=== PATIENT | male | born 1970 | race African-American/Black ===

== ENCOUNTER 2017-06-17 11:16 | Emergency (ER) | payer OTHER ==
[~2017-06-17] VITALS: Ht 180.3 cm; Wt 89.8 kg
[~2017-06-17 11:16] MED LIST: DOXY1LIQ PO; METF1TAB85 PO
[2017-06-17 11:19] VITALS: Ht 180.3 cm; Wt 89.8 kg
[2017-06-17] MEDS ORDERED: MoRPHine SULFATE 4 MG/ML 1 ML CARP\\VIAL IV PRN (11:45)
[2017-06-17] MEDS ORDERED: SODIUM CHLORIDE 0.9% 1000ML 1,000 ML IV ONE (11:45)
[2017-06-17] MEDS ORDERED: ONDANSETRON INJ 2 MG/ML 2 ML VIAL IV PRN (11:45)
--- NOTE | 2017-06-17 11:51 | EMERGENCY ROOM VISIT NOTE ---
History First contact with patient: 11:35 Chief Complaint: NAUSEA Stated Complaint: N, BURNING STOMACH, DIZZY Nursing Triage Summary: triage note; pt reports nausea, "burning stomach", dizziness since yesterday. History of Present Illness The patient is a 46 year old male who presents to the Emergency Room with complaints of a burning diffuse abdominal pain that started last night. He also complains of nausea and dizziness. No changes in bowel movements. No diarrhea or blood in his stool. He denies any fever or chills. He has tried Tums and Pepto-Bismol with no relief of the pain. The pain is constant. No recent changes in medications. The patient is a diabetic. He says that his blood sugar has been under control over the last day. Review of Systems 10 system review performed and negative unless noted in HPI or below Past Medical/Surgical History Medical Problems: (1) No Known Active Medical Problems Diabetes type 2 Family History No pertinent family history Social History Smoking Status: Never Smoker Alcohol Use: none Drug Use: none Marital Status: in relationship Housing Status: lives with significant other Occupation Status: employed Current/Historical Medications Scheduled Insulin Glargine (Lantus Solostar), 10 SC QAM Metformin Hcl (Glucophage Ext Rel), 1,000 MG PO BID Ondasetron Odt (Zofran Odt), 10 MG SL Q6H Pantoprazole (Protonix), 1 TAB PO BID Physical Exam Vital Signs Date Time Temp Pulse Resp B/P (MAP) Pulse Ox O2 Delivery O2 Flow Rate FiO2 06/17/17 15:24 36.5 80 18 145/90 98 06/17/17 15:19 80 18 145/90 98 Room Air 06/17/17 13:19 89 18 155/91 06/17/17 11:19 36.5 117 20 123/87 98 Room Air Physical Exam VITALS: Vitals are noted on the nurse's note and reviewed by myself. Vital signs stable. GENERAL: 46-year-old male, mildly uncomfortable in appearance SKIN: The skin was without rashes, erythema, edema, or bruising. HEAD: Normocephalic atraumatic. MOUTH: Mucous membranes slightly dry. NECK: No JVD. HEART: Regular rate and rhythm without murmurs gallops or rubs. LUNGS: Clear to auscultation bilaterally without wheezes, rales or rhonchi. No accessory muscle use. ABDOMEN: Bowel sounds present, but hypoactive. Soft, no focal tenderness noted , without organomegaly. No guarding or rebound tenderness. MUSCULOSKELETAL: No muscle atrophy, erythema, or edema noted. Strength 5/5 throughout. NEURO: Patient was alert and oriented to person place and time. Normal sensation to touch. No focal neurological deficits. Medical Decision & Procedures Laboratory Results 06/17/17 11:35 Red Blood Count 5.87, Mean Corpuscular Volume 80.2, Mean Corpuscular Hemoglobin 28.8, Mean Corpuscular Hemoglobin Concent 35.9, Mean Platelet Volume 10.0, Neutrophils (%) (Auto) 60.1, Lymphocytes (%) (Auto) 30.8, Monocytes (%) (Auto) 8.0, Eosinophils (%) (Auto) 0.6, Basophils (%) (Auto) 0.1, Neutrophils # (Auto) 4.85, Lymphocytes # (Auto) 2.49, Monocytes # (Auto) 0.65, Eosinophils # (Auto) 0.05, Basophils # (Auto) 0.01 06/17/17 11:35 Test 06/17/17 11:30 06/17/17 11:35 Urine Color YELLOW Urine Appearance CLEAR (CLEAR) Urine pH 5.0 (4.5-7.5) Urine Specific [place] 1.030 (1.000-1.030) Urine Protein NEG (NEG) Urine Glucose (UA) NEG (NEG) Urine Ketones NEG (NEG) Urine Occult Blood NEG (NEG) Urine Nitrite NEG (NEG) Urine Bilirubin NEG (NEG) Urine Urobilinogen NEG (NEG) Urine Leukocyte Esterase NEG (NEG) White Blood Count 8.08 K/uL (4.8-10.8) Red Blood Count 5.87 M/uL (4.7-6.1) Hemoglobin 16.9 g/dL (14.0-18.0) Hematocrit 47.1 % (42-52) Mean Corpuscular Volume 80.2 fL (80-100) Mean Corpuscular Hemoglobin 28.8 pg (25-34) Mean Corpuscular Hemoglobin Concent 35.9 g/dl (32-36) Platelet Count 201 K/uL (130-400) Mean Platelet Volume 10.0 fL (7.4-10.4) Neutrophils (%) (Auto) 60.1 % Lymphocytes (%) (Auto) 30.8 % Monocytes (%) (Auto) 8.0 % Eosinophils (%) (Auto) 0.6 % Basophils (%) (Auto) 0.1 % Neutrophils # (Auto) 4.85 K/uL (1.4-6.5) Lymphocytes # (Auto) 2.49 K/uL (1.2-3.4) Monocytes # (Auto) 0.65 K/uL (0.11-0.59) Eosinophils # (Auto) 0.05 K/uL (0-0.5) Basophils # (Auto) 0.01 K/uL (0-0.2) RDW Standard Deviation 37.9 fL (36.4-46.3) RDW Coefficient of Variation 13.0 % (11.5-14.5) Immature Granulocyte % (Auto) 0.4 % Immature Granulocyte # (Auto) 0.03 K/uL (0.00-0.02) Anion Gap 10.0 mmol/L (3-11) Est Creatinine Clear Calc Drug Dose 65.5 ml/min Estimated GFR () 63.8 Estimated GFR (Non- 55.0 BUN/Creatinine Ratio 16.5 (10-20) Calcium Level 9.3 mg/dl (8.5-10.1) Total Bilirubin 0.2 mg/dl (0.2-1) Aspartate Amino Transf (AST/SGOT) 25 U/L (15-37) Alanine Aminotransferase (ALT/SGPT) 31 U/L (12-78) Alkaline Phosphatase 76 U/L (45-117) Total Protein 7.7 gm/dl (6.4-8.2) Albumin 3.7 gm/dl (3.4-5.0) Globulin 4.0 gm/dl (2.5-4.0) Albumin/Globulin Ratio 0.9 (0.9-2) Lipase 143 U/L (73-393) Medications Administered Medications (Trade) Dose Ordered Sig/Marcos Route Start Time Stop Time Status Last Admin Dose Admin Sodium Chloride 1,000 ml @ 999 mls/hr Q1H1M ONCE IV 06/17/17 11:45 06/17/17 12:45 DC 06/17/17 12:05 999 MLS/HR Ondansetron HCl (Zofran Inj) 4 mg Q2H PRN IV 06/17/17 11:45 06/17/17 15:56 DC 06/17/17 12:06 4 MG Morphine Sulfate (MoRPHine SULFATE INJ) 4 mg Q1H PRN IV 06/17/17 11:45 06/17/17 15:56 DC 06/17/17 12:05 4 MG Pantoprazole Sodium 40 mg/ Syringe 10 ml @ 5 mls/min NOW ONCE IV 06/17/17 13:45 06/17/17 13:46 DC 06/17/17 13:45 5 MLS/MIN ED Course Patient was seen and examined Vital signs including blood pressure were reviewed medications list was verified with patient Labs were obtained, and a saline lock was established The patient was given morphine 4 mg IV, Zofran 4 mg IV and hydrated with 1 L of normal saline Upon reevaluation, the patient was feeling much better. He was given 1 dose of pantoprazole 40 mg IV. We discussed his workup. He voiced understanding. I reviewed discharge instructions the patient. They voiced understanding and had no further questions. Medical Decision DIFFERENTIAL DIAGNOSIS: Gastroenteritis, Hepatitis, cholecystitis, cholangitis, biliary colic, pancreatitis, appendicitis, inguinal hernia, nephrolithiasis, inflammatory bowel disease, mesenteric adenitis, peptic ulcer disease, GERD, gastritis, pancreatitis,, bowel obstruction, splenic infarct, diverticulitis, mesenteric ischemia, metabolic, peritonitis, among others. This patient is a 46-year-old male that presented to the emergency department with complaints of nausea and a burning diffuse abdominal pain. He was afebrile. His abdomen was benign on exam. There is no leukocytosis. Liver function and lipase were unremarkable. He did have a very slight elevation of his creatinine at 1.5. Upon review of past labs, his last creatinine was 1.4. He was notified of this. He was hydrated with normal saline. He was given 1 dose of morphine and Zofran with excellent symptomatic relief. The patient was pain free when I reevaluated him. The etiology of his pain is unclear. It is possible that he had an episode of reflux. He was put on a PPI BID for 14 days. He was also given a prescription for Zofran. I instructed him to follow up with his primary care physician within the next 2-3 days for a recheck. He will return to the ED for any new or worsening symptoms. This chart was completed in part utilizing [employer] Speech Voice Recognition software. Attempts were made to minimize the grammatical errors, random word insertions, pronoun errors and incomplete sentences. Any formal questions or concerns about the content, text or information contained within the body of this dictation should be directly addressed to the provider for clarification. Blood Pressure Screening Patient's blood pressure: Normal blood pressure Impression Primary Impression: Abdominal pain Additional Impression: Nausea Departure Information Dispostion Home / Self-Care Condition GOOD Prescriptions Ondasetron Odt (ZOFRAN ODT) 4 Mg Tab 10 MG SL Q6H for Nausea, #6 TAB Prov: Alcira Wiley PA-C 06/17/17 Pantoprazole (PROTONIX) 40 Mg Tab 1 TAB PO BID for 14 Days, #28 TAB 3 Refills Prov: Alcira Wiley PA-C 06/17/17 Referrals No Doctor, Assigned (PCP) Patient Instructions My [facility] Additional Instructions You were evaluated in the emergency department today for abdominal pain and nausea. Your symptoms have resolved. It is however recommended that you follow up with your primary care physician within the next 2-3 days for a recheck. Please take pantoprazole 1 pill twice daily for 14 days Please take Zofran 1 tab under the tongue every 6 hours as needed for nausea Return to the emergency department if you have any of the following symptoms: -Fever of 103F or greater -Persistent vomiting - Persistent diarrhea -Lethargy -Chest pain -Shortness of breath -Worsening pain It is okay to return to work tomorrow 06/18/17 Problem Qualifiers
[2017-06-17] MEDS ORDERED: METF1TAB53 PO (12:16)
[2017-06-17] MEDS ORDERED: INSDGIPEN SC (12:16)
[2017-06-17 12:23] LABS: URINE APPEARANCE CLEAR (CLEAR); URINE BILIRUBIN NEG (NEG); URINE COLOR YELLOW; URINE NITRITE NEG (NEG); UROBILINOGEN NEG (NEG)
[2017-06-17 12:27] LABS: BASO % 0.1 %; BASO ABS # 0.01 K/uL (0-0.2); COMPLETE YES; EOS % 0.6 %; HEMATOCRIT 47.1 % (42-52); IG% 0.4 %; LYMPH % 30.8 %; LYMPH ABS # 2.49 K/uL (1.2-3.4); MEAN CELL VOLUME 80.2 fL (80-100); MEAN CORPUSCULAR HEMOGLOBIN 28.8 pg (25-34); MEAN CORPUSCULAR HGB CONC 35.9 g/dl (32-36); NEUT % 60.1 %; PLATELET COUNT 201 K/uL (130-400); RED BLOOD COUNT 5.87 M/uL (4.7-6.1); WHITE BLOOD COUNT 8.08 K/uL (4.8-10.8)
[2017-06-17 12:28] LABS: MANUAL MICROSCOPIC REQUIRED? NO; REVIEW REQ? NO
[2017-06-17 12:51] LABS: BUN/CREATININE RATIO 16.5 (10-20); CALCIUM 9.3 mg/dl (8.5-10.1); CREATININE 1.5 mg/dl (0.60-1.40); POTASSIUM 4.3 mmol/L (3.5-5.1)
[2017-06-17 12:53] LABS: ALB/GLOB RATIO 0.9 (0.9-2)
[2017-06-17] MEDS ORDERED: PANTOprazole INJ 40 MG in SYRINGE 0 ML IV ONE (13:45)
[2017-06-17] MEDS ORDERED: ONDA4TAB10 SL (14:16)
[2017-06-17] MEDS ORDERED: PANT1TAB48 PO (14:16)
[2017-06-17 15:24] VITALS: BP 145/90; PULSE 80; TEMP 36.5; O2SAT 98
== END 2017-06-17 15:25 | disposition home or self-care (01) ==
LOC: C.EDB 11:19 → C.EDC 15:25
DX: R10.84 Generalized abdominal pain (principal); R11.0 Nausea; E11.9 Type 2 diabetes mellitus without complications; Z79.4 Long term (current) use of insulin; Z79.899 Other long term (current) drug therapy; Z79.84 Long term (current) use of oral hypoglycemic drugs

== ENCOUNTER 2019-03-09 01:07 | Observation (INO) ==
[2019-03-09] MEDS ORDERED: MoRPHine SULFATE 4 MG/ML 1 ML CARP\\VIAL IV STA (01:24)
[2019-03-09] MEDS ORDERED: LABETALOL HCL IV 5 MG/ML 20ML IV STA (01:24)
[2019-03-09 01:39] LABS: Basophils # (auto) 0.02 K/uL (0-0.2); Basophils % (auto) 0.3 %; Eosinophils # (auto) 0.06 K/uL (0-0.5); Hematocrit (blood only) 46.8 % (42-52); Hemoglobin 16.5 g/dL (14.0-18.0); Immature Granulocytes # (auto) 0.01 K/uL (0.00-0.02); Immature Granulocytes % (auto) 0.2 %; Lymphocytes # (auto) 2.83 K/uL (1.2-3.4); Lymphocytes % (auto) 48.7 %; Mean Corpuscular Hgb Conc 35.3 g/dL (32-36); Mean Corpuscular Volume 80.4 fL (80-100); Mean Platelet Volume 10.5 fL (7.4-10.4); Monocytes # (auto) 0.43 K/uL (0.11-0.59); Monocytes % (auto) 7.4 %; Neutrophils # (auto) 2.46 K/uL (1.4-6.5); Neutrophils % (auto) 42.4 %; Platelet Count 164 K/uL (130-400); RDW Coefficient of Variation 12.8 % (11.5-14.5); Red Blood Count 5.82 M/uL (4.7-6.1); White Blood Count 5.81 K/uL (4.8-10.8)
[2019-03-09 02:07] LABS: Alanine Aminotransferase 43 U/L (12-78); Albumin Level 3.8 gm/dl (3.4-5.0); Alkaline Phosphatase 104 U/L (45-117); Aspartate Aminotransferase 27 U/L (15-37); BUN Creatinine Ratio 12.6 (10-20); Bilirubin,Total 0.3 mg/dl (0.2-1); Blood Urea Nitrogen 14 mg/dl (7-18); Calcium 9.1 mg/dl (8.5-10.1); Carbon Dioxide 28 mmol/L (21-32); Chloride 103 mmol/L (98-107); Est GFR (African American) 89.5; Est GFR (Non-African American) 77.3; Glucose 128 mg/dl (70-99); Magnesium 1.6 mg/dl (1.8-2.4); Potassium 3.9 mmol/L (3.5-5.1); Sodium 138 mmol/L (136-145); Total Protein 8.2 gm/dl (6.4-8.2); Troponin I < 0.015 ng/ml (0-0.045)
[2019-03-09 03:23] LABS: Appearance Urine Clear (Clear); Bilirubin Urine Negative (Negative); Blood Urine Negative (Negative); Color Urine Yellow; Glucose Urine UA Negative (Negative); Ketones Urine Negative (Negative); Leukocyte Esterase Urine Negative (Negative); Nitrite Urine Negative (Negative); Protein Urine Negative (Negative); Specific Gravity Urine 1.016 (1.000-1.030); Urobilinogen Urine Negative (Negative)
--- NOTE | 2019-03-09 06:09 | Emergency Department Note ---
Entered by Edgar Holland acting as a scribe for ED Provider Note Name: Km Babb Age: 48, male Arrives Via: EMS Informant: Patient CC: Dizziness HPI: The patient is a 48 year male who presents to the emergency department with complaints of constant dizziness beginning yesterday. The patient states that he was in the emergency department a week ago for similar symptoms. He notes that his symptoms went away, but he reports that he became dizzy again yesterday. The patient states that he also developed a headache in the front of his head yesterday. He notes that he took a BC powder with no relief of his symptoms. He also complains of nausea and abdominal burning. He denies any vomiting, fever, neck pain, and ear pain. He reports that he does not drink alcohol. ROS: See above HPI for pertinent positives & negatives. A total of 10 systems reviewed and were otherwise negative. Past Medical History: GERD, hypertension Past Surgical History: None Family History: Diabetes Social History: Does not drink alcohol, employed, lives alone Home Medications: Insulin, metformin, Protonix Allergies: Lidocaine Physical: Vitals: BP 153/114 H, Pulse 96 H, Resp 18, Temp 98.2 F, O2 Sat 96 Exam: GENERAL: Patient is uncomfortable appearing and in no acute distress. EYES: No scleral icterus, unremarkable pupils, mild horizontal nystagmus. ENT: Mucous membranes moist, no nasal congestion. NECK: No masses appreciated, no meningismus, trachea is midline. RESPIRATORY: No dyspnea. Clear to auscultation and equal bilaterally. No wheeze, no rhonchi. CARDIOVASCULAR: Regular rate and rhythm. No murmurs, rubs, gallops appreciated. GASTROINTESTINAL: Abdomen soft, non-tender, no peritonitis. Bowel sounds positive. No masses appreciated. BACK: No midline tenderness, no CVA tenderness EXTREMITIES: Normal motion all extremities, no cyanosis, no edema. NEUROLOGIC: Alert and oriented, no acute motor or sensory deficits, no focal weakness, cranial nerves grossly intact. SKIN: No rash, no jaundice, no diaphoresis. ED Course: Prior Medical Record, Triage/Nursing Notes, Medications, Allergies reviewed by Me 0110: The patient was evaluated in room B6. A complete history and physical exam was performed. 0236: I reevaluated and updated the patient. He was sleeping. I woke him and he is not in any distress. He is somewhat somnolent. He denies any further symptoms. 0449: I rechecked the patient. He is still ataxic. He is having difficulty walking. 0517: Upon reevaluation, the patient is stable. I discussed the findings and the treatment plan with the patient. He expresses agreement and understanding. I spo ke with Dr. Harding of the [facility]. After discussing the patient's symptoms, he feels as though brining the patient in for evaluation is reasonable. He will be evaluated for further management. Vital Signs: reviewed and remarkable for HTN Labs: Reviewed and remarkable for wnl Interventions: Saline Lock, Morphine 4mg IV, Labetalol 10mg IV Imaging: CT HEAD: Compared to 02/26/19. No ICH, mass effect, or midline shift. No acute cortical infarct. Radiologist: Kylah Faith MD. EKG: EKG results per my interpretation. Indication - dizziness. Sinus tachycardia, 104, no ectopy, no ischemia. Consults: I spoke with Dr. Harding of the [facility]. After discussing the patient's symptoms, he feels as though brining the patient in for evaluation is reasonable. He will be evaluated for further management. Blood pressure: Normal. No Referral necessary Disposition: Hospitalization Differentials: Differential diagnosis includes: tension headache, cluster headache, migraine headache, meningitis/encephalitis, sinusitis, dental infection, temporal arteritis, glaucoma, carbon monoxide exposure, ICH, SAH, infection, intracranial mass, sinus thrombosis, arterial dissection, as well as others were entertained. Medical Decision Makin yr old male arrives for second time in 2 weeks with what sounds like BPPV however associated with headache. Already with CTA last week unremarkable. Labs today and CT head wo con unremarkable. On discussing seems symptoms on and off but much worse over last 6-12 hours (though timeline is a bit tough to get specific on from him. He has no neuro deficits and even cerebellar with hand/feet unremarkable, however despite significant amount of time post meds he still is unable to even walk straight to get in bathroom. Given HTN, DMII, and severity of issues with ambulation I have asked Hospitalist to bring in for further evaluation and they agree with this plan. Symptoms seem more vertiginous, though unable to rule out stroke/thrombosis/etc without further work-up. He does not exhibit evidence of meningitis at this time. Will need MRI for further work-up thus put in order for hospitalist team. Impression: Ataxia Dennys Calvo MD The scribe's documentation has been prepared under my direction and personally reviewed by me in its entirety. I confirm that the note above accurately reflects all work, treatment, procedures, and medical decision making performed by me. Impression & Plan Ataxia Past Med/Surg History Medical History Headache (Acute) HTN (hypertension) (Acute) GERD (gastroesophageal reflux disease) (Chronic) Type 2 diabetes mellitus (Chronic) Abdominal pain (Acute) Dehydration (Acute) Nausea (Acute) New onset type 2 diabetes mellitus (Acute) No pertinent family history Surgical History No significant past surgical history (Chronic) Social History Preferred Language: Mohawk marital status: Single Current Living Situation: Alone current occupational status: employed Feels Safe at Home: Yes Smoking Status: Never smoker Hx Alcohol Use: No Results & Data Vital Signs Vital Signs - 24 hr 03/09/19 01:17 03/09/19 02:16 03/09/19 03:02 Temperature 36.8 C Temperature Source Oral Sepsis Recent Fever Within 48 Hours No Sepsis Action Taken by Nursing No Action Required Pulse Rate 109 H Pulse Rate [Left] 96 H 90 Pulse Rhythm [Left] Regular Regular Pulse Strength [Left] Respiratory Rate 18 18 18 Respiratory Effort / Characteristics Non-Labored Non-Labored Non-Labored Spontaneous Respiratory Depth Normal Normal Normal Blood Pressure 173/129 H Blood Pressure [Left Arm] 153/114 H 133/93 Blood Pressure Mean 143 Blood Pressure Mean [Left Arm] 127 106 Pulse Oximetry 98 96 96 Oxygen Delivery Method Room Air Room Air Room Air 03/09/19 04:22 03/09/19 05:02 Temperature Temperature Source Sepsis Recent Fever Within 48 Hours Sepsis Action Taken by Nursing Pulse Rate Pulse Rate [Left] 92 H 89 Pulse Rhythm [Left] Regular Regular Pulse Strength [Left] Normal Respiratory Rate 18 18 Respiratory Effort / Characteristics Non-Labored Non-Labored Spontaneous Respiratory Depth Normal Normal Blood Pressure Blood Pressure [Left Arm] 116/83 116/83 Blood Pressure Mean Blood Pressure Mean [Left Arm] 94 94 Pulse Oximetry 97 96 Oxygen Delivery Method Room Air Room Air Home Medications Current Medication List: was personally reviewed by me Laboratory Data Attestation: I reviewed the patient's lab results. Result diagrams: 03/09/19 01:31 03/09/19 01:31 Lab Results 03/09/19 03/09/19 03/09/19 Range/Units 01:31 01:31 03:15 WBC 5.81 (4.8-10.8) K/uL RBC 5.82 (4.7-6.1) M/uL Hgb 16.5 (14.0-18.0) g/dL Hct 46.8 (42-52) % MCV 80.4 (80-100) fL MCH 28.4 (25-34) pg MCHC 35.3 (32-36) g/dL RDW Std Deviation 37.0 (36.4-46.3) fL RDW Coeff of Kt 12.8 (11.5-14.5) % Plt Count 164 (130-400) K/uL MPV 10.5 H (7.4-10.4) fL Immature Gran % (Auto) 0.2 % Neut % (Auto) 42.4 % Lymph % (Auto) 48.7 % [place] % (Auto) 7.4 % Eos % (Auto) 1.0 % Baso % (Auto) 0.3 % Immature Gran # (Auto) 0.01 (0.00-0.02) K/uL Neut # (Auto) 2.46 (1.4-6.5) K/uL Lymph # (Auto) 2.83 (1.2-3.4) K/uL [place] # (Auto) 0.43 (0.11-0.59) K/uL Eos # (Auto) 0.06 (0-0.5) K/uL Baso # (Auto) 0.02 (0-0.2) K/uL Sodium 138 (136-145) mmol/L Potassium 3.9 (3.5-5.1) mmol/L Chloride 103 (98-107) mmol/L Carbon Dioxide 28 (21-32) mmol/L Anion Gap 7.0 (3-11) BUN 14 (7-18) mg/dl Creatinine 1.12 (0.6-1.4) mg/dl Est Cr Clr Drug Dosing 95.0 ml/min Est GFR ( Amer) 89.5 Est GFR (Non-Af Amer) 77.3 BUN/Creatinine Ratio 12.6 (10-20) Glucose 128 H (70-99) mg/dl Calcium 9.1 (8.5-10.1) mg/dl Magnesium 1.6 L (1.8-2.4) mg/dl Total Bilirubin 0.3 (0.2-1) mg/dl Direct Bilirubin (0-0.2) mg/dl AST 27 (15-37) U/L ALT 43 (12-78) U/L Alkaline Phosphatase 104 (45-117) U/L Troponin I < 0.015 (0-0.045) ng/ml Total Protein 8.2 (6.4-8.2) gm/dl Albumin 3.8 (3.4-5.0) gm/dl Lipase 150 (73-393) U/L Specimen Hemolysis Urine Color Yellow Urine Appearance Clear (Clear) Urine pH 5.0 (4.5-7.5) Ur Specific [place] 1.016 (1.000-1.030) Urine Protein Negative (Negative) Urine Glucose (UA) Negative (Negative) Urine Ketones Negative (Negative) Urine Blood Negative (Negative) Urine Nitrite Negative (Negative) Urine Bilirubin Negative (Negative) Urine Urobilinogen Negative (Negative) Ur Leukocyte Esterase Negative (Negative) Administered Medications Discontinued Medications Labetalol HCl (Normodyne) 10 mg IV NOW STA Stop: 03/09/19 01:25 Last Admin: 03/09/19 01:48 Dose: 10 mg Documented by: [id number] Cosigned by: [id number] Morphine Sulfate (Morphine Sulfate) 4 mg IV NOW STA Stop: 03/09/19 01:25 Last Admin: 03/09/19 01:47 Dose: 4 mg Documented by: [id number] Head Trauma GCS Score: 15 Discharge Plan Visit Data Chief Complaint: Dizziness Stated Complaint: DIZZINEES/WEAKNESS Other Complaint: Weakness ED Provider: Dennys Calvo Discharge Problem: Ataxia Patient Disposition: Being Evaluated by Hospitalist Forms Stand Alone Forms: My [employer] Prescriptions Prescriptions: No Action Lantus U-100 Insulin 100 unit/mL Solution 10 unit SUBCUT QAM RF: 0 pantoprazole [Protonix] 40 mg Tablet,Delayed Release (Dr/Ec) 40 mg PO BID RF: 0 metformin 1,000 mg Tablet 1,000 mg PO QAM RF: 0 Referrals Referrals: Pilar Elena CRNP [Primary Care Provider] - The scribe's documentation has been prepared under my direction and personally reviewed by me in its entirety. I confirm that the note above accurately reflects all work, treatment, procedures, and medical decision making performed by me.
--- NOTE | 2019-03-09 06:56 | Magnetic Resonance Report ---
MRA OF THE INTRACRANIAL CIRCULATION WITHOUT CONTRAST CLINICAL HISTORY: dizziness and imbalance COMPARISON STUDY: Head CT and CTA of the head February 26, 2019. TECHNIQUE: Utilizing a 1.5 Joy magnet and 3-D [id number] technique, unenhanced MRA of the intra cranial circulation was obtained. FINDINGS: The bilateral M1, M2, A1 and A2 segments are patent. There is no intracranial aneurysm. The re is no abrupt vessel cut off. The intracranial portion of the right vertebral artery is diminutive. This is unchanged and CTA of February 26, 2019. 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 Posterior circulation is intact. IMPRESSION: 1. No intracranial aneurysm or abrupt vessel cut off. 2. Diminutive intracranial portion of the right vertebral artery which is unchanged since CT of February 26, 2019. 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 Electronically signed by: Nicolas Love M.D. 03/09/2019 6:55 AM
[2019-03-09] MEDS ORDERED: GADOBUTROL 30ML VIAL IV PRN (07:03)
--- NOTE | 2019-03-09 07:16 | Magnetic Resonance Report ---
MRI OF THE BRAIN WITHOUT AND WITH IV CONTRAST CLINICAL HISTORY: dizziness and imbalance COMPARISON STUDY: Head CT and CTA of the head February 24, 2019. TECHNIQUE: Utilizing a 1.5 Joy magnet and dedicated coil, multiplanar, multiecho imaging of the br ain was performed pre and postcontrast administration. IV administration of 9.5 mL of Gadavist contr ast was uneventful. FINDINGS: There are no foci of restricted diffusion to suggest acute infarct. No acute intracranial h emorrhage, midline shift or mass effect is present. Brain volume is normal. Ventricular system is nor mal. The basilar cisterns are patent. There are no extra-axial collections. Flow-voids for the major intracranial vessels are present. There is no intracranial mass or pathologic enhancement. No parench ymal signal abnormality is identified. Orbits and sinuses are unremarkable. IMPRESSION: Unremarkable MRI of the brain. Electronically signed by: Nicolas Love M.D. 03/09/2019 7:15 AM
[2019-03-09] MEDS ORDERED: NITROGLYCERIN SL 0.4 MG/TAB TAB SL PRN (07:31)
[2019-03-09] MEDS ORDERED: ONDANSETRON INJ 2 MG/ML 2 ML VIAL IV PRN (07:31)
[2019-03-09] MEDS ORDERED: LABETALOL HCL IV 5 MG/ML 20ML IV PRN (07:31)
[2019-03-09] MEDS ORDERED: MoRPHine SULFATE 4 MG/ML 1 ML CARP\\VIAL IV PRN (07:31)
[2019-03-09] MEDS: SODIUM CHLORIDE 0.9% 1000ML 1,000 ML IV SCH ×2 (07:39→21:05)
[2019-03-09] MEDS ORDERED: GLUCOSE 10 TABS/TUBE PO PRN (07:45)
[2019-03-09] MEDS ORDERED: GLUCOSE 40% GEL 15 GM TUBE PO PRN (07:45)
[2019-03-09] MEDS ORDERED: CARBOHYDRATES FOR HYPOGLYCEMIA PO PRN (07:45)
[2019-03-09] MEDS ORDERED: DEXTROSE 50% 50 ML SYRINGE IV PRN (07:45)
[2019-03-09] MEDS ORDERED: GLUCAGON FOR INJ 1 MG VIAL IM PRN (07:45)
--- NOTE | 2019-03-09 08:23 | CT Scan Report ---
CT OF THE HEAD WITHOUT CONTRAST CLINICAL HISTORY: return headache vertigo COMPARISON STUDY: Head CT and CTA of the head February 26, 2019. CT DOSE: 537.48 mGy.cm TECHNIQUE: Helical axial images of the head were obtained without IV contrast. Automated exposure con trol was utilized for the study. A dose lowering technique was utilized adhering to the principles o f ALARA. FINDINGS: No acute intracranial hemorrhage, midline shift or mass effect is present. Ventricular syst em is normal. Basilar cisterns are patent. There are no extra-axial collections. Beal-white different iation is maintained. There are no findings to suggest acute dural sinus thrombosis or acute territor ial infarct. Visualized portions of the sinuses and mastoid air cells are clear. IMPRESSION: No acute intracranial findings. Electronically signed by: Nicolas Love M.D. 03/09/2019 8:22 AM
[2019-03-09] MEDS: MAGNESIUM SULFATE / D5W 1 GM/100 ML BAG IV SCH ×2 (08:29→10:06)
[2019-03-09] MEDS: INSULIN ASPART 100 UNITS/ML 3 ML PEN SC SCH ×4 (08:33→20:46)
[2019-03-09] MEDS: INSULIN GLARGINE SOLOSTAR 100 UNITS/ML 3 ML PEN SQ SCH (08:33)
[2019-03-09] MEDS: PANTOprazole 40 MG TAB PO SCH ×2 (08:34→20:44)
--- NOTE | 2019-03-09 10:33 | Ultrasound Report ---
CAROTID ARTERY ULTRASOUND CLINICAL HISTORY: severe dizziness COMPARISON STUDY: None. TECHNIQUE: Real-time, grayscale, and color Doppler sonography of the carotid and vertebral arteries w as performed. Images were viewed in the transverse and longitudinal planes. FINDINGS: There is no significant atherosclerotic plaque. Velocity measurements are listed below. COMMON CAROTID PEAK SYSTOLIC VELOCITY (CM/S): RIGHT 128 LEFT 115 ICA PEAK SYSTOLIC VELOCITY (CM/S): RIGHT 91 LEFT 81 Systolic ratios between the internal to common carotid arteries are normal. Antegrade flow is seen in the left vertebral artery. Right vertebral artery was not visualized. The e xternal carotid arteries are patent. Due to IV, blood pressure was not obtained. IMPRESSION: 1. No evidence for a hemodynamically significant stenosis within the bilateral internal carotid arter ies. 2. Nonvisualization of flow within the right vertebral artery. This is likely due to a small/hypoplas tic vessel. Vessel occlusion could appear similar although is considered less likely. Electronically signed by: Nicolas Love M.D. 03/09/2019 10:31 AM
--- NOTE | 2019-03-09 11:14 | History and Physical Report ---
DATE OF ADMISSION: 03/09/2019 CHIEF COMPLAINT: Dizziness and severe headache and imbalance. HISTORY OF PRESENT ILLNESS: This is a 48-year-old male with past medical history significant for diabetes, GERD, presents with severe headache and dizziness. The patient was here in the hospital in the ER on 02/26 with same severe headache and dizziness. At that time, he was treated with pain medications and meclizine, and CT of the head and CTA of the head were okay, and the patient was discharged home. The patient says that again the symptoms came back today, initially tried to treat himself with wuzy-ktv-mlueoio pain medications, but that did nothing to his severe headaches and also felt nauseous and has severe abdominal pain, like squeezing of his abdomen, which brought him to the ER. In the ER, he was given IV morphine and his blood pressure was running high, was given IV labetalol and CT of the brain was done without contrast, unofficial report is unremarkable, but the patient is still somewhat woozy. He says he had blurred vision when this headache started and still has some blurred visions. Headache is better, but still feeling dizzy and whenever he stands up, he was having difficulty ambulating because he is feeling dizzy, so we are called for admission. After the labetalol is given, his blood pressure improved . His vital signs are stable. Denies any fever or chills, no earache, no runny nose, no sore throat, no difficulty swallowing. Appetite is good. No chest pain or shortness of breath. No nausea, no vomiting. Currently, no diarrhea, no constipation, no blood in the stools, no black stools. Normal bladder movements. No hematuria, no burning micturition. No swelling in the legs. No rash. 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 He is a and goes to [employer]. He says he checks his sugars daily and he says they are okay controlled. He also checks his blood pressure daily and it is also stable as per the patient. ALLERGIES: LIDOCAINE. PAST MEDICAL HISTORY: As mentioned above. PAST SURGICAL HISTORY: The patient denies any surgical history. MEDICATIONS: The patient on insulin Lantus 10 units q.a.m., metformin 1000 mg p.o. a.m., Protonix 40 mg p.o. b.i.d. FAMILY HISTORY: The patient denies any family history. SOCIAL HISTORY: Denies smoking, no alcohol. Lives alone. REVIEW OF SYMPTOMS: As per HPI. Rest of review of systems negative. PHYSICAL EXAMINATION: GENERAL: The patient is of moderate build, not in acute distress. VITAL SIGNS: Temperature 36.8, pulse 89, respiratory rate 18, blood pressure when he came in was 173/129, currently 116/83, oxygen 96% on room air. HEENT: No pallor, no icterus. Pupils equal, round, reactive to light. NECK: No JVD, no neck masses, no carotid bruits. CARDIOVASCULAR: S1, S2 heard, regular rate and rhythm, no murmur, no gallop. RESPIRATORY SYSTEM: Normal AP diameter. No accessory muscle use. No wheezing, no crackles. ABDOMEN: Soft, bowel sounds present. Nontender. No distention seen. CENTRAL NERVOUS SYSTEM: Cranial nerves II-XII grossly intact. Power 5/5 in all extremities. Sensation is intact. Position sense intact. Coordination of movements normal. Zxquud-hn-xboa test normal. Pronator drift negative. Romberg test mildly positive. Gait somewhat hesitant. EXTREMITIES: No edema, no erythema. LABORATORY DATA: WBC 5.8, hemoglobin 16.5, hematocrit 46.8, platelets 164. Sodium 138, potassium 3.9, chloride 103, bicarbonate 28, BUN 14, creatinine 1.1, serum glucose 128, calcium 9.1, magnesium 1.6, total bilirubin 0.3, AST 27, ALT 43, alkaline phosphatase 104. Troponin I less than 0.015. Lipase 150. Urinalysis negative. CT of the head, unofficial report unremarkable. EKG; sinus tachycardia at a rate of 104. No acute ST changes seen, no significant change from previous EKG. ASSESSMENT AND PLAN: This is a 48-year-old male who presents with dizziness and somewhat imbalance. 1. Dizziness, severe headache and ataxia?. The patient presented with headache and dizziness on 02/26, at that time CT of the head and CTA of the head were unremarkable, improved with pain medication and discharged. His blood pressure is high, especially the diastolic blood pressure responded well to the IV labetalol in the ER.received iv morphine and headache is improved, but still woozy and still dizzy while standing up and has some blurred vision. Initial CT of the brain is unremarkable, we will do MRI of the head with and without contrast and MRA of the head.Carotid doppler. Pain control, gentle fluids. Neurology consult. We will closely monitor in the Medical/Surgical Telemetry. 2. Hypertension could be situational from his pain or vice versa. We will monitor his blood pressure. We will place him on labetalol p.r.n. If Blood pressure climbs up, maybe he needs antihypertensives. We will also consider getting an echocardiogram. 3. Diabetes. Continue his home Lantus. Hold metformin, place insulin sliding scale. 4. Gastroesophageal reflux disease. Continue proton-pump inhibitor. 5. Deep venous thrombosis prophylaxis, sequential compression devices for now. 6. Disposition: Observation in Medical/Surgical Telemetry. Level 1 full code. MTDD
--- NOTE | 2019-03-09 13:18 | Consultation Report ---
DATE OF CONSULTATION: 03/09/2019 REASON FOR CONSULTATION: Dizziness. HISTORY OF PRESENT ILLNESS: A 48-year-old right-handed male with diabetes, reflux, and a history of prior dizziness, presented with severe headache and dizziness. The patient had been in the hospital in the ER on 02/26 with same symptoms. At that time, he was treated with pain medicine and meclizine. CT of the head and CTA of the head were normal and the patient was discharged to home. Yesterday, while not exerting himself, the headache came on gradually and became relatively severe. It was bifrontal. There was mild accompanying nausea and he began to become vertiginous. He had mild generalized weakness, felt mildly drowsy. These aforementioned symptoms lasted approximately 20 minutes and he denies that they were unchanged with movement. There were no other accompanying neurologic symptoms such as diplopia, dysarthria, dysphagia, unilateral weakness or numbness. There was no change in vision, scintillating visual phenomenon, graying out of vision. The headache did come on gradually. Subsequently, dizziness was worse with standing and tipping his head. He has had headaches for about 3 weeks. They are intermittent, but this headache was not atypical for the headaches he has been experiencing and was not more severe. He has not had any weight loss or jaw claudication. He has previously had positional vertigo. He denies a family history of Meniere disease. Blood sugar was normal on the day of the episode of dizziness. He admits to being imbalanced, but not unilaterally so. In the ER, he was hypertensive, was given morphine and IV labetalol. CT of the head repeated was unremarkable. 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 Carotid ultrasound; no hemodynamic stenosis. 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 Labs are unremarkable including CBC, blood sugar was notable to be 128 and magnesium 1.6. Electrocardiogram was not repeated on this admission, was sinus tachycardia on last admission. PAST MEDICAL HISTORY: As above. No history of MN, stroke, DVT, PE, or cancer. PAST SURGICAL HISTORY: None. MEDICATIONS ON ADMISSION: Lantus, metformin, Protonix. FAMILY HISTORY: No family history of early heart disease or Meniere disease. SOCIAL HISTORY: Nonsmoker, nondrinker. The patient was in the . REVIEW OF SYSTEMS: As above. PHYSICAL EXAMINATION: CURRENT VITAL SIGNS: 137/93, 57, 16, 36.6, 97%. GENERAL: The patient is awake and alert. There is normal speech and language. His affect is appropriate. VASCULAR: No carotid, vertebral or supraclavicular bruits. Radial pulses are palpably symmetric. NEUROLOGIC: Pupils are equal, round and reactive to light. I had difficulty visualizing the optic nerves. There are normal fernandes and motility. No nystagmus was noted. There is normal facial sensation and facial symmetry. Gross hearing is intact. Tongue is midline. Speech is nondysarthric. Motor 5/5, no drift. Normal rapid alternating movements. Symmetric reflexes. Downgoing toes. Smlzbe-ji-mhxn and zsjx-sk-zqgl are normal. There is no dysdiadochokinesia. Gait is unremarkable. Tandem is unremarkable. Romberg is mildly positive. Provocative head maneuvers with head hanging to the left reproduced his symptoms with latency and some fatigability, although no abnormality of eye movements is noted. IMPRESSION AND PLAN: Probable peripheral labyrinthopathy given the ongoing symptoms and normal MRI brain. To be thorough, I would recommend checking either a CTA of the neck or an MRA of the neck. I suspect the patient cannot get another dye load for another 24 hours after his MRI/MRA. He has some interest in being discharged today because he is concerned about the cost of admission since [facility] only [facility]. I do not know the details of that; however, if the patient feels strongly that he cannot have additional testing, I would have the [facility] a [facility] of the [facility] or MRA of the neck with and without contrast as an outpatient. I think that can be done electively especially since the MRI of the brain is normal. I would recommend that Physical Therapy see him, do an Viktoria maneuver and assess his safety to return to home alone. BECKI
[2019-03-09] MEDS: ACETAMINOPHEN 325 MG TAB PO PRN (23:07)
[2019-03-10 06:00] LABS: Hematocrit (blood only) 42.6 % (42-52); Hemoglobin 14.5 g/dL (14.0-18.0); Mean Platelet Volume 10.2 fL (7.4-10.4); Platelet Count 145 K/uL (130-400); RDW Coefficient of Variation 13.1 % (11.5-14.5); RDW Standard Deviation 39.4 fL (36.4-46.3); Red Blood Count 5.13 M/uL (4.7-6.1); White Blood Count 5.15 K/uL (4.8-10.8)
[2019-03-10 06:26] LABS: BUN Creatinine Ratio 12.8 (10-20); Calcium 8.1 mg/dl (8.5-10.1); Creatinine Clr Calc Pharmacy 107.7 ml/min; Est GFR (African American) 106.6; Est GFR (Non-African American) 91.9; Magnesium 1.9 mg/dl (1.8-2.4); Potassium 4.2 mmol/L (3.5-5.1)
[2019-03-10 06:27] LABS: Basophils # (auto) 0.01 K/uL (0-0.2); Basophils % (auto) 0.2 %; Eosinophils # (auto) 0.07 K/uL (0-0.5); Eosinophils % (auto) 1.4 %; Lymphocytes % (auto) 56.3 %; Monocytes # (auto) 0.41 K/uL (0.11-0.59); Neutrophils # (auto) 1.76 K/uL (1.4-6.5); Neutrophils % (auto) 34.1 %
[2019-03-10 06:40] LABS: Estimated Average Glucose 203 mg/dl; Hemoglobin A1C 8.7 % (4.5-5.6)
[2019-03-10] MEDS: ACETAMINOPHEN 325 MG TAB PO PRN ×2 (08:00→12:42)
[2019-03-10] MEDS: PANTOprazole 40 MG TAB PO SCH (08:01)
[2019-03-10] MEDS: INSULIN GLARGINE SOLOSTAR 100 UNITS/ML 3 ML PEN SQ SCH (08:06)
[2019-03-10] MEDS: INSULIN ASPART 100 UNITS/ML 3 ML PEN SC SCH ×2 (08:06→12:43)
[2019-03-10] MEDS: SODIUM CHLORIDE 0.9% 1000ML 1,000 ML IV SCH (10:25)
--- NOTE | 2019-03-10 15:45 | Discharge Summary ---
Date of Service March 10, 2019 Admission HPI Per Admitting Provider HISTORY OF PRESENT ILLNESS: This is a 48-year-old male with past medical history significant for diabetes, GERD, presents with severe headache and dizziness. The patient was here in the hospital in the ER on 02/26 with same severe headache and dizziness. At that time, he was treated with pain medications and meclizine, and CT of the head and CTA of the head were okay, and the patient was discharged home. The patient says that again the symptoms came back today, initially tried to treat himself with sezd-zwi-pqyowyc pain medications, but that did nothing to his severe headaches and also felt nauseous and has severe abdominal pain, like squeezing of his abdomen, which brought him to the ER. In the ER, he was given IV morphine and his blood pressure was running high, was given IV labetalol and CT of the brain was done without contrast, unofficial report is unremarkable, but the patient is still somewhat woozy. He says he had blurred vision when this headache started and still has some blurred visions. Headache is better, but still feeling dizzy and whenever he stands up, he was having difficulty ambulating because he is feeling dizzy, so we are called for admission. After the labetalol is given, his blood pressure improved . His vital signs are stable. Denies any fever or chills, no earache, no runny nose, no sore throat, no difficulty swallowing. Appetite is good. No chest pain or shortness of breath. No nausea, no vomiting. Currently, no diarrhea, no constipation, no blood in the stools, no black stools. Normal bladder movements. No hematuria, no burning micturition. No swelling in the legs. No rash. 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 He is a and goes to [facility]. He says he checks his sugars daily and he says they are okay controlled. He also checks his blood pressure daily and it is also stable as per the patient. Admission Exam Per Admitting Provider PHYSICAL EXAMINATION: GENERAL: The patient is of moderate build, not in acute distress. VITAL SIGNS: Temperature 36.8, pulse 89, respiratory rate 18, blood pressure when he came in was 173/129, currently 116/83, oxygen 96% on room air. HEENT: No pallor, no icterus. Pupils equal, round, reactive to light. NECK: No JVD, no neck masses, no carotid bruits. CARDIOVASCULAR: S1, S2 heard, regular rate and rhythm, no murmur, no gallop. RESPIRATORY SYSTEM: Normal AP diameter. No accessory muscle use. No wheezing, no crackles. ABDOMEN: Soft, bowel sounds present. Nontender. No distention seen. CENTRAL NERVOUS SYSTEM: Cranial nerves II-XII grossly intact. Power 5/5 in all extremities. Sensation is intact. Position sense intact. Coordination of movements normal. Zfptkg-pi-vcrv test normal. Pronator drift negative. Romberg test mildly positive. Gait somewhat hesitant. EXTREMITIES: No edema, no erythema. Principal Diagnosis severe headache with dizziness-resolved Discharge Data Allergies Allergy/AdvReac Type Severity Reaction Status Date / Time lidocaine Allergy Unknown Swelling Verified 03/09/19 01:37 of Lip/Tongue/Throat Consultations 03/09/19 05:29 ED Decision to Admit Stat 03/09/19 08:00 Consult Neurology Routine Ordered Studies 03/09/19 01:24 CT head/brain wo con Urgent 03/09/19 05:38 MR angio head wo con Stat MR brain wo/w con Stat 03/09/19 07:31 US carotid doppler Urgent Hospital Course (1) Headache: (2) Dizziness: (3) Type 2 diabetes mellitus: 48-year-old diabetic man presented with severe headache and dizziness. Onset was approximately 11 PM and he had not yet gone to sleep. He could not identify a precipitating factor and does not feel he ate anything out of the ordinary. He had an episode of dizziness 1 week prior to arrival he felt that was associated with excessive petit intake. At that time, he was evaluated at the ER and treated with resolution of symptoms. He was admitted to the hospitalist service for further work-up and treatment as this was a repeat occurrence. He had no other focal deficits neurologically. Neurology was consulted. Work-up included a head CT without contrast revealing no acute cranial findings, and MRA of the head revealing no intracranial aneurysm or abrupt vessel cutoff. Diminutive intracranial portion of the right vertebral artery was seen which was unchanged since prior imaging. 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 A brain MRI with and without IV contrast was normal. A carotid Doppler was performed revealing no evidence of hemodynamically significant stenosis within the bilateral internal carotid arteries. There was nonvisualization of flow within the right artery again consistent with a small/plastic vessel. Neurology evaluated the patient and thought this was consistent with a peripheral labyrinthopathy given the ongoing symptoms and normal MRI. To be thorough a CTA or MRA of the neck was recommended, however, he would have needed to wait at least 24 hours from initial contrast given her prior studies. Symptoms had completely resolved after treatment began in the ER and by the time he was admitted to the floor he was feeling well. Therefore, at time of discharge, further neck imaging was thought unnecessary unless symptoms returned. Physical therapy saw him to do an Viktoria maneuver and assess his safety to return home. He was able to demonstrate the ability to function independently and return home without further issue. He underwent the Inez-Hallpike maneuver and BPPV was ruled out with no further plans to perform an Viktoria maneuver. At time of discharge she was hemodynamically stable and afebrile. He was tolerating p.o. and mentating and ambulating at baseline. He had no focal neurologic deficits and denied headache or dizziness. Exam revealed no fluid in the middle ear, tenderness to sinus palpation, and oropharynx was clear with no cervical lymphadenopathy. He had no other history of recent URI. Onset of headache and dizziness was unclear, and he was e ncouraged to follow-up with his primary care provider to further work this up if symptoms return. It was noted that his A1c is elevated to 8.7. 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 He then stated that he has been without metformin for at least this last 6 months. He asked for refill, however, we discussed that this would be more appropriately managed by the primary care provider with labwork and monitoring are required with initiation of metformin. He was encouraged to get his blood sugar under control as a primary goal after discharge as this can contribute to initial symptoms. Long-term risks of diabetes that is uncontrolled was reviewed with the patient and he verbalized understanding. He was given a prescription of naproxen to use as needed severe headache in the future. He was discharged in stable condition with close primary care follow-up recommended. Total Time Total Time Spent Total Time Spent (In Minutes): 60 Total Time Includes: Examination of the Patient, Discharge Planning, Medication Reconciliation and Communication With Other Providers Discharge Plan Discharge Items Patient Disposition: Home - Self-Care Reason For Visit: SEVERE HEADACHE AND DIZZINESS Discharge Diagnosis: Severe headache and dizziness-resolved. Condition: Good Discharge Goals: Decrease discomfort Activity: Resume your previous activity Non-emergency contact: Primary Care Provider Call non-emergency contact if: you have any medication questions, your symptoms worsen, your pain is not controlled and you have a fever Follow-up/Referrals: Pilar Elena CRNP [Primary Care Provider] - Diet: Carb Consistent or DM2 Addtl Provider Instructions: Please take all medications as instructed. It is recommended that you follow-up with your primary care provider within one week of discharge. Take NAPROXEN as needed for headache or pain. Please hold taking metformin until the morning of 03/12. You had intravenous administration of contrast while hospitalized and should wait 48 hours since this was given prior to starting metformin again. Insulin is OK to take now. Consider an outpatient referral to NEUROLOGY if headache or dizziness symptoms persist. You were seen by [facility] while admitted in the hospital. It was a pleasure taking care of you! Please call if you have any questions or problems. You can reach a [facility] hospitalist on duty at [facility] 24 hours a day by calling [phone]. Take care of yourself. Marie Mireles, DO [facility] Hospitalist Prescriptions: New naproxen 500 mg tablet 500 mg PO BID PRN (Reason: severe pain or headache) Qty: 20 RF: 0 Continued Lantus U-100 Insulin 100 unit/mL Solution 10 unit SUBCUT QAM RF: 0 pantoprazole [Protonix] 40 mg Tablet,Delayed Release (Dr/Ec) 40 mg PO BID RF: 0 metformin 1,000 mg Tablet 1,000 mg PO QAM RF: 0 Stand-Alone Forms: My [facility] [email or web address] Krames/Other Patient Handouts: Diabetes Snf Complications, Diabetes Type 2 Coping Discharge Orders: Discharge Order (Routine); Ordered 03/10/19 Ordered By: Marie Mireles Admission Data Admit Date/Time: 03/09/19 05:38 Attending Provider: Marie Mireles Admit Provider: Sixto Harding Primary Care Provider: Pilar Elena Other Providers: Lena Arguelles ; Vineet Cid ; Lena Almodovar ; Aries Baker ; Sixto Harding Service: Telemetry Medical Other Interventions: Discharge Summary Assessment (RN) Last Done: 03/10/19 15:47 DC Date/Time DO NOT enter until pt leaves facility: 03/10/19 16:26
== END 2019-03-10 16:26 | disposition home or self-care (01) ==
LOC: 2N 01:07 → ED 01:07 → SUATTDRO 05:38 → 2N 06:15

== ENCOUNTER 2024-08-14 12:48 | Inpatient (IN) ==
--- NOTE | 2024-08-14 13:21 | Emergency Department Note ---
History of Present Illness General Chief complaint: Abdominal Pain Stated complaint: STOMACH PAIN, CRAMPS Time Seen by Provider: 08/14/24 13:08 History of Present Illness Maximum Pain Intensity: 10 This is a 53-year-old male with a history of diabetes that presents to the emergency department via private vehicle with complaints of "abdominal pain". Patient notes that he began with upper/mid abdominal pain yesterday. This may have been related to eating. No trauma. No injury. Pain is constant at all times but intermittently will spike in regard to severity of pain. He describes it as "cramps". He denies any history of similar. He denies any history of abdominal surgeries. Current pain 11/03. Patient denies any associated chest pain, shortness of breath, fevers, chills, nausea, vomiting or diarrhea. Patient denies any blood in the stool. Home Medications Medication Instructions Recorded Confirmed Type metformin 1,000 mg tablet 1,000 mg PO QAM 10/22/18 08/14/24 History aspirin 81 mg tablet,delayed 81 mg PO DAILY 07/19/20 08/14/24 History release lisinopril 5 mg tablet 5 mg PO PM 07/19/20 08/14/24 History insulin glargine-yfgn 100 unit/mL 7 unit subcut PM 08/14/24 08/14/24 History (3 mL) subcutaneous pen insulin glargine-yfgn 100 unit/mL 15 unit subcut DAILY 08/14/24 08/14/24 History (3 mL) subcutaneous pen Allergies Allergy/AdvReac Type Severity Reaction Status Date / Time lidocaine Allergy Severe Swelling Verified 12/13/21 15:25 of Lip/Tongue/Throat Past Med/Surg History Problem List (Updated 08/15/24 @ 09:44 by Rell Kyle DO) Acute heart failure with reduced ejection fraction (HFrEF, <= 40%) Acute upper abdominal pain (Acute) Cholelithiasis (Acute) Elevated LFTs (Acute) Pleural effusion (Acute) Elevated troponin (Acute) COVID-19 (Acute) Tinnitus of both ears Diabetic peripheral neuropathy Dizziness Ataxia (Acute) No significant past surgical history (Chronic) GERD (gastroesophageal reflux disease) (Chronic) Type 2 diabetes mellitus (Chronic) Abdominal pain (Acute) Dehydration (Acute) Nausea (Acute) New onset type 2 diabetes mellitus (Acute) Medical History TBI (traumatic brain injury) No pertinent family history Family History Mother Diabetes Social History Smoking Status: Never smoker Hx Alcohol Use: No Hx Substance Use: No Preferred Language: Croatian Communication Ability: Effective Internship Coordinator Required: No Beliefs That Will Affect Care: None marital status: Single Current Living Situation: Alone current occupational status: employed Other Information That Helps Us Care for You: No Feels Safe at Home: Yes Safety Concerns: Feels Safe At This Time Assistive Devices: None Review of Systems A total of 10 systems reviewed and were otherwise negative Physical Exam Vital Signs Vital Signs - 24 hr 08/14/24 13:00 08/14/24 13:38 08/14/24 14:43 Temperature 35.3 C L Temperature Source Temporal Artery Scan Pulse Rate 98 H 98 H Pulse Rate [Apical] 96 H Respiratory Rate 18 12 Respiratory Effort / Characteristics Non-Labored Spontaneous Non-Labored Respiratory Depth Normal Normal Respiratory Pattern Regular Blood Pressure 125/88 Blood Pressure [Right Arm] 119/99 Blood Pressure Mean 100 Blood Pressure Mean [Right Arm] 105 Pulse Oximetry 97 97 Oxygen Delivery Method Room Air Room Air Sepsis Recent Fever Within 48 Hours No Sepsis New/Unexplained Change in Mental Status No Sepsis Action Taken by Nursing No Action Required 08/14/24 15:09 Temperature 36.6 C Temperature Source Oral Pulse Rate Pulse Rate [Apical] Respiratory Rate Respiratory Effort / Characteristics Respiratory Depth Respiratory Pattern Blood Pressure Blood Pressure [Right Arm] Blood Pressure Mean Blood Pressure Mean [Right Arm] Pulse Oximetry Oxygen Delivery Method Sepsis Recent Fever Within 48 Hours Sepsis New/Unexplained Change in Mental Status Sepsis Action Taken by Nursing VITAL SIGNS - Vital signs and nursing notes were reviewed. Stable and afebrile. GENERAL -53-year-old male appearing his stated age who is in no acute distress. Communicates well with provider and answers questions appropriately. SKIN - Without rashes. No meningeal or petechial rash. HEAD - NC/AT. EYES - PERRL with EOMI bilaterally. Sclera anicteric. EARS - No deformities of external structures noted on gross examination bilaterally. External auditory canals without discharge or otorrhea. Tympanic membranes pearly howell without retraction or bulging. No fluid or purulent material visualized behind the TM. Handle of malleus, umbo, cone of light, pars tensa/flaccid all easily visualized. NOSE - Midline and without cyanosis. No epistaxis or purulent drainage noted. Septum midline without deviation or septal hematoma noted. MOUTH/OROPHARYNX - Without perioral cyanosis. Buccal mucosa pink and moist and without leukoplakia. Tongue midline with equal elevation of palate bilaterally. No tonsillar hypertrophy, erythema, or exudates noted. Good dentition noted. NECK - Neck with FROM. Supple to palpation. No lymphadenopathy noted. No nuchal rigidity. LUNGS - Chest wall symmetric without accessory muscle use, intercostals retractions, or central cyanosis. Normal vesicular breath sounds CTA B/L. No wheezes, rales, or rhonchi appreciated. CARDIAC - RRR with S1/S2. No murmur, rubs, or gallops appreciated. ABDOMEN - Abdominal contour normal without pulsations or visible masses. BS normoactive all four quadrants. Generalized superior abdominal tenderness in the midline to palpation. No palpable masses, hepatosplenomegaly, or ascites noted. EXTREMITIES - No clubbing or peripheral cyanosis. +5/5 strength noted in UE/LE bilaterally. NEUROLOGIC - Cranial nerves II through XII grossly intact. PSYCH -alert, oriented and pleasant on exam. Course Administered Medications Acetaminophen (Acetaminophen 325 Mg Tab) 650 mg PO Q4H PRN PRN Reason: Pain or Fever Stop: 09/13/24 18:06 Last Admin: 08/15/24 04:25 Dose: 650 mg Documented By: Admin: 08/14/24 21:16 Dose: 650 mg Documented By: SUSI Aspirin (Aspirin 81 Mg Ectab) 81 mg PO DAILY [facility] Stop: 09/14/24 08:59 Last Admin: 08/15/24 08:42 Dose: 81 mg Documented By: DAMIR Heparin Sodium (Porcine) (Heparin Sod 5,000 Unit/0.5 Ml Vial) 5,000 units SQ Q12 ERIKA Stop: 09/13/24 20:59 Last Admin: 08/15/24 08:45 Dose: 5,000 units Documented By: Admin: 08/14/24 21:16 Dose: 5,000 units Documented By: SUSI Hydromorphone HCl (Hydromorphone Inj 0.5 Mg/0.5 Ml Syr) 0.5 mg IV Q6H PRN PRN Reason: Mod-Sev Pain (Scale 4-10) Stop: 08/28/24 18:06 Last Admin: 08/15/24 07:32 Dose: 0.5 mg Documented By: DAMIR Insulin Aspart (Insulin Aspart Per Unit Charge) 0 units SC ACHS [facility] Stop: 09/14/24 06:59 Last Admin: 08/15/24 11:49 Dose: 2 units Documented By: AMW Co-signed By: BROCK Insulin Glargine (Lantus Per Unit Charge) 0 - 10 units SQ BID [facility] Stop: 09/13/24 20:59 Last Admin: 08/15/24 08:43 Dose: 5 units Documented By: DAMIR Co-signed By: ERASMO Admin: 08/14/24 21:14 Dose: 10 units Documented By: SUSI Co-signed By: GUILLE Lisinopril (Lisinopril 5 Mg Tab) 5 mg PO PM [facility] Stop: 09/13/24 20:59 Last Admin: 08/14/24 21:17 Dose: 5 mg Documented By: SUSI Magnesium Oxide (Magnesium Oxide 400 Mg Tab) [facility] [place] Stop: 09/14/24 08:59 Last Admin: 08/15/24 10:51 Dose: Not Given Documented By: DAMIR Metoprolol Succinate (Metoprolol Succ 25mg Ext Rel Tab) 25 mg PO QAM [facility] Stop: 09/14/24 08:59 Last Admin: 08/15/24 08:47 Dose: 25 mg Documented By: DAMIR Silver Sulfadiazine (Silver Sulfadiazine 1% Cr 50 Gm Jar) 1 appln EXT BID [facility] Stop: 09/13/24 20:59 Last Admin: 08/15/24 08:43 Dose: 1 appln Documented By: Admin: 08/14/24 21:17 Dose: 1 appln Documented By: LMP Discontinued Medications Aspirin (Aspirin 81 Mg Chew) 324 mg PO NOW STA Stop: 08/14/24 15:47 Last Admin: 08/14/24 15:56 Dose: 324 mg Documented By: DILMA Furosemide (Furosemide 40 Mg/4 Ml Vial) 40 mg IV ONE ONE Stop: 08/14/24 15:47 Last Admin: 08/14/24 16:02 Dose: 40 mg Documented By: DILMA Furosemide (Furosemide 40 Mg/4 Ml Vial) 40 mg IV BID17 ERIKA Stop: 09/14/24 08:59 Last Admin: 08/15/24 08:43 Dose: 40 mg Documented By: DAMIR Magnesium Sulfate/Dextrose (Magnesium Sulfate / D5w) 1 gm in 100 mls @ 100 mls/hr IV NOW STA Stop: 08/14/24 17:16 Last Infusion: 08/14/24 19:13 Dose: Infused Documented By: Admin: 08/14/24 16:30 Dose: 100 mls/hr Documented By: DILMA Insulin Aspart (Insulin Aspart Per Unit Charge) 0 units SC ACHS [facility] Stop: 09/13/24 18:29 Last Admin: 08/14/24 21:14 Dose: 6 units Documented By: SUSI Co-signed By: GUILLE Admin: 08/14/24 19:08 Dose: Not Given Documented By: SUSI Insulin Aspart (Insulin Aspart Per Unit Charge) 0 units SC Q6H [facility] Stop: 09/14/24 06:59 Last Admin: 08/15/24 07:22 Dose: Not Given Documented By: DAMIR Ioversol (Optiray 320 100ml) 94 ml IV ONCE ONE Stop: 08/14/24 14:06 Last Admin: 08/14/24 14:05 Dose: 94 ml Documented By: LAURA Miscellaneous Information (Nursing To Pharmacy Communication) 1 each N/A TODAY [facility] Stop: 09/14/24 07:14 Last Admin: 08/15/24 07:23 Dose: Not Given Documented By: DAMIR Morphine Sulfate (Morphine Sulfate 4 Mg/Ml 1 Ml Carp\\Vial) 4 mg IV NOW STA Stop: 08/14/24 13:17 Last Admin: 08/14/24 13:25 Dose: 4 mg Documented By: SIMONE Morphine Sulfate (Morphine Sulfate 2 Mg/Ml Carp) Confirm Administered Dose 2 mg .ROUTE .STK-MED ONE Stop: 08/15/24 14:50 Last Admin: 08/15/24 15:03 Dose: 2 mg Documented By: TERRY Ondansetron HCl (Ondansetron Inj 2 Mg/Ml 2 Ml Vial) 4 mg IV NOW STA Stop: 08/14/24 13:17 Last Admin: 08/14/24 13:25 Dose: 4 mg Documented By: SIMONE Medical Decision Making Laboratory Data 08/15/24 10:24 08/15/24 10:24 Lab Results 08/14/24 08/14/24 Range/Units 13:12 13:18 WBC 5.37 (4.8-10.8) K/ul RBC 5.84 (4.70-6.10) M/uL Hgb 16.3 (14.0-18.0) g/dl Hct 50.0 (42.0-52.0) % MCV 85.6 (80.0-100.0) fL MCH 27.9 (25.0-34.0) pg MCHC 32.6 (32.0-36.0) g/dL RDW Std Deviation 41.0 (36.4-46.3) fL RDW Coeff of Kt 13.2 (11.5-14.5) % Plt Count 189 (130-400) K/uL MPV 10.5 (9.4-12.4) fL Immature Gran % (Auto) 0.2 % Neut % (Auto) 44.5 % Lymph % (Auto) 43.0 % [place] % (Auto) 9.9 % Eos % (Auto) 2.0 % Baso % (Auto) 0.4 % Neut # (Auto) 2.39 (1.40-6.50) K/uL Lymph # (Auto) 2.31 (1.20-3.40) K/uL [place] # (Auto) 0.53 (0.11-0.59) K/uL Eos # (Auto) 0.11 (0.00-0.50) K/uL Baso # (Auto) 0.02 (0.00-0.20) K/uL Immature Gran # (Auto) 0.01 (0.01-0.20) K/uL PT 11.7 (9.0-12.0) Seconds INR 1.1 (0.9-1.1) APTT 25 (21-31) Seconds PTT Ratio 0.9 Sodium 137 (136-145) mmol/L Potassium 4.1 (3.5-5.1) mmol/L Chloride 102 (98-107) mmol/L Carbon Dioxide 29 (21-32) mmol/L Anion Gap 6 (3-11) BUN 10 (6-23) mg/dl Creatinine 1.21 (0.6-1.4) mg/dl Est Cr Clr Drug Dosing 75.2 ml/min eGFR 71.59 BUN/Creatinine Ratio 8.3 L (10-20) Glucose 120 H (70-99(Fasting)) mg/dl Calcium 8.3 L (8.6-10.3) mg/dl Magnesium 1.6 L (1.7-2.4) mg/dl Total Bilirubin 0.6 (0.2-1.0) mg/dl AST 76 H (13-39) U/L ALT 385 H (7-52) U/L Alkaline Phosphatase 74 (34-104) U/L Troponin I High Sens 141.5 H* (0-20) pg/ml Total Protein 6.0 (6.0-8.3) gm/dl Albumin 3.3 L (3.4-5.0) gm/dl Globulin 2.7 (2.5-4.0) gm/dl Albumin/Globulin Ratio 1.2 (0.9-2) Lipase 13 (11-82) U/L Urine Color Jayashree Urine Appearance Turbid A (Clear) Urine pH 6.0 (4.5-7.5) Ur Specific [place] >= 1.030 (1.000-1.030) Urine Protein 3+ H (Negative) Urine Glucose (UA) Negative (Negative) Urine Ketones Negative (Negative) Urine Blood Trace-intact H (Negative) Urine Nitrite Negative (Negative) Urine Bilirubin Negative (Negative) Urine Urobilinogen Positive H (Negative) Ur Leukocyte Esterase Trace H (Negative) Urine RBC 3-5 H (0-2) /hpf Urine WBC 6-10 H (0-5) /hpf Ur Epithelial Cells >20 H (0-2) /hpf Calcium Oxalate Crystal Present A (None Prsent) Urine Bacteria 1+ H (None Seen) Hyaline Casts Present A (None Presnt) /lpf Urine Mucus Present A (None Prsent) Imaging Data Radiologist's Impression: Abdomen/Pelvis CT 08/14/24 13:16 CT OF THE ABDOMEN AND PELVIS WITH CONTRAST CLINICAL HISTORY: Mid/upper abdominal pain. COMPARISON STUDY: CT of the abdomen and pelvis right upper quadrant ultrasound December 13, 2021. TECHNIQUE: Following IV administration of 94 mL of Optiray, axial images of the abdomen and pelvis were obtained from the lung bases to the proximal femurs. Images were reviewed in the axial, sagittal, and coronal planes. IV contrast was administered without complication. Automated exposure control was utilized for the study. A dose lowering technique was utilized adhering to the principles of ALARA. CT DOSE: 1199.35 mGy.cm FINDINGS: The heart is moderately enlarged. There are [id number] bilateral pleural effusions. Lower lung airspace opacities favor atelectasis. No pneumatosis, free air or portal venous gas is present. There is hepatic steatosis. Note is made of gallstones within the gallbladder. The gallbladder is not distended. Spleen, adrenal glands, kidneys and pancreas are unremarkable. There is no hydronephrosis. Body wall edema is noted. There is a small amount of ascites within the pelvis. Caliber and wall thickness of small and large bowel are normal. The appendix is normal. The bladder wall is thickened. This is similar to prior CT and probably chronic. IMPRESSION: 1. Cardiomegaly with small to moderate bilateral pleural effusions. 2. Body wall edema with a small amount of ascites within the pelvis. 3. Normal appendix. No bowel obstruction. No bowel wall thickening. 4. Hepatic steatosis. 5. Cholelithiasis. No evidence for acute cholecystitis. ACT 112: Negative or not required by law. Electronically signed by: Nicolas Love M.D. 08/14/2024 2:28 PM Chest X-Ray 08/14/24 14:02 XR chest 1V portable HISTORY: 53 years-old Male abd pain, elevated troponin COMPARISON: CT abdomen and pelvis of same day, chest radiograph 01/12/2021 TECHNIQUE: AP view of the chest FINDINGS: Heart is enlarged. Pulmonary vascular congestion. Moderate layering pleural effusions with bibasilar consolidation. Bones appear grossly intact. IMPRESSION: 1. Cardiomegaly with pulmonary vascular congestion. 2. Moderate pleural effusions with dependent bibasilar opacities suggestive of probable atelectasis. Pneumonia considered less likely. ACT 112: Negative or not required by law. The above report was generated using voice recognition software. It may contain grammatical, syntax or spelling errors. Electronically signed by: Nasir Rebollar M.D. 08/14/2024 2:45 PM MDM Narrative Patient was seen and evaluated as above in room A04. Review was performed of triage nursing notes and vital signs. I did review pertinent previous visits and patient history. After obtaining a thorough history and physical examination the above work up was performed. Patient presents to us today for evaluation of upper abdominal pain that began yesterday. This is made worse by walking but is constant and at times will spike in regard to severity of pain. On my assessment the patient is tender in the upper abdomen/has reproduction of discomfort with palpation. Patient denies any chest pain or shortness of breath. Options of care were discussed with the patient. IV access with established labs were drawn. EKG reveals sinus tachycardia at a rate of 101 bpm. QTc 482, QRS 80. No ST elevation. TWI noted. This rhythm tracing was compared to previous in the EMR dated January 12, 2021. Patient does desire something for his symptoms. IV morphine ordered as well as IV Zofran. Will proceed with CT scan of abdomen/pelvis. Although I doubt that this represents ACS or cardiac etiology noting the patient is with reproduction of discomfort with palpation in the upper abdomen, we will be thorough at this time with EKG and troponin plus workup as outlined above. However, I did receive critical notification of troponin elevation at 141. Chest x-ray was added. I did immediately evaluate the patient following this critical value and the patient is feeling much better following the IV morphine/Zofran. Abd pain is greatly diminished. He again notes he does not have any chest pain or shortness of breath. CT scan results as above. This does reveal cardiomegaly with small to moderate bilateral pleural effusions and some body wall edema. Small amount of ascites within the pelvis noted. Cholelithiasis but no evidence of acute cholecystitis. Hepatic steatosis noted which may cause the transaminitis however this will have to be trended. The chest x-ray did return with similar findings noting cardiomegaly and pulmonary vascular congestion. Pleural effusions noted however pneumonia considered less likely. Repeat troponin added and it is downtrending. At this time I do believe that further evaluation and management the inpatient setting is warranted. Case discussed with the hospitalist service. Please refer to further documentation regarding his stay. GCS: 15 In the evaluation and treatment of this patient the following differential diagnoses were entertained: Acute cholecystitis, pancreatitis, bowel obstruction, diverticulitis, ACS, among others Impression & Plan Acute upper abdominal pain, Elevated troponin, Pleural effusion, Elevated LFTs, Cholelithiasis Discharge Plan Visit Data Chief Complaint: Abdominal Pain Stated Complaint: STOMACH PAIN, CRAMPS ED Provider: Delta Yusuf ED Midlevel Provider: Hira Meraz Discharge Problem: Acute upper abdominal pain, Elevated troponin, Pleural effusion, Elevated LFTs, Cholelithiasis Patient Disposition: Admitted As Inpatient Condition: Good Discharge Instructions Interventions: ED Discharge Assessment Last Done: 08/14/24 17:40
[2024-08-14] MEDS: ONDANSETRON INJ 2 MG/ML 2 ML VIAL IV STA (13:25)
[2024-08-14] MEDS: MoRPHine SULFATE 4 MG/ML 1 ML CARP\\VIAL IV STA (13:25)
[2024-08-14 13:35] LABS: Appearance Urine Turbid (Clear); Bilirubin Urine Negative (Negative); Blood Urine Trace-intact (Negative); Color Urine Amber; Glucose Urine UA Negative (Negative); Ketones Urine Negative (Negative); Leukocyte Esterase Urine Trace (Negative); Nitrite Urine Negative (Negative); Protein Urine 3+ (Negative); Specific Gravity Urine >= 1.030 (1.000-1.030); Urobilinogen Urine Positive (Negative)
[2024-08-14 13:35] LABS: Basophils # (auto) 0.02 K/uL (0.00-0.20); Basophils % (auto) 0.4 %; Eosinophils # (auto) 0.11 K/uL (0.00-0.50); Hemoglobin 16.3 g/dl (14.0-18.0); Immature Granulocytes # (auto) 0.01 K/uL (0.01-0.20); Immature Granulocytes % (auto) 0.2 %; Lymphocytes # (auto) 2.31 K/uL (1.20-3.40); Mean Corpuscular Hemoglobin 27.9 pg (25.0-34.0); Mean Corpuscular Hgb Conc 32.6 g/dL (32.0-36.0); Mean Corpuscular Volume 85.6 fL (80.0-100.0); Mean Platelet Volume 10.5 fL (9.4-12.4); Monocytes # (auto) 0.53 K/uL (0.11-0.59); Monocytes % (auto) 9.9 %; Neutrophils # (auto) 2.39 K/uL (1.40-6.50); Neutrophils % (auto) 44.5 %; Platelet Count 189 K/uL (130-400); RDW Coefficient of Variation 13.2 % (11.5-14.5); Red Blood Count 5.84 M/uL (4.70-6.10); White Blood Count 5.37 K/ul (4.8-10.8)
[2024-08-14 13:39] LABS: Epithelial Cell Urine >20 /hpf (0-2)
[2024-08-14 13:40] LABS: Bacteria Urine 1+ (None Seen); Hyaline Casts Urine Present /lpf (None Presnt); Mucus Urine Present (None Prsent)
[2024-08-14 13:48] LABS: Calcium Oxalate Crystals Urine Present (None Prsent)
[2024-08-14 13:55] LABS: Albumin Globulin Ratio 1.2 (0.9-2); Albumin Level 3.3 gm/dl (3.4-5.0); BUN Creatinine Ratio 8.3 (10-20); Bilirubin,Total 0.6 mg/dl (0.2-1.0); Calcium 8.3 mg/dl (8.6-10.3); Creatinine Clr Calc Pharmacy 75.2 ml/min; Globulin 2.7 gm/dl (2.5-4.0); Magnesium 1.6 mg/dl (1.7-2.4); Potassium 4.1 mmol/L (3.5-5.1)
[2024-08-14 14:03] LABS: Troponin I High Sensitivity 141.5 pg/ml (0-20)
[2024-08-14] MEDS: OPTIRAY 320 100ml IV ONE (14:05)
[2024-08-14 14:12] LABS: INR 1.1 (0.9-1.1); Partial Thromboplastin Ratio 0.9; Partial Thromboplastin Time 25 Seconds (21-31); Prothrombin Time 11.7 Seconds (9.0-12.0)
--- NOTE | 2024-08-14 14:29 | CT Scan Report ---
CT OF THE ABDOMEN AND PELVIS WITH CONTRAST CLINICAL HISTORY: Mid/upper abdominal pain. COMPARISON STUDY: CT of the abdomen and pelvis right upper quadrant ultrasound December 13, 2021. TECHNIQUE: Following IV administration of 94 mL of Optiray, axial images of the abdomen and pelvis we re obtained from the lung bases to the proximal femurs. Images were reviewed in the axial, sagittal, and coronal planes. IV contrast was administered without complication. Automated exposure control wa s utilized for the study. A dose lowering technique was utilized adhering to the principles of ALARA . CT DOSE: 1199.35 mGy.cm FINDINGS: The heart is moderately enlarged. There are [id number] bilateral pleural effusions. Lower lung airspace opacities favor atelectasis. No pneumatosis, free air or portal venous gas is pre sent. There is hepatic steatosis. Note is made of gallstones within the gallbladder. The gallbladder is not distended. Spleen, adrenal glands, kidneys and pancreas are unremarkable. There is no hydronep hrosis. Body wall edema is noted. There is a small amount of ascites within the pelvis. Caliber and w all thickness of small and large bowel are normal. The appendix is normal. The bladder wall is thicke jayda. This is similar to prior CT and probably chronic. IMPRESSION: 1. Cardiomegaly with small to moderate bilateral pleural effusions. 2. Body wall edema with a small amount of ascites within the pelvis. 3. Normal appendix. No bowel obstruction. No bowel wall thickening. 4. Hepatic steatosis. 5. Cholelithiasis. No evidence for acute cholecystitis. ACT 112: Negative or not required by law. Electronically signed by: Nicolas Love M.D. 08/14/2024 2:28 PM
--- NOTE | 2024-08-14 14:46 | XRay Report ---
XR chest 1V portable HISTORY: 53 years-old Male abd pain, elevated troponin COMPARISON: CT abdomen and pelvis of same day, chest radiograph 01/12/2021 TECHNIQUE: AP view of the chest FINDINGS: Heart is enlarged. Pulmonary vascular congestion. Moderate layering pleural effusions with bibasilar consolidation. Bones appear grossly intact. IMPRESSION: 1. Cardiomegaly with pulmonary vascular congestion. 2. Moderate pleural effusions with dependent bibasilar opacities suggestive of probable atelectasis. Pneumonia considered less likely. ACT 112: Negative or not required by law. The above report was generated using voice recognition software. It may contain grammatical, syntax o r spelling errors. Electronically signed by: Nasir Rebollar M.D. 08/14/2024 2:45 PM
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
[2024-08-14] MEDS: ASPIRIN 81 MG CHEW PO STA (15:56)
[2024-08-14] MEDS: FUROSEMIDE 40 MG/4 ML VIAL IV ONE (16:02)
[2024-08-14] MEDS: MAGNESIUM SULFATE / D5W 1 GM/100 ML BAG IV STA (16:30)
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
[2024-08-14 18:07] LABS: Hep B Surface Ag with confirm Negative (Negative)
[2024-08-14] MEDS ORDERED: DEXTROSE 50% 50 ML SYRINGE IV PRN (18:07)
[2024-08-14] MEDS ORDERED: CARBOHYDRATES FOR HYPOGLYCEMIA PO PRN (18:07)
[2024-08-14] MEDS ORDERED: GLUCOSE 10 TAB/TUBE PO PRN (18:07)
[2024-08-14] MEDS ORDERED: GLUCOSE 40% GEL 15 GM TUBE PO PRN (18:07)
[2024-08-14] MEDS ORDERED: GLUCAGON FOR INJ 1 MG VIAL SQ PRN (18:07)
[2024-08-14] MEDS ORDERED: POLYETHYLENE (MIRALAX) 17 GM PACK PO PRN (18:07)
[2024-08-14 18:13] LABS: Hep C Ab Rflx HepCQuant RNA Negative (Negative)
[2024-08-14] MEDS: INSULIN ASPART PER UNIT CHARGE SC SCH (19:08)
--- NOTE | 2024-08-14 20:14 | Surgery Consultation ---
Date of Consultation August 14, 2024 Assessment & Plan (1) Cholelithiasis: The patient has been admitted on the medical service. He is currently undergoing cardiac evaluation due to some of his noted symptomatology and imaging findings: An echocardiogram is planned for tomorrow Patient has having serial cardiac enzymes checkedwill await further recommendations from the medical/cardiology service concerning his cardiovascular status From surgery perspective we recommend the following: On CT scan the patient does not have any evidence of cholecystitis Will check a gallbladder ultrasound for further delineation of the hepatobiliary system Patient does have elevated transaminases. This could be due to hepatic congestion from underlying cardiac etiology or could be due to underlying cholelithiasis. Of note, he does have a normal alkaline phosphatase and total bilirubin. Would recommend repeating LFTs in the morning to see how they trend. Appears as though the patient may benefit at some point from Cholecystectomy, however would like to see how his LFTs trend as well as evaluate his hepatobiliary system and ultrasound as noted above. In addition the patient is undergoing further cardiovascular workup and he will need to have cardiac clearance prior to entertaining any surgical intervention. Will follow along with this patient make further recommendations based on pending items as they are completed in his clinical course as it unfolds Supervising Physician Co-Signing Physician Notes Patient discussed with Adrien MENG, labs imaging reviewed, agree with above. Presented with abdominal pain. CT scan with large gallstones but no cholecystitis. Also noted to have cardiomegaly with pleural effusions and signs of CHF. Currently awaiting echocardiogram and cardiology consultation. No evid ence of acute cholecystitis at this time, would defer any type of surgical intervention until evaluated by cardiology and optimized. This can be done as an outpatient if symptoms improve. History of Present Illness Reason for Consultation: Cholelithiasis Attending Physician: Gulshan Strickland MD History of Present Illness This is a 53-year-old male who presented to the emergency department [facility] and was subsequently admitted to the hospital earlier today. The patient notes that he was admitted secondary to upper abdominal pain which radiated to his chest. The patient notes that for several weeks he has been having postprandial pain in his upper abdomen that would usually self resolve after a few minutes. Patient presented to the emergency department as noted above because today he had an episode of upper abdominal pain that was markedly more severe than what he usually experienced and it did not resolve in the same amount of time. He denies any fevers, shakes, or chills. He denies any nausea or vomiting. He says that the pain did radiate to his chest. In addition the patient reports shortness of breath with the symptomatology. He denies any prior abdominal surgeries. Since arrival to the hospital he has had labs and imaging which independent reviewed. CT scan abdomen pelvis showed the patient had cardiomegaly with small to moderate bilateral pleural effusions. He has small amount of ascites noted in the pelvis and some body wall edema. There is no evidence of bowel obstruction. The patient was noted to have cholelithiasis without evidence of cholecystitis. Chest x-ray showed cardiomegaly with pulmonary vascular congestion. Labs include CBC white blood cell count, hemoglobin, hematocrit, and platelet count were all normal. His coagulation studies were normal. Chemistry profile showed sodium and potassium as well as the BUN and creatinine were normal. His LFTs revealed a normal bilirubin and normal alkaline phosphatase however his AST and ALT were elevated 76 and 385. Of note, the patient was noted to have an elevated troponin of 141.5. He also had a slightly elevated BNP at 791. The urinalysis showed 6-10 white blood cells per high- power field but was negative for nitrates. He did have trace leukocyte esterase and 1+ bacteria on the study. He was tested for hepatitis and thus far hepatitis C and hepatitis B surface antigen are negative. Test for hepatitis A and hepatitis B IgM antibody are pending. Since admission and due to the patient's elevated troponin he has been treated for volume overload and is subsequently seen by cardiology. Patient is scheduled for an echocardiogram tomorrow. Concerning cardiac symptomatology the patient denies any chest pain other than abdominal pain which radiates to his chest but he does have shortness of breath as noted above. He denies any smoking but does carry a diagnosis of type 2 diabetes. He has no prior history of heart attack. At the time of my interview he was resting comfortably in bed and he was in no distress. Allergies Allergy/AdvReac Type Severity Reaction Status Date / Time lidocaine Allergy Severe Swelling Verified 12/13/21 15:25 of Lip/Tongue/Throat Home Medications Medication Instructions Recorded Confirmed Type metformin 1,000 mg tablet 1,000 mg PO QAM 10/22/18 08/14/24 History aspirin 81 mg tablet,delayed 81 mg PO DAILY 07/19/20 08/14/24 History release lisinopril 5 mg tablet 5 mg PO PM 07/19/20 08/14/24 History insulin glargine-yfgn 100 unit/mL 7 unit subcut PM 08/14/24 08/14/24 History (3 mL) subcutaneous pen insulin glargine-yfgn 100 unit/mL 15 unit subcut DAILY 08/14/24 08/14/24 History (3 mL) subcutaneous pen Patient History Medical History TBI (traumatic brain injury) No pertinent family history Family History Mother Diabetes Social History Smoking Status: Never smoker Hx Alcohol Use: No Hx Substance Use: No Preferred Language: Tajik Communication Ability: Effective Cell Installer Required: No Beliefs That Will Affect Care: None marital status: Single Current Living Situation: Alone current occupational status: employed Other Information That Helps Us Care for You: No Feels Safe at Home: Yes Safety Concerns: Feels Safe At This Time Assistive Devices: None Review of Systems Review of Systems: All systems reviewed & are unremarkable except as noted in HPI & below Physical Exam Constitutional: WD/WN, vitals as above Eyes: + anicteric sclerae ENMT: Ears: no hearing impairment and no external ear abnormality Mouth: no oropharynx abnormality Neck: trachea midline Respiratory: normal respiratory effort; no respiratory distress and no labored breathing Cardiovascular: Rate/Rhythm: regular rate and regular rhythm Gastrointestinal (Abdomen): Abdomen soft and nonrigid. Patient did have generalized pain in his upper abd omen but with this was greatest in the right upper quadrant. There is no rebound tenderness or guarding Musculoskeletal: No calf tenderness Skin: + jaundice Neurologic: moves all extremities Psychiatric: A+Ox3, euthymic affect Results & Data Vital Signs (Past 12 Hours) Vital Signs Temp Pulse Pulse Resp BP BP Pulse Ox 08/14/24 18:14 08/14/24 18:11 36.4 C L 102 H 20 128/96 99 08/14/24 18:07 36.4 C L 102 H 20 128/96 99 08/14/24 17:33 105 H 20 114/93 95 08/14/24 17:00 98 H 16 120/93 98 08/14/24 15:52 103 H 20 131/100 97 08/14/24 15:09 36.6 C 08/14/24 14:43 96 H 12 119/99 97 08/14/24 13:38 98 H 08/14/24 13:00 35.3 C L 98 H 18 125/88 97 O2 Del Method 08/14/24 18:14 Room Air 08/14/24 18:11 Room Air 08/14/24 18:07 Room Air 08/14/24 17:33 08/14/24 17:00 Room Air 08/14/24 15:52 Room Air 08/14/24 15:09 08/14/24 14:43 Room Air 08/14/24 13:38 08/14/24 13:00 Room Air PG Care Time/CCT Total # of Minutes Spent Total Time Spent with Patient: Total time spent is greater than 50% in coordination of care (as documented) at patient's floor/unit and/or counseling patient: Coding Level of Care Code 97484 IN/OBS CONSULT LVL 5,80M Diagnoses Cholelithiasis K80.20
[2024-08-14] MEDS: LANTUS PER UNIT CHARGE SQ SCH (21:14)
[2024-08-14] MEDS: ACETAMINOPHEN 325 MG TAB PO PRN (21:16)
[2024-08-14] MEDS: HEPARIN SOD 5,000 UNIT/0.5 ML VIAL SQ SCH (21:16)
[2024-08-14] MEDS: lisinopril 5 MG TAB PO SCH (21:17)
[2024-08-14] MEDS: SILVER SULFADIAZINE 1% CR 50 GM JAR EXT SCH (21:17)
[2024-08-14 23:05] LABS: Total Protein Urine Random 16.3 mg/dl (0-11.9)
[2024-08-14 23:11] LABS: Creatinine Urine Random 38.9 mg/dl; Protein Creatinine Ratio Urine 0.4 (0-0.2)
--- NOTE | 2024-08-14 23:13 | Electrocardiogram Report ---
Test Reason : Blood Pressure : */* mmHG Vent. Rate : 101 BPM Atrial Rate : 101 BPM P-R Int : 158 ms QRS Dur : 80 ms QT Int : 372 ms P-R-T Axes : 73 -6 19 degrees QTcB Int : 482 ms Sinus tachycardia Possible Left atrial enlargement Nonspecific ST and T wave abnormality Abnormal ECG When compared with ECG of 12-Jan-2021 12:59, Nonspecific T wave abnormality now evident in Lateral leads Confirmed by Ivan Jenkins ([id number]) on 08/14/2024 11:13:16 PM Referred By: REFERRED SELF Confirmed By: Ivan Jenkins
[2024-08-15] MEDS: INSULIN ASPART PER UNIT CHARGE SC SCH ×2 (07:22→11:49)
[2024-08-15] MEDS: Nursing to Pharmacy Communication SCH (07:23)
[2024-08-15] MEDS: HYDROmorphone INJ 0.5 MG/0.5 ML SYR IV PRN (07:32)
[2024-08-15] MEDS: ASPIRIN 81 MG ECTAB PO SCH (08:42)
[2024-08-15] MEDS: FUROSEMIDE 40 MG/4 ML VIAL IV SCH (08:43)
[2024-08-15] MEDS: METOPROLOL SUCC 25MG EXT REL TAB PO SCH (08:47)
--- NOTE | 2024-08-15 09:13 | Ultrasound Report ---
ABDOMINAL ULTRASOUND, RIGHT UPPER QUADRANT HISTORY: Acute right upper quadrant abdominal pain upper abd pain. COMPARISON: CT 08/14/2024 FINDINGS: Pancreas: The pancreas demonstrates a normal echotexture, however is partially obscured by bowel gas. Liver: Unremarkable measuring 17.5 cm in length. Gallbladder: Stone filled gallbladder with layering sludge. Gallstones measure up to approximately 2 cm. No definite gallbladder wall thickening or pericholecystic fluid. Sonographic Hitchcock sign is not reported, however the [employer] manager reports that the patient was diffusely tender throughout the exam. CBD: 7 mm Right kidney: No hydronephrosis. IMPRESSION: 1. Large gallstones redemonstrated without definite sonographic evidence of acute cholecystitis. 2. Common bile duct measures within the upper limits of normal at 7 mm. 3. Pancreas is partially obscured by bowel gas. ACT 112: Negative or not required by law. Electronically signed by: Nasir Rebollar M.D. 08/15/2024 9:11 AM
[2024-08-15] MEDS ORDERED: Nursing to Pharmacy Communication SCH (09:15)
--- NOTE | 2024-08-15 09:51 | Cardiology Progress Note ---
Date of Service August 15, 2024 Assessment & Plan (1) Acute heart failure with reduced ejection fraction (HFrEF, <= 40%): Plan: Echocardiogram performed today and reviewed/interpreted independently reveals mild concentric left ventricular hypertrophy with severe global left ventricular hypokinesis. The left ventricular ejection fraction is severely reduced in the range of 20-25%. The right ventricular chamber size is normal however the right ventricular s ystolic function is moderately reduced with noted dilatation of the inferior vena cava consistent with elevated right atrial pressure of 15 mmHg. Left ventricular diastolic function is abnormal consistent with elevated left- sided filling pressure. No previous studies are available for comparison. Repeat EKG 08/15/2024 reveals sinus rhythm at 90 bpm with noted nonspecific T wave abnormality in the lateral leads (low amplitude T wave inversions). Left ventricular hypertrophy by voltage criteria noted on EKG. High-sensitivity troponin mildly elevated with flat trend, 141--> 126--> 141.5 PG per mL. At present, do not feel presentation is suggestive of an acute coronary syndrome however ischemic heart disease is certainly a possibility with regards to the etiology of his left ventricular systolic dysfunction. Patient does have a history of diabetes. He denies alcohol use. Medication management: Add metoprolol succinate 25 mg daily this morning, supplement magnesium, continue lisinopril 5 mg daily. Continue aspirin 81 mg daily. Holding off on statin therapy given elevated LFTs for now we will reassess tomorrow. Continue furosemide 40 mg IV twice daily. Significant proteinuria noted on urinalysis. Urine protein to creatinine ratio minimally elevated 0.4. I have ordered iron studies, serum and urine immunofixation, free kappa/lambda light chain levels. Will likely require coronary angiography after compensated from a volume overload standpoint this admission. (2) Acute upper abdominal pain: Plan: CT and ultrasound suggestive of cholelithiasis without definite cholecystitis. Given dilated inferior vena cava and hypokinetic right ventricle, elevated LFTs and sensation of abdominal bloating certainly could be related to hepatic congestion from CHF. Will advance diet for now, continue cardiac workup and treatment. Admission and Anticipated Discharge Date Admission Date: August 14, 2024 Subjective Patient seen in cardiology follow-up of shortness of breath, volume overload. He notes his breathing was better last night without symptoms of orthopnea. He still has some mild abdominal discomfort, but that has trended toward improvement. He states that he has been urinating vigorously. I am not certain whether or not his intake and outtake has been measured accurately at present with noted 1050 mL of urine output recorded thus far. Telemetry reveals sinus tachycardia with rate of 100 to 105 bpm. Review of Systems Gastrointestinal: Mild abdominal discomfort. Physical Exam Physical Exam: General: no acute distress and stated age Eyes: conjunctiva are pink and non-injected, sclera clear Neck: normal jugular venous pulse, no hepatojugular reflux Chest: normal shape and normal respiratory effort Lungs: Mildly decreased breath sounds bilaterally at the base Cardiac Exam: - Regular rhythm, tachycardic, no murmurs, no jugular venous distention, no lower extremity Edema Abdomen: Nontender, suggestion of mild fluid retention on palpation Musculoskeletal: no gait disturbance, no weakness Extremities: no edema and no cyanosis Neuro:awake, conversant, follows commands, no focal motor deficits Psych: appropriate affect and insight. Results & Data Vital Signs (Past 12 Hours) Vital Signs Temp Pulse Pulse Resp BP Pulse Ox O2 Del Method 08/15/24 07:16 36.6 C 102 H 17 110/78 98 Room Air 08/15/24 04:18 36.8 C 96 H 16 101/73 97 Room Air 08/15/24 00:00 105 H 08/14/24 23:56 36.5 C 103 H 19 151/97 H 98 Room Air Laboratory Results Cardiac Enzymes 08/14/24 08/14/24 08/14/24 Range/Units 13:18 15:50 18:16 AST 76 H (13-39) U/L Troponin I High Sens 141.5 H* 126.4 H* 141.5 H* (0-20) pg/ml B-Natriuretic Peptide 791 H (0-100) pg/ml Coagulation 08/14/24 08/14/24 Range/Units 13:18 15:50 PT 11.7 (9.0-12.0) Seconds APTT 25 (21-31) Seconds B-Natriuretic Peptide 791 H (0-100) pg/ml CBC 08/14/24 Range/Units 13:18 WBC 5.37 (4.8-10.8) K/ul RBC 5.84 (4.70-6.10) M/uL Hgb 16.3 (14.0-18.0) g/dl Hct 50.0 (42.0-52.0) % Plt Count 189 (130-400) K/uL Neut # (Auto) 2.39 (1.40-6.50) K/uL Lymph # (Auto) 2.31 (1.20-3.40) K/uL Garvin # (Auto) 0.53 (0.11-0.59) K/uL Eos # (Auto) 0.11 (0.00-0.50) K/uL Baso # (Auto) 0.02 (0.00-0.20) K/uL Comprehensive Metabolic Panel 08/14/24 Range/Units 13:18 Sodium 137 (136-145) mmol/L Potassium 4.1 (3.5-5.1) mmol/L Chloride 102 (98-107) mmol/L Carbon Dioxide 29 (21-32) mmol/L BUN 10 (6-23) mg/dl Creatinine 1.21 (0.6-1.4) mg/dl Glucose 120 H (70-99(Fasting)) mg/dl Calcium 8.3 L (8.6-10.3) mg/dl AST 76 H (13-39) U/L ALT 385 H (7-52) U/L Alkaline Phosphatase 74 (34-104) U/L Total Protein 6.0 (6.0-8.3) gm/dl Albumin 3.3 L (3.4-5.0) gm/dl Intake and Output 08/14/24 08/15/24 08/15/24 22:59 06:59 14:59 Intake Total 585 / 585 Output Total 450 / 1050 600 / 1050 Balance 135 / -465 -600 / -465 Intake: IV 100 / 100 Magnesium Sulfate / D5w 1 gm In 100 / 100 100 ml @ 100 mls/hr IV NOW STA Rx#:[id number] Oral 485 / 485 Output: Urine 450 / 1050 600 / 1050 Other: Other Intake Source npo Weight 93.3 kg 93 kg Weight Measurement Method Standing Scale Standing Scale
--- NOTE | 2024-08-15 10:26 | Surgery Progress Note ---
Date of Service August 15, 2024 Assessment & Plan (1) Acute upper abdominal pain: Plan: doubt acute cholecystitis. US did not show acute neelam. will obtain HIDA AST/ALT slightly elevated. bilirubin normal. alk phos now normalized. no emergent indications for lap neelam. will check HIDA cardiac w/u in progress (2) Acute heart failure with reduced ejection fraction (HFrEF, <= 40%): (3) Cholelithiasis: (4) Elevated LFTs: (5) Pleural effusion: Admission and Anticipated Discharge Date Admission Date: August 14, 2024 Subjective pt seen. still having some mid abdominal discomfort. better than admission. no n/v Physical Exam Constitutional: WD/WN, vitals as above no acute distress and not ill appearing Eyes: PERRL, conjunctivae normal, anicteric sclerae EOM intact bilaterally ENMT: external ear and nose normal, oropharynx normal Ears: no hearing impairment Neck: trachea midline, no thyromegaly Respiratory: normal respiratory effort; no respiratory distress and does not use accessory muscles Gastrointestinal (Abdomen): soft. mild mid abdominal tenderness. no g/r/r. Skin: no rashes, warm and dry Psychiatric: Orientation: alert, oriented x 3 and cooperative Results & Data Vital Signs (Past 12 Hours) Vital Signs Temp Pulse Pulse Resp BP Pulse Ox O2 Del Method 08/15/24 08:00 98 H 08/15/24 07:16 36.6 C 102 H 17 110/78 98 Room Air 08/15/24 04:18 36.8 C 96 H 16 101/73 97 Room Air 08/15/24 00:00 105 H 08/14/24 23:56 36.5 C 103 H 19 151/97 H 98 Room Air PG Care Time/CCT Total # of Minutes Spent Total Time Spent with Patient: Total time spent is greater than 50% in coordination of care (as documented) at patient's floor/unit and/or counseling patient: Coding Level of Care Code 30669 SUB INP/OBS CARE 2/35MIN Diagnoses Acute upper abdominal pain R10.10 Acute heart failure with reduced ejection fraction (HFrEF, <= 40%) I50.21 Cholelithiasis K80.20 Elevated LFTs R79.89 Pleural effusion J90
[2024-08-15 10:39] LABS: Hematocrit (blood only) 46.3 % (42.0-52.0); Hemoglobin 15.3 g/dl (14.0-18.0); Mean Corpuscular Hemoglobin 28.2 pg (25.0-34.0); Mean Corpuscular Volume 85.4 fL (80.0-100.0); Mean Platelet Volume 10.5 fL (9.4-12.4); Platelet Count 178 K/uL (130-400); RDW Coefficient of Variation 13.3 % (11.5-14.5); RDW Standard Deviation 41.2 fL (36.4-46.3); Red Blood Count 5.42 M/uL (4.70-6.10); White Blood Count 5.46 K/ul (4.8-10.8)
[2024-08-15] MEDS: MAGNESIUM OXIDE 400 MG TAB PO SCH (10:51)
[2024-08-15 10:52] LABS: Albumin Level 2.9 gm/dl (3.4-5.0); Bilirubin,Total 0.6 mg/dl (0.2-1.0); Calcium 8.1 mg/dl (8.6-10.3); Magnesium 1.6 mg/dl (1.7-2.4); Potassium 4.7 mmol/L (3.5-5.1)
[2024-08-15 10:59] LABS: Albumin Globulin Ratio 1.1 (0.9-2); Chol HDL Ratio 4.9 (0-5); Creatinine Clr Calc Pharmacy 77.8 ml/min; Globulin 2.6 gm/dl (2.5-4.0); Total Protein 5.5 gm/dl (6.0-8.3)
[2024-08-15 11:24] LABS: Estimated Average Glucose 269 mg/dl
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
--- NOTE | 2024-08-15 14:48 | Electrocardiogram Report ---
Test Reason : Blood Pressure : */* mmHG Vent. Rate : 90 BPM Atrial Rate : 90 BPM P-R Int : 174 ms QRS Dur : 84 ms QT Int : 392 ms P-R-T Axes : 69 -10 -2 degrees QTcB Int : 479 ms Sinus rhythm with Premature atrial complexes with Aberrant conduction Possible Left atrial enlargement Nonspecific T wave abnormality Prolonged QT Abnormal ECG When compared with ECG of 14-Aug-2024 13:32, Aberrant conduction is now Present Confirmed by Ivan Jenkins ([id number]) on 08/15/2024 2:47:47 PM Referred By: REFERRED SELF Confirmed By: Ivan Jenkins
[2024-08-15] MEDS: MoRPHine SULFATE 2 MG/ML CARP ONE (15:03)
--- NOTE | 2024-08-15 16:00 | Nuclear Medicine Report ---
NM hepatobiliary CLINICAL HISTORY: 53 years-old Male with r/o acute cholecystitis. TECHNIQUE: Sequential anterior abdominal images were obtained through minutes following the intraven ous administration of 5.2 mCi of technetium-99m Choletec. IV morphine also administered COMPARISON: CT 08/14/2024 FINDINGS: There is prompt, uniform accumulation of the tracer by the liver. There is normal filling of the int rahepatic ducts, common bile duct and normal excretion of the tracer into the duodenum. The gallblad chemo at 60 minutes, therefore morphine was administered. Imaging was obtained for an additional 45 min utes. Gallbladder activity is then seen faintly following morphine administration. IMPRESSION: 1. Delayed gallbladder activity following morphine administration suggestive of chronic cholecystitis . 2. No evidence of cystic or common bile duct obstruction. ACT 112: Negative or not required by law. The above report was generated using voice recognition software. It may contain grammatical, syntax o r spelling errors. Electronically signed by: Nasir Rebollar M.D. 08/15/2024 3:58 PM
[2024-08-16 07:29] LABS: Ferritin 96.5 ng/ml (8-388)
[2024-08-16 07:42] LABS: Basophils # (auto) 0.01 K/uL (0.00-0.20); Basophils % (auto) 0.2 %; Eosinophils # (auto) 0.11 K/uL (0.00-0.50); Eosinophils % (auto) 2.2 %; Hematocrit (blood only) 44.7 % (42.0-52.0); Hemoglobin 14.5 g/dl (14.0-18.0); Immature Granulocytes # (auto) 0.01 K/uL (0.01-0.20); Immature Granulocytes % (auto) 0.2 %; Lymphocytes # (auto) 2.04 K/uL (1.20-3.40); Lymphocytes % (auto) 41.5 %; Mean Corpuscular Hgb Conc 32.4 g/dL (32.0-36.0); Mean Corpuscular Volume 86.5 fL (80.0-100.0); Mean Platelet Volume 10.9 fL (9.4-12.4); Monocytes # (auto) 0.53 K/uL (0.11-0.59); Monocytes % (auto) 10.8 %; Neutrophils # (auto) 2.22 K/uL (1.40-6.50); Neutrophils % (auto) 45.1 %; Platelet Count 160 K/uL (130-400); RDW Coefficient of Variation 13.2 % (11.5-14.5); RDW Standard Deviation 41.1 fL (36.4-46.3); Red Blood Count 5.17 M/uL (4.70-6.10); White Blood Count 4.92 K/ul (4.8-10.8)
[2024-08-16 07:55] LABS: Albumin Level 2.8 gm/dl (3.4-5.0); Bilirubin,Total 0.7 mg/dl (0.2-1.0); Calcium 8.1 mg/dl (8.6-10.3); Potassium 4.6 mmol/L (3.5-5.1)
[2024-08-16 08:01] LABS: Albumin Globulin Ratio 1.3 (0.9-2); BUN Creatinine Ratio 9.4 (10-20); Creatinine Clr Calc Pharmacy 77.8 ml/min; Globulin 2.2 gm/dl (2.5-4.0)
--- NOTE | 2024-08-16 09:12 | Cardiology Progress Note ---
Date of Service August 16, 2024 Assessment & Plan (1) Acute heart failure with reduced ejection fraction (HFrEF, <= 40%): Plan: Echocardiogram performed today and reviewed/interpreted independently reveals mild concentric left ventricular hypertrophy with severe global left ventricular hypokinesis. The left ventricular ejection fraction is severely reduced in the range of 20-25%. The right ventricular chamber size is normal however the right ventricular s ystolic function is moderately reduced with noted dilatation of the inferior vena cava consistent with elevated right atrial pressure of 15 mmHg. Left ventricular diastolic function is abnormal consistent with elevated left- sided filling pressure. No previous studies are available for comparison. Repeat EKG 08/15/2024 reveals sinus rhythm at 90 bpm with noted nonspecific T wave abnormality in the lateral leads (low amplitude T wave inversions). Left ventricular hypertrophy by voltage criteria noted on EKG. High-sensitivity troponin mildly elevated with flat trend, 141--> 126--> 141.5 PG per mL. At present, do not feel presentation is suggestive of an acute coronary syndrome however ischemic heart disease is certainly a possibility with regards to the etiology of his left ventricular systolic dysfunction. Patient does have a history of diabetes which is uncontrolled, Hgb A1C=11% He denies alcohol use. Significant proteinuria noted on urinalysis. Urine protein to creatinine ratio minimally elevated 0.4. Fe and Ferritin are within normal limits. Serum and urine immunofixation, free kappa/lambda light chain levels ordered. Will likely require coronary angiography after compensated from a volume overload standpoint this admission. Medications: Holding lisinopril due to relative low BP yesterday. Continue toprol 25 mg daily. Furosemide reduced from 40 mg IV BID , to 20 mg IV x 1 now. Repeat labs in am of 08/17/24. (2) Acute upper abdominal pain: Plan: CT and ultrasound suggestive of cholelithiasis without definite cholecystitis. Hida scan suggest chronic cholecystitis. ALT trending down from 385 to 210. Given dilated inferior vena cava and hypokinetic right ventricle, elevated LFTs and sensation of abdominal bloating certainly could be related to hepatic congestion from CHF. Unless surgery feels otherwise, would proceed with prioritizing cardiac work up and treatment for now. DVT prophylaxis: SQ heparin. Admission and Anticipated Discharge Date Admission Date: August 14, 2024 Subjective Patient seen in cardiology follow up. Liquid diet this am. Still with mild abdominal pain, but he states is was better after eating breakfast. Telemetry reveals SR in the 90s. Review of Systems Review of Systems: All systems reviewed & are unremarkable except as noted in HPI & below Physical Exam Physical Exam: General: no acute distress and stated age Eyes: conjunctiva are pink and non-injected, sclera clear Neck: normal jugular venous pulse, no hepatojugular reflux Chest: normal shape and normal respiratory effort Lungs: Mildly decreased breath sounds bilaterally at the base Cardiac Exam: - Regular rhythm, tachycardic, no murmurs, no jugular venous distention, no lower extremity Edema Abdomen: Nontender, suggestion of mild fluid retention on palpation Musculoskeletal: no gait disturbance, no weakness Extremities: trace LE edema Neuro:awake, conversant, follows commands, no focal motor deficits Psych: appropriate affect and insight. Results & Data Vital Signs (Past 12 Hours) Vital Signs Temp Pulse Pulse Resp BP BP Pulse Ox 08/16/24 08:26 117/92 08/16/24 07:00 36.5 C 89 20 97/80 L 96 08/16/24 04:40 36.4 C L 89 17 112/79 98 08/16/24 00:18 36.7 C 97 H 17 116/90 100 08/15/24 23:10 93 H O2 Del Method 08/16/24 08:26 08/16/24 07:00 Room Air 08/16/24 04:40 Room Air 08/16/24 00:18 Room Air 08/15/24 23:10 Laboratory Results Cardiac Enzymes 08/15/24 08/16/24 Range/Units 10: 06:02 AST 49 H 34 (13-39) U/L Lipids 08/15/24 Range/Units 10:24 Triglycerides 79 (0-150) mg/dl Cholesterol 138 (0-200) mg/dl HDL Cholesterol 28 mg/dl Cholesterol/HDL Ratio 4.9 (0-5) CBC 08/15/24 08/16/24 Range/Units 10:24 07:12 WBC 5.46 4.92 (4.8-10.8) K/ul RBC 5.42 5.17 (4.70-6.10) M/uL Hgb 15.3 14.5 (14.0-18.0) g/dl Hct 46.3 44.7 (42.0-52.0) % Plt Count 178 160 (130-400) K/uL Neut # (Auto) 2.22 (1.40-6.50) K/uL Lymph # (Auto) 2.04 (1.20-3.40) K/uL [place] # (Auto) 0.53 (0.11-0.59) K/uL Eos # (Auto) 0.11 (0.00-0.50) K/uL Baso # (Auto) 0.01 (0.00-0.20) K/uL Comprehensive Metabolic Panel 08/15/24 08/16/24 Range/Units 10:24 06:02 Sodium 138 142 (136-145) mmol/L Potassium 4.7 4.6 (3.5-5.1) mmol/L Chloride 103 105 (98-107) mmol/L Carbon Dioxide 31 34 H (21-32) mmol/L BUN 9 12 (6-23) mg/dl Creatinine 1.28 1.28 (0.6-1.4) mg/dl Glucose 196 H 79 (70-99(Fasting)) mg/dl Calcium 8.1 L 8.1 L (8.6-10.3) mg/dl AST 49 H 34 (13-39) U/L ALT 275 H 210 H (7-52) U/L Alkaline Phosphatase 61 51 (34-104) U/L Total Protein 5.5 L 5.0 L (6.0-8.3) gm/dl Albumin 2.9 L 2.8 L (3.4-5.0) gm/dl Intake and Output 08/15/24 08/16/24 08/16/24 22:59 06:59 14:59 Intake Total 240 / 590 Balance 240 / 590 Intake: Other 240 / 240 Other: Weight 93 kg
[2024-08-16 09:46] LABS: Magnesium 1.7 mg/dl (1.7-2.4)
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
[2024-08-16] MEDS: FUROSEMIDE INJ 20 MG/2 ML VIAL IV ONE (09:48)
[2024-08-16 09:52] LABS: Phosphorus 4.9 mg/dl (2.5-4.9)
--- NOTE | 2024-08-16 09:56 | Surgery Progress Note ---
Date of Service August 16, 2024 Assessment & Plan (1) Cholelithiasis: Plan: Hida scan yesterday with suggestion of chronic cholecystitis/no evidence of acute cholecystitis WBC wnl Patient needs to be optimized from a cardiac standpoint prior to entertaining a ny surgical intervention on his gallbladder, no acute concerns for emergent surgical intervention this admission He may follow up in our office as an outpatient to discuss elective cholecystectomy if he wishes. General surgery will follow from peripherally call with questions/concerns PT seen and examined with Dr. Knapp as above. given the location of his discomfort and HIDA results, gallbladder not the likely etiology of his symptoms. recommend completing cardiac w/u. can follow up with his pcp regarding the potential need for elective lap neelam in the future as an outpatient. please call if any concerns or questions. Admission and Anticipated Discharge Date Admission Date: August 14, 2024 Subjective abd discomfort still present started diuretics for CHF Review of Systems Gastrointestinal: + abdominal pain; no nausea and no vomit ing Physical Exam Constitutional: cooperative and comfortable Respiratory: + respiratory distress and able to speak in complete sentences Gastrointestinal (Abdomen): Inspection/Auscultation: abdomen not distended Percussion/Palpation: abdomen soft Results & Data Vital Signs (Past 12 Hours) Vital Signs Temp Pulse Pulse Resp BP BP Pulse Ox 08/16/24 08:26 117/92 08/16/24 07:00 97.7 F 89 20 97/80 L 96 08/16/24 04:40 97.5 F L 89 17 112/79 98 08/16/24 00:18 98.1 F 97 H 17 116/90 100 08/15/24 23:10 93 H O2 Del Method 08/16/24 08:26 08/16/24 07:00 Room Air 08/16/24 04:40 Room Air 08/16/24 00:18 Room Air 08/15/24 23:10 Results CBC w Diff Results: RBC 5.17 M/uL (4.70-6.10) 08/16/24 WBC 4.92 K/ul (4.8-10.8) 08/16/24 Hgb 14.5 g/dl (14.0-18.0) 08/16/24 Hct 44.7 % (42.0-52.0) 08/16/24 MCV 86.5 fL (80.0-100.0) 08/16/24 MCH 28.0 pg (25.0-34.0) 08/16/24 MCHC 32.4 g/dL (32.0-36.0) 08/16/24 RDW Standard Deviation 41.1 fL (36.4-46.3) 08/16/24 RDW Coefficient of Variation 13.2 % (11.5-14.5) 08/16/24 Plt Count 160 K/uL (130-400) 08/16/24 MPV 10.9 fL (9.4-12.4) 08/16/24 Neutrophils (%) (Auto) 45.1 % 08/16/24 Lymphocytes (%) (Auto) 41.5 % 08/16/24 Monocytes # (Auto) 0.53 K/uL (0.11-0.59) 08/16/24 Eosinophils # (Auto) 0.11 K/uL (0.00-0.50) 08/16/24 Immature Granulocyte % (Auto) 0.2 % 08/16/24 Neutrophils # (Auto) 2.22 K/uL (1.40-6.50) 08/16/24 Lymphocytes # (Auto) 2.04 K/uL (1.20-3.40) 08/16/24 Monocytes # (Auto) 0.53 K/uL (0.11-0.59) 08/16/24 Eosinophils # (Auto) 0.11 K/uL (0.00-0.50) 08/16/24 Basophils # (Auto) 0.01 K/uL (0.00-0.20) 08/16/24 Immature Granulocyte # (Auto) 0.01 K/uL (0.01-0.20) 4 PG Care Time/CCT Total # of Minutes Spent Total Time Spent with Patient: Total time spent is greater than 50% in coordination of care (as documented) at patient's floor/unit and/or counseling patient: Coding Level of Care Code 72280 SUB INP/OBS CARE Diagnoses Cholelithiasis K80.20
[2024-08-16] MEDS: PANTOprazole 40 MG/10 ML SYR IV SCH (09:57)
[2024-08-16] MEDS: cefTRIAXone SODIUM 2,000 MG/50 ML BAG IV SCH (09:57)
[2024-08-16] MEDS: MAGNESIUM OXIDE 400 MG TAB PO SCH (20:11)
[2024-08-17 06:42] LABS: Hematocrit (blood only) 48.6 % (42.0-52.0); Hemoglobin 16.4 g/dl (14.0-18.0); Mean Corpuscular Hemoglobin 28.7 pg (25.0-34.0); Mean Corpuscular Hgb Conc 33.7 g/dL (32.0-36.0); Mean Corpuscular Volume 85.1 fL (80.0-100.0); Mean Platelet Volume 10.9 fL (9.4-12.4); Platelet Count 184 K/uL (130-400); RDW Coefficient of Variation 12.8 % (11.5-14.5); RDW Standard Deviation 39.7 fL (36.4-46.3); Red Blood Count 5.71 M/uL (4.70-6.10); White Blood Count 6.21 K/ul (4.8-10.8)
[2024-08-17 07:10] LABS: Albumin Globulin Ratio 1.1 (0.9-2); Albumin Level 3.1 gm/dl (3.4-5.0); BUN Creatinine Ratio 10.8 (10-20); Bilirubin,Total 0.8 mg/dl (0.2-1.0); Calcium 8.7 mg/dl (8.6-10.3); Creatinine Clr Calc Pharmacy 71.6 ml/min; Globulin 2.8 gm/dl (2.5-4.0); Magnesium 1.8 mg/dl (1.7-2.4); Phosphorus 3.8 mg/dl (2.5-4.9); Potassium 4.5 mmol/L (3.5-5.1); Total Protein 5.9 gm/dl (6.0-8.3)
[2024-08-17 07:20] LABS: Basophils # (auto) 0.03 K/uL (0.00-0.20); Basophils % (auto) 0.5 %; Eosinophils # (auto) 0.23 K/uL (0.00-0.50); Eosinophils % (auto) 3.7 %; Immature Granulocytes # (auto) 0.01 K/uL (0.01-0.20); Immature Granulocytes % (auto) 0.2 %; Lymphocytes # (auto) 3.25 K/uL (1.20-3.40); Lymphocytes % (auto) 52.3 %; Monocytes # (auto) 0.25 K/uL (0.11-0.59); Neutrophils # (auto) 2.44 K/uL (1.40-6.50); Neutrophils % (auto) 39.3 %
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
--- NOTE | 2024-08-17 09:24 | Cardiology Progress Note ---
Date of Service August 17, 2024 Assessment & Plan (1) Acute heart failure with reduced ejection fraction (HFrEF, <= 40%): Plan: Echocardiogram performed 08/15/2024 and reviewed/interpreted independently reveals mild concentric left ventricular hypertrophy with severe global left ventricular hypokinesis. The left ventricular ejection fraction is severely reduced in the range of 20-25%. The right ventricular chamber size is normal however the right ventricular systolic function is moderately reduced with noted dilatation of the inferior vena cava consistent with elevated right atrial pressure of 15 mmHg. Left ventricular diastolic function is abnormal consistent with elevated left- sided filling pressure. No previous studies are available for comparison. Significant proteinuria noted on urinalysis. Urine protein to creatinine ratio minimally elevated 0.4. Fe and Ferritin are within normal limits. Serum and urine immunofixation, free kappa/lambda light chain levels ordered And obtained, results are pending. Once again discussed proceeding with diagnostic coronary angiography to exclude underlying coronary heart disease as a cause of his cardiomyopathy. Patient politely declines proceeding with cardiac catheterization. He is agreeable to a wearable defibrillator and therefore an order for an Assure device completed. Medications: Lasix 20 mg IV x 1 dose today. Resume Lisinopril 5 mg on 08/18/24. Continue Toprol 25 mg daily. Repeat Labs on 08/18. Repeat CXR ordered for am of 08/18/24 Continue SQ heparin for DVT prophylaxis. Dr Sagar liu for cardiology on 08/18/24. (2) Acute upper abdominal pain: Plan: CT and ultrasound suggestive of cholelithiasis without definite cholecystitis. Hida scan suggest chronic cholecystitis. ALT trending down from 385 to 210. Given dilated inferior vena cava and hypokinetic right ventricle, elevated LFTs and sensation of abdominal bloating certainly could be related to hepatic congestion from CHF. Unless surgery feels otherwise, would proceed with prioritizing cardiac work up and treatment for now. DVT prophylaxis: SQ heparin. Admission and Anticipated Discharge Date Admission Date: August 14, 2024 Subjective Mr. Babb is a 53-year-old male with a history of uncontrolled diabetes, hemoglobin A1c 11% on this admission who [facility] 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 He presented via the emergency department on 08/14/2024 with abdominal discomfort as well as shortness of breath with exertion with symptoms consistent with orthopnea. He described a sensation of feeling "like he was suffocating" when he would try to lie flat to go to sleep at night. CT and chest x-ray are consistent with small bilateral pleural effusions on presentation. EKG with nonspecific T wave changes. No definite symptoms suggestive angina. An echocardiogram was performed on 08/15/2024 revealing severe global hypokinesis of the left ventricle. Mild concentric left ventricular perjury was present. The left ventricular ejection fraction was severely reduced, LVEF in the range of 20-25%. The right ventricular chamber size was normal with noted moderate RV systolic dysfunction and dilated inferior vena cava with reduced collapsibility consistent with elevated right atrial pressure 15 mmHg. Treatment thus far has been somewhat limited due to relative hypotension. He has had several doses of IV furosemide with noted improvement in his abdominal bloating and shortness of breath. Today he notes feeling improved from abdominal pain standpoint and shortness of breath standpoint. Physical Exam Physical Exam: General: no acute distress and stated age Eyes: conjunctiva are pink and non-injected, sclera clear Neck: normal jugular venous pulse, no hepatojugular reflux Chest: normal shape and normal respiratory effort Lungs: Mildly decreased breath sounds bilaterally at the base Cardiac Exam: - Regular rhythm, tachycardic, no murmurs, no jugular venous distention, no lower extremity Edema Abdomen: Nontender, suggestion of mild fluid retention on palpation Musculoskeletal: no gait disturbance, no weakness Extremities: trace LE edema Neuro:awake, conversant, follows commands, no focal motor deficits Psych: appropriate affect and insight. Results & Data Vital Signs (Past 12 Hours) Vital Signs Temp Pulse Pulse Resp BP BP Pulse Ox 08/17/24 07:09 36.8 C 99 H 14 123/95 99 08/17/24 04:27 36.5 C 97 H 17 123/84 98 08/17/24 00:40 36.4 C L 101 H 17 124/53 L 96 08/17/24 00:25 08/16/24 21:45 99 H O2 Del Method 08/17/24 07:09 Room Air 08/17/24 04:27 Room Air 08/17/24 00:40 Room Air 08/17/24 00:25 Room Air 08/16/24 21:45 Laboratory Results Cardiac Enzymes 08/16/24 08/17/24 Range/Units 06:02 06:07 AST 34 28 (13-39) U/L CBC 08/17/24 Range/Units 06:07 WBC 6.21 (4.8-10.8) K/ul RBC 5.71 (4.70-6.10) M/uL Hgb 16.4 (14.0-18.0) g/dl Hct 48.6 (42.0-52.0) % Plt Count 184 (130-400) K/uL Neut # (Auto) 2.44 (1.40-6.50) K/uL Lymph # (Auto) 3.25 (1.20-3.40) K/uL [place] # (Auto) 0.25 (0.11-0.59) K/uL Eos # (Auto) 0.23 (0.00-0.50) K/uL Baso # (Auto) 0.03 (0.00-0.20) K/uL Comprehensive Metabolic Panel 08/16/24 08/17/24 Range/Units 06:02 06:07 Sodium 142 137 (136-145) mmol/L Potassium 4.6 4.5 (3.5-5.1) mmol/L Chloride 105 100 (98-107) mmol/L Carbon Dioxide 34 H 33 H (21-32) mmol/L BUN 12 15 (6-23) mg/dl Creatinine 1.28 1.39 (0.6-1.4) mg/dl Glucose 79 128 H (70-99(Fasting)) mg/dl Calcium 8.1 L 8.7 (8.6-10.3) mg/dl AST 34 28 (13-39) U/L ALT 210 H 166 H (7-52) U/L Alkaline Phosphatase 51 68 (34-104) U/L Total Protein 5.0 L 5.9 L (6.0-8.3) gm/dl Albumin 2.8 L 3.1 L (3.4-5.0) gm/dl Intake and Output 08/16/24 08/17/24 08/17/24 22:59 06:59 14:59 Intake Total 360 / 910 50 / 50 Output Total 850 / 1400 550 / 1400 Balance -850 / -490 -190 / -490 50 / 50 Intake: IV 50 / 50 cefTRIAXone SODIUM 2,000 mg In 50 / 50 50 ml @ 100 mls/hr IV Q24H ERIKA Rx#:[id number] Oral 360 / 860 Output: Urine 850 / 1400 550 / 1400 Other: Weight 93 kg
[2024-08-17] MEDS: FUROSEMIDE INJ 20 MG/2 ML VIAL IV ONE (10:06)
--- NOTE | 2024-08-18 07:52 | Cardiology Progress Note ---
Date of Service August 18, 2024 Assessment & Plan (1) Acute heart failure with reduced ejection fraction (HFrEF, <= 40%): Plan 53 yo man presenting with acute on chronic combined CHF Cardiomyopathy LVEF 20-25% Mild LVH Right ventricular systolic function -moderately reduced Dilated inferior vena cava consistent Medications: Lasix 20 mg IV x 1 dose today. STOP Lisinopril 5 mg po per day Start Losartan 25 mg po per day Entresto may start on 08/21/2024 Staart Aldactone 25 mg po per day Continue Toprol XL 25 mg po per day STOP Lasix IV Consider PO Lasix dosing post Right Heart Cath review Continue Toprol 25 mg daily. CXR on 08/18/24 - pending Continue SQ heparin for DVT prophylaxis. Patient agreed to Coronary Angiography + RHC; plans to proceed Patient is NPO 51 min spent addressing challenges, educating and advancing daily plan of care Admission and Anticipated Discharge Date Admission Date: August 14, 2024 Subjective Events Overnight: None reported No telemetry events Subjective: No complaints Review of Systems Review of Systems: All systems reviewed & are unremarkable except as noted in HPI & below Physical Exam Physical Exam: No elevation in JVP S1S2 No S3 No MR, or outflow murmurs appreciated CTA B 2/2 radial pulse on right 2/2 Femoral pulse on Right - no bruit No c/c/e Warm and perfused Tegaderm on right leg Results & Data Vital Signs (Past 12 Hours) Vital Signs Temp Pulse Pulse Resp BP BP Pulse Ox 08/18/24 03:53 36.7 C 105 H 17 136/99 98 08/18/24 00:21 36.8 C 97 H 18 120/98 97 08/17/24 20:37 90 08/17/24 20:31 O2 Del Method 08/18/24 03:53 Room Air 08/18/24 00:21 Room Air 08/17/24 20:37 08/17/24 20:31 Room Air Laboratory Results Intake and Output 08/17/24 08/18/24 08/18/24 22:59 06:59 14:59 Intake Total 0 / 50 Output Total 700 / 5500 2000 / 5500 Balance -700 / -5450 -2000 / -5450 Intake: Oral 0 / 0 Output: Urine 700 / 5500 2000 / 5500 Other: Weight 94.6 kg Medications Administered Current Inpatient Medications Acetaminophen (Acetaminophen 325 Mg Tab) 650 mg PO Q4H PRN PRN Reason: Pain or Fever Stop: 09/13/24 18:06 Last Admin: 08/17/24 20:48 Dose: 650 mg Aspirin (Aspirin 81 Mg Ectab) 81 mg PO DAILY [facility] Stop: 09/14/24 08:59 Last Admin: 08/17/24 08:37 Dose: 81 mg Dextrose (Dextrose 50% 50 Ml Syringe) 25 - 50 ml IV UD PRN; Protocol PRN Reason: Hypoglycemia Protocol Stop: 09/13/24 18:06 Glucagon (Glucagon For Inj 1 Mg Vial) 1 mg SQ UD PRN; Protocol PRN Reason: Hypoglycemia Protocol Stop: 09/13/24 18:06 Glucose (Glucose 40% Gel 15 Gm Tube) 15 - 30 gm PO UD PRN; Protocol PRN Reason: Hypoglycemia Protocol Stop: 09/13/24 18:06 Glucose (Glucose 10 Tab/Tube) 4 - 8 tab PO UD PRN; Protocol PRN Reason: Hypoglycemia Protocol Stop: 09/13/24 18:06 Heparin Sodium (Porcine) (Heparin Sod 5,000 Unit/0.5 Ml Vial) 5,000 units SQ Q 12 [facility] Stop: 09/13/24 20:59 Last Admin: 08/17/24 20:54 Dose: 5,000 units Hydromorphone HCl (Hydromorphone Inj 0.5 Mg/0.5 Ml Syr) 0.5 mg IV Q6H PRN PRN Reason: Mod-Sev Pain (Scale 4-10) Stop: 08/28/24 18:06 Last Admin: 08/16/24 12:13 Dose: 0.5 mg Pantoprazole Sodium (Protonix) 40 mg in 10 mls @ 5 mls/min IV BID [facility] Stop: 09/15/24 09:14 Last Admin: 08/17/24 20:49 Dose: 5 mls/min Ceftriaxone Sodium (Rocephin) 2,000 mg in 50 mls @ 100 mls/hr IV Q24H [facility] Stop: 08/26/24 09:29 Last Infusion: 08/17/24 09:01 Dose: Infused Insulin Aspart (Insulin Aspart Per Unit Charge) 0 units SC ACHS [facility] Stop: 09/14/24 06:59 Last Admin: 08/17/24 20:49 Dose: Not Given Insulin Glargine (Lantus Per Unit Charge) 0 - 10 units SQ BID [facility] Stop: 09/13/24 20:59 Last Admin: 08/17/24 20:54 Dose: 5 units Lisinopril (Lisinopril 5 Mg Tab) 5 mg PO PM [facility] Stop: 09/13/24 20:59 Last Admin: 08/14/24 21:17 Dose: 5 mg Magnesium Oxide (Magnesium Oxide 400 Mg Tab) 400 mg PO BID [facility] Stop: 09/15/24 20:59 Last Admin: 08/17/24 20:50 Dose: 400 mg Metoprolol Succinate (Metoprolol Succ 25mg Ext Rel Tab) 25 mg PO QAM [facility] Stop: 09/14/24 08:59 Last Admin: 08/17/24 08:37 Dose: 25 mg Miscellaneous (Carbohydrates For Hypoglycemia ) 15 - 30 gm PO UD PRN PRN Reason: Hypoglycemia Protocol Stop: 09/13/24 18:06 Ondansetron HCl (Ondansetron Inj 2 Mg/Ml 2 Ml Vial) 4 mg IV Q6H PRN PRN Reason: Nausea Stop: 09/13/24 18:06 Polyethylene Glycol (Polyethylene (Miralax) 17 Gm Pack) 17 gm PO DAILY PRN PRN Reason: Constipation Stop: 09/13/24 18:06 Silver Sulfadiazine (Silver Sulfadiazine 1% Cr 50 Gm Jar) 1 appln EXT BID [facility] Stop: 09/13/24 20:59 Last Admin: 08/17/24 20:49 Dose: 1 appln
--- NOTE | 2024-08-18 08:17 | Cardiology Progress Note ---
Date of Service August 18, 2024 Assessment & Plan (1) Acute heart failure with reduced ejection fraction (HFrEF, <= 40%): (2) Acute upper abdominal pain: Plan 53 yo man presenting with acute on chronic combined CHF Cardiomyopathy LVEF 20-25% Mild LVH Right ventricular systolic function -moderately reduced Dilated inferior vena cava consistent Once again discussed proceeding with diagnostic coronary angiography to exclude underlying coronary heart disease as a cause of his cardiomyopathy. Patient politely declines proceeding with cardiac catheterization. He is agreeable to a wearable defibrillator and therefore an order for an Assure device completed. Medications: Lasix 20 mg IV x 1 dose today. Resume Lisinopril 5 mg on 08/18/24. Continue Toprol 25 mg daily. Repeat Labs on 08/18. Repeat CXR ordered for am of 08/18/24 Continue SQ heparin for DVT prophylaxis. Admission and Anticipated Discharge Date Admission Date: August 14, 2024 Subjective 08/18/2024: Patient seen and examined in follow up today. Feeling Labs, vitals, diagnostics, telemetry and documentation reviewed. Telemetry reviewed showing Results & Data Vital Signs (Past 12 Hours) Vital Signs Temp Pulse Pulse Resp BP BP Pulse Ox 08/18/24 03:53 36.7 C 105 H 17 136/99 98 08/18/24 00:21 36.8 C 97 H 18 120/98 97 08/17/24 20:37 90 08/17/24 20:31 O2 Del Method 08/18/24 03:53 Room Air 08/18/24 00:21 Room Air 08/17/24 20:37 08/17/24 20:31 Room Air
--- NOTE | 2024-08-18 09:14 | XRay Report ---
XR chest 2V PA/lateral CLINICAL HISTORY: follow up CHF COMPARISON STUDY: Chest radiograph August 14, 2024. FINDINGS: There is no pneumothorax. Small bilateral pleural effusions and associated linear bibasilar opacities persist. Pulmonary edema has resolved. The heart is mildly enlarged. IMPRESSION: 1. Cardiomegaly. Resolution of pulmonary edema. 2. Stable to slight decrease in size of the small bilateral pleural effusions. Associated bibasilar opacities favor atelectasis. ACT 112: Negative or not required by law. Electronically signed by: Nicolas Love M.D. 08/18/2024 9:12 AM
[2024-08-18] MEDS: SPIRONOLACTONE 25 MG TAB PO SCH (10:31)
[2024-08-18 11:09] LABS: Hematocrit (blood only) 47.7 % (42.0-52.0); Hemoglobin 15.8 g/dl (14.0-18.0); Mean Corpuscular Hemoglobin 28.2 pg (25.0-34.0); Mean Corpuscular Hgb Conc 33.1 g/dL (32.0-36.0); Mean Platelet Volume 10.5 fL (9.4-12.4); Platelet Count 186 K/uL (130-400); RDW Coefficient of Variation 12.8 % (11.5-14.5); RDW Standard Deviation 39.7 fL (36.4-46.3); Red Blood Count 5.61 M/uL (4.70-6.10); White Blood Count 5.17 K/ul (4.8-10.8)
[2024-08-18 11:29] LABS: Albumin Globulin Ratio 1.3 (0.9-2); Albumin Level 3.3 gm/dl (3.4-5.0); Bilirubin,Total 0.7 mg/dl (0.2-1.0); Calcium 9.3 mg/dl (8.6-10.3); Creatinine Clr Calc Pharmacy 74.9 ml/min; Globulin 2.6 gm/dl (2.5-4.0); Magnesium 1.9 mg/dl (1.7-2.4); Phosphorus 3.8 mg/dl (2.5-4.9); Potassium 5.5 mmol/L (3.5-5.1); Total Protein 5.9 gm/dl (6.0-8.3)
[2024-08-18] MEDS ORDERED: PHARMACY GLYCEMIC MGMT CONSULT PRN (11:40)
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
[2024-08-18 11:42] LABS: Free Kappa/Lambda Ratio 1.6 (0.26-1.65); Free Lambda 16.9 mg/L (5.7-26.3)
--- NOTE | 2024-08-18 12:34 | Pharmacy Report ---
Pharmacy Glycemic Short Note 2 - Date of Service August 18, 2024 - Glycemic Short BSG Results (Last 24 hours): 08/17/24 08/17/24 08/18/24 16:00 20:48 08:22 POC Glucose 117 H 111 H 113 H Fasting Glucose 08/18/24 08/18/24 08/18/24 10:45 11:21 12:08 POC Glucose 113 H 110 H Fasting Glucose 130 H OUTPATIENT ANTIDIABETIC REGIMEN: * Semglee 15 units qAM/70 units HS per RX * A1c 11% ASSESSMENT: * Reviewed personal development educator note * Patient to cardiac cathode maker today, NPO this morning. * BSGS 113-110 mg/dL with 10 units of lantus yesterday * Reduced inpatient needs from outpatient currently, will continue current parameters * Adjust novolog as needed once eating. PLAN FOR INPATIENT GLYCEMIC CONTROL: * Hold outpatient oral diabetes medications * Basal insulin * Lantus 10 units sq HS * Bolus insulin * NovoLog per scale ACHS or Q6hrs while NPO * Goal Range: Low 110 mg/dL - High 150 mg/dL * Correction Factor: 40 mg/dL/unit * Nutritional / Prandial insulin per carb ratio of 1 unit per 13 grams CHO consumed
--- NOTE | 2024-08-18 12:55 | Pre Anesthesia Assessment ---
Date of Service August 18, 2024 Pre Sedation Assessment Vital Signs Temp Pulse Pulse Resp BP BP Pulse Ox 08/18/24 12:44 94 H 16 132/100 98 08/18/24 11:27 36.7 C 96 H 18 115/91 97 08/18/24 09:15 36.7 C 08/18/24 08:31 92 H 18 123/97 93 08/18/24 07:00 95 H 08/18/24 03:53 36.7 C 105 H 17 136/99 98 08/18/24 00:21 36.8 C 97 H 18 120/98 97 08/17/24 20:37 90 08/17/24 20:31 08/17/24 19:27 36.8 C 90 16 117/93 99 08/17/24 14:52 97 H 18 114/93 98 O2 Del Method 08/18/24 12:44 Room Air 08/18/24 11:27 Room Air 08/18/24 09:15 08/18/24 08:31 Room Air 08/18/24 07:00 08/18/24 03:53 Room Air 08/18/24 00:21 Room Air 08/17/24 20:37 08/17/24 20:31 Room Air 08/17/24 19:27 Room Air 08/17/24 14:52 Room Air Cardiovascular RRR, no murmur, no edema Respiratory normal respiratory effort, lungs clear to auscultation Pre-Sedation Airway Assessment Smoking Status: Never smoker Hx Sleep Apnea: No Short, Thick Neck: No Thyromental Distance: > or= 3.5 Finger Breadths Oral Cavity: + WNL Mallampati Class: III ASA: ASA4 NPO Status Date of Last Intake of Fluids: 08/18/24 Time of Last Intake of Fluids: 08:00 Last Oral Intake of Fluids Comment: sips with pills Date of Last Intake of Solid Food: 08/17/24 Time of Last Intake of Solid Foods: 20:00 Notes The planned sedation has been discussed with the patient. Informed Consent was obtained. I have identified the patient, determined the appropriateness of sedation and have assessed the patient immediately prior to the procedure. All medicine(s) and interventions are by my order.
[2024-08-18] MEDS: HEPARIN (PORCINE) 1000 UNIT/ML 10 ML (CATH LAB USE ONLY) ONE (13:47)
[2024-08-18] MEDS: fentaNYL citrate PF 100 MCG/2 ML VIAL ONE (13:48)
[2024-08-18] MEDS: MIDAZOLAM HCL 1 MG/ML 2ML VIAL ONE (13:48)
[2024-08-18] MEDS: OPTIRAY 350 ONE (13:49)
[2024-08-18] MEDS: niCARdipine 2,000 MCG/20 ML SYR ONE (13:49)
[2024-08-18] MEDS: NITROGLYCERIN/D5W 100MCG/ML 20ML SYR ONE (13:49)
[2024-08-18] MEDS: BUPIVACAINE 0.5 % 5 MG/1 ML PF 10ML VIAL ONE (13:50)
[2024-08-18 14:04] LABS: iSTAT Arterial Blood Gas HCO3 31 meg/L (19-24); iSTAT Arterial Blood Gas pCO2 56 mmHg (35-46); iSTAT Arterial Blood Gas pH 7.35 (7.35-7.45); iSTAT Arterial Blood Gas pO2 43 mmHg (80-95); iSTAT Carbon Dioxide 33 mmol/L (24-31); iSTAT Hematocrit 50 % (42-52); iSTAT Sodium 135 mmol/L (135-144)
[2024-08-18 14:05] LABS: iSTAT Arterial Blood Gas HCO3 28 meg/L (19-24); iSTAT Arterial Blood Gas pCO2 44 mmHg (35-46); iSTAT Arterial Blood Gas pH 7.41 (7.35-7.45); iSTAT Arterial Blood Gas pO2 85 mmHg (80-95); iSTAT Carbon Dioxide 29 mmol/L (24-31); iSTAT Hematocrit 49 % (42-52); iSTAT Hemoglobin 16.7 g/dl (14.0-18.0); iSTAT Sodium 134 mmol/L (135-144)
[2024-08-18 14:05] LABS: iSTAT Arterial Blood Gas HCO3 24 meg/L (19-24); iSTAT Arterial Blood Gas pCO2 43 mmHg (35-46); iSTAT Arterial Blood Gas pH 7.36 (7.35-7.45); iSTAT Arterial Blood Gas pO2 40 mmHg (80-95); iSTAT Carbon Dioxide 25 mmol/L (24-31); iSTAT Hematocrit 37 % (42-52); iSTAT Hemoglobin 12.6 g/dl (14.0-18.0); iSTAT Potassium 2.6 mmol/L (3.3-5.0); iSTAT Sodium 146 mmol/L (135-144)
--- NOTE | 2024-08-18 14:06 | Post Anesthesia Assessment ---
Date of Service August 18, 2024 Post Sedation Assessment Vital Signs Temp Pulse Pulse Resp BP BP Pulse Ox 08/18/24 14:00 98 H 16 112/82 93 08/18/24 12:44 94 H 16 132/100 98 08/18/24 11:27 36.7 C 96 H 18 115/91 97 08/18/24 09:15 36.7 C 08/18/24 08:31 92 H 18 123/97 93 08/18/24 07:00 95 H 08/18/24 03:53 36.7 C 105 H 17 136/99 98 08/18/24 00:21 36.8 C 97 H 18 120/98 97 08/17/24 20:37 90 08/17/24 20:31 08/17/24 19:27 36.8 C 90 16 117/93 99 08/17/24 14:52 97 H 18 114/93 98 O2 Del Method 08/18/24 14:00 Room Air 08/18/24 12:44 Room Air 08/18/24 11:27 Room Air 08/18/24 09:15 08/18/24 08:31 Room Air 08/18/24 07:00 08/18/24 03:53 Room Air 08/18/24 00:21 Room Air 08/17/24 20:37 08/17/24 20:31 Room Air 08/17/24 19:27 Room Air 08/17/24 14:52 Room Air Recovery Score Activity: Moves 4 extremities Respiration: Deep Breath/Cough Circulation: +/-20% PreAnes Value Consciousness: Fully Awake Oxygen Saturation: > 92% On Room Air Post Anesthesia Score: 10 Discharge Sedation Level of Care: Fast Track Phase II Post Sedation Plan On clinical assessment, the patient appears to have tolerated the sedation without complications. Patient is recovering as anticipated. Patient will continue to be monitored by nursing and may be discharged when sedation discharge criteria are met per below protocol. Upon Completions of procedure up to 15 minutes continue every 5 minute vital signs and the P.A.R. score; then discharge to a Phase I or Fast Track to Phase II per the following guidelines: * Discharge Patient to appropriate Phase II area if PAR is 8 or greater or return to pre- procedure baseline. The post - procedure orders will be as directed. * If PAR score is less than 8 or not return to pre-procedure baseline then patient will follow Phase I monitoring till PAR is reached for Phase II. The Phase I may be done in procedure room or may call to secure a Phase I area. * If naloxone or flumazenil are used for reversal, hold in Phase I for continued monitoring from when last reversal dose was given for a minimum of 60 minutes or longer pending the nurse and/or physician discretion of patient condition before discharge to Phase II. Please call the Sedation Physician to re-evaluate and complete post-note for discharge to Phase II area. Do NOT discharge from procedure sedation or Phase 1 until post- sedation evaluation note is complete by procedure /sedation MD Sedation Discharge Instructions to be given to the patient at discharge to home.
--- NOTE | 2024-08-18 14:06 | Post Anesthesia Assessment ---
Date of Service August 18, 2024 Post Sedation Assessment Vital Signs Temp Pulse Pulse Resp BP BP Pulse Ox 08/18/24 12:44 94 H 16 132/100 98 08/18/24 11:27 36.7 C 96 H 18 115/91 97 08/18/24 09:15 36.7 C 08/18/24 08:31 92 H 18 123/97 93 08/18/24 07:00 95 H 08/18/24 03:53 36.7 C 105 H 17 136/99 98 08/18/24 00:21 36.8 C 97 H 18 120/98 97 08/17/24 20:37 90 08/17/24 20:31 08/17/24 19:27 36.8 C 90 16 117/93 99 08/17/24 14:52 97 H 18 114/93 98 O2 Del Method 08/18/24 12:44 Room Air 08/18/24 11:27 Room Air 08/18/24 09:15 08/18/24 08:31 Room Air 08/18/24 07:00 08/18/24 03:53 Room Air 08/18/24 00:21 Room Air 08/17/24 20:37 08/17/24 20:31 Room Air 08/17/24 19:27 Room Air 08/17/24 14:52 Room Air Recovery Score Activity: Moves 4 extremities Respiration: Deep Breath/Cough Circulation: +/-20% PreAnes Value Consciousness: Fully Awake Oxygen Saturation: > 92% On Room Air Discharge Sedation Level of Care: Fast Track Phase II Post Sedation Plan On clinical assessment, the patient appears to have tolerated the sedation without complications. Patient is recovering as anticipated. Patient will continue to be monitored by nursing and may be discharged when sedation discharge criteria are met per below protocol. Upon Completions of procedure up to 15 minutes continue every 5 minute vital signs and the P.A.R. score; then discharge to a Phase I or Fast Track to Phase II per the following guidelines: * Discharge Patient to appropriate Phase II area if PAR is 8 or greater or return to pre- procedure baseline. The post - procedure orders will be as directed. * If PAR score is less than 8 or not return to pre-procedure baseline then patient will follow Phase I monitoring till PAR is reached for Phase II. The Phase I may be done in procedure room or may call to secure a Phase I area. * If naloxone or flumazenil are used for reversal, hold in Phase I for continued monitoring from when last reversal dose was given for a minimum of 60 minutes or longer pending the nurse and/or physician discretion of patient condition before discharge to Phase II. Please call the Sedation Physician to re-evaluate and complete post-note for discharge to Phase II area. Do NOT discharge from procedure sedation or Phase 1 until post- sedation evaluation note is complete by procedure /sedation MD Sedation Discharge Instructions to be given to the patient at discharge to home. [facility] Procedure Codes (Charges) Indication for Procedure Indication for procedure: New cardiomyopathy Sedation/Anesthesia Procedure 1: Sedation/Anesthesia: 90306 Mod Sedation by the same physician;Init15 Min Child Age 5 & Up (Initial 15 minutes, start time 1321) Total Sedation Time (minutes): 29 Procedure 2: Sedation/Anesthesia: 71273 Mod Sedation by the same physician; Ea [id number] Minutes (Additional 14 minutes, end time 1350) Total Sedation Time (minutes): 29
--- NOTE | 2024-08-18 14:12 | Cardiac Catheterization ---
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 Cardiac Status Clinical evaluation leading to the procedure CAD Presenation: Non STEMI Anginal Classification: CCS III (Dyspnea) Heart Failure: NYHA Class: CCS IV Cardiogenic Shock within 24 Hours: No Cardiac Arrest within 24 Hours: No Imaging Studies Past 6 Months: Yes Stress Studies Past 6 Months: No Coronary Anatomy Dominant: Right Left Main (% Stenosis): Normal LAD (% Stenosis): Mid (30 to 40%) D1 (% Stenosis): Proximal (50 to 70%) Circumflex (% Stenosis): Normal OM1 (% Stenosis): Normal OM2 (% Stenosis): Normal L PL1 (% Stenosis): Normal RCA (% Stenosis): Normal R PDA (% Stenosis): Normal R PL1 (% Stenosis): Normal Ramus (% Stenosis): Normal Diagnostic Physicians Name: Rell Robles MD, PhD Closure Device Percutaneous Entry Location: Radial and brachial Closure Device: None-Manual Hold and Radial Band Recommendations: Medical Therapy and/or Counseling Cardiac Cath Procedure Full Procedure Date August 18, 2024 Pre-Procedure Diagnosis Pre-Procedure Diagnosis: Cardiomyopathy AUC Score AUC Score: 07 Post-Procedure Diagnosis Post-Procedure Diagnosis: Mild CAD and Elevated Intracardiac Pressures Procedure(s) Performed Procedure(s) Performed: Coronary Angiography, Right Heart Cath and LV Angiography Rn Hemo Dialysis Rell Robles MD, PhD Estimated Blood Loss Estimated Blood Loss: 5 cc Medication(s) Medication(s): Fentanyl, Heparin, Nicardipine, Nitroglycerin and Versed Summary of Findings Brief description: Patient was brought to the cardiac catheterization suite where he was shaved and prepped in a sterile fashion. Sedated using IV Versed and fentanyl. Soft tissues of the right wrist were anesthetized using 3 mL of bupivacaine. The right radial artery was accessed with a modified Seldinger technique and a 6 British radial artery glide sheath was placed. We then turned to the venous access for the right heart cath. Patient had a large bore IV in a large vein in the right antecubital fossa. Soft tissues surrounding this were anesthetized using 1 mL of bupivacaine. The IV was exchanged over a 0.014 wire for a 6 British venous sheath. We proceeded first with right heart cath. 6 British [place] catheter with the balloon inflated was advanced and under fluoroscopic guidance (using a 0.025 [place] wire) was passed through the right atrium, RV, and across the pulmonic valve into the pulmonary arterial system. There it was placed in the "wedge position". After removal of the [place] wire, the system was flushed and the pulmonary capillary wedge pressure was measured. The balloon was then deflated and the pulmonary arterial pressure and oxygen saturation were sampled. Catheter was then pulled back into the right ventricle where right ventricular hemodynamics were measured. Finally, the catheter was pulled back on the right atrium or right atrial pressure and oxygen saturation samples were obtained. Catheter was then removed from the patient. Cardiac output was determined by the method of Jasper. Patient was provided anticoagulation with IV heparin and antispasmodics including nicardipine and nitroglycerin. A 5 British Mcdavid 4 diagnostic catheter was advanced over the J-wire and used to engage the left main coronary. Coronary angiography was performed in orthogonal views. Catheter was then disengaged and used to engage the right coronary. Multiple angiographic views of the right coronary system were obtained. Catheter was then removed from the patient over the J-wire. Radial artery sheath was removed. Hemostasis was obtained using the TR band. The venous sheath was then removed and hemostasis was obtained using manual compression. Patient was hemodynamically stable and asymptomatic. He was returned to the recovery area. This ended the case. Right heart cath findings: PCWP-11 mmHg PAP-50/31 mmHg, mean 37 mmHg RVP-50/12 mmHg, RVEDP 14 mmHg RAP-13 mmHg AO sat-96% PA sat-75% RA sat 72% CO (Jasper)-7.08 L/min CI (Jasper)-3.3 L/min/m Pulmonary vascular resistance-4.1 Sotelo units Systemic vascular resistance-9.75 Sotelo units Total vascular resistance-11.58 Sotelo units Coronary angiography findings: SAQ-dflqw-apbowpb vessel trifurcating into LAD, ramus, and circumflex. No more than mild luminal irregularities. ZOB-kdkze-gmabnth and transapical. Gives a medium caliber branching first diagonal. Proximal LAD has luminal irregularities. The mid vessel just after the diagonal has a focal 30 to 40% narrowing. The diagonal has a proximal 50 to 70% narrowing but appears too small for PCI. Distally the LAD has no angiographically evident disease. Ysizo-jyxrb-zboswuy and branching with no more than mild luminal irregularities. URw-mxnzu-ypzdvtr and nondominant. Travels in the AV groove giving a medium caliber OM1, medium caliber OM 2 and a small caliber posterolateral branch. There is no more than mild luminal irregularities in the circumflex and its branches. RCA-this is large caliber and dominant. Bifurcates distally into the PDA and multi branching posterolateral. The RCA and its branches have no disease. Summary: 1. Based on patient's right heart cath that he is near euvolemic. He has mild to moderate pulmonary hypertension. 2. Mild nonocclusive coronary disease as described. Angiographically moderate to borderline severe diagonal disease and the vessel which is too small for PCI. 3. The patient's reported cardiomyopathy is out of proportion to his coronary artery disease. Therefore, it likely represents nonischemic cardiomyopathy. 4. Medical management per primary cardiology team. Hemodynamics Rest Ao:: 90/71 mmHg Final Ao: 107/74 mmHg LV: Not performed Recommendations Recommendations: Medical Therapy and/or Counseling Radiation Exposure (mGy) 819 mGy, fluoroscopy time 5.5 minutes Contrast (mls) 50 cc Anesthesia 2 mg Versed, 50 mcg fentanyl IV. 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 Any exceptions are noted below. [facility] Card Cath Procedure Codes Cardiac Catheterization Procedure 1: Cardiovascular Cath Procedures: 34891 Coronaries and RHC Moderate Sedation Procedure 1: Sedation/Anesthesia: 31271 Mod Sedation by the same physician;Init15 Min Child Age 5 & Up (Initial 15 minutes, start time 1321) Procedure 2: Sedation/Anesthesia: 91372 Mod Sedation by the same physician; Ea [id number] Minutes (Additional 14 minutes, end time 1350) PG Care Time/CCT Total # of Minutes Spent Total Time Spent with Patient: Total time spent is greater than 50% in coordination of care (as documented) at patient's floor/unit and/or counseling patient:
[2024-08-18 16:08] LABS: Hepatitis A Antibody IgM NON-REACTIVE (NON-REACTIVE); Hepatitis B Core Antibody IgM NON-REACTIVE (NON-REACTIVE)
[2024-08-18] MEDS: LANTUS PER UNIT CHARGE SQ SCH (21:18)
[2024-08-19 05:55] LABS: Hematocrit (blood only) 49.9 % (42.0-52.0); Hemoglobin 16.9 g/dl (14.0-18.0); Mean Corpuscular Hemoglobin 28.4 pg (25.0-34.0); Mean Corpuscular Hgb Conc 33.9 g/dL (32.0-36.0); Mean Corpuscular Volume 83.7 fL (80.0-100.0); Mean Platelet Volume 10.2 fL (9.4-12.4); Platelet Count 189 K/uL (130-400); RDW Coefficient of Variation 12.6 % (11.5-14.5); RDW Standard Deviation 38.2 fL (36.4-46.3); Red Blood Count 5.96 M/uL (4.70-6.10); White Blood Count 5.27 K/ul (4.8-10.8)
[2024-08-19] MEDS: ONDANSETRON INJ 2 MG/ML 2 ML VIAL IV PRN (06:08)
[2024-08-19 06:31] LABS: BUN Creatinine Ratio 13.6 (10-20); Calcium 9.2 mg/dl (8.6-10.3); Creatinine Clr Calc Pharmacy 71.6 ml/min; Phosphorus 4.4 mg/dl (2.5-4.9); Potassium 6.4 mmol/L (3.5-5.1)
[2024-08-19 06:48] LABS: Abnormal Protein Band 1 DNR mg/24 h (NONE DETECTED); Abnormal Protein Band 2 DNR mg/24 h (NONE DETECTED); Abnormal Protein Band 3 DNR mg/24 h (NONE DETECTED); Creatinine, 24 hr Urine 1.05 g/24 h (0.50-2.15); Protein, Urine 24 Hour 319 mg/24 h (<150); Ur Albumin % 70 %; Ur Alpha-1-globulin % 3 %; Ur Alpha-2-globulin % 6 %; Ur Beta Globulin % 10 %; Ur Gamma Globulin % 11 %; Ur Protein/Creatinine Rat mg/g 305 mg/g creat (<100); Urine Protein/Creatinine Ratio 0.305 (<0.100)
[2024-08-19] MEDS: DEXTROSE 50% 50 ML SYRINGE IV STA (07:04)
[2024-08-19] MEDS: INSULIN HUMAN REGULAR PER UNIT 10 UNITS in SYRINGE 9.9 ML IV STA (07:05)
[2024-08-19] MEDS: CALCIUM GLUCONATE 1,000 MG/60 ML BAG IV STA (07:08)
[2024-08-19] MEDS: SODIUM ZIRCONIUM CYCLOSILICATE 10 GM PACKET PO STA (07:14)
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
--- NOTE | 2024-08-19 08:45 | Cardiology Progress Note ---
Date of Service August 19, 2024 Assessment & Plan (1) Acute heart failure with reduced ejection fraction (HFrEF, <= 40%): Plan 53 yo man presenting with acute on chronic combined CHF Cardiomyopathy - Nonischemic LVEF 20-25% Mild LVH Right ventricular systolic function -moderately reduced Dilated inferior vena cava consistent Minor CAD Start Crestor 5 mg po per day LDL goal <70 Lisinopril 5 mg po per day (OFF) Continue Losartan 25 mg po per day on 08/19/2024 STOP Losartan on 08/20/2024 START Entresto 24/26 mg po BID on 08/20/2024 + Hyperkalemia - being treated STOP Aldactone 25 mg po per day START Jardiance 10 mg po per day Continue Toprol XL 25 mg po per day Lasix IV (OFF) Start Lasix 20 mg po per day Continue Toprol 25 mg daily. CXR on 08/18/24 - reviewed - improvement Continue SQ heparin for DVT prophylaxis. Cardiac MRI as an outpt Will arrange for follow up in Cardiology 51 min spent addressing challenges, educating and advancing daily plan of care Admission and Anticipated Discharge Date Admission Date: August 14, 2024 Subjective Events Overnight: Subjective: Review of Systems Review of Systems: All systems reviewed & are unremarkable except as noted in HPI & below Physical Exam Physical Exam: No elevation in JVP S1S2 No S3 No MR, or outflow murmurs appreciated CTA B 2/2 radial pulse on right 2/2 Femoral pulse on Right - no bruit No c/c/e Warm and perfused Tegaderm on right leg Results & Data Vital Signs (Past 12 Hours) Vital Signs Temp Pulse Pulse Resp BP Pulse Ox O2 Del Method 08/19/24 07:27 106 H 08/19/24 07:17 36.6 C 85 18 109/78 96 Room Air 08/19/24 04:21 36.3 C L 91 H 18 118/82 95 Room Air 08/18/24 23:45 36.6 C 93 H 18 111/85 100 Room Air 08/18/24 21:44 96 H Laboratory Results Cardiac Enzymes 08/18/24 Range/Units 10:45 AST 27 (13-39) U/L CBC 08/18/24 08/19/24 Range/Units 10:45 05:34 WBC 5.17 5.27 (4.8-10.8) K/ul RBC 5.61 5.96 (4.70-6.10) M/uL Hgb 15.8 16.9 (14.0-18.0) g/dl Hct 47.7 49.9 (42.0-52.0) % Plt Count 186 189 (130-400) K/uL Comprehensive Metabolic Panel 08/18/24 08/19/24 Range/Units 10:45 05:34 Sodium 135 L 135 L (136-145) mmol/L Potassium 5.5 H D 6.4 H* (3.5-5.1) mmol/L Chloride 98 102 (98-107) mmol/L Carbon Dioxide 33 H 31 (21-32) mmol/L BUN 19 19 (6-23) mg/dl Creatinine 1.34 1.40 (0.6-1.4) mg/dl Glucose 140 H (70-99(Fasting)) mg/dl Calcium 9.3 9.2 (8.6-10.3) mg/dl AST 27 (13-39) U/L ALT 116 H (7-52) U/L Alkaline Phosphatase 56 (34-104) U/L Total Protein 5.9 L (6.0-8.3) gm/dl Albumin 3.3 L (3.4-5.0) gm/dl Intake and Output 08/18/24 08/19/24 08/19/24 22:59 06:59 14:59 Intake Total 500 / 650 60 / 60 Output Total 1700 / 1700 Balance -1200 / -1050 60 / 60 Intake: IV 60 / 60 Calcium Gluconate 1,000 mg In 60 / 60 60 ml @ 240 mls/hr IV NOW STA Rx#:[id number] Oral 500 / 600 Output: Urine 1700 / 1700 Other: Weight 94.4 kg Diagnostic Findings Cardiac Cath: 08-18-2024 Right heart cath findings: PCWP-11 mmHg PAP-50/31 mmHg, mean 37 mmHg RVP-50/12 mmHg, RVEDP 14 mmHg RAP-13 mmHg AO sat-96% PA sat-75% RA sat 72% CO (Jasper)-7.08 L/min CI (Jasper)-3.3 L/min/m Pulmonary vascular resistance-4.1 Sotelo units Systemic vascular resistance-9.75 Sotelo units Total vascular resistance-11.58 Sotelo units Coronary angiography findings: GUK-aszbe-vfvxzms vessel trifurcating into LAD, ramus, and circumflex. No more than mild luminal irregularities. ECD-hffun-jwoarpb and transapical. Gives a medium caliber branching first diagonal. Proximal LAD has luminal irregularities. The mid vessel just after the diagonal has a focal 30 to 40% narrowing. The diagonal has a proximal 50 to 70% narrowing but appears too small for PCI. Distally the LAD has no angiographically evident disease. Pckuu-eqfqa-jmhvnxx and branching with no more than mild luminal irregularities. TDs-zsdse-iufscvf and nondominant. Travels in the AV groove giving a medium caliber OM1, medium caliber OM 2 and a small caliber posterolateral branch. There is no more than mild luminal irregularities in the circumflex and its branches. RCA-this is large caliber and dominant. Bifurcates distally into the PDA and multi branching posterolateral. The RCA and its branches have no disease. CXR: 08-18-2024 IMPRESSION: 1. Cardiomegaly. Resolution of pulmonary edema. 2. Stable to slight decrease in size of the small bilateral pleural effusions. Associated bibasilar opacities favor atelectasis. Medications Administered Current Inpatient Medications Acetaminophen (Acetaminophen 325 Mg Tab) 650 mg PO Q4H PRN PRN Reason: Pain or Fever Stop: 09/13/24 18:06 Last Admin: 08/19/24 07:42 Dose: 650 mg Aspirin (Aspirin 81 Mg Ectab) 81 mg PO DAILY ERIKA Stop: 09/14/24 08:59 Last Admin: 08/19/24 07:41 Dose: 81 mg Dextrose (Dextrose 50% 50 Ml Syringe) 25 - 50 ml IV UD PRN; Protocol PRN Reason: Hypoglycemia Protocol Stop: 09/13/24 18:06 Glucagon (Glucagon For Inj 1 Mg Vial) 1 mg SQ UD PRN; Protocol PRN Reason: Hypoglycemia Protocol Stop: 09/13/24 18:06 Glucose (Glucose 40% Gel 15 Gm Tube) 15 - 30 gm PO UD PRN; Protocol PRN Reason: Hypoglycemia Protocol Stop: 09/13/24 18:06 Glucose (Glucose 10 Tab/Tube) 4 - 8 tab PO UD PRN; Protocol PRN Reason: Hypoglycemia Protocol Stop: 09/13/24 18:06 Heparin Sodium (Porcine) (Heparin Sod 5,000 Unit/0.5 Ml Vial) 5,000 units SQ Q12 [facility] Stop: 09/13/24 20:59 Last Admin: 08/19/24 07:54 Dose: 5,000 units Hydromorphone HCl (Hydromorphone Inj 0.5 Mg/0.5 Ml Syr) 0.5 mg IV Q6H PRN PRN Reason: Mod-Sev Pain (Scale 4-10) Stop: 08/28/24 18:06 Last Admin: 08/16/24 12:13 Dose: 0.5 mg Pantoprazole Sodium (Protonix) 40 mg in 10 mls @ 5 mls/min IV BID [facility] Stop: 09/15/24 09:14 Last Admin: 08/19/24 07:41 Dose: 5 mls/min Ceftriaxone Sodium (Rocephin) 2,000 mg in 50 mls @ 100 mls/hr IV Q24H [facility] Stop: 08/26/24 09:29 Last Admin: 08/19/24 08:47 Dose: 100 mls/hr Insulin Aspart (Insulin Aspart Per Unit Charge) 0 units SC ACHS [facility] Stop: 09/14/24 06:59 Last Admin: 08/19/24 08:47 Dose: 9 units Insulin Glargine (Lantus Per Unit Charge) 10 units SQ QAM [facility] Stop: 09/17/24 20:59 Last Admin: 08/19/24 08:46 Dose: 10 units Losartan Potassium (Losartan Potassium 25 Mg Tab) 25 mg PO QAM [facility] Stop: 09/18/24 08:59 Magnesium Oxide (Magnesium Oxide 400 Mg Tab) 400 mg PO BID [facility] Stop: 09/15/24 20:59 Last Admin: 08/19/24 07:42 Dose: 400 mg Metoprolol Succinate (Metoprolol Succ 25mg Ext Rel Tab) 25 mg PO QAM [facility] Stop: 09/14/24 08:59 Last Admin: 08/19/24 07:42 Dose: 25 mg Miscellaneous (Carbohydrates For Hypoglycemia ) 15 - 30 gm PO UD PRN PRN Reason: Hypoglycemia Protocol Stop: 09/13/24 18:06 Miscellaneous Information (Pharmacy Glycemic Mgmt Consult) 1 each N/A UD PRN; Protocol PRN Reason: Consult Stop: 09/17/24 11:39 Ondansetron HCl (Ondansetron Inj 2 Mg/Ml 2 Ml Vial) 4 mg IV Q6H PRN PRN Reason: Nausea Stop: 09/13/24 18:06 Last Admin: 08/19/24 06:08 Dose: 4 mg Polyethylene Glycol (Polyethylene (Miralax) 17 Gm Pack) 17 gm PO DAILY PRN PRN Reason: Constipation Stop: 09/13/24 18:06 Spironolactone (Spironolactone 25 Mg Tab) 25 mg PO [facility] Stop: 09/17/24 09:44 Last Admin: 08/18/24 10:31 Dose: 25 mg
[2024-08-19] MEDS: LANTUS PER UNIT CHARGE SQ SCH ×2 (08:46→20:37)
[2024-08-19] MEDS ORDERED: LOSARTAN POTASSIUM 25 MG TAB PO SCH (09:00)
[2024-08-19] MEDS: FUROSEMIDE 40 MG/4 ML VIAL IV ONE (09:50)
--- NOTE | 2024-08-19 11:02 | Nephrology Consultation ---
Date of Consultation August 19, 2024 Assessment & Plan (1) Hyperkalemia: Started after Aldactone and ARB started and lasix Stopped. Now Aldactone and losartan on hold. will give lasix 40 iv x 1. Lokelma x 4 doses. after this I expect his k to be normal. without lasix on board most likely he will have high K. Once the K is normal will recommend to use both Lasix and Aldactone + ARB. However we may have problem whether his BP can handle all the med. Differ this to cardiology. (2) Acute heart failure with reduced ejection fraction (HFrEF, <= 40%): ECHO shows very low LVEF of 20-25%. major Coronary arteries not bad. However with his DM he is at risk of Distal small vessel Cardiac Dz causing low LVEF. this is not uncommon. I believe he should be on lasix in conjunction with Aldactone and ARB. without lasix on board most likely he will have high K. may ne candidate for SGLT-I also. But we dont need to start all meds at once. Sequential start is preferable watching renal function, electrolytes and his BP. (3) Type 2 diabetes mellitus: Uncontrolled with A1c of 11%. high risk of renal decline in future. Plan Time spent 52 mins History of Present Illness Reason for Consultation: Hyperkalemia Attending Physician: Williams Durant MD History of Present Illness 53/M Admitted 08/14/2024 after he came to ED with Abd pain and SOB. Was found to have severely reduced LVEF of 20-25%. NO prior heart Disease. Heart Cath showed some Issues only. Got some iv lasix and then Stopped and Changed to Losartan and Aldactone. K was high today at 6.4. renal function normal. No prior renal issues although has DM for many years. No FH of renal Issues. Making urine. Feels weak and tired. [facility] but he [facility] and is single so no consistent health care. DM was found to be uncontrolled with A1c of 11%. ROS--12 Systems reviewed and negative Physical Exam Physical Exam: General: no acute distress and stated age Neck: normal jugular venous pulse, no hepatojugular reflux Lungs: Mildly decreased breath sounds bilaterally at the base Cardiac Exam: - Regular rhythm, tachycardic, no murmurs, no jugular venous distention Abdomen: Nontender, suggestion of mild fluid retention on palpation Musculoskeletal: no gait disturbance, no weakness Extremities: trace LE edema Neuro:awake, conversant, follows commands, no focal motor deficits Psych: appropriate affect and insight. Allergies Allergy/AdvReac Type Severity Reaction Status Date / Time lidocaine AdvReac Unknown Unknown Verified 08/18/24 14:08 Home Medications Medication Instructions Recorded Confirmed Type metformin 1,000 mg tablet 1,000 mg PO QAM 10/22/18 08/14/24 History aspirin 81 mg tablet,delayed 81 mg PO DAILY 07/19/20 08/14/24 History release lisinopril 5 mg tablet 5 mg PO PM 07/19/20 08/14/24 History insulin glargine-yfgn 100 unit/mL 7 unit subcut PM 08/14/24 08/14/24 History (3 mL) subcutaneous pen insulin glargine-yfgn 100 unit/mL 15 unit subcut DAILY 08/14/24 08/14/24 History (3 mL) subcutaneous pen Patient History Medical History TBI (traumatic brain injury) No pertinent family history Family History Mother Diabetes Social History Smoking Status: Never smoker Hx Alcohol Use: No Hx Substance Use: No Preferred Language: Malay Communication Ability: Effective Change Over Required: No Beliefs That Will Affect Care: None marital status: Single Current Living Situation: Alone current occupational status: employed Other Information That Helps Us Care for You: No Feels Safe at Home: Yes Safety Concerns: Feels Safe At This Time Assistive Devices: None Results & Data Vital Signs (Past 12 Hours) Vital Signs Temp Pulse Pulse Resp BP Pulse Ox O2 Del Method 08/19/24 07:27 106 H 08/19/24 07:17 36.6 C 85 18 109/78 96 Room Air 08/19/24 04:21 36.3 C L 91 H 18 118/82 95 Room Air 08/18/24 23:45 36.6 C 93 H 18 111/85 100 Room Air Laboratory Results renal panel, CBC reviewed Diagnostic Findings CXR and ECHO reviewed.
--- NOTE | 2024-08-19 13:30 | Pharmacy Report ---
Pharmacy Glycemic Short Note 2 - Date of Service August 19, 2024 - Glycemic Short BSG Results (Last 24 hours): 08/18/24 08/18/24 08/19/24 14:56 20:06 05:34 Glucose 140 H POC Glucose 123 H 139 H 08/19/24 08/19/24 08/19/24 07:14 07:40 11:40 Glucose POC Glucose 271 H 154 H 90 OUTPATIENT ANTIDIABETIC REGIMEN: * Semglee 15 units qAM/70 units HS per RX * A1c 11% ASSESSMENT: 08/19: * BSGs well controlled yesterday: [phone] mg/dL. Received 10 units basal + 6 units bolus. * No true fasting BSG today. Initial read of 271 mg/dL was following a 10 unit IVP insulin dose that was followed by D50 amp for hyperkalemia. BSG trended down to 154 about 30 mins later. * Gave a 10 unit dose of basal this AM. Will add scaled basal dose for HS. 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 * BSGS 113-110 mg/dL with 10 units of lantus yesterday * Reduced inpatient needs from outpatient currently, will continue current parameters * Adjust novolog as needed once eating. PLAN FOR INPATIENT GLYCEMIC CONTROL: * Hold outpatient oral diabetes medications * Basal insulin * Lantus 10 units SC AM * Lantus 0-5 units SC HS (5 units for BSG 160 mg/dL or above) * Bolus insulin * NovoLog per scale ACHS or Q6hrs while NPO * Goal Range: Low 110 mg/dL - High 150 mg/dL * Correction Factor: 40 mg/dL/unit * Nutritional / Prandial insulin per carb ratio of 1 unit per 13 grams CHO consumed
[2024-08-19] MEDS: SODIUM ZIRCONIUM CYCLOSILICATE 10 GM PACKET PO SCH (14:26)
[2024-08-19] MEDS: traMADol HCL 50 MG TABLET PO STA (15:41)
--- NOTE | 2024-08-19 16:29 | CT Scan Report ---
EXAM: CT Head Without Intravenous Contrast INDICATION: Persistent headache. TECHNIQUE: Axial computed tomography images of the head/brain without intravenous contrast. Sagittal and/or coronal reformats are provided. Sagittal and coronal reformatted images were created and reviewed. This CT exam was performed using one or more of the following dose reduction techniques: automated exposure control, adjustment of the mA and/or kV according to patient size, and/or use of iterative reconstruction technique. COMPARISON: 01/12/2021 FINDINGS: Limitations: None. Brain and extra-axial spaces: No abnormality noted. No hemorrhage. No significant white matter disease. No edema. No ventriculomegaly. Bones/joints: No acute changes. Soft tissues: No significant abnormality noted. Vasculature: No acute abnormality noted. Sinuses: There is mild chronic bilateral ethmoid air cell thickening. Mastoid air cells: No mastoid effusion. Orbits: No significant abnormality noted. IMPRESSION: 1. No acute change in the brain. 2. Mild bilateral chronic ethmoid sinusitis. ACT 112: Negative or not required by law. Electronically signed by Jessica Dasilva 08-19-2024 4:24 PM
--- NOTE | 2024-08-19 18:31 | Electrocardiogram Report ---
Test Reason : Blood Pressure : */* mmHG Vent. Rate : 91 BPM Atrial Rate : 91 BPM P-R Int : 176 ms QRS Dur : 84 ms QT Int : 386 ms P-R-T Axes : 65 -20 18 degrees QTcB Int : 474 ms Normal sinus rhythm Possible Left atrial enlargement Nonspecific T wave abnormality Prolonged QT Abnormal ECG When compared with ECG of 15-Aug-2024 04:42, Aberrant conduction is no longer Present Confirmed by Cyrus Barragan ([id number]) on 08/19/2024 6:30:44 PM Referred By: REFERRED SELF Confirmed By: Cyrus Barragan
[2024-08-20] MEDS: EMPAGLIFLOZIN 10 MG TAB PO SCH (08:11)
[2024-08-20] MEDS: VALSARTAN/SACUBITRIL 26/24MG TAB PO SCH (08:11)
[2024-08-20] MEDS: ROSUVASTATIN CALCIUM 5 MG TAB PO SCH (08:11)
[2024-08-20 10:35] LABS: BUN Creatinine Ratio 13.8 (10-20); Calcium 8.6 mg/dl (8.6-10.3); Magnesium 1.9 mg/dl (1.7-2.4); Phosphorus 3.9 mg/dl (2.5-4.9); Potassium 4.7 mmol/L (3.5-5.1)
[2024-08-20 10:44] LABS: Basophils # (auto) 0.02 K/uL (0.00-0.20); Basophils % (auto) 0.4 %; Eosinophils % (auto) 6.7 %; Hematocrit (blood only) 46.8 % (42.0-52.0); Hemoglobin 15.6 g/dl (14.0-18.0); Immature Granulocytes # (auto) 0.01 K/uL (0.01-0.20); Immature Granulocytes % (auto) 0.2 %; Lymphocytes # (auto) 1.94 K/uL (1.20-3.40); Mean Corpuscular Hemoglobin 28.2 pg (25.0-34.0); Mean Corpuscular Hgb Conc 33.3 g/dL (32.0-36.0); Mean Corpuscular Volume 84.5 fL (80.0-100.0); Mean Platelet Volume 10.9 fL (9.4-12.4); Monocytes # (auto) 0.44 K/uL (0.11-0.59); Monocytes % (auto) 9.8 %; Neutrophils % (auto) 39.9 %; Platelet Count 187 K/uL (130-400); RDW Coefficient of Variation 12.8 % (11.5-14.5); RDW Standard Deviation 39.6 fL (36.4-46.3); Red Blood Count 5.54 M/uL (4.70-6.10); White Blood Count 4.51 K/ul (4.8-10.8)
--- NOTE | 2024-08-20 11:05 | Nephrology Progress Note ---
Date of Service August 20, 2024 Assessment & Plan Admission and Anticipated Discharge Date Admission Date: August 14, 2024 Subjective Assessment & Plan (1) Hyperkalemia: Started after Aldactone and ARB started and lasix Stopped. Now Aldactone and losartan on hold. K isnormal today after lasix 40 iv x 1 and 4 doses of Lokelma. without lasix on board most likely he will have high K. Once the K is normal will recommend to use both Lasix and Aldactone + ARB. However we may have problem whether his BP can handle all the med. Defer this to cardiology. (2) Acute heart failure with reduced ejection fraction (HFrEF, <= 40%): ECHO shows very low LVEF of 20-25%. major Coronary arteries not bad. However with his DM he is at risk of Distal small vessel Cardiac Dz causing low LVEF. this is not uncommon. I believe he should be on lasix in conjunction with Aldactone and ARB. without lasix on board most likely he will have high K. may ne candidate for SGLT-I also. But we dont need to start all meds at once. Sequential start is preferable watching renal function, electrolytes and his BP. (3) Type 2 diabetes mellitus: Uncontrolled with A1c of 11%. high risk of renal decline in future. S--Overall feel fine. eager to go home. ROS--12 Systems reviewed and negative Physical Exam Physical Exam: General: no acute distress and stated age Neck: normal jugular venous pulse, no hepatojugular reflux Lungs: Mildly decreased breath sounds bilaterally at the base Cardiac Exam: - Regular rhythm, tachycardic, no murmurs, no jugular venous distention Abdomen: Nontender, suggestion of mild fluid retention on palpation Musculoskeletal: no gait disturbance, no weakness Extremities: trace LE edema Neuro:awake, conversant, follows commands, no focal motor deficits Psych: appropriate affect and insight. Results & Data Vital Signs (Past 12 Hours) Vital Signs Temp Pulse Pulse Resp BP Pulse Ox O2 Del Method 08/20/24 07:55 36.6 C 95 H 17 115/85 96 Room Air 08/20/24 07:00 85 08/20/24 02:58 36.6 C 91 H 18 119/87 94 Room Air
[2024-08-20 11:33] VITALS: BP 122/85; PULSE 96; RESP 18; TEMP 97.7; O2SAT 98
--- NOTE | 2024-08-20 11:37 | Pharmacy Report ---
Pharmacy Glycemic Short Note 2 - Date of Service August 20, 2024 - Glycemic Short BSG Results (Last 24 hours): 08/19/24 08/19/24 08/19/24 11:40 16:26 20:04 Glucose POC Glucose 90 123 H 153 H 08/20/24 08/20/24 08/20/24 07:10 09:39 11:22 Glucose 240 H POC Glucose 127 H 165 H OUTPATIENT ANTIDIABETIC REGIMEN: * Semglee 15 units qAM/70 units HS per RX * A1c 11% ASSESSMENT: 08/20: * BSGs yesterday were [phone] mg/dL. Received 26 units total, 10 units basal + 16 units bolus. * Fasting BSG controlled at 127 mg/dL this AM. No adjustment to basal today. * Cardiology started patient on Jardiance 10 mg by mouth daily this morning. Therefore, will loosen Novolog parameters slightly with lunch today. 08/19: * BSGs well controlled yesterday: [phone] mg/dL. Received 10 units basal + 6 units bolus. * No true fasting BSG today. Initial read of 271 mg/dL was following a 10 unit IVP insulin dose that was followed by D50 amp for hyperkalemia. BSG trended down to 154 about 30 mins later. * Gave a 10 unit dose of basal this AM. Will add scaled basal dose for HS. 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 * BSGS 113-110 mg/dL with 10 units of lantus yesterday * Reduced inpatient needs from outpatient currently, will continue current parameters * Adjust novolog as needed once eating. PLAN FOR INPATIENT GLYCEMIC CONTROL: * Hold outpatient oral diabetes medications * Basal insulin * Lantus 10 units SC AM * Lantus 0-5 units SC HS (5 units for BSG 160 mg/dL or above) * Bolus insulin * NovoLog per scale ACHS or Q6hrs while NPO * Goal Range: Low 110 mg/dL - High 150 mg/dL * Correction Factor: 45 mg/dL/unit * Nutritional / Prandial insulin per carb ratio of 1 unit per 15 grams CHO consumed
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
[2024-08-20] MEDS ORDERED: PANTOprazole 40 MG TAB PO SCH (21:00)
--- NOTE | 2024-08-22 15:23 | Coding Query ---
CODING QUERY FOR UNCONTROLLED DIABETES To promote full compliance with coding requirements relating to patient care, provider participation is requested in all cases of routing clerk uncertainty. Please assist us with the question(s) below: Coding Question: The term uncontrolled Diabetes was used throughout the record. To be able to code this diagnosis properly, could you please clarify the diagnosis below: ( ) Uncontrolled Diabetes meaning hypoglycemia (x ) Uncontrolled Diabetes meaning hyperglycemia ( ) Other (please specify) Principal Diagnosis: "that condition established after study, to be chiefly responsible for occasioning the admission of the patient to the hospital for care." Co-Existing Principal Diagnosis: "when two or more diagnoses equally meet the criteria for principal diagnosis as determined by the circumstances of admission, diagnostic work up, and/or therapy provided, and the Alphabetic Index, Tabular List, or another coding guideline does not provide sequencing direction, any one of the diagnoses may be sequenced first." "When the physician has documented what appears to be a current diagnosis in the body of the record, but has not included the diagnosis in the final diagnostic statement, the physician should be asked whether the diagnosis should be added." (Source Coding [facility] 2 QTR90. p3-4) BECKI
--- NOTE | 2024-08-22 15:26 | Coding Query ---
TREATMENT RENDERED WITHOUT A DIAGNOSIS To promote full compliance with coding requirements relating to patient care, physician participation is requested in all cases of auto detailer uncertainty. Please assist us with the question(s) below: HP: Documented medication history of being on Lisinopril 5mg and continued on this admission with a new onset CHF. Coding Question: The patient is receiving (Lisinopril), as noted in the (HP/MAR) of the record. Please document the diagnosis that is being addressed by the medication/treatment. Provider Response: Hypertension Thank you Larisa CONNELL
== END 2024-08-20 17:15 | disposition home or self-care (01) | DRG 444 ==
LOC: ED 12:48 → 2E 15:50 → SUATTDRO 15:50 → 2E 17:40

== ENCOUNTER 2024-11-11 08:42 | Inpatient (IN) ==
[2024-11-11 09:36] LABS: Basophils # (auto) 0.02 K/uL (0.00-0.20); Basophils % (auto) 0.3 %; Eosinophils # (auto) 0.25 K/uL (0.00-0.50); Eosinophils % (auto) 4.1 %; Hematocrit (blood only) 48.3 % (42.0-52.0); Hemoglobin 16.1 g/dl (14.0-18.0); Immature Granulocytes # (auto) 0.01 K/uL (0.01-0.20); Immature Granulocytes % (auto) 0.2 %; Mean Corpuscular Hemoglobin 28.6 pg (25.0-34.0); Mean Corpuscular Hgb Conc 33.3 g/dL (32.0-36.0); Mean Corpuscular Volume 85.9 fL (80.0-100.0); Monocytes # (auto) 0.52 K/uL (0.11-0.59); Monocytes % (auto) 8.4 %; Neutrophils # (auto) 3.27 K/uL (1.40-6.50); Platelet Count 162 K/uL (130-400); RDW Coefficient of Variation 12.4 % (11.5-14.5); RDW Standard Deviation 39.1 fL (36.4-46.3); Red Blood Count 5.62 M/uL (4.70-6.10); White Blood Count 6.17 K/ul (4.8-10.8)
[2024-11-11] MEDS: ACETAMINOPHEN 1,000 MG/100 ML VIAL IV STA (09:38)
[2024-11-11] MEDS: ONDANSETRON INJ 2 MG/ML 2 ML VIAL IV STA (09:38)
[2024-11-11 09:39] LABS: INR 1.1 (0.9-1.1); Prothrombin Time 11.4 Seconds (9.0-12.0)
--- NOTE | 2024-11-11 09:41 | Emergency Department Note ---
Impression & Plan Chest pain, Abdominal pain, Acute CHF, Transaminitis, Hypomagnesemia ED Provider Note HISTORY OF PRESENT ILLNESS: Patient is a 54-year-old male presenting with chest pain and abdominal pain. Patient reports that yesterday afternoon he started having substernal chest pain. Denies any radiation of the chest pain but does report some associated shortness of breath. He has an external defibrillator in place that has been on for the last 3 months. He is not on any anticoagulation or antiplatelet therapies. He denies any alleviating or exacerbating factors for the chest pain. He took a dose of ibuprofen yesterday without any relief in his pain. Pain continued throughout the day and into the night and given that he still woke up with pain today, he presented to the ER. He also reports that he has been having pain in the lower part of his abdomen. He denies any history of abdominal surgeries. Denies any diarrhea. Denies any fevers or chills. Denies any recent sick contact exposures. ROS: as above PHYSICAL EXAM: Constitutional: Patient appears in no acute distress. HENT: Head: Normocephalic and atraumatic. Eyes: EOMI, PERRL Mouth/Throat: Mucous membranes moist. Neck: Trachea midline. Neck supple. Cardiovascular: Tachycardic with regular rhythm. No murmurs, rubs or gallops. Intact distal pulses. Pulmonary/Chest: No respiratory distress. Breath sounds clear and equal bilaterally. No wheezes or rales. Abdominal: Abdomen soft, no tenderness, rebound or guarding. Musculoskeletal: No tenderness or deformity noted. +1 edema of bilateral lower extremities extending to mid-tibias Skin: Warm and dry. No rash, erythema, pallor or cyanosis Psychiatric: Appropriate mood and affect for situation. Neurological: Alert and keenly responsive. CN II-XII grossly intact, moving all extremities equally and fully. MDM: - Vitals signs showed hypertension and tachycardia - History obtained via patient. History as above. - Chronic conditions affecting care: CHF; DM-2; GERD - Differential diagnoses include, but are not limited to: Acute coronary syndrome; pulmonary embolism; dissection; tension pneumothorax; esophageal rupture; pneumonia - Order placed for continuous cardiac monitoring. At this time, monitor showed rate of 101 bpm with normal sinus rhythm, per my interpretation. - External medical records reviewed. Cardiac catheterization from 08/18/2024 was reviewed. Patient had a heart failure class IV documented. Noted to have moderate to borderline severe diagonal disease and vessel was too small for PCI per report - EKG image interpreted by myself showed normal sinus rhythm. Rate tachycardic at 104 bpm. QT 358. No acute ischemic changes. - Laboratory workup interpreted by myself showed normal WBC; normal PT/INR; slight hypomagnesemia (Mg 1.6); normal troponin; transaminitis (AST 44; ALT 98) with normal total bilirubin; normal lipase - CXR image reviewed by myself showed no pneumonia or pulmonary edema, per my interpretation. Radiology notes cardiomegaly and small bilateral pleural effusions. They also note an increase in bibasilar opacities which could be pneumonia or atelectasis. - CT abdomen/pelvis with IV contrast negative for acute abnormality. Noted to have cholelithiasis without any evidence of acute cholecystitis. Small bilateral pleural effusions similar to previous exam and subpleural opacities believed to be atelectasis. Noted to have some mild interstitial pulmonary edema per radiology. - Repeat troponin within normal limits - Patient has a history of CHF with an EF of less than 40%. He has not had any recent cardiac workup. Given his chest pain symptoms, will admit for further chest pain workup. - Patient given 20 mg IV lasix in ER. - Discussion was had with cyanide case hardener about patient's case and need for admission - Hospitalist consulted for admission - Patient admitted to [facility] for further evaluation and management. ASSESSMENT AND PLAN: Diagnosis: Chest pain; abdominal pain; acute CHF exacerbation; transaminitis; hypomagnesemia Plan: Admit Past Med/Surg History Problem List (Updated 11/11/24 @ 14:18 by Ketty Estrada MD) Hypomagnesemia (Acute) Transaminitis (Acute) Acute CHF (Acute) Abdominal pain (Acute) Chest pain (Acute) Hyperkalemia Acute heart failure with reduced ejection fraction (HFrEF, <= 40%) Acute upper abdominal pain (Acute) Cholelithiasis (Acute) Elevated LFTs (Acute) Pleural effusion (Acute) Elevated troponin (Acute) COVID-19 (Acute) Tinnitus of both ears Diabetic peripheral neuropathy Dizziness Ataxia (Acute) No significant past surgical history (Chronic) GERD (gastroesophageal reflux disease) (Chronic) Type 2 diabetes mellitus (Chronic) Abdominal pain (Acute) Dehydration (Acute) Nausea (Acute) New onset type 2 diabetes mellitus (Acute) Medical History TBI (traumatic brain injury) No pertinent family history Family History Mother Diabetes Social History Smoking Status: Never smoker Hx Alcohol Use: No Hx Substance Use: No Preferred Language: Liberian Communication Ability: Effective [employer]ix Architect Required: No Beliefs That Will Affect Care: None marital status: Single Current Living Situation: Alone current occupational status: employed Feels Safe at Home: Yes Assistive Devices: None Allergies Allergies Allergy/AdvReac Type Severity Reaction Status Date / Time lidocaine AdvReac Unknown Unknown Verified 08/18/24 14:08 Home Meds Home Medications Medication Instructions Recorded Confirmed aspirin 81 mg tablet,delayed 81 mg PO DAILY 07/19/20 08/14/24 release insulin glargine-yfgn 100 unit/mL 15 unit subcut DAILY 08/14/24 08/14/24 (3 mL) subcutaneous pen Previous Rx's Medication Instructions Recorded empagliflozin 10 mg tablet 10 mg PO DAILY 30 days #30 tabs 08/20/24 (Jardiance) metoprolol succinate 25 mg 25 mg PO QAM 30 days #30 tabs 08/20/24 tablet,extended release 24 hr rosuvastatin 5 mg tablet 5 mg PO QAM 30 days #30 tabs 08/20/24 sacubitril 24 mg-valsartan 26 mg 1 tab PO BID 30 days #60 tabs 08/20/24 tablet (Entresto) Results & Data (ED) Vital Signs Vital Signs - 24 hr 11/11/24 08:55 11/11/24 09:03 11/11/24 09:08 Temperature 36.3 C L Temperature Source Oral Pulse Rate 104 H 103 H 104 H Pulse Rate [Apical] Pulse Rate from SpO2 Sensor 104 H Pulse Rhythm Regular Pulse Rhythm [Apical] Pulse Strength Normal Pulse Strength [Apical] Respiratory Rate 12 19 Respiratory Effort / Characteristics Non-Labored Spontaneous Respiratory Depth Normal Respiratory Pattern Regular Blood Pressure 146/103 H 146/103 H Blood Pressure [Right Arm] Blood Pressure Mean 117 117 Blood Pressure Mean [Right Arm] Blood Pressure Position [Right Arm] Pulse Oximetry 99 100 Oxygen Delivery Method Room Air Sepsis Recent Fever Within 48 Hours No Sepsis New/Unexplained Change in Mental Status N/A Sepsis Action Taken by Nursing No Action Required 11/11/24 10:33 11/11/24 10:33 11/11/24 11:00 Temperature Temperature Source Pulse Rate 97 H 96 H 96 H Pulse Rate [Apical] Pulse Rate from SpO2 Sensor 96 H 93 H Pulse Rhythm Pulse Rhythm [Apical] Pulse Strength Pulse Strength [Apical] Respiratory Rate 16 16 16 Respiratory Effort / Characteristics Respiratory Depth Respiratory Pattern Blood Pressure 135/103 H 135/103 H 133/103 H Blood Pressure [Right Arm] Blood Pressure Mean 113 113 113 Blood Pressure Mean [Right Arm] Blood Pressure Position [Right Arm] Pulse Oximetry 97 97 96 Oxygen Delivery Method Room Air Room Air Room Air Sepsis Recent Fever Within 48 Hours Sepsis New/Unexplained Change in Mental Status Sepsis Action Taken by Nursing 11/11/24 11:30 11/11/24 12:03 11/11/24 13:00 Temperature Temperature Source Pulse Rate 93 H 101 H Pulse Rate [Apical] 60 Pulse Rate from SpO2 Sensor 95 H 101 H Pulse Rhythm Pulse Rhythm [Apical] Regular Pulse Strength Pulse Strength [Apical] Normal Respiratory Rate 14 22 20 Respiratory Effort / Characteristics Non-Labored Spontaneous Respiratory Depth Normal Respiratory Pattern Regular Blood Pressure 137/102 H 129/103 H Blood Pressure [Right Arm] 140/66 Blood Pressure Mean 113 111 Blood Pressure Mean [Right Arm] 90 Blood Pressure Position [Right Arm] Lying Pulse Oximetry 92 94 Oxygen Delivery Method Room Air Room Air Sepsis Recent Fever Within 48 Hours Sepsis New/Unexplained Change in Mental Status Sepsis Action Taken by Nursing 11/11/24 13:09 Temperature Temperature Source Pulse Rate 100 H Pulse Rate [Apical] Pulse Rate from SpO2 Sensor Pulse Rhythm Pulse Rhythm [Apical] Pulse Strength Pulse Strength [Apical] Respiratory Rate Respiratory Effort / Characteristics Respiratory Depth Respiratory Pattern Blood Pressure Blood Pressure [Right Arm] Blood Pressure Mean Blood Pressure Mean [Right Arm] Blood Pressure Position [Right Arm] Pulse Oximetry Oxygen Delivery Method Sepsis Recent Fever Within 48 Hours Sepsis New/Unexplained Change in Mental Status Sepsis Action Taken by Nursing Laboratory Data 11/11/24 09:11 11/11/24 09:11 Lab Results 11/11/24 11/11/24 11/11/24 Range/Units 09:11 12:20 12:53 WBC 6.17 (4.8-10.8) K/ul RBC 5.62 (4.70-6.10) M/uL Hgb 16.1 (14.0-18.0) g/dl Hct 48.3 (42.0-52.0) % MCV 85.9 (80.0-100.0) fL MCH 28.6 (25.0-34.0) pg MCHC 33.3 (32.0-36.0) g/dL RDW Std Deviation 39.1 (36.4-46.3) fL RDW Coeff of Kt 12.4 (11.5-14.5) % Plt Count 162 (130-400) K/uL MPV 11.0 (9.4-12.4) fL Immature Gran % (Auto) 0.2 % Neut % (Auto) 53.0 % Lymph % (Auto) 34.0 % Alfalfa % (Auto) 8.4 % Eos % (Auto) 4.1 % Baso % (Auto) 0.3 % Neut # (Auto) 3.27 (1.40-6.50) K/uL Lymph # (Auto) 2.10 (1.20-3.40) K/uL Alfalfa # (Auto) 0.52 (0.11-0.59) K/uL Eos # (Auto) 0.25 (0.00-0.50) K/uL Baso # (Auto) 0.02 (0.00-0.20) K/uL Immature Gran # (Auto) 0.01 (0.01-0.20) K/uL PT 11.4 (9.0-12.0) Seconds INR 1.1 (0.9-1.1) Sodium 138 (136-145) mmol/L Potassium 4.3 (3.5-5.1) mmol/L Chloride 105 (98-107) mmol/L Carbon Dioxide 30 (21-32) mmol/L Anion Gap 3 (3-11) BUN 20 (6-23) mg/dl Creatinine 1.21 (0.6-1.4) mg/dl Est Cr Clr Drug Dosing 83.6 ml/min eGFR 71.15 BUN/Creatinine Ratio 16.5 (10-20) Glucose 82 (70-99(Fasting)) mg/dl Lactate 1.6 (0.4-2.0) mmol/L Calcium 8.3 L (8.6-10.3) mg/dl Magnesium 1.6 L (1.7-2.4) mg/dl Total Bilirubin 0.4 (0.2-1.0) mg/dl AST 44 H (13-39) U/L ALT 98 H (7-52) U/L Alkaline Phosphatase 86 (34-104) U/L Troponin I High Sens 14.9 14.0 (0-20) pg/ml B-Natriuretic Peptide 546 H (0-100) pg/ml Total Protein 5.8 L (6.0-8.3) gm/dl Albumin 3.3 L (3.4-5.0) gm/dl Globulin 2.5 (2.5-4.0) gm/dl Albumin/Globulin Ratio 1.3 (0.9-2) Lipase 27 (11-82) U/L Urine Color Yellow Urine Appearance Clear (Clear) Urine pH 5.5 (4.5-7.5) Ur Specific [place] > 1.045 H (1.000-1.030) Urine Protein Trace H (Negative) Urine Glucose (UA) Negative (Negative) Urine Ketones Negative (Negative) Urine Blood Trace H (Negative) Urine Nitrite Negative (Negative) Urine Bilirubin Negative (Negative) Urine Urobilinogen Negative (Negative) Ur Leukocyte Esterase Negative (Negative) Urine WBC (Auto) 0-5 (0-5) /hpf Urine RBC (Auto) 3-5 H (0-2) /hpf U Hyaline Cast (Auto) 0-2 (0-2) /lpf U Epithel Cells (Auto) 0-2 (0-2) /hpf Urine Bacteria (Auto) None Seen (None Seen) Administered Medications Discontinued Medications Furosemide (Furosemide Inj 20 Mg/2 Ml Vial) 20 mg IV ONE ONE Stop: 11/11/24 13:52 Last Admin: 11/11/24 13:56 Dose: 20 mg Documented By: JOSE ANTONIO Acetaminophen (Ofirmev) 1,000 mg in 100 mls @ 400 mls/hr IV NOW STA Stop: 11/11/24 09:35 Last Infusion: 11/11/24 10:00 Dose: Infused Documented By: JOSE ANTONIO Admin: 11/11/24 09:38 Dose: 400 mls/hr Documented By: JOSE ANTONIO Ondansetron HCl (Ondansetron Inj 2 Mg/Ml 2 Ml Vial) 4 mg IV NOW STA Stop: 11/11/24 09:22 Last Admin: 11/11/24 09:38 Dose: 4 mg [place]ed [place]: [facility] [place] Radiologist's Impression: Chest X-Ray 11/11/24 09:21 XR chest 1V portable CLINICAL HISTORY: Chest pain. COMPARISON STUDY: Chest radiograph August 18, 2024. FINDINGS: Cardiomegaly is again noted. There is no pneumothorax. Small bilateral pleural effusions are similar to prior exam. Bibasilar opacities have slightly increased. There is no radiographic evidence for pulmonary edema. IMPRESSION: 1. Cardiomegaly. No radiographic evidence for pulmonary edema. 2. Small bilateral pleural effusions, similar to prior exam. 3. Increase in bibasilar opacities which could represent pneumonia or atelectasis. Radiographic follow-up is recommended. ACT 112: Negative or not required by law. Electronically signed by: Nicolas Love M.D. 11/11/2024 10:10 AM Abdomen/Pelvis CT 11/11/24 09:42 CT OF THE ABDOMEN AND PELVIS WITH CONTRAST CLINICAL HISTORY: Lower abdominal pain. COMPARISON STUDY: CT of the abdomen and pelvis August 14, 2024. TECHNIQUE: Following IV administration of 94 mL of Optiray, axial images of the abdomen and pelvis were obtained from the lung bases to the proximal femurs. Images were reviewed in the axial, sagittal, and coronal planes. IV contrast was administered without complication. Automated exposure control was utilized for the study. A dose lowering technique was utilized adhering to the principles of ALARA. CT DOSE: 1204.62 mGy.cm FINDINGS: Small bilateral pleural effusions are similar to prior exam. Associated lower lung opacities favor atelectasis. The heart is mildly enlarged. There is interlobular septal thickening. No pneumatosis, free air or portal venous gas is present. There are no hepatic lesions and there is no biliary or pancreatic ductal dilatation. Several gallstones within the bladder present. There is no evidence for acute cholecystitis by CT. The spleen, adrenal glands and pancreas are unremarkable. There is no hydronephrosis. The caliber and wall thickness of small and large bowel are normal. There is colonic diverticulosis without evidence for acute diverticulitis. The appendix is normal. Mild body wall edema is present. Major vasculature is patent. Trace ascites within the pelvis has decreased. IMPRESSION: 1. No acute process within the abdomen or pelvis. 2. No bowel obstruction. No bowel wall thickening. 3. Cholelithiasis. No evidence for acute cholecystitis. 4. Small bilateral pleural effusions, similar to prior exam. Subpleural opacities favor atelectasis. Cardiomegaly with findings suggestive of mild interstitial pulmonary edema. ACT 112: Negative or not required by law. Electronically signed by: Nicolas Love M.D. 11/11/2024 10:34 AM Discharge Plan Visit Data Chief Complaint: Abdominal Pain Stated Complaint: SEVERE ABD PAIN ED Provider: Ketty Estrada Discharge Problem: Chest pain, Abdominal pain, Acute CHF, Transaminitis, Hypomagnesemia Forms Stand Alone Forms: [employer] Prescriptions Prescriptions: No Action aspirin 81 mg tablet,delayed release (DR/EC) 81 mg PO DAILY insulin glargine-yfgn 100 unit/mL (3 mL) insulin pen 15 unit SUBCUT DAILY metoprolol succinate 25 mg Tablet Extended Release 24 Hr 25 mg PO QAM 30 Days Qty: 30 1RF rosuvastatin 5 mg Tablet 5 mg PO QAM 30 Days Qty: 30 1RF Jardiance 10 mg Tablet 10 mg PO DAILY 30 Days Qty: 30 1RF Entresto 24-26 mg Tablet 1 tab PO BID 30 Days Qty: 60 1RF Referrals Referrals: Pilar Elena CRNP [Primary Care Provider] -
[2024-11-11 10:01] LABS: Albumin Globulin Ratio 1.3 (0.9-2); Albumin Level 3.3 gm/dl (3.4-5.0); BUN Creatinine Ratio 16.5 (10-20); Bilirubin,Total 0.4 mg/dl (0.2-1.0); Calcium 8.3 mg/dl (8.6-10.3); Creatinine Clr Calc Pharmacy 83.6 ml/min; Globulin 2.5 gm/dl (2.5-4.0); Magnesium 1.6 mg/dl (1.7-2.4); Potassium 4.3 mmol/L (3.5-5.1); Total Protein 5.8 gm/dl (6.0-8.3)
[2024-11-11 10:07] LABS: Troponin I High Sensitivity 14.9 pg/ml (0-20)
--- OUTSIDE RECORDS SUMMARY | 2024-11-11 10:08 | External Medical Summary | Summary of Care ---
Author Name Unknown Organization [facility] Address [address] [place] [address] Phone [phone] Care Team Providers Care Payroll Officer Name Role Phone Unavailable Primary Care Provider Unavailabl e Encounter Details Date Type Department Care Team (Late st Contact Info) Description 08/18/2024 Result Scan Unspecified Department Rell Kyle, DO [address] [place] [id number] <No scans attached> Allergies No known active allergiesdocumented as of this encounter (statuses as of 08/19/2024) Social History Tobacco Use Types Packs/Day Years Used Date Smoking Tobacco: Never Utilities Answer Date Recorded Do you have trouble paying y our heating, water, or electric bill? (Adult - for ages 18 years and over) Not on file 03/11/2024 Is your family able to pay t he heat, water, or electric bill? (Household - for ages 0-17 years) Not on file 03/11/2024 Does your family have access to good internet? (Household - for ages 0-17 years) Not on file 03/11/2024 Social Connections Answer Date Recorded How often do you feel lonely or isolated from those around you? (Adult - for ages 18 years and over) Not on file 03/11/2024 Sex and Gender Information Value Date Recorded Sex Assigned at Not on file Legal Sex Male 5:18 PM EDT Gender Identity Not on file Sexual Orientation Not on file documented as of this encounter Plan of Treatment Health Maintenance Due Date Last Done Comments Lipid Panel 1970 Depression Screening 1982 HIV Screening 1985 Hepatitis C Screening 1988 DTap/Tdap Vaccines (1 - Tdap) 1989 Hepatitis B Vaccine (1 of 3 - 19+ 3-dose series) 1989 Cologuard 2015 Colonoscopy 2015 Colorectal Cancer Screening 2015 Fecal Occult Blood Test 2015 Sigmoidoscopy 2015 Zoster Vaccines (1 of 2) 2020 COVID-19 Vaccine (2023-2 5 season) 2024 Influenza Vaccine (FLU shot) (#1) 2024 HPV (Gardasil) Vaccine Aged Out No lo nger eligible based on patient's age to complete this topic MENINGOCOCCAL (MENACTRA/MENVEO) Aged Out No longer eligible based on patient's age to complete this topic Pneumococcal Vaccine: Pediat rics (0 to 5 Years) and At-Risk Patients (6 to 64 Years) Aged Out No longer eligible b ased on patient's age to complete this topic documented as of this encounter Medical Devices Not on filedocumented as of this encounter Procedures Procedure Name Priority Date/Time Associated Diagnosis Comments RADIOLOGY SCANNED RESULT 08/18/2024 documented in this encounter Results * RADIOLOGY SCANNED RESULT (08/18/2024) 08/18/2024 us Rell Kyle DO DIAGNOSTIC RADIOLOGY SERVICE S Final Result documented in this encounter
--- OUTSIDE RECORDS SUMMARY | 2024-11-11 10:08 | External Medical Summary | Summary of Care ---
Author Name Unknown Organization [facility] Address [address] [place] [address] Phone [phone] Care Team Providers Care Pelts Skinner Name Role Phone Unavailable Primary Care Provider Unavailabl e Reason for Referral * Evaluate & Treat - Unlimited Visits (Within 10 days (routine)) - Authorized Specialty Diagnoses / Procedures Referred By Contact Referred To Contact Cardiovascular Medicine / Cardiology Diagnoses Cardiomyopathy (HCC) Rosales Oh MD [address] [place] [address] Phone: tel: fax: Referral ID Status Reason Start Date Expiration Date Visits Requested Visits Authorized [id number] Authorized Specialty Services Required 08/26/2024 02/22/2025 999 999 Question Answer Referral Priority Within 10 days (routine) Where should this appointment be scheduled? [facility] To which of the following clinics are you referring your patient? General Cardiology Clinic Comments Cardiomyopathy Encounter Details Date Type Department Care Team (Late st Contact Info) Description 09/08/2024 Orders Only Access [place], [address] *DO NOT REMOVE THIS DEPARTMENT* [place] [id number] Request, External Referral Cardiomyopathy (HCC)* Allergies No known active allergiesdocumented as of this encounter (statuses as of 09/08/2024) Social History Tobacco Use Types Packs/Day Years [...] as of this encounter Plan of Treatment Scheduled Referrals Name Type Priority Associated Diagnoses Orde r Schedule CARDIOLOGY REFERRAL OP Referral Within 10 days (routine) Cardiomyopathy (HCC) Ordered: 09/08/2024 Health Maintenance Due Date Last Done Comments [...] Not on filedocumented as of this encounter Visit Diagnoses Diagnosis Cardiomyopathy (HCC)- Primary Other primary cardiomyopathies documented in this encounter
--- NOTE | 2024-11-11 10:12 | XRay Report ---
XR chest 1V portable CLINICAL HISTORY: Chest pain. COMPARISON STUDY: Chest radiograph August 18, 2024. FINDINGS: Cardiomegaly is again noted. There is no pneumothorax. Small bilateral pleural effusions ar e similar to prior exam. Bibasilar opacities have slightly increased. There is no radiographic eviden ce for pulmonary edema. IMPRESSION: 1. Cardiomegaly. No radiographic evidence for pulmonary edema. 2. Small bilateral pleural effusions, similar to prior exam. 3. Increase in bibasilar opacities which could represent pneumonia or atelectasis. Radiographic follo w-up is recommended. ACT 112: Negative or not required by law. Electronically signed by: Nicolas Love M.D. 11/11/2024 10:10 AM
--- NOTE | 2024-11-11 10:36 | CT Scan Report ---
CT OF THE ABDOMEN AND PELVIS WITH CONTRAST CLINICAL HISTORY: Lower abdominal pain. COMPARISON STUDY: CT of the abdomen and pelvis August 14, 2024. TECHNIQUE: Following IV administration of 94 mL of Optiray, axial images of the abdomen and pelvis we re obtained from the lung bases to the proximal femurs. Images were reviewed in the axial, sagittal, and coronal planes. IV contrast was administered without complication. Automated exposure control wa s utilized for the study. A dose lowering technique was utilized adhering to the principles of ALARA . CT DOSE: 1204.62 mGy.cm FINDINGS: Small bilateral pleural effusions are similar to prior exam. Associated lower lung opacitie s favor atelectasis. The heart is mildly enlarged. There is interlobular septal thickening. No pneuma tosis, free air or portal venous gas is present. There are no hepatic lesions and there is no biliary or pancreatic ductal dilatation. Several gallstones within the bladder present. There is no evidence for acute cholecystitis by CT. The spleen, adrenal glands and pancreas are unremarkable. There is no hydronephrosis. The caliber and wall thickness of small and large bowel are normal. There is colonic diverticulosis without evidence for acute diverticulitis. The appendix is normal. Mild body wall ty ma is present. Major vasculature is patent. Trace ascites within the pelvis has decreased. IMPRESSION: 1. No acute process within the abdomen or pelvis. 2. No bowel obstruction. No bowel wall thickening. 3. Cholelithiasis. No evidence for acute cholecystitis. 4. Small bilateral pleural effusions, similar to prior exam. Subpleural opacities favor atelectasis. Cardiomegaly with findings suggestive of mild interstitial pulmonary edema. ACT 112: Negative or not required by law. Electronically signed by: Nicolas Love M.D. 11/11/2024 10:34 AM
--- NOTE | 2024-11-11 12:37 | Electrocardiogram Report ---
Test Reason : Blood Pressure : */* mmHG Vent. Rate : 104 BPM Atrial Rate : 104 BPM P-R Int : 156 ms QRS Dur : 80 ms QT Int : 358 ms P-R-T Axes : 59 -24 62 degrees QTcB Int : 470 ms Sinus tachycardia Possible Left atrial enlargement Minimal voltage criteria for LVH, may be normal variant Nonspecific T wave abnormality Abnormal ECG When compared with ECG of 19-Aug-2024 06:56, No significant change was found Confirmed by Cyrus Barragan ([id number]) on 11/11/2024 12:37:09 PM Referred By: REFERRED SELF Confirmed By: Cyrus Barragan
[2024-11-11 13:24] LABS: Appearance Urine Clear (Clear); Bacteria Urine Automated None Seen (None Seen); Bilirubin Urine Negative (Negative); Blood Urine Trace (Negative); Cast Urine Automated 0-2 /lpf (0-2); Color Urine Yellow; Epithelial Cell Urine Auto 0-2 /hpf (0-2); Glucose Urine UA Negative (Negative); Ketones Urine Negative (Negative); Leukocyte Esterase Urine Negative (Negative); Nitrite Urine Negative (Negative); Protein Urine Trace (Negative); Specific Gravity Urine > 1.045 (1.000-1.030); Urobilinogen Urine Negative (Negative); WBC Urine Automated 0-5 /hpf (0-5); pH Urine 5.5 (4.5-7.5)
[2024-11-11] MEDS: FUROSEMIDE INJ 20 MG/2 ML VIAL IV ONE ×2 (13:56→16:29)
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
[2024-11-11] MEDS: MAGNESIUM SULFATE / D5W 1 GM/100 ML BAG IV SCH (14:48)
[2024-11-11] MEDS ORDERED: PHARMACY GLYCEMIC MGMT CONSULT PRN (15:47)
[2024-11-11] MEDS ORDERED: GLUCOSE 40% GEL 15 GM TUBE PO PRN (15:47)
[2024-11-11] MEDS ORDERED: ONDANSETRON INJ 2 MG/ML 2 ML VIAL IV PRN (15:47)
[2024-11-11] MEDS ORDERED: MAGNESIUM HYDROXIDE SUSP 30 ML UDC PO PRN (15:47)
[2024-11-11] MEDS ORDERED: GLUCAGON FOR INJ 1 MG VIAL SQ PRN (15:47)
[2024-11-11] MEDS ORDERED: DEXTROSE 50% 50 ML SYRINGE IV PRN (15:47)
[2024-11-11] MEDS ORDERED: GLUCOSE 10 TAB/TUBE PO PRN (15:47)
[2024-11-11] MEDS ORDERED: POLYETHYLENE (MIRALAX) 17 GM PACK PO PRN (15:47)
[2024-11-11] MEDS ORDERED: CARBOHYDRATES FOR HYPOGLYCEMIA PO PRN (15:47)
[2024-11-11] MEDS: ACETAMINOPHEN 325 MG TAB PO PRN (16:36)
[2024-11-11] MEDS: VALSARTAN/SACUBITRIL 26/24MG TAB PO SCH (17:05)
[2024-11-11] MEDS: ASPIRIN 81 MG ECTAB PO SCH (17:05)
[2024-11-11] MEDS: EMPAGLIFLOZIN 10 MG TAB PO SCH (17:06)
[2024-11-11] MEDS: ROSUVASTATIN CALCIUM 5 MG TAB PO SCH (17:06)
[2024-11-11] MEDS: INSULIN ASPART PER UNIT CHARGE SC SCH (17:51)
[2024-11-11] MEDS: METOPROLOL SUCC 25MG EXT REL TAB PO SCH (17:59)
[2024-11-11] MEDS: LANTUS PER UNIT CHARGE SQ ONE (20:49)
[2024-11-11] MEDS: HEPARIN SOD 5,000 UNIT/0.5 ML VIAL SQ SCH (20:50)
[2024-11-11] MEDS: FUROSEMIDE 40 MG/4 ML VIAL IV SCH (20:50)
[2024-11-12 06:38] LABS: Albumin Globulin Ratio 1.2 (0.9-2); BUN Creatinine Ratio 17.2 (10-20); Bilirubin,Total 0.6 mg/dl (0.2-1.0); Calcium 8.4 mg/dl (8.6-10.3); Creatinine Clr Calc Pharmacy 75.9 ml/min; Globulin 2.6 gm/dl (2.5-4.0); Magnesium 1.9 mg/dl (1.7-2.4); Phosphorus 4.9 mg/dl (2.5-4.9); Potassium 4.2 mmol/L (3.5-5.1); Total Protein 5.6 gm/dl (6.0-8.3)
[2024-11-12 06:43] LABS: Hematocrit (blood only) 48.1 % (42.0-52.0); Hemoglobin 16.4 g/dl (14.0-18.0); Mean Corpuscular Hgb Conc 34.1 g/dL (32.0-36.0); Platelet Count 155 K/uL (130-400); RDW Coefficient of Variation 12.2 % (11.5-14.5); RDW Standard Deviation 37.6 fL (36.4-46.3); Red Blood Count 5.66 M/uL (4.70-6.10); White Blood Count 5.55 K/ul (4.8-10.8)
--- NOTE | 2024-11-12 08:34 | Pharmacy Report ---
Pharmacy Glycemic Short Note 2 - Date of Service November 12, 2024 - Glycemic Short BSG Results (Last 24 hours): 11/11/24 11/11/24 11/11/24 09:11 17:15 20:31 Glucose 82 POC Glucose 141 H 103 H 11/12/24 11/12/24 05:38 08:03 Glucose 78 POC Glucose 86 OUTPATIENT ANTIDIABETIC REGIMEN: * Jardiance 10 mg PO daily * Novolin 70/30 - 35 units SC BID HbA1c: 11% (08/15/24), reordered for today ASSESSMENT: * RH is a 54 year old male who presented to ED with complaint of substernal chest pain/abdominal pain and observed to have greater than 10 kg weight gain since July * Symptoms consistent with volume overload secondary to acute on chronic heart failure with reduced EF * Patient with poorly controlled T2DM - of note, insulin needs were much less than reported outpatient ones during July admission * Blood sugars well-controlled overnight with fasting blood sugar of 86 mg/dL this morning * Will utilize insulin regimen similar to prior recent admission PLAN FOR INPATIENT GLYCEMIC CONTROL: * Empagliflozin 10 mg PO daily * Basal insulin * Lantus 10 units SC daily * Bolus insulin * NovoLog per scale ACHS or Q6hrs while NPO * Goal Range: Low 120 mg/dL - High 160 mg/dL * Correction Factor: 40 mg/dL/unit * Nutritional / Prandial insulin per carb ratio of 1 unit per 13 grams CHO consumed
[2024-11-12] MEDS: SPIRONOLACTONE 12.5 MG TAB PO SCH (09:11)
[2024-11-12] MEDS: POTASSIUM CHLORIDE CRTAB 20 MEQ TABCR PO SCH (09:15)
--- NOTE | 2024-11-12 09:59 | Cardiology Consultation ---
Date of Consultation November 12, 2024 Assessment & Plan (1) Acute on chronic heart failure with reduced ejection fraction (HFrEF, <= 40%): (2) Nonischemic cardiomyopathy: Plan Assessment: 54 year old male with recently diagnosed NICM/HFrEF that presents with 2 days or persistent chest pain/tightness. 28lb weight gain. Cardiology requested for assessment/recommendations. Plan: 1. Acute on Chronic HFrEF 2. NICM -Patient presents with acute HF exacerbation. When initially seen by the undersigned, he reported dietary indiscretion but compliance on medication therapies. When seen by the attending, he admits that he has only been taking his insulin and not taking his cardiac medications. This would explain the acute exacerbation and modest weight gain. -Echocardiogram during prior hospitalization notes severely reduced EF 20-25%, repeat study is pending, but suspect there is not much improvement if patient has been non-compliant. -Continue GDMT including Toprol xl, Crestor, Entresto, jardiance, and spironolactone. -diuresing well. Continue Lasix 40mg IV BID -Strict I&O, daily weights with standing scale. Close monitoring of renal function/electrolytes. -Goal serum K> 4.0 and serum Mag> 2.0 -CHF teaching. -No acute events on telemetry -2000mg or less low sodium diet/2000ml fluid restriction. -Reassess volume status in the AM Case has been discussed with Dr. Mei. Further recommendations regarding plan of care as per his assessment. I spent a total of 40 minutes on the date of service in preparation, delivery, documentation of the care provided to the patient excluding any time spent in the performance of separately billed services. RON Brown [facility] Supervising Physician Co-Signing Physician Notes I have personally performed a history and physical examination on the patient. I have reviewed the advance practitioner's documentation, and I agree with, and take responsibility for the plan of care. 54-year-old male with nonischemic cardiomyopathy presented to the emergency department with acute heart failure. Patient admits to noncompliance with all cardiovascular medications since discharge in July. Clinically improved with IV diuresis. Results of recent cardiac catheterization reviewed demonstrating mild, nonobstructive coronary disease. Echocardiogram essentially unchanged. Recommendations: * Continue IV diuresis, Lasix 40 mg twice daily * Monitor fluid balance, daily weight, GFR, electrolytes. * Restart evidence-based heart failure therapy including Toprol-XL, Entresto, spironolactone, and Jardiance. * Possible transition to oral diuretic therapy in the next 24-48 hours. * Repeat 2D transthoracic echocardiogram 3 months after optimization of heart failure therapies. * Consider referral to electrophysiology for ICD implantation if left ventricular ejection fraction remains below 35% after optimization of heart failure therapy. Casimiro Mei DO [facility] I spent a total of 35 minutes on the date of service in preparation, delivery, and documentation of the care provided to this patient, excluding any time spent in the performance of separately billed services. History of Present Illness Reason for Consultation: Acute on Chronic HFrEF Requesting Physician: Tony horner Attending Physician: Hallie Landis MD History of Present Illness HPI: Patient is a 54 year old male with PMHx significant for Non-occlusive CAD, NICM, HFrEF, HTN, HLD, TBI, DM type II and GERD that presented to the ER with complaints of chest and abdominal pain. Of note, patient had been admitted back in Jul 2024 for acute HF, underwent cardiac catheterization and was found to have a severely reduced LVEF of 20-25%. Patient was started on GDMT with Jardiance, Toprol xl, Statin and Entresto following aggressive diuresis. It is unclear if he was discharged on a loop diuretic. Patient states that he started with the persistent chest pain, sharp and pressure like approx 2 days prior to the admission. He denies any lower extremity edema or abdominal bloat. Patient has been compliant with current medications, but does endorse some dietary indiscretion, mainly due to financial concerns. Patient follows with the [place] for his primary care. He has not seen a film sound engineer since time of discharge, but he is scheduled to see [facility] in December 2024. 28lb weight gain since July [address], left atrial enlargement, Non-specific T wave abnormality which was previously cited. Rate 104bpm chest xray IMPRESSION: 1. Cardiomegaly. No radiographic evidence for pulmonary edema. 2. Small bilateral pleural effusions, similar to prior exam. 3. Increase in bibasilar opacities which could represent pneumonia or atelectasis. Radiographic follow-up is recommended. CT ABD/Pelvis: IMPRESSION: 1. No acute process within the abdomen or pelvis. 2. No bowel obstruction. No bowel wall thickening. 3. Cholelithiasis. No evidence for acute cholecystitis. 4. Small bilateral pleural effusions, similar to prior exam. Subpleural opacities favor atelectasis. Cardiomegaly with findings suggestive of mild interstitial pulmonary edema. Patient is resting comfortably in bed having an echocardiogram performed at time of exam. Reports resolution of his chest discomfort. Denies any pressure or palpitations. Reports improvement in breathing, Denies any pre-syncopal or syncopal symptoms, no lower extremity edema. Allergies Allergy/AdvReac Type Severity Reaction Status Date / Time lidocaine AdvReac Unknown Unknown Verified 08/18/24 14:08 Home Medications Medication Instructions Recorded Confirmed Type aspirin 81 mg tablet,delayed 81 mg PO DAILY 07/19/20 11/11/24 History release empagliflozin 10 mg tablet 10 mg PO DAILY 30 days #30 tabs 08/20/24 11/11/24 Rx (Jardiance) metoprolol succinate 25 mg 25 mg PO QAM 30 days #30 tabs 08/20/24 11/11/24 Rx tablet,extended release 24 hr rosuvastatin 5 mg tablet 5 mg PO QAM 30 days #30 tabs 08/20/24 11/11/24 Rx sacubitril 24 mg-valsartan 26 mg 1 tab PO BID 30 days #60 tabs 08/20/24 11/11/24 Rx tablet (Entresto) insulin NPH-regular 70-30 U-100 35 unit subcut BID 11/11/24 11/11/24 History insulin 100 unit/mL subcutaneous pen (Novolin 70-30 FlexPen U-100 Insulin) Patient History Medical History TBI (traumatic brain injury) No pertinent family history Family History Mother Diabetes Social History Smoking Status: Never smoker Hx Alcohol Use: No Hx Substance Use: No Preferred Language: Korean Communication Ability: Effective Service Tech Required: No Beliefs That Will Affect Care: None marital status: Single Current Living Situation: Alone current occupational status: employed Other Information That Helps Us Care for You: No Feels Safe at Home: Yes Safety Concerns: Feels Safe At This Time Assistive Devices: None Review of Systems Review of Systems: All systems reviewed & are unremarkable except as noted in Subjective Physical Exam Constitutional: well developed and well nourished; no acute distress and not ill appearing Neck: normal visual inspection and trachea midline Respiratory: normal respiratory effort, lungs clear to auscultation Cardiovascular: Rate/Rhythm: regular rate and regular rhythm Heart Sounds: normal S1 and normal S2; no murmur Vessels: no JVD Extremities: no edema Skin: no rashes, warm and dry Results & Data Vital Signs (Past 12 Hours) Vital Signs Temp Pulse Pulse Resp BP Pulse Ox O2 Del Method 11/12/24 07:37 36.3 C L 65 19 123/88 96 Room Air 11/12/24 04:03 36.6 C 83 18 126/82 94 Room Air 11/11/24 23:38 101 H 11/11/24 23:06 Room Air 11/11/24 22:42 36.3 C L 89 19 122/88 98 Room Air Laboratory Results Cardiac Enzymes 11/12/24 Range/Units 05:38 AST 31 (13-39) U/L CBC 11/12/24 Range/Units 05:38 WBC 5.55 (4.8-10.8) K/ul RBC 5.66 (4.70-6.10) M/uL Hgb 16.4 (14.0-18.0) g/dl Hct 48.1 (42.0-52.0) % Plt Count 155 (130-400) K/uL Comprehensive Metabolic Panel 11/12/24 Range/Units 05:38 Sodium 137 (136-145) mmol/L Potassium 4.2 (3.5-5.1) mmol/L Chloride 103 (98-107) mmol/L Carbon Dioxide 30 (21-32) mmol/L BUN 22 (6-23) mg/dl Creatinine 1.28 (0.6-1.4) mg/dl Glucose 78 (70-99(Fasting)) mg/dl Calcium 8.4 L (8.6-10.3) mg/dl AST 31 (13-39) U/L ALT 78 H (7-52) U/L Alkaline Phosphatase 47 (34-104) U/L Total Protein 5.6 L (6.0-8.3) gm/dl Albumin 3.0 L (3.4-5.0) gm/dl Intake and Output 11/11/24 11/12/24 11/12/24 22:59 06:59 14:59 Intake Total 1853 Output Total 3685 / 4885 1200 / 4885 650 / 650 Balance -1831 / -2881 -1150 / -2881 -650 / -650 Intake: IV 200 / 300 Magnesium Sulfate / D5w 1 gm In 200 / 200 100 ml @ 100 mls/hr IV Q1H ERIKA Rx#:[id number] Oral 1654 / 1704 50 / 1704 Output: Urine 3685 / 4885 1200 / 4885 650 / 650 Other: Weight 90.5 kg 90.5 kg Weight [facility] Patient Weight 11/13/24 06:59 Weight 90.5 kg Diagnostic Findings Echocardiogram 08/15/2024 mild concentric LVH, severe global hypokinesis of the LV, severely reduced LV systolic function with LVEF=20-25%, moderately reduced RV systolic function, dilated IVC with reduced collapsibility with sniff indicating an elevated RA pressure of 15mmHg and abnormal LV diastolic function consistent with elevated filling pressures. Cardiac Cath 08/18/24 Coronary angiography findings: WZV-eqncn-zicqtzw vessel trifurcating into LAD, ramus, and circumflex. No more than mild luminal irregularities. UWC-qhwmv-uaqdafg and transapical. Gives a medium caliber branching first diagonal. Proximal LAD has luminal irregularities. The mid vessel just after the diagonal has a focal 30 to 40% narrowing. The diagonal has a proximal 50 to 70% narrowing but appears too small for PCI. Distally the LAD has no angiographically evident disease. Wtedi-mmukl-ikmwgio and branching with no more than mild luminal irregularities. ENc-jjdgf-uryyuod and nondominant. Travels in the AV groove giving a medium caliber OM1, medium caliber OM 2 and a small caliber posterolateral branch. There is no more than mild luminal irregularities in the circumflex and its branches. RCA-this is large caliber and dominant. Bifurcates distally into the PDA and multi branching posterolateral. The RCA and its branches have no disease. Summary: 1. Based on patient's right heart cath that he is near euvolemic. He has mild to moderate pulmonary hypertension. 2. Mild nonocclusive coronary disease as described. Angiographically moderate to borderline severe diagonal disease and the vessel which is too small for PCI. 3. The patient's reported cardiomyopathy is out of proportion to his coronary artery disease. Therefore, it likely represents nonischemic cardiomyopathy. 4. Medical management per primary cardiology team.
[2024-11-12 11:33] LABS: Estimated Average Glucose 275 mg/dl; Hemoglobin A1C 11.2 % (4.5-5.6)
[2024-11-12] MEDS: LANTUS PER UNIT CHARGE SC SCH (12:34)
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
[2024-11-13 06:42] LABS: Hematocrit (blood only) 49.4 % (42.0-52.0); Hemoglobin 16.7 g/dl (14.0-18.0); Mean Corpuscular Hemoglobin 28.7 pg (25.0-34.0); Mean Corpuscular Hgb Conc 33.8 g/dL (32.0-36.0); Mean Corpuscular Volume 84.9 fL (80.0-100.0); Mean Platelet Volume 10.9 fL (9.4-12.4); Platelet Count 166 K/uL (130-400); RDW Coefficient of Variation 12.5 % (11.5-14.5); Red Blood Count 5.82 M/uL (4.70-6.10); White Blood Count 6.47 K/ul (4.8-10.8)
[2024-11-13 07:01] LABS: BUN Creatinine Ratio 19.5 (10-20); Calcium 8.7 mg/dl (8.6-10.3); Creatinine Clr Calc Pharmacy 76.2 ml/min; Magnesium 1.7 mg/dl (1.7-2.4); Phosphorus 4.4 mg/dl (2.5-4.9)
[2024-11-13] MEDS: PNEUMOCOCCAL VACCINE (PCV20) 20-VAL CONJ-DIP CRM/PF 0.5 ML SYR IM ONE (08:50)
[2024-11-13] MEDS: MAGNESIUM SULFATE / D5W 1 GM/100 ML BAG IV ONE (09:01)
--- NOTE | 2024-11-13 09:04 | Cardiology Progress Note ---
Date of Service November 13, 2024 Assessment & Plan (1) Acute on chronic heart failure with reduced ejection fraction (HFrEF, <= 40%): (2) Nonischemic cardiomyopathy: Plan Assessment: 54 year old male with recently diagnosed NICM/HFrEF that presents with 2 days or persistent chest pain/tightness. 28lb weight gain. Cardiology requested for assessment/recommendations. Plan: 1. Acute on Chronic HFrEF 2. NICM -Patient presents with acute HF exacerbation. When initially seen by the undersigned, he reported dietary indiscretion but compliance on medication therapies. When seen by the attending, he admits that he has only been taking his insulin and not taking his cardiac medications. This would explain the acute exacerbation and modest weight gain. -Echocardiogram during prior hospitalization notes severely reduced EF 20-25%, repeat study is pending, but suspect there is not much improvement if patient has been non-compliant. -Continue GDMT including Toprol xl, Crestor, Entresto, jardiance, and spironolactone. -diuresing well. Continue Lasix 40mg IV BID -Strict I&O, daily weights with standing scale. Close monitoring of renal function/electrolytes. -Goal serum K> 4.0 and serum Mag> 2.0 -CHF teaching. -No acute events on telemetry -2000mg or less low sodium diet/2000ml fluid restriction. -Reassess volume status in the AM 11/13/2024: -Patient is doing well from a cardiac perspective reporting resolution of symptoms. -Labs reviewed. Renal function is stable, but his Potassium is rising. (5.0). Patient had previous issues with hyperkalemia during last hospitalization. -Echocardiogram reviewed and remains relatively unchanged from previous. -Continue Lasix, will plan to transition to PO Lasix in the AM -Diuresing well -1921ml -Strict I&O, daily weights with standing scale. Close monitoring of renal function/electrolytes. -Goal serum K> 4.0 and serum Mag> 2.0 -CHF teaching. -No acute events on telemetry -Continue GDMT including Toprol xl, Crestor, Entresto, Jardiance. Hold spironolactone. Repeat labs in the AM. Patient was advised that he will close lab follow up when appropriate for discharge. He was also advised to keep his appt with our office as scheduled. Case has been discussed with Dr. Mei. Further recommendations regarding plan of care as per his assessment. I spent a total of 30 minutes on the date of service in preparation, delivery, documentation of the care provided to the patient excluding any time spent in the performance of separately billed services. RON Brown [facility] Admission and Anticipated Discharge Date Admission Date: November 11, 2024 Supervising Physician Co-Signing Physician Notes I have personally performed a history and physical examination on the patient. I have reviewed the advance practitioner's documentation, and I agree with, and take responsibility for the plan of care. 54-year-old male with nonischemic cardiomyopathy presented to the emergency department with acute heart failure. Noncompliant with cardiovascular medications prior to admission. Fluid balance -1271mL. Serum potassium trending up to 5.0 after AM meds and potassium supplementation. Recommendations: * Continue IV diuresis, Lasix 40 mg twice daily * Discontinue potassium supplementation * Hold Aldactone * Repeat BMP in a.m. * Continue Toprol-XL, Entresto, and Jardiance. * Possible transition to oral diuretic therapy in the next 24-48 hours. * Repeat 2D transthoracic echocardiogram 3 months after optimization of heart failure therapies. * Consider referral to electrophysiology for ICD implantation if left ventricular ejection fraction remains below 35% after optimization of heart failure therapy. Casimiro Mei DO, [facility] I spent a total of 30 minutes on the date of service in preparation, delivery, and documentation of the care provided to this patient, excluding any time spent in the performance of separately billed services. Subjective 11/13/2024: Patient seen and examined in follow up today. Feeling well and wants to go home. Reports significant improvement/resolution in his symptoms. No chest pain, pressure or palpitations. No shortness of breath. Labs, vitals, diagnostics, telemetry and documentation reviewed. Telemetry reviewed showing SR 80-90's no acute events overnight. -1921ml fluid balance -2kg Review of Systems Review of Systems: All systems reviewed & are unremarkable except as noted in HPI & below Physical Exam Constitutional: well developed and well nourished; no acute distress and not ill appearing Neck: normal visual inspection and trachea midline Respiratory: normal respiratory effort, lungs clear to auscultation Cardiovascular: Rate/Rhythm: regular rate and regular rhythm Heart Sounds: normal S1 and normal S2; no murmur Vessels: no JVD Extremities: no edema Skin: no rashes, warm and dry Results & Data Vital Signs (Past 12 Hours) Vital Signs Temp Pulse Pulse Resp BP Pulse Ox O2 Del Method 11/13/24 07:30 Room Air 11/13/24 07:23 36.2 C L 90 16 117/83 96 Room Air 11/13/24 03:30 36.5 C 87 18 112/80 95 Room Air 11/12/24 23:35 91 H 11/12/24 22:53 36.6 C 96 H 18 110/81 96 Room Air Laboratory Results CBC 11/13/24 Range/Units 06:08 WBC 6.47 (4.8-10.8) K/ul RBC 5.82 (4.70-6.10) M/uL Hgb 16.7 (14.0-18.0) g/dl Hct 49.4 (42.0-52.0) % Plt Count 166 (130-400) K/uL Comprehensive Metabolic Panel 11/13/24 Range/Units 06:08 Sodium 137 (136-145) mmol/L Potassium 5.0 (3.5-5.1) mmol/L Chloride 102 (98-107) mmol/L Carbon Dioxide 32 (21-32) mmol/L BUN 23 (6-23) mg/dl Creatinine 1.18 (0.6-1.4) mg/dl Glucose 141 H (70-99(Fasting)) mg/dl Calcium 8.7 (8.6-10.3) mg/dl Intake and Output 11/12/24 11/13/24 11/13/24 22:59 06:59 14:59 Intake Total 300 / 1330 150 / 1330 Output Total 1800 / 3251 800 / 3251 Balance -1500 / -1920 - / -1920 Intake: Oral 300 / 1330 150 / 1330 Output: Urine 1800 / 3250 800 / 3250 Other: Weight 88.2 kg Weight Measurement Method Built in [facility]
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
[2024-11-13] MEDS: LANTUS PER UNIT CHARGE SC SCH (21:15)
[2024-11-14] MEDS: traMADol HCL 50 MG TABLET PO PRN (01:45)
--- NOTE | 2024-11-14 02:54 | CT Scan Report ---
EXAM: CT head/brain wo con CLINICAL HISTORY: danielle TECHNIQUE: Multiple axial images are obtained from the skull base to the vertex without contrast. CT scan was performed according to ALARA (as low as reasonable achievable). COMPARISON: 19 August 2024. FINDINGS: No evidence of space occupying lesion, hemorrhage, edema, mass effect, midline shift, extra axial collection, or hydrocephalus is noted. Basal cisterns are symmetric and normal in size and configuration. There are scattered periventricular hypodensities as can be seen with chronic microvascular ischemic changes. The howell-white matter differentiation is preserved. Visualized paranasal sinuses and mastoid air cells are well aerated. Orbital contents are within normal limits. Bony structures are intact. IMPRESSION: 1. No evidence of acute intracranial abnormality is demonstrated. 2. Chronic microvascular ischemic changes.-stable. No other new interval abnormality since prior study. Electronically signed by Edilson Powell 11-14-2024 02:53 AM
[2024-11-14] MEDS: CALCIUM CARBONATE 500 MG CHEWABLE TAB PO PRN (09:21)
[2024-11-14] MEDS: ALBUMIN 25% 25 GM/100 ML VIAL IV ONE (09:21)
--- NOTE | 2024-11-14 09:23 | Cardiology Progress Note ---
Date of Service November 14, 2024 Assessment & Plan (1) Acute on chronic heart failure with reduced ejection fraction (HFrEF, <= 40%): (2) Nonischemic cardiomyopathy: Plan Assessment: 54 year old male with recently diagnosed NICM/HFrEF that presents with 2 days or persistent chest pain/tightness. 28lb weight gain. Cardiology requested for assessment/recommendations. Plan: 1. Acute on Chronic HFrEF 2. NICM -Patient presents with acute HF exacerbation. When initially seen by the undersigned, he reported dietary indiscretion but compliance on medication therapies. When seen by the attending, he admits that he has only been taking his insulin and not taking his cardiac medications. This would explain the acute exacerbation and modest weight gain. -Echocardiogram during prior hospitalization notes severely reduced EF 20-25%, repeat study is pending, but suspect there is not much improvement if patient has been non-compliant. -Continue GDMT including Toprol xl, Crestor, Entresto, jardiance, and spironolactone. -diuresing well. Continue Lasix 40mg IV BID -Strict I&O, daily weights with standing scale. Close monitoring of renal function/electrolytes. -Goal serum K> 4.0 and serum Mag> 2.0 -CHF teaching. -No acute events on telemetry -2000mg or less low sodium diet/2000ml fluid restriction. -Reassess volume status in the AM 11/13/2024: -Patient is doing well from a cardiac perspective reporting resolution of symptoms. -Labs reviewed. Renal function is stable, but his Potassium is rising. (5.0). Patient had previous issues with hyperkalemia during last hospitalization. -Echocardiogram reviewed and remains relatively unchanged from previous. -Continue Lasix, will plan to transition to PO Lasix in the AM -Diuresing well -1921ml -Strict I&O, daily weights with standing scale. Close monitoring of renal function/electrolytes. -Goal serum K> 4.0 and serum Mag> 2.0 -CHF teaching. -No acute events on telemetry -Continue GDMT including Toprol xl, Crestor, Entresto, Jardiance. Hold spironolactone. Repeat labs in the AM. Patient was advised that he will close lab follow up when appropriate for discharge. He was also advised to keep his appt with our office as scheduled. 11/14/2024: -Patient is feeling well from a cardiac perspective. Systolic blood pressures are low ranging from 70's-104 systolic. AM medications held with exception of Lasix per nurse. -Labs pending: Serum potassium was above goal yesterday, initial labs this morning demonstrates a serum K of 6.2 and so a repeat draw is now pending. -Continue to diurese well -1780ml fluid balance. -Strict I&O, daily weights with standing scale. Close monitoring of renal function/electrolytes -Goal serum K> 4.0, Serum mag > 2.0 -No acute events on telemetry -AM meds currently on hold. awaiting labs and continued monitoring of BP. Spironolactone will remain on hold due to hyperkalemia. Case has been discussed with Dr. Mei. Further recommendations regarding plan of care as per his assessment. I spent a total of 30 minutes on the date of service in preparation, delivery, documentation of the care provided to the patient excluding any time spent in the performance of separately billed services. RON Brown [facility] Admission and Anticipated Discharge Date Admission Date: November 11, 2024 Supervising Physician Co-Signing Physician Notes I have personally performed a history and physical examination on the patient. I have reviewed the advance practitioner's documentation, and I agree with, and take responsibility for the plan of care. 54-year-old male with nonischemic cardiomyopathy presented to the emergency department with acute heart failure. Noncompliant with cardiovascular medications prior to admission. Fluid balance -1820mL. Hyperkalemia per a.m. labs. Patient feeling well. Edema markedly improved. Recommendations: * Aldactone, Entresto, furosemide, and Jardiance placed on hold. * Likely restart low-dose furosemide and Entresto in the next 24-48 hours pending review of follow-up lab studies. * Would not restart Aldactone during current hospitalization. * Treatment of hyperkalemia as per internal medicine, consider kayexalate, Lokelma, and/or nephrology evaluation. * Repeat basic metabolic panel as scheduled 2 PM today * Repeat 2D transthoracic echocardiogram 3 months after optimization of heart failure therapies. * Outpatient referral to electrophysiology for ICD implantation if left ventricular ejection fraction remains below 35% after optimization of heart failure therapy. Casimiro Mei DO, [facility] I spent a total of 35 minutes on the date of service in preparation, delivery, and documentation of the care provided to this patient, excluding any time spent in the performance of separately billed services. Subjective 11/14/2024: Patient seen and examined in follow up today. Feeling well overall. RN in room rechecking blood pressure which has improved to 101/69. They gave his Lasix this AM, but held other medications due to hypotension. Patient denies any chest pain, pressure, palpitations, no shortness of breath, PND, pre-syncope, syncope or edema. He refused his Jardiance this am, and when asked why, he said it makes him feel dizzy. Explained that outside of a low blood sugar the dizziness is not likely coming from the Jardiance. Currently waiting on AM labs. Labs, vitals, diagnostics, telemetry and documentation reviewed. Telemetry reviewed showing SR rates 80-90bpm. No acute events overnight -1780ml fluid deficit Review of Systems Review of Systems: All systems reviewed & are unremarkable except as noted in HPI & below Physical Exam Constitutional: well developed and well nourished; no acute distress and not ill appearing Neck: normal visual inspection and trachea midline Respiratory: normal respiratory effort, lungs clear to auscultation Cardiovascular: Rate/Rhythm: regular rate and regular rhythm Heart Sounds: normal S1 and normal S2; no murmur Vessels: no JVD Extremities: no edema Skin: no rashes, warm and dry Results & Data Vital Signs (Past 12 Hours) Vital Signs Temp Pulse Pulse Resp BP Pulse Ox O2 Del Method 11/14/24 09:08 86/50 L 11/14/24 09:07 71/50 L 11/14/24 08:00 36.4 C L 87 20 94/68 L 99 Room Air 11/14/24 07:52 85 11/14/24 02:00 36.3 C L 92 H 16 110/81 98 Room Air 11/13/24 22:53 36.6 C 96 H 16 107/77 95 Room Air Laboratory Results Cardiac Enzymes 11/14/24 Range/Units 09:53 AST 21 (13-39) U/L Comprehensive Metabolic Panel 11/14/24 Range/Units 09:53 Sodium 133 L (136-145) mmol/L Potassium 6.2 H* D (3.5-5.1) mmol/L Chloride 97 L (98-107) mmol/L Carbon Dioxide 33 H (21-32) mmol/L BUN 30 H (6-23) mg/dl Creatinine 1.60 H D (0.6-1.4) mg/dl Glucose 242 H (70-99(Fasting)) mg/dl Calcium 9.4 (8.6-10.3) mg/dl Direct Bilirubin 0.1 (0-0.2) mg/dl AST 21 (13-39) U/L ALT 52 (7-52) U/L Alkaline Phosphatase 55 (34-104) U/L Total Protein 6.2 (6.0-8.3) gm/dl Albumin 3.5 (3.4-5.0) gm/dl Intake and Output 11/13/24 11/14/24 11/14/24 22:59 06:59 14:59 Intake Total 1000 / 1000 Output Total 1600 / 3400 1200 / 3400 Balance -1600 / -2780 -1200 / -2780 1000 / 1000 Intake: Oral 1000 / 1000 Output: Urine 1600 / 3400 1200 / 3400 Other: Weight 85.9 kg Weight Measurement Method Standing Scale
[2024-11-14 10:40] LABS: Albumin Level 3.5 gm/dl (3.4-5.0); BUN Creatinine Ratio 18.8 (10-20); Bilirubin Direct 0.1 mg/dl (0-0.2); Bilirubin,Total 0.7 mg/dl (0.2-1.0); Calcium 9.4 mg/dl (8.6-10.3); Creatinine Clr Calc Pharmacy 56.2 ml/min; Magnesium 1.7 mg/dl (1.7-2.4); Potassium 6.2 mmol/L (3.5-5.1); Total Protein 6.2 gm/dl (6.0-8.3)
[2024-11-14 11:06] LABS: BUN Creatinine Ratio 19.7 (10-20); Calcium 9.4 mg/dl (8.6-10.3); Creatinine Clr Calc Pharmacy 59.2 ml/min; Magnesium 1.8 mg/dl (1.7-2.4)
[2024-11-14] MEDS ORDERED: INSULIN HUMAN REGULAR PER UNIT 10 UNITS in SYRINGE 0 ML IV STA (11:23)
[2024-11-14] MEDS: INSULIN HUMAN REGULAR PER UNIT 10 UNITS in SYRINGE 9.9 ML IV ONE (12:01)
[2024-11-14] MEDS: CALCIUM GLUCONATE 1,000 MG/60 ML BAG IV STA (12:01)
[2024-11-14] MEDS: DEXTROSE 50% 50 ML SYRINGE IV ONE (12:01)
--- NOTE | 2024-11-14 12:36 | Pharmacy Report ---
Pharmacy Glycemic Short Note 2 - Date of Service November 14, 2024 - Glycemic Short BSG Results (Last 24 hours): 11/13/24 11/13/24 11/14/24 16:21 20:08 08:08 Glucose POC Glucose 98 101 H 124 H 11/14/24 11/14/24 11/14/24 09:01 09:53 10:23 Glucose 242 H 233 H POC Glucose 138 H 11/14/24 11:30 Glucose POC Glucose 221 H OUTPATIENT ANTIDIABETIC REGIMEN: * Jardiance 10 mg PO daily * Novolin 70/30 - 35 units SC BID HbA1c: 11% (08/15/24), reordered for today ASSESSMENT: 11/14 * Patient required significantly less insulin yesterday than what he uses as an outpatient. He received a total of 30 units of insulin yesterday (10 units were basal and 20 units were bolus). * BSGs were 105-454-52-101mg/dL yesterday. Fasting BSG was 124mg/dL this morning. Will continue Lantus 10 units QAM. Will loosen CR of bolus insulin as it appears that he was being over corrected at meal times. 11/12 * RH is a 54 year old male who presented to ED with complaint of substernal chest pain/abdominal pain and observed to have greater than 10 kg weight gain since July * Symptoms consistent with volume overload secondary to acute on chronic heart failure with reduced EF * Patient with poorly controlled T2DM - of note, insulin needs were much less than reported outpatient ones during July admission * Blood sugars well-controlled overnight with fasting blood sugar of 86 mg/dL this morning * Will utilize insulin regimen similar to prior recent admission PLAN FOR INPATIENT GLYCEMIC CONTROL: * Empagliflozin 10 mg PO daily * Basal insulin * Lantus 10 units SC daily * Bolus insulin * NovoLog per scale ACHS or Q6hrs while NPO * Goal Range: Low 120 mg/dL - High 160 mg/dL * Correction Factor: 35 mg/dL/unit * Nutritional / Prandial insulin per carb ratio of 1 unit per 15 grams CHO consumed
--- NOTE | 2024-11-14 12:48 | Electrocardiogram Report ---
Test Reason : Blood Pressure : */* mmHG Vent. Rate : 82 BPM Atrial Rate : 82 BPM P-R Int : 188 ms QRS Dur : 82 ms QT Int : 390 ms P-R-T Axes : 43 43 -7 degrees QTcB Int : 455 ms Normal sinus rhythm Minimal voltage criteria for LVH, may be normal variant Nonspecific ST and T wave abnormality Abnormal ECG When compared with ECG of 11-Nov-2024 09:08, Nonspecific T wave abnormality now evident in Inferior leads Confirmed by Cyrus Barragan ([id number]) on 11/14/2024 12:48:31 PM Referred By: REFERRED SELF Confirmed By: Cyrus Barragan
[2024-11-14 15:01] LABS: BUN Creatinine Ratio 20.4 (10-20); Calcium 10.5 mg/dl (8.6-10.3); Creatinine Clr Calc Pharmacy 57.3 ml/min
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
[2024-11-14 21:31] LABS: BUN Creatinine Ratio 21.7 (10-20); Creatinine Clr Calc Pharmacy 55.9 ml/min; Potassium 4.9 mmol/L (3.5-5.1)
[2024-11-15 07:15] LABS: Anion Gap 2 (3-11); BUN Creatinine Ratio 20.9 (10-20); Blood Urea Nitrogen 32 mg/dl (6-23); Calcium 10.3 mg/dl (8.6-10.3); Carbon Dioxide 34 mmol/L (21-32); Chloride 95 mmol/L (98-107); Creatinine Clr Calc Pharmacy 58.8 ml/min; Glucose 127 mg/dl (70-99(Fasting)); Magnesium 1.9 mg/dl (1.7-2.4); Phosphorus 5.3 mg/dl (2.5-4.9); Sodium 131 mmol/L (136-145)
[2024-11-15] MEDS: FAMOTIDINE 20 MG TAB PO SCH (08:56)
[2024-11-15 11:23] VITALS: RESP 16
--- NOTE | 2024-11-15 13:19 | Cardiology Progress Note ---
Date of Service November 15, 2024 Assessment & Plan (1) Nonischemic cardiomyopathy: (2) Acute on chronic heart failure with reduced ejection fraction (HFrEF, <= 40%): Plan Nonischemic cardiomyopathy HFrEF -Patient initially presented volume overloaded due to noncompliant with medications at home and dietary restrictions. -He is now euvolemic on examination -Stop IV lasix. Start po lasix 40mg daily -Continue metoprolol, crestor -Medications were restarted with subsequent hyperkalemia. This has improved with holding entresto, Jardiance, spironolactone -K remains high normal. Continue to hold entresto, Jardiance, spironolactone. -Repeat BMP in 1 week. Pending results may consider restarting as an outpatient -Follow-up in outpatient cardiology clinic as scheduled. BMP order in place. MTM referral in place. Case discussed with Dr Rosales. I spent a total of 33 minutes on the date of service in preparation, delivery, and documentation of the care provided to this patient, excluding any time spent in the performance of separately billed services. Rupinder Manriquez PA-C Department of Cardiology, [facility] This chart was completed in part utilizing Speech Voice Recognition Software. Grammatical errors, random word insertions, pronoun errors, and incomplete sentences are an occasional consequence of this system due to software limitations, ambient noise, and hardware issues. Any formal questions or concerns about the content, text, or information contained within the body of this dictation should be directly addressed to the provider for clarification. Admission and Anticipated Discharge Date Admission Date: November 11, 2024 Supervising Physician Co-Signing Physician Notes I spent a total of 30minutes on the date of service in preparation, delivery, and documentation of the care provided to this patient, excluding any time spent in the performance of separately billed services. I have personally performed a history and physical examination on the patient. I have reviewed the advance practitioner's documentation, and I agree with, and take responsibility for the plan of care. Subjective Patient reports feeling well. He has no complaints. Denies shortness of breath, chest pain, and palpitations Review of Systems Review of Systems: All systems reviewed & are unremarkable except as noted in HPI & below Physical Exam Constitutional: WD/WN, vitals as above Respiratory: normal respiratory effort, lungs clear to auscultation Cardiovascular: RRR, no murmur, no edema Skin: no rashes, warm and dry Psychiatric: A+Ox3, euthymic affect Results & Data Vital Signs (Past 12 Hours) Vital Signs Temp Pulse Pulse Resp BP Pulse Ox O2 Del Method 11/15/24 11:23 36.6 C 90 16 113/81 94 Room Air 11/15/24 08:00 36.7 C 86 18 107/76 96 Room Air 11/15/24 08:00 Room Air 11/15/24 07:22 88 11/15/24 03:39 36.5 C 95 H 18 119/83 100 Room Air Laboratory Results Comprehensive Metabolic Panel 11/14/24 11/14/24 11/15/24 Range/Units 14:31 20:48 05:57 Sodium 133 L 133 L 131 L (136-145) mmol/L Potassium 5.0 4.9 TNP (3.5-5.1) mmol/L Chloride 98 97 L 95 L (98-107) mmol/L Carbon Dioxide 31 31 34 H (21-32) mmol/L BUN 32 H 35 H 32 H (6-23) mg/dl Creatinine 1.57 H 1.61 H 1.53 H (0.6-1.4) mg/dl Glucose 140 H 192 H 127 H (70-99(Fasting)) mg/dl Calcium 10.5 H 10.0 10.3 (8.6-10.3) mg/dl 11/15/24 11/15/24 Range/Units 08:10 09:04 Sodium (136-145) mmol/L Potassium TNP 5.0 (3.5-5.1) mmol/L Chloride (98-107) mmol/L Carbon Dioxide (21-32) mmol/L BUN (6-23) mg/dl Creatinine (0.6-1.4) mg/dl Glucose (70-99(Fasting)) mg/dl Calcium (8.6-10.3) mg/dl Intake and Output 11/14/24 11/15/24 11/15/24 22:59 06:59 14:59 Intake Total 2049 Output Total 500 / 950 Balance 40 / 1100 Intake: Oral 540 / 1890 Output: Urine 500 / 950 Other: Weight 85.9 kg Weight Measurement Method Built in [facility]
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
[2024-11-15] MEDS: FUROSEMIDE 40 MG TAB PO ONE (15:15)
[2024-11-15 15:48] VITALS: BP 122/89; TEMP 98.1; O2SAT 99
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
[2024-11-15 16:48] VITALS: PULSE 94
[2024-11-15] MEDS: INSULIN ASPART PER UNIT CHARGE SC SCH (17:23)
[2024-11-16] MEDS ORDERED: INSULIN ASPART PER UNIT CHARGE SC SCH (07:30)
[2024-11-16] MEDS ORDERED: FUROSEMIDE 40 MG TAB PO SCH (09:00)
== END 2024-11-15 18:31 | disposition home or self-care (01) | DRG 292 ==
LOC: ED 08:42 → EDINP 14:08 → SUATTDRO 14:08 → 4W 15:36

== ENCOUNTER 2024-12-05 20:21 | Inpatient (IN) ==
[2024-12-05] MEDS: FAMOTIDINE 20MG IV PUSH 20 MG/5 ML SYR IV STA (20:31)
--- NOTE | 2024-12-05 20:34 | Emergency Department Note ---
Impression & Plan RUQ abdominal pain, Acute hyperglycemia, Acute dehydration, Tachycardia, Gall stones ED Provider Note NAME: FINN GONZALEZ AGE: 54 SEX: M : 1970 ARRIVES VIA: Ambulance INFORMANT: [Patient] ED PROVIDER(S): [Boom Vasquez MD] CHIEF COMPLAINT: Abdominal pain HISTORY OF PRESENT ILLNESS: The patient is a 54-year-old male who states she has had at least 2 days of right upper quadrant abdominal pain. It is a burning discomfort. Nothing seems to make it better or worse. There has been no fever, no vomiting. No urinary complaints. No cough or congestion, no chest pain. The patient was here in the ED yesterday. Workup suggested the possibility of gastritis although, they did note gallstones on the CT imaging without findings of acute cholecystitis. As the patient's pain has persisted, he presents back for reevaluation. PMHx/PSHx/Social Hx: See Below PHYSICAL EXAM: GENERAL: Patient is in no acute distress. HEENT: No acute trauma, normocephalic atraumatic, mucous membranes moist, no nasal congestion. NECK: No stridor, no adenopathy, no meningismus, trachea is midline. LUNGS: Clear to auscultation bilaterally, no wheeze, no rhonchi, breath sounds equal. HEART: Subtle systolic murmur. The patient is mildly tachycardic with an occasional extra beat. ABDOMEN: Soft, moderately tender in the right upper quadrant, no distention. EXTREMITIES: No cyanosis, full range of motion of all the joints without pain or difficulty. NEUROLOGIC: Oriented x 3, no acute motor or sensory deficits, no focal weakness. SKIN: No jaundice, no diaphoresis. DIFFERENTIAL DIAGNOSIS: Biliary colic, acute cholecystitis, gastritis, diverticulitis, UTI or pyelonephritis, among others. EMERGENCY DEPARTMENT PROCEDURES: MEDICAL DECISION MAKING: There is no leukocytosis or concerning anemia. Platelet count is somewhat low at 106. Sodium low at 131, not in need of emergent correction. No renal failure. Glucose was high at 340. No concerning liver enzyme elevation. No evidence for pancreatitis. ECG showed a sinus tachycardia, no obvious ischemia. Cardiac enzyme testing x 1 was not consistent with acute cardiac injury. Gallbladder ultrasound showed gallstones without evidence for acute cholecystitis. On exam, the patient was tachycardic and tender in the right upper quadrant. Patient received IV Zofran, IV morphine, IV Protonix and IV Pepcid. He was given 2 L of IV saline. The patient presents with persistent right upper quadrant abdominal pain. He presents tachycardic. He was hyperglycemic and I suspect likely dehydrated. He has gallstones and certainly, they may be causing his discomfort. Given the circumstances, given his presentation and the need for repeat evaluation in the ED, I do think a hospital stay, further workup is warranted. Patient may benefit from a general surgical consult. I did speak with the patient and case management, the on-call hospitalist was consulted. Prior/Outside records/notes reviewed: Today's EMS notes describing his presentation and transport to this hospital. ECG per my interpretation: Indication was abdominal pain. The ECG shows a sinus tachycardia with an occasional PVC. The rate is 119. There is some nonspecific ST change. There is no ST elevation, QTc was 444. Continuous Cardiac Monitoring per my interpretation: An order was placed for continuous cardiac monitoring. The monitor shows a rate of 109 with sinus tachycardia with PVCs. Imaging/x-ray results per my interpretation: Chronic Medical/Social conditions affecting care: None Care/Management discussed with: Case management, the on-call hospitalist. Level of care consideration(s): After review of the information above and other included data: --I believe the patient requires escalation of care to admission DISPOSITION: Admission Past Med/Surg History Problem List Gall stones (Acute) Tachycardia (Acute) Acute dehydration (Acute) Acute hyperglycemia (Acute) RUQ abdominal pain (Acute) Abdominal pain (Acute) Wound of right lower extremity DM type 2 (diabetes mellitus, type 2) Nonischemic cardiomyopathy Acute on chronic heart failure with reduced ejection fraction (HFrEF, <= 40%) Hypomagnesemia (Acute) Transaminitis (Acute) Acute CHF (Acute) Abdominal pain (Acute) Chest pain (Acute) Hyperkalemia Acute heart failure with reduced ejection fraction (HFrEF, <= 40%) Acute upper abdominal pain (Acute) Cholelithiasis (Acute) Elevated LFTs (Acute) Pleural effusion (Acute) Elevated troponin (Acute) COVID-19 (Acute) Tinnitus of both ears Diabetic peripheral neuropathy Dizziness Ataxia (Acute) No significant past surgical history (Chronic) GERD (gastroesophageal reflux disease) (Chronic) Type 2 diabetes mellitus (Chronic) Abdominal pain (Acute) Dehydration (Acute) Nausea (Acute) New onset type 2 diabetes mellitus (Acute) Medical History TBI (traumatic brain injury) No pertinent family history Family History Mother Diabetes Social History Smoking Status: Never smoker Hx Alcohol Use: No Hx Substance Use: No Preferred Language: Israeli Communication Ability: Effective Special Educator Required: No Beliefs That Will Affect Care: None marital status: Single Current Living Situation: Alone current occupational status: employed Feels Safe at Home: Yes Assistive Devices: None Allergies Allergies Allergy/AdvReac Type Severity Reaction Status Date / Time lidocaine AdvReac Unknown Unknown Verified 08/18/24 14:08 Home Meds Home Medications Medication Instructions Recorded Confirmed aspirin 81 mg tablet,delayed 81 mg PO DAILY 07/19/20 11/11/24 release insulin NPH-regular 70-30 U-100 35 unit subcut BID 11/11/24 11/11/24 insulin 100 unit/mL subcutaneous pen (Novolin 70-30 FlexPen U-100 Insulin) Previous Rx's Medication Instructions Recorded metoprolol succinate 25 mg 25 mg PO QAM 30 days #30 tabs 08/20/24 tablet,extended release 24 hr rosuvastatin 5 mg tablet 5 mg PO QAM 30 days #30 tabs 08/20/24 famotidine 20 mg tablet 20 mg PO QAM #30 tabs 11/15/24 furosemide 40 mg tablet 40 mg PO DAILY #30 tabs 11/15/24 omeprazole 40 mg capsule,delayed 40 mg PO DAILY 4 weeks #28 caps 12/04/24 release Results & Data (ED) Vital Signs Vital Signs - 24 hr 12/05/24 20:25 12/05/24 20:28 Temperature 37.4 C Temperature Source Oral Pulse Rate 129 H 120 H Respiratory Rate 16 Blood Pressure 132/98 Blood Pressure Mean 109 Pulse Oximetry 99 Oxygen Delivery Method Room Air Sepsis Recent Fever Within 48 Hours No Sepsis New/Unexplained Change in Mental Status No Sepsis Action Taken by Nursing No Action Required Home Medications Current Medication List: was personally reviewed by me Laboratory Data Attestation: I reviewed the patient's lab results. 12/05/24 20:31 12/05/24 20:31 Lab Results 12/05/24 Range/Units 20:31 WBC 10.60 (4.8-10.8) K/ul RBC 5.40 (4.70-6.10) M/uL Hgb 15.2 (14.0-18.0) g/dl Hct 45.6 (42.0-52.0) % MCV 84.4 (80.0-100.0) fL MCH 28.1 (25.0-34.0) pg MCHC 33.3 (32.0-36.0) g/dL RDW Std Deviation 36.8 (36.4-46.3) fL RDW Coeff of Kt 12.1 (11.5-14.5) % Plt Count 106 L (130-400) K/uL MPV 11.8 (9.4-12.4) fL Immature Gran % (Auto) 0.5 % Neut % (Auto) 72.5 % Lymph % (Auto) 15.4 % [place] % (Auto) 11.2 % Eos % (Auto) 0.2 % Baso % (Auto) 0.2 % Neut # (Auto) 7.69 H (1.40-6.50) K/uL Lymph # (Auto) 1.63 (1.20-3.40) K/uL [place] # (Auto) 1.19 H (0.11-0.59) K/uL Eos # (Auto) 0.02 (0.00-0.50) K/uL Baso # (Auto) 0.02 (0.00-0.20) K/uL Immature Gran # (Auto) 0.05 (0.01-0.20) K/uL Sodium 131 L (136-145) mmol/L Potassium 4.9 (3.5-5.1) mmol/L Chloride 97 L (98-107) mmol/L Carbon Dioxide 30 (21-32) mmol/L Anion Gap 4 (3-11) BUN 15 (6-23) mg/dl Creatinine 1.25 (0.6-1.4) mg/dl Est Cr Clr Drug Dosing 78.9 ml/min eGFR 68.43 BUN/Creatinine Ratio 12.0 (10-20) Glucose 340 H* (70-99(Fasting)) mg/dl Calcium 9.2 (8.6-10.3) mg/dl Magnesium 1.7 (1.7-2.4) mg/dl Total Bilirubin 0.8 D (0.2-1.0) mg/dl AST 21 (13-39) U/L ALT 22 (7-52) U/L Alkaline Phosphatase 101 (34-104) U/L Troponin I High Sens 8.5 (0-20) pg/ml Total Protein 6.5 (6.0-8.3) gm/dl Albumin 3.6 (3.4-5.0) gm/dl Globulin 2.9 (2.5-4.0) gm/dl Albumin/Globulin Ratio 1.2 (0.9-2) Lipase 16 (11-82) U/L Administered Medications Discontinued Medications Famotidine (Pepcid 20mg Iv Push) 20 mg in 5 mls @ 2.5 mls/min IV NOW STA Stop: 12/05/24 20:26 Last Admin: 12/05/24 20:31 Dose: 2.5 mls/min Documented By: ZAHIDA Sodium Chloride (Nss) 1,000 mls @ 999 mls/hr IV .Q1H1M ONE Stop: 12/05/24 21:31 Last Infusion: 12/05/24 22:41 Dose: Infused Documented By: Admin: 12/05/24 20:36 Dose: 999 mls/hr Documented By: ZAHIDA Pantoprazole Sodium (Protonix) 40 mg in 10 mls @ 5 mls/min IV NOW ONE Stop: 12/05/24 22:13 Last Admin: 12/05/24 22:41 Dose: 5 mls/min Documented By: KEMAR Morphine Sulfate (Morphine Sulfate 4 Mg/Ml 1 Ml Carp\Vial) 4 mg IV NOW STA Stop: 12/05/24 20:32 Last Admin: 12/05/24 20:36 Dose: 4 mg Documented By: ZAHIDA Ondansetron HCl (Ondansetron Inj 2 Mg/Ml 2 Ml Vial) 4 mg IV NOW STA Stop: 12/05/24 20:32 Last Admin: 12/05/24 20:36 Dose: 4 mg Documented By: ZAHIDA Discharge Plan Visit Data Chief Complaint: Abdominal Pain Stated Complaint: ABDOMINAL PAIN ED Provider: Boom Vasquez Discharge Problem: RUQ abdominal pain, Acute hyperglycemia, Acute dehydration, Tachycardia, Gall stones Patient Disposition: Admitted As Inpatient Condition: Fair Forms Stand Alone Forms: [facility] Prescriptions Prescriptions: No Action aspirin 81 mg tablet,delayed release (DR/EC) 81 mg PO DAILY Novolin 70-30 FlexPen U-100 100 unit/mL (70-30) Insulin Pen 35 unit SUBCUT BID furosemide 40 mg tablet 40 mg PO DAILY Qty: 30 0RF famotidine 20 mg Tablet 20 mg PO QAM Qty: 30 0RF omeprazole 40 mg capsule,delayed release(DR/EC) 40 mg PO DAILY 28 Days Qty: 28 0RF metoprolol succinate 25 mg Tablet Extended Release 24 Hr 25 mg PO QAM 30 Days Qty: 30 1RF rosuvastatin 5 mg Tablet 5 mg PO QAM 30 Days Qty: 30 1RF Referrals Referrals: Pilar Elena CRNP [Primary Care Provider] -
[2024-12-05] MEDS: MoRPHine SULFATE 4 MG/ML 1 ML CARP\\VIAL IV STA (20:36)
[2024-12-05] MEDS: ONDANSETRON INJ 2 MG/ML 2 ML VIAL IV STA (20:36)
[2024-12-05] MEDS: SODIUM CHLORIDE 0.9% 1,000 ML IV ONE ×2 (20:36→23:25)
[2024-12-05 21:07] LABS: Basophils # (auto) 0.02 K/uL (0.00-0.20); Basophils % (auto) 0.2 %; Eosinophils # (auto) 0.02 K/uL (0.00-0.50); Eosinophils % (auto) 0.2 %; Hematocrit (blood only) 45.6 % (42.0-52.0); Hemoglobin 15.2 g/dl (14.0-18.0); Immature Granulocytes # (auto) 0.05 K/uL (0.01-0.20); Immature Granulocytes % (auto) 0.5 %; Lymphocytes # (auto) 1.63 K/uL (1.20-3.40); Lymphocytes % (auto) 15.4 %; Mean Corpuscular Hemoglobin 28.1 pg (25.0-34.0); Mean Corpuscular Hgb Conc 33.3 g/dL (32.0-36.0); Mean Corpuscular Volume 84.4 fL (80.0-100.0); Mean Platelet Volume 11.8 fL (9.4-12.4); Monocytes # (auto) 1.19 K/uL (0.11-0.59); Monocytes % (auto) 11.2 %; Neutrophils # (auto) 7.69 K/uL (1.40-6.50); Neutrophils % (auto) 72.5 %; Platelet Count 106 K/uL (130-400); RDW Coefficient of Variation 12.1 % (11.5-14.5); RDW Standard Deviation 36.8 fL (36.4-46.3)
[2024-12-05 21:34] LABS: Troponin I High Sensitivity 8.5 pg/ml (0-20)
[2024-12-05 21:35] LABS: Albumin Globulin Ratio 1.2 (0.9-2); Albumin Level 3.6 gm/dl (3.4-5.0); Bilirubin,Total 0.8 mg/dl (0.2-1.0); Calcium 9.2 mg/dl (8.6-10.3); Creatinine Clr Calc Pharmacy 78.9 ml/min; Globulin 2.9 gm/dl (2.5-4.0); Magnesium 1.7 mg/dl (1.7-2.4); Potassium 4.9 mmol/L (3.5-5.1); Total Protein 6.5 gm/dl (6.0-8.3)
[2024-12-05] MEDS: PANTOprazole 40 MG/10 ML SYR IV ONE (22:41)
--- NOTE | 2024-12-06 00:10 | Ultrasound Report ---
Exam(s): US ABDOMEN LIMITED EXAM: US Abdomen Limited, Right Upper Quadrant CLINICAL HISTORY: Reason for exam: epig pain. TECHNIQUE: Real-time ultrasound of the right upper quadrant with image documentation. COMPARISON: Sonogram August 15, 2024. FINDINGS: Liver: Unremarkable. No mass. No intrahepatic bile duct dilation. Gallbladder: Multiple large gallstones. Mild gallbladder wall thickening at 3-4 mm. No pericholecystic fluid. Common bile duct: Unremarkable as visualized. No stones. No dilation. Pancreas: Unremarkable as visualized. Right kidney: Unremarkable. No stones. No solid mass. No hydronephrosis. IMPRESSION: Gallstones with gallbladder wall thickening. Findings are suspicious for acute cholecystitis. No bile duct dilatation. Electronically signed by: Dale Hilario MD 12/06/24 00:09 AM
--- NOTE | 2024-12-06 00:31 | History & Physical Report ---
Date of Service December 05, 2024 Assessment & Plan (1) Abdominal pain: Plan: 54-year-old male with past med history significant for uncontrolled insulin- dependent diabetes, hyperlipidemia, TBI, nonocclusive CAD, nonischemic cardiomyopathy, heart failure with reduced ejection fraction, GERD presents with abdominal pain. Patient says he has abdominal pain in the periumbilical region going on for last 1 month on and off. This pain started yesterday severe in na ture not able to ambulate because of pain. Patient was in the ER yesterday morning and thought to be gastritis and discharged on omeprazole. As the pain is not getting better he came back to the ER today. No radiation of pain. Denies any nausea. Denies any diarrhea or constipation. No blood in stools or black stools. Micturating okay. Denies chest pain. Denies shortness of breath. Denies fevers. No headache. No blurred visions. No runny nose or sore throat. No cough. Hemodynamics are okay. [facility] [place] Patient says he has gallstones and there is a plan for surgery for it as per patient. Abdominal pain CT scan done yesterday shows cholelithiasis. Normal appendix. No bowel obstruction Gallbladder ultrasound today shows gallstones with gallbladder wall thickening. Findings are suspicious for acute cholecystitis. No biliary duct dilatation. No fevers. No leukocytosis. LFTs okay. Will empirically placed on Zosyn. Gentle fluids Normal Saline 50 mL/h. Pain control. NPO. IV Pepcid. GI and surgery consulted in a.m. for further recommendations History of chronic systolic CHF and right ventricular systolic function Nonischemic cardiomyopathy Echo on July 2024 shows EF 20 to 25% Echo in October 2024 shows Ef 20-25% Last admission in October 2024 Jardiance and Entresto and Aldactone stopped for hyperkalemia Currently on Lasix and metoprolol succinate On LifeVest Seems not followed up with [facility] cardiology Will consult cardiology if patient needs any procedures Monitor for volume overload . Diabetes Poorly controlled On Novolin 70/[address] him on Lantus 15 units twice daily and sliding scale Glycemic pharmacy consult Close monitor Follow HbA1c levels Hyperlipidemia On Crestor Nonocclusive CAD On aspirin statin and beta-goldie GERD Currently on IV Pepcid Thrombocytopenia platelets 106, seems new will monitor DVT prophylaxis SCDs for now Disposition Med/telemetry Full code History of Present Illness Chief Complaint: Abdominal pain Primary Care Provider: RON Mckeon 54-year-old male with past med history significant for uncontrolled insulin- dependent diabetes, hyperlipidemia, TBI, nonocclusive CAD, nonischemic cardiomyopathy, heart failure with reduced ejection fraction, GERD presents with abdominal pain. Patient says he has abdominal pain in the periumbilical region going on for last 1 month on and off. This pain started yesterday severe in nature not able to ambulate because of pain. Patient was in the ER yesterday morning and thought to be gastritis and discharged on omeprazole. As the pain is not getting better he came back to the ER today. No radiation of pain. Denies any nausea. Denies any diarrhea or constipation. No blood in stools or black stools. Micturating okay. Denies chest pain. Denies shortness of breath. Denies fevers. No headache. No blurred visions. No runny nose or sore throat. No cough. Hemodynamics are okay. [facility] [place] Patient says he has gallstones and there is a plan for surgery for it as per patient. Past medical history. As mentioned above Past surgical history. No significant past surgical history. Social history. No alcohol use. No drug use. No smoking. Family history. Mother has diabetes. Allergies Allergy/AdvReac Type Severity Reaction Status Date / Time lidocaine AdvReac Unknown Unknown Verified 12/05/24 23:53 Home Medications Medication Instructions Recorded Confirmed Type aspirin 81 mg tablet,delayed 81 mg PO DAILY 12/05/24 12/05/24 History release famotidine 20 mg tablet 20 mg PO DAILY 12/05/24 12/05/24 History furosemide 40 mg tablet 40 mg PO DAILY 12/05/24 12/05/24 History insulin NPH-regular 70-30 U-100 35 unit subcut BID 12/05/24 12/05/24 History insulin 100 unit/mL subcutaneous pen (Novolin 70-30 FlexPen U-100 Insulin) metoprolol succinate 25 mg 25 mg PO DAILY 12/05/24 12/05/24 History tablet,extended release 24 hr rosuvastatin 5 mg tablet (Crestor) 5 mg PO DAILY 12/05/24 12/05/24 History Past Med/Surg History Problem List (Updated 12/06/24 @ 00:05 by Sherry Zheng) Gall stones (Acute) Tachycardia (Acute) Acute dehydration (Acute) Acute hyperglycemia (Acute) RUQ abdominal pain (Acute) Abdominal pain (Acute) Wound of right lower extremity DM type 2 (diabetes mellitus, type 2) Nonischemic cardiomyopathy Acute on chronic heart failure with reduced ejection fraction (HFrEF, <= 40%) Hypomagnesemia (Acute) Transaminitis (Acute) Acute CHF (Acute) Abdominal pain (Acute) Chest pain (Acute) Hyperkalemia Acute heart failure with reduced ejection fraction (HFrEF, <= 40%) Acute upper abdominal pain (Acute) Cholelithiasis (Acute) Elevated LFTs (Acute) Pleural effusion (Acute) Elevated troponin (Acute) COVID-19 (Acute) Tinnitus of both ears Diabetic peripheral neuropathy Dizziness Ataxia (Acute) No significant past surgical history (Chronic) GERD (gastroesophageal reflux disease) (Chronic) Type 2 diabetes mellitus (Chronic) Abdominal pain (Acute) Dehydration (Acute) Nausea (Acute) New onset type 2 diabetes mellitus (Acute) Medical History TBI (traumatic brain injury) No pertinent family history Family History Mother Diabetes Social History Smoking Status: Never smoker Second Hand Exposure: No; Do You Dip or Chew Tobacco: No; Tobacco Cessation Education Requested by Patient: No Hx Alcohol Use: No Hx Substance Use: No Preferred Language: Portuguese Communication Ability: Effective 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 ENT- oropharynx clear Neck- supple, no JVD. Lungs- clear to auscultation no wheezing or crackles Heart- regular rhythm; no murmur, no gallop. Abdomen- normal bowel sounds, soft, mild periumbilical discomfort, no distension Extremities- no pretibial edema, no erythema seen. Neuro- alert, oriented PERRL, no facial palsy; no dysarthria; moves extremities Results & Data Results & Data Vital Signs (Past 12 Hours) Vital Signs Temp Pulse Resp BP Pulse Ox O2 Del Method 12/05/24 23:03 111 H 17 108/86 92 12/05/24 22:03 109 H 16 108/88 95 12/05/24 21:45 107 H 17 93 12/05/24 21:30 112 H 24 121/86 90 12/05/24 21:15 113 H 17 134/92 94 12/05/24 20:28 37.4 C 120 H 16 132/98 99 Room Air 12/05/24 20:25 129 H Diagnostic Findings Laboratory Results WBC 10.60 K/ul (4.8-10.8) 12/05/24 20: RBC 5.40 M/uL (4.70-6.10) 12/05/24 20:31 Hgb 15.2 g/dl (14.0-18.0) 12/05/24 20: Hct 45.6 % (42.0-52.0) 12/05/24 20: MCV 84.4 fL (80.0-100.0) 12/05/24 20: MCH 28.1 pg (25.0-34.0) 12/05/24 20: MCHC 33.3 g/dL (32.0-36.0) 12/05/24 20: RDW Std Deviation 36.8 fL (36.4-46.3) 12/05/24 20: RDW Coeff of Kt 12.1 % (11.5-14.5) 12/05/24 20: Plt Count 106 K/uL (130-400) L 12/05/24 20: MPV 11.8 fL (9.4-12.4) 12/05/24 20: Immature Gran % (Auto) 0.5 % 12/05/24 20: Neut % (Auto) 72.5 % 12/05/24 20: Lymph % (Auto) 15.4 % 12/05/24 20:31 [place] % (Auto) 11.2 % 12/05/24 20: Eos % (Auto) 0.2 % 12/05/24 20: Baso % (Auto) 0.2 % 12/05/24 20: Neut # (Auto) 7.69 K/uL (1.40-6.50) H 12/05/24 20: Lymph # (Auto) 1.63 K/uL (1.20-3.40) 12/05/24 20: [place] # (Auto) 1.19 K/uL (0.11-0.59) H 12/05/24 20: Eos # (Auto) 0.02 K/uL (0.00-0.50) 12/05/24 20: Baso # (Auto) 0.02 K/uL (0.00-0.20) 12/05/24 20: Immature Gran # (Auto) 0.05 K/uL (0.01-0.20) 12/05/24 20: Sodium 131 mmol/L (136-145) L 12/05/24 20: Potassium 4.9 mmol/L (3.5-5.1) 12/05/24 20: Chloride 97 mmol/L (98-107) L 12/05/24: Carbon Dioxide 30 mmol/L (21-32) 12/05/24 20: Anion Gap 4 (3-11) 12/05/24 20: BUN 15 mg/dl (6-23) 12/05/24: Creatinine 1.25 mg/dl (0.6-1.4) 12/05/24 20: Est Cr Clr Drug Dosing 78.9 ml/min 12/05/24 20: eGFR 68.43 12/05/24 20: BUN/Creatinine Ratio 12.0 (10-20) 12/05/24 20: Glucose 340 mg/dl (70-99(Fasting)) H* 12/05/24 20: Calcium 9.2 mg/dl (8.6-10.3) 12/05/24 20: Magnesium 1.7 mg/dl (1.7-2.4) 12/05/24 20: Total Bilirubin 0.8 mg/dl (0.2-1.0) D 12/05/24 20:31 AST 21 U/L (13-39) 12/05/24 20:31 ALT 22 U/L (7-52) 12/05/24 20:31 Alkaline Phosphatase 101 U/L (34-104) 12/05/24 20:31 Troponin I High Sens 8.5 pg/ml (0-20) 12/05/24 20:31 Total Protein 6.5 gm/dl (6.0-8.3) 12/05/24 20:31 Albumin 3.6 gm/dl (3.4-5.0) 12/05/24 20:31 Globulin 2.9 gm/dl (2.5-4.0) 12/05/24 20:31 Albumin/Globulin Ratio 1.2 (0.9-2) 12/05/24 20:31 Lipase 16 U/L (11-82) 12/05/24 20:31 Impressions Gallbladder Ultrasound 12/05/24 20:25 Exam(s): US ABDOMEN LIMITED EXAM: US Abdomen Limited, Right Upper Quadrant CLINICAL HISTORY: Reason for exam: epig pain. TECHNIQUE: Real-time ultrasound of the right upper quadrant with image documentation. COMPARISON: Sonogram August 15, 2024. FINDINGS: Liver: Unremarkable. No mass. No intrahepatic bile duct dilation. Gallbladder: Multiple large gallstones. Mild gallbladder wall thickening at 3-4 mm. No pericholecystic fluid. Common bile duct: Unremarkable as visualized. No stones. No dilation. Pancreas: Unremarkable as visualized. Right kidney: Unremarkable. No stones. No solid mass. No hydronephrosis. IMPRESSION: Gallstones with gallbladder wall thickening. Findings are suspicious for acute cholecystitis. No bile duct dilatation. Electronically signed by: Dale Hilario MD 12/06/24 00:09 AM ECG Additional Comments: ECG. Sinus tachycardia with occasional PVCs rate of 119. Nonspecific ST and T wave abnormalities. Code Status & VTE Plan VTE Prophylaxis Plan VTE Prophylaxis will be ordered: Yes
[2024-12-06] MEDS ORDERED: DEXTROSE 50% 50 ML SYRINGE IV PRN (01:20)
[2024-12-06] MEDS ORDERED: PHARMACY GLYCEMIC MGMT CONSULT PRN (01:20)
[2024-12-06] MEDS ORDERED: CARBOHYDRATES FOR HYPOGLYCEMIA PO PRN (01:20)
[2024-12-06] MEDS ORDERED: GLUCOSE 40% GEL 15 GM TUBE PO PRN (01:20)
[2024-12-06] MEDS ORDERED: GLUCOSE 10 TAB/TUBE PO PRN (01:20)
[2024-12-06] MEDS ORDERED: ONDANSETRON INJ 2 MG/ML 2 ML VIAL IV PRN (01:20)
[2024-12-06] MEDS ORDERED: HYDROmorphone INJ 0.5 MG/0.5 ML SYR IV PRN (01:20)
[2024-12-06] MEDS ORDERED: NITROGLYCERIN SL 0.4 MG/TAB TAB SL PRN (01:20)
[2024-12-06] MEDS ORDERED: GLUCAGON FOR INJ 1 MG VIAL SQ PRN (01:20)
[2024-12-06] MEDS: INSULIN ASPART PER UNIT CHARGE SC SCH ×2 (02:25→13:09)
[2024-12-06] MEDS: PIPERACILLIN/TAZOBACTAM 4.5 GM/100 ML BAG IV ONE (02:27)
[2024-12-06] MEDS: SODIUM CHLORIDE 0.9% 1,000 ML IV SCH (02:28)
[2024-12-06] MEDS ORDERED: PNEUMOCOCCAL VACCINE (PCV20) 20-VAL CONJ-DIP CRM/PF 0.5 ML SYR IM ONE (03:08)
[2024-12-06] MEDS: ACETAMINOPHEN 325 MG TAB PO PRN (05:51)
[2024-12-06] MEDS: HYDROmorphone INJ 0.5 MG/0.5 ML SYR IV PRN (06:19)
[2024-12-06 06:20] LABS: Basophils # (auto) 0.01 K/uL (0.00-0.20); Basophils % (auto) 0.1 %; Eosinophils # (auto) 0.08 K/uL (0.00-0.50); Eosinophils % (auto) 0.9 %; Hematocrit (blood only) 42.9 % (42.0-52.0); Hemoglobin 14.2 g/dl (14.0-18.0); Immature Granulocytes # (auto) 0.05 K/uL (0.01-0.20); Immature Granulocytes % (auto) 0.5 %; Lymphocytes # (auto) 1.77 K/uL (1.20-3.40); Lymphocytes % (auto) 19.2 %; Mean Corpuscular Hemoglobin 28.2 pg (25.0-34.0); Mean Corpuscular Hgb Conc 33.1 g/dL (32.0-36.0); Mean Corpuscular Volume 85.3 fL (80.0-100.0); Mean Platelet Volume 11.8 fL (9.4-12.4); Monocytes # (auto) 1.03 K/uL (0.11-0.59); Monocytes % (auto) 11.2 %; Neutrophils # (auto) 6.26 K/uL (1.40-6.50); Neutrophils % (auto) 68.1 %; Platelet Count 115 K/uL (130-400); RDW Coefficient of Variation 12.4 % (11.5-14.5); RDW Standard Deviation 38.1 fL (36.4-46.3); Red Blood Count 5.03 M/uL (4.70-6.10)
[2024-12-06 06:43] LABS: Albumin Level 3.2 gm/dl (3.4-5.0); BUN Creatinine Ratio 10.7 (10-20); Bilirubin Direct 0.2 mg/dl (0-0.2); Bilirubin,Total 1.1 mg/dl (0.2-1.0); Calcium 8.5 mg/dl (8.6-10.3); Magnesium 1.8 mg/dl (1.7-2.4); Potassium 4.7 mmol/L (3.5-5.1); Total Protein 5.8 gm/dl (6.0-8.3)
[2024-12-06 07:59] LABS: Estimated Average Glucose 266 mg/dl; Hemoglobin A1C 10.9 % (4.5-5.6)
[2024-12-06 08:34] LABS: Troponin I High Sensitivity 8.3 pg/ml (0-20)
--- NOTE | 2024-12-06 08:45 | Cardiology Consultation ---
Date of Consultation December 06, 2024 Assessment & Plan (1) Preop cardiovascular exam: (2) Nonischemic cardiomyopathy: (3) ASCVD (arteriosclerotic cardiovascular disease): (4) HTN, goal below 130/80: (5) Dyslipidemia, goal LDL below 70: Plan Complex 54-year-old male referred for preoperative cardiology consultation prior to possible cholecystectomy versus EGD. Cardiac history notable for coronary artery disease as detailed below and nonischemic cardiomyopathy with left ve ntricular ejection fraction 20 to 25%. Patient compensated, without new or worsening cardiac symptoms. Estimated risk is elevated due to nonischemic cardiomyopathy, heart failure, diabetes mellitus requiring insulin, thrombocytopenia, etc though not prohibitive. Further cardiac testing at this time will not likely influence management. No overt cardiac contraindications to a necessary procedure. Continue metoprolol succinate with additional 12.5 mg dosing now. If aspirin must be interrupted please hold for the shortest period of time felt to be safe and resume postoperatively when able. Hold furosemide AM of procedure, resuming postoperatively as hemodynamics permit. Supervising Physician Co-Signing Physician Notes Patient seen and examined, chart reviewed. Full assessment and plan as per advanced provider above. Care and management discussed personally and endorsed 54-year-old male with known nonischemic cardiomyopathy with reduced ejection fraction presents with abdominal pain and GI issues. Currently compensated from cardiac standpoint no signs of volume overload or heart failure. Will recommend increasing metoprolol succinate for further heart rate control no contraindications to procedures or surgery if indicated as noted History of Present Illness Reason for Consultation: Preoperative cardiology evaluation, cholecystitis, history of congestive heart failure. Requesting Physician: Dr. Harding Attending Physician: Dr. Huber Sharma MD History of Present Illness Km Babb is a 54-year-old male who is being seen at request of [facility], for preoperative evaluation prior to cholecystectomy. Patient returned to [facility] on December 06, 2023 with burning periumbilical pain. Gallbladder ultrasound today revealed findings suspicious for acute cholecystitis. GI and general Surgery consultation pending. Patient carries a history of coronary artery disease via August 18, 2024 diagnostic cardiac catheterization performed by Dr. Robles at [facility]. Angiography revealed a moderate to borderline severe diagonal lesion and a vessel too small for PCI with otherwise mild nonobstructive coronary artery disease. Patient's cardiomyopathy out of proportion to coronary disease, nonischemic cardiomyopathy with LVEF 20 to 25%. Patient currently should a wearable defibrillator. Patient recently hospitalized at [facility] in October 2024 with acute on chronic heart failure with reduced ejection fraction following noncompliance with medications as well as dietary indiscretion, treated with IV furosemide and resumption of some guideline directed medical therapy. Resting echocardiography on November 12, 2024 revealed severely reduced LV systolic function with ejection fraction 20 to 25%. Mild mitral regurgitation noted. Normal IVC diameter and respiratory variation observed suggesting normal central venous pressure. When compared to prior study from July 2024, LV systolic function was unchanged, right atrial filling pressure now within normal range. Patient denies chest pain, worsening shortness of breath, palpitations, orthopnea, PND, peripheral edema, positional lightheadedness/dizziness, near- syncope, or syncope. Admission EKG revealed sinus tachycardia 119 bpm with occasional premature ventricular complexes, possible left atrial enlargement, left axis deviation, nonspecific STT wave abnormality. QRS duration 80 ms. QTc interval 444 ms. Past Medical and Surgical History Nonischemic cardiomyopathy, LVEF 20 to 25%, NYHA Class III, narrow QRS duration, in sinus rhythm Coronary artery disease with moderately severe diagonal branch stenosis not amendable to PCI with otherwise nonobstructive coronary artery disease via July 2024 diagnostic cardiac catheterization Hypertension Dyslipidemia Type 2 diabetes mellitus with neuropathy Cognitive disorder Chronic headaches History of traumatic brain injury Family History: Not notable for CAD in mother or father Social History non-smoker. No alcohol. No illegal drug use. [place], followed by the [employer] [facility]. Allergies Allergy/AdvReac Type Severity Reaction Status Date / Time lidocaine AdvReac Unknown Unknown Verified 12/05/24 23:53 Home Medications Medication Instructions Recorded Confirmed Type aspirin 81 mg tablet,delayed 81 mg PO DAILY 12/05/24 12/05/24 History release famotidine 20 mg tablet 20 mg PO DAILY 12/05/24 12/05/24 History furosemide 40 mg tablet 40 mg PO DAILY 12/05/24 12/05/24 History insulin NPH-regular 70-30 U-100 35 unit subcut BID 12/05/24 12/05/24 History insulin 100 unit/mL subcutaneous pen (Novolin 70-30 FlexPen U-100 Insulin) metoprolol succinate 25 mg 25 mg PO DAILY 12/05/24 12/05/24 History tablet,extended release 24 hr rosuvastatin 5 mg tablet (Crestor) 5 mg PO DAILY 12/05/24 12/05/24 History Patient History Medical History TBI (traumatic brain injury) No pertinent family history Family History Mother Diabetes Social History Smoking Status: Never smoker Second Hand Exposure: No; Do You Dip or Chew Tobacco: No; Tobacco Cessation Education Requested by Patient: No Hx Alcohol Use: No Hx Substance Use: No Preferred Language: Greek Communication Ability: Effective 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 NAD. HENT: Normocephalic. Atraumatic. Eyes: PER. Conjunctiva pink, sclera clear. Neck: No carotid bruits. No JVD. No HJR. Heart: Irregular, 96 bpm. Apical systolic murmur. Lungs: Clear to auscultation. Abdomen: +BS. Soft. Nontender. No masses or organomegaly. Extremities: No clubbing, cyanosis, or edema. Limited neurological examination is without focal deficits. Pulses: radial=2/4, posterior tibial=1/4. Results & Data Vital Signs (Past 12 Hours) Vital Signs Temp Pulse Pulse Resp BP BP Pulse Ox 12/06/24 08:29 36.4 C L 96 H 14 106/74 96 12/06/24 07:34 12/06/24 07:21 99 H 12/06/24 02:52 36.6 C 109 H 18 104/74 96 12/06/24 01:20 36.6 C 109 H 18 104/74 96 12/06/24 01:15 98 H 12/06/24 00:45 97 H 16 105/80 96 12/06/24 00:16 108 H 12/05/24 23:03 111 H 17 108/86 92 12/05/24 22:03 109 H 16 108/88 95 12/05/24 21:45 107 H 17 93 12/05/24 21:30 112 H 24 121/86 90 12/05/24 21:15 113 H 17 134/92 94 O2 Del Method 12/06/24 08:29 Room Air 12/06/24 07:34 Room Air 12/06/24 07:21 12/06/24 02:52 Room Air 12/06/24 01:20 Room Air 12/06/24 01:15 12/06/24 00:45 12/06/24 00:16 12/05/24 23:03 12/05/24 22:03 12/05/24 21:45 12/05/24 21:30 12/05/24 21:15 Laboratory Results Cardiac Enzymes 12/05/24 12/06/24 Range/Units 20:31 05:22 AST 21 17 (13-39) U/L Troponin I High Sens 8.5 8.3 (0-20) pg/ml CBC 12/05/24 12/06/24 Range/Units 20:31 05:22 WBC 10.60 9.20 (4.8-10.8) K/ul RBC 5.40 5.03 (4.70-6.10) M/uL Hgb 15.2 14.2 (14.0-18.0) g/dl Hct 45.6 42.9 (42.0-52.0) % Plt Count 106 L 115 L (130-400) K/uL Neut # (Auto) 7.69 H 6.26 (1.40-6.50) K/uL Lymph # (Auto) 1.63 1.77 (1.20-3.40) K/uL Sioux # (Auto) 1.19 H 1.03 H (0.11-0.59) K/uL Eos # (Auto) 0.02 0.08 (0.00-0.50) K/uL Baso # (Auto) 0.02 0.01 (0.00-0.20) K/uL Comprehensive Metabolic Panel 12/05/24 12/06/24 Range/Units 20:31 05:22 Sodium 131 L 133 L (136-145) mmol/L Potassium 4.9 4.7 (3.5-5.1) mmol/L Chloride 97 L 102 (98-107) mmol/L Carbon Dioxide 30 30 (21-32) mmol/L BUN 15 13 (6-23) mg/dl Creatinine 1.25 1.21 (0.6-1.4) mg/dl Glucose 340 H* 234 H (70-99(Fasting)) mg/dl Calcium 9.2 8.5 L (8.6-10.3) mg/dl Direct Bilirubin 0.2 (0-0.2) mg/dl AST 21 17 (13-39) U/L ALT 22 18 (7-52) U/L Alkaline Phosphatase 101 64 (34-104) U/L Total Protein 6.5 5.8 L (6.0-8.3) gm/dl Albumin 3.6 3.2 L (3.4-5.0) gm/dl Intake and Output 12/05/24 12/06/24 12/06/24 22:59 06:59 14:59 Intake Total 999 / 2099 1100 / 2099 Balance 999 / 2099 1099 / 2099 Intake: IV 1000 / 2099 1100 / 2099 Piperacillin/Tazobactam 4.5 gm 100 / 100 In 100 ml @ 200 mls/hr IV NOW ONE Rx#:[id number] Sodium Chloride 0.9% 1,000 ml @ 1000 / 2000 1000 / 2000 999 mls/hr IV .Q1H1M ONE Rx#: [id number] Other: Weight 93.4 kg 92.3 kg Weight Measurement Method Built in Bedscale Standing Scale Diagnostic Findings August 18, 2024 right and left heart catheterization ([facility], Dr. Robles): Right heart cath findings: PCWP-11 mmHg PAP-50/31 mmHg, mean 37 mmHg RVP-50/12 mmHg, RVEDP 14 mmHg RAP-13 mmHg AO sat-96% PA sat-75% RA sat 72% CO (Jasper)-7.08 L/min CI (Jasper)-3.3 L/min/m Pulmonary vascular resistance-4.1 Sotelo units Systemic vascular resistance-9.75 Sotelo units Total vascular resistance-11.58 Sotelo units Coronary angiography findings: PLM-ericr-mgeigle vessel trifurcating into LAD, ramus, and circumflex. No more than mild luminal irregularities. GER-kayoh-djiokxj and transapical. Gives a medium caliber branching first diagonal. Proximal LAD has luminal irregularities. The mid vessel just after the diagonal has a focal 30 to 40% narrowing. The diagonal has a proximal 50 to 70% narrowing but appears too small for PCI. Distally the LAD has no angiographically evident disease. Bpofv-hrgpi-xewzyov and branching with no more than mild luminal irregularities. HCb-pjvhi-fhmwgrx and nondominant. Travels in the AV groove giving a medium caliber OM1, medium caliber OM 2 and a small caliber posterolateral branch. There is no more than mild luminal irregularities in the circumflex and its branches. RCA-this is large caliber and dominant. Bifurcates distally into the PDA and multi branching posterolateral. The RCA and its branches have no disease.
--- NOTE | 2024-12-06 08:50 | Gastrointestinal Consultation ---
Date of Consultation December 06, 2024 Assessment & Plan (1) Abdominal pain: Patient has recurrent abdominal pain and known gallstones. Burning of the umbilicus is somewhat atypical for possible gallbladder source. Patient also takes significant roderick of aspirin and the BC OTC medication gets from Home Inventory [facility][pecialists. Each tablet can obtain up to 1000 mg of aspirin. He is prescribed a PPI and famotidine. Ulcers would be unusual although his compliance with this medication is not clear. Previous HIDA scan suggests poor gallbladder functioning. There is some gallbladder wall thickening on ultrasound. Await surgical input repeat HIDA scan at this time. If negative consider EGD. (2) Gall stones: History of Present Illness Reason for Consultation: Recurrent abdominal pain Attending Physician: Huber Sharma MD History of Present Illness 54-year-old gentleman with cardiomyopathy. Couple of visits here since July for abdominal pain. Visit in July showed large gallstones and chronic cholecystitis on HIDA scan. Patient's been back to the emergency room x 2 this month with burning abdominal pain. Morphine seems to work well for him. Patient's a bit of a poor historian. Also noted noncompliance with his cardiac medications. Cardiology to see. The pain is described as burning in the periumbilical pain which she describes as severe. He states soon as the morphine wore off after his last ER visit 2 days ago the pain reoccurred. There are no clear exacerbating or relieving factors. He is on PPI and famotidine. Compliance appears unclear. Patient describes recurrent headaches. He takes BC OTC which is a product that contains 1000 mg of aspirin plus caffeine. He denies melena hematemesis or significant heartburn. He denies fevers chills jaundice dark-colored urine. Imaging studies show gallstones. There is some mild gallbladder wall thickening on the ultrasound not appreciated on CT scan. No imaging changes of gastric or duodenal thickening to suggest significant peptic ulcer disease. Admission for abdominal pain found to be in heart failure. Chest x-ray yesterday suggest no pulmonary edema. Allergies Allergy/AdvReac Type Severity Reaction Status Date / Time lidocaine AdvReac Unknown Unknown Verified 12/05/24 23:53 Home Medications Medication Instructions Recorded Confirmed Type aspirin 81 mg tablet,delayed 81 mg PO DAILY 12/05/24 12/05/24 History release famotidine 20 mg tablet 20 mg PO DAILY 12/05/24 12/05/24 History furosemide 40 mg tablet 40 mg PO DAILY 12/05/24 12/05/24 History insulin NPH-regular 70-30 U-100 35 unit subcut BID 12/05/24 12/05/24 History insulin 100 unit/mL subcutaneous pen (Novolin 70-30 FlexPen U-100 Insulin) metoprolol succinate 25 mg 25 mg PO DAILY 12/05/24 12/05/24 History tablet,extended release 24 hr rosuvastatin 5 mg tablet (Crestor) 5 mg PO DAILY 12/05/24 12/05/24 History Patient History Medical History TBI (traumatic brain injury) No pertinent family history Family History Mother Diabetes Social History Smoking Status: Never smoker Second Hand Exposure: No; Do You Dip or Chew Tobacco: No; Tobacco Cessation Education Requested by Patient: No Hx Alcohol Use: No Hx Substance Use: No Preferred Language: Wolof Communication Ability: Effective 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 Beliefs That Will Affect Care: None marital status: Single Current Living Situation: Alone current occupational status: employed Other Information That Helps Us Care for You: No Feels Safe at Home: Yes Safety Concerns: Feels Safe At This Time Assistive Devices: None Review of Systems Review of Systems: Denies fevers chills night sweats nausea vomiting melena hematochezia Denies shortness of breath No chest pain GI as mentioned history presenting illness 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 Alert and orientated x 3 Chest and heart exam as per admitting H&P no changes GI abdomen fairly benign. He points to the umbilicus as a source for his discomfort. No definite hernia. Bowel sounds are present and normal. 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 poor story Exam otherwise Results & Data Vital Signs (Past 12 Hours) Vital Signs Temp Pulse Pulse Resp BP BP Pulse Ox 12/06/24 08:29 36.4 C L 96 H 14 106/74 96 12/06/24 07:34 12/06/24 07:21 99 H 12/06/24 02:52 36.6 C 109 H 18 104/74 96 12/06/24 01:20 36.6 C 109 H 18 104/74 96 12/06/24 01:15 98 H 12/06/24 00:45 97 H 16 105/80 96 12/06/24 00:16 108 H 12/05/24 23:03 111 H 17 108/86 92 12/05/24 22:03 109 H 16 108/88 95 12/05/24 21:45 107 H 17 93 12/05/24 21:30 112 H 24 121/86 90 12/05/24 21:15 113 H 17 134/92 94 O2 Del Method 12/06/24 08:29 Room Air 12/06/24 07:34 Room Air 12/06/24 07:21 12/06/24 02:52 Room Air 12/06/24 01:20 Room Air 12/06/24 01:15 12/06/24 00:45 12/06/24 00:16 12/05/24 23:03 12/05/24 22:03 12/05/24 21:45 12/05/24 21:30 12/05/24 21:15 PG Care Time/CCT Total # of Minutes Spent Total Time Spent with Patient: Total time spent is greater than 50% in coordination of care (as documented) at patient's floor/unit and/or counseling patient: Coding Level of Care Code 89374 INT INP/OBS CARE 2/55MIN Diagnoses Abdominal pain R10.9 Gall stones K80.20
[2024-12-06] MEDS ORDERED: LANTUS PER UNIT CHARGE SQ SCH (09:00)
[2024-12-06] MEDS: FAMOTIDINE 20MG IV PUSH 20 MG/5 ML SYR IV SCH (09:23)
[2024-12-06] MEDS: METOPROLOL SUCC 25MG EXT REL TAB PO SCH (09:23)
[2024-12-06] MEDS: ASPIRIN 81 MG ECTAB PO SCH (09:29)
[2024-12-06] MEDS: FUROSEMIDE 40 MG TAB PO SCH (09:29)
[2024-12-06] MEDS: METOPROLOL SUCC 25MG EXT REL TAB PO ONE (09:29)
[2024-12-06] MEDS: ROSUVASTATIN CALCIUM 5 MG TAB PO SCH (09:29)
[2024-12-06] MEDS: INSULIN HUMAN NPH SC SCH (09:30)
[2024-12-06] MEDS: PIPERACILLIN/TAZOBACTAM 4.5 GM/100 ML BAG IV SCH (09:36)
[2024-12-06 09:39] LABS: Appearance Urine Clear (Clear); Bacteria Urine Automated None Seen (None Seen); Bilirubin Urine 1+ (Negative); Blood Urine 2+ (Negative); Cast Urine Automated 0-2 /lpf (0-2); Color Urine Orange; Epithelial Cell Urine Auto 0-2 /hpf (0-2); Glucose Urine UA 2+ (Negative); Ketones Urine Trace (Negative); Leukocyte Esterase Urine 1+ (Negative); Nitrite Urine Negative (Negative); Protein Urine 2+ (Negative); Specific Gravity Urine 1.035 (1.000-1.030); Urobilinogen Urine Negative (Negative)
[2024-12-06] MEDS: PANTOprazole 40 MG/10 ML SYR IV SCH (09:42)
--- NOTE | 2024-12-06 11:11 | Hospitalist Progress Note ---
Date of Service December 06, 2024 Assessment & Plan (1) Abdominal pain: Plan: 54-year-old male with past med history significant for uncontrolled insulin- dependent diabetes, hyperlipidemia, TBI, nonocclusive CAD, nonischemic cardiomyopathy, heart failure with reduced ejection fraction, GERD presents with abdominal pain. Abdominal pain Possible biliary colic/acute cholecystitis Patient presents with periumbilical and right upper quadrant pain Gallbladder ultrasound shows gallstones with gallbladder wall thickening; findings suspicious of acute cholecystitis No leukocytosis present LFTs within normal limits GI evaluated the patient; previous HIDA scan suggestive for gallbladder functioning. Awaiting surgical input and repeat HIDA scan. If negative, possibly considering EGD Continue on Zosyn; continue IV fluids HIDA scan pending Will follow-up on surgery recommendation History of chronic systolic CHF and right ventricular systolic function Nonischemic cardiomyopathy Echo on July 2024 shows EF 20 to 25% Echo in October 2024 shows Ef 20-25% Last admission in October 2024 Jardiance and Entresto and Aldactone stopped for hyperkalemia Currently on Lasix and metoprolol succinate On LifeVest Discussed with cardiology; no signs of volume overload or heart failure. No contraindication to procedure/surgery if indicated Type 2 Diabetes Poorly controlled On Novolin 70/30 on Lantus 15 units twice daily and sliding scale Glycemic pharmacy consult Close monitor Hyperlipidemia On Crestor,continue Nonocclusive CAD On aspirin statin and beta-goldie,continue GERD- on protonix Thrombocytopenia- Platelets around 100s. DVT prophylaxis SCDs for now Disposition Med/telemetry Full code Time spent evaluating patient, direct bedside care, chart review, placing orders, interpretation of diagnostic studies, discussion with consultants, patient, and family members, as well as other required patient management activities is 50 minutes Please note the above document was generated using voice recognition software. It may contain grammatical, syntax or spelling errors. Any formal questions or concerns about the content, text or information contained within the body of this dictation should be directly addressed to the provider for clarification Admission and Anticipated Discharge Date Admission Date: December 05, 2024 Subjective Patient seen and examined at bedside. He reports that the pain has slightly improved compared to in the morning. He reports pain in right upper quadrant as well as epigastric region Review of Systems Review of Systems: All systems reviewed & are unremarkable except as noted in Subjective Physical Exam Physical Exam: General-Not in distress Head- atraumatic Eyes- PERRL. ENT- oropharynx clear Neck- supple, no JVD. Lungs- clear to auscultation no wheezing or crackles Heart- regular rhythm; no murmur, no gallop. Abdomen- Mild tenderness present in right upper quadrant region Extremities- no pretibial edema, no erythema seen. Neuro- alert, oriented PERRL, no facial palsy; no dysarthria; moves extremities Results & Data Results & Data Vital Signs (Past 12 Hours) Vital Signs Temp Pulse Pulse Resp BP BP Pulse Ox 12/06/24 08:29 36.4 C L 96 H 14 106/74 96 12/06/24 07:34 12/06/24 07:21 99 H 12/06/24 02:52 36.6 C 109 H 18 104/74 96 12/06/24 01:20 36.6 C 109 H 18 104/74 96 12/06/24 01:15 98 H 12/06/24 00:45 97 H 16 105/80 96 12/06/24 00:16 108 H O2 Del Method 12/06/24 08:29 Room Air 12/06/24 07:34 Room Air 12/06/24 07:21 12/06/24 02:52 Room Air 12/06/24 01:20 Room Air 12/06/24 01:15 12/06/24 00:45 12/06/24 00:16
--- NOTE | 2024-12-06 13:12 | Electrocardiogram Report ---
Test Reason : Blood Pressure : */* mmHG Vent. Rate : 119 BPM Atrial Rate : 119 BPM P-R Int : 154 ms QRS Dur : 80 ms QT Int : 316 ms P-R-T Axes : 75 -30 66 degrees QTcB Int : 444 ms Sinus tachycardia with occasional Premature ventricular complexes Possible Left atrial enlargement Left axis deviation Nonspecific ST and T wave abnormality Abnormal ECG When compared with ECG of 04-Dec-2024 10:08, No significant change was found Confirmed by Faustino Sommers ([id number]) on 12/06/2024 1:12:42 PM Referred By: REFERRED SELF Confirmed By: Faustino Sommers
--- NOTE | 2024-12-06 14:58 | Pharmacy Report ---
Pharmacy Glycemic Short Note 2 - Date of Service December 06, 2024 - Glycemic Short BSG Results (Last 24 hours): 12/05/24 12/06/24 12/06/24 20:31 01:31 05:22 Glucose 340 H* 234 H POC Glucose 245 H 12/06/24 12/06/24 05:42 12:07 Glucose POC Glucose 194 H 169 H OUTPATIENT ANTIDIABETIC REGIMEN: * Novolin 70/30 35 units SC BID ASSESSMENT: * 54-year-old male with PMH significant for uncontrolled insulin-dependent diabetes, hyperlipidemia, TBI, nonocclusive CAD, nonischemic cardiomyopathy, heart failure with reduced ejection fraction, and GERD Patient presented with abdominal pain. Awaiting surgery consult. * Patient is known to the glycemic consult service and typically requires significantly less insulin as an inpatient (well controlled on Lantus 10 units daily most recently). Severe hyperglycemia has resolved. Will change patient to NPH BID as this more closely mimics the action of home insulin formulation. * Novolog parameters based on past usage. PLAN FOR INPATIENT GLYCEMIC CONTROL: * Basal insulin * NPH 8 units SQ BID * Bolus insulin * NovoLog per scale ACHS or Q6hrs while NPO * Goal Range: Low 110 mg/dL - High 140 mg/dL * Correction Factor: 30 mg/dL/unit * Nutritional / Prandial insulin per carb ratio of 1 unit per 10 grams CHO consumed
--- NOTE | 2024-12-06 19:11 | Surgery Consultation ---
Date of Consultation December 06, 2024 Assessment & Plan (1) Gall stones: Plan Patient has had a longstanding history of significant epigastric reflux symptoms and right upper quadrant pain we will discuss with the medical service the possibility of proceeding with a laparoscopic cholecystectomy the patient wants to proceed with surgery he is tired of feeling this way for 10 years At this point we will arrange the plan for surgery with the medical service and cardiology input prior to surgery History of Present Illness Reason for Consultation: Chronic cholecystitis cholelithiasis Attending Physician: Huber Sharma MD History of Present Illness This pleasant 54-year-old gentleman who has significant cardiac history we were asked to see for right upper quadrant epigastric pain that has been going on at least 10 years he has had multiple imagings that showed cholelithiasis and and was seen by surgeons before and recommended possibility of doing elective cholecystectomy may be referred to a tertiary center due to his cardiac issues I saw the patient last night Allergies Allergy/AdvReac Type Severity Reaction Status Date / Time lidocaine AdvReac Unknown Unknown Verified 12/05/24 23:53 Home Medications Medication Instructions Recorded Confirmed Type aspirin 81 mg tablet,delayed 81 mg PO DAILY 12/05/24 12/05/24 History release famotidine 20 mg tablet 20 mg PO DAILY 12/05/24 12/05/24 History furosemide 40 mg tablet 40 mg PO DAILY 12/05/24 12/05/24 History insulin NPH-regular 70-30 U-100 35 unit subcut BID 12/05/24 12/05/24 History insulin 100 unit/mL subcutaneous pen (Novolin 70-30 FlexPen U-100 Insulin) metoprolol succinate 25 mg 25 mg PO DAILY 12/05/24 12/05/24 History tablet,extended release 24 hr rosuvastatin 5 mg tablet (Crestor) 5 mg PO DAILY 12/05/24 12/05/24 History Patient History Medical History TBI (traumatic brain injury) No pertinent family history Family History Mother Diabetes Social History Smoking Status: Never smoker Second Hand Exposure: No; Do You Dip or Chew Tobacco: No; Tobacco Cessation Education Requested by Patient: No Hx Alcohol Use: No Hx Substance Use: No Preferred Language: Indonesian Communication Ability: Effective Insurance Underwriting Assistant Required: No Beliefs That Will Affect Care: None marital status: Single Current Living Situation: Alone current occupational status: employed Other Information That Helps Us Care for You: No Feels Safe at Home: Yes Safety Concerns: Feels Safe At This Time Assistive Devices: None Review of Systems Review of Systems: At least year 10 years old right upper quadrant epigastric is significant reflux symptoms with documented cholelithiasis Significant cardiac issues ejection fraction 40 seen by cardiology regularly Longstanding history of insulin-dependent diabetes poorly controlled Physical Exam Physical Exam: Alert coherent very pleasant resting comfortable no distress Sclera nonicteric No cervical lymphadenopathy trachea midline Lungs clear bilaterally no rhonchi rales Heart no murmurs or gallop Abdomen on exam moderate amount of guarding right upper quadrant and left upper quadrant Extremities no pedal edema Results & Data Vital Signs (Past 12 Hours) Vital Signs Temp Pulse Pulse Resp BP Pulse Ox O2 Del Method 12/06/24 16:09 36.6 C 108 H 18 101/67 98 Room Air 12/06/24 14:44 109 H 12/06/24 11:47 36.4 C L 96 H 14 106/74 96 Room Air 12/06/24 08:29 36.4 C L 96 H 14 106/74 96 Room Air 12/06/24 07:34 Room Air 12/06/24 07:21 99 H Laboratory Results Noted Diagnostic Findings Noted PG Care Time/CCT Total # of Minutes Spent Total Time Spent with Patient: Total time spent is greater than 50% in coordination of care (as documented) at patient's floor/unit and/or counseling patient: Coding Level of Care Code 10131 IN/OBS CONSULT LVL 3,45M Diagnoses Gall stones K80.20
[2024-12-07 07:44] LABS: Basophils # (auto) 0.02 K/uL (0.00-0.20); Basophils % (auto) 0.2 %; Eosinophils # (auto) 0.22 K/uL (0.00-0.50); Eosinophils % (auto) 2.7 %; Hematocrit (blood only) 42.7 % (42.0-52.0); Hemoglobin 14.2 g/dl (14.0-18.0); Immature Granulocytes # (auto) 0.03 K/uL (0.01-0.20); Immature Granulocytes % (auto) 0.4 %; Lymphocytes # (auto) 1.87 K/uL (1.20-3.40); Lymphocytes % (auto) 22.6 %; Mean Corpuscular Hemoglobin 28.2 pg (25.0-34.0); Mean Corpuscular Hgb Conc 33.3 g/dL (32.0-36.0); Mean Corpuscular Volume 84.7 fL (80.0-100.0); Mean Platelet Volume 11.6 fL (9.4-12.4); Monocytes # (auto) 0.98 K/uL (0.11-0.59); Monocytes % (auto) 11.8 %; Neutrophils # (auto) 5.16 K/uL (1.40-6.50); Neutrophils % (auto) 62.3 %; Platelet Count 106 K/uL (130-400); RDW Coefficient of Variation 11.9 % (11.5-14.5); RDW Standard Deviation 36.4 fL (36.4-46.3); Red Blood Count 5.04 M/uL (4.70-6.10); White Blood Count 8.28 K/ul (4.8-10.8)
[2024-12-07 08:00] LABS: Albumin Globulin Ratio 1.1 (0.9-2); Albumin Level 3.1 gm/dl (3.4-5.0); BUN Creatinine Ratio 14.3 (10-20); Bilirubin,Total 0.7 mg/dl (0.2-1.0); Calcium 8.4 mg/dl (8.6-10.3); Creatinine Clr Calc Pharmacy 63.6 ml/min; Globulin 2.7 gm/dl (2.5-4.0); Potassium 4.8 mmol/L (3.5-5.1); Total Protein 5.8 gm/dl (6.0-8.3)
[2024-12-07] MEDS: METOPROLOL SUCC 25MG EXT REL TAB PO SCH (08:39)
[2024-12-07] MEDS: INSULIN HUMAN NPH SC SCH (09:06)
--- NOTE | 2024-12-07 09:07 | Cardiology Progress Note ---
Date of Service December 07, 2024 Assessment & Plan (1) Preop cardiovascular exam: (2) Nonischemic cardiomyopathy: (3) ASCVD (arteriosclerotic cardiovascular disease): (4) HTN, goal below 130/80: (5) Dyslipidemia, goal LDL below 70: Plan 54-year-old male referred for preoperative cardiology consultation prior cholecystectomy. Cardiac history notable for coronary artery disease and nonischemic cardiomyopathy with left ventricular ejection fraction 20 to 25%. Volume status is compensated, without new or worsening cardiac complaints, asymptomatic. Estimated perioperative risk is elevated though not prohibitive. Further cardiac testing at this time will not likely influence management. No overt cardiac contraindications. Continue metoprolol succinate without perioperative interruption. If aspirin must be interrupted please hold for the shortest period of time felt to be safe and resume postoperatively when able. Patient did receive furosemide this AM. Please contact with any cardiac questions or concerns. Admission and Anticipated Discharge Date Admission Date: December 05, 2024 Supervising Physician Co-Signing Physician Notes Patient seen and examined, chart reviewed. Full assessment and plan as per advanced provider above. Care and management discussed personally and endorsed Assessment and plan as above. No cardiac contraindications to surgery Subjective Patient seen and examined. Chart, medications, and telemetry reviewed. N.p.o. for possible surgical intervention later today. No current complaints, denies chest pain, shortness of breath, palpitations, orthopnea, PND, peripheral edema. Telemetry: Sinus rhythm with PVCs, heart rates in the 80s. Review of Systems Review of Systems: Complete Review of Systems is as stated above, negative, or noncontributory Physical Exam Physical Exam: General: NAD. HENT: Normocephalic. Atraumatic. Eyes: PER. Conjunctiva pink, sclera clear. Neck: No carotid bruits. No JVD. No HJR. Heart: Regular, 76 bpm. Lungs: Clear to auscultation. Abdomen: +BS. Soft. Nontender. No masses or organomegaly. Extremities: No clubbing, cyanosis, or edema. Limited neurological examination is without focal deficits. Results & Data Vital Signs (Past 12 Hours) Vital Signs Temp Pulse Pulse Resp BP Pulse Ox O2 Del Method 12/07/24 08:25 36.5 C 113 H 17 135/85 97 Room Air 12/07/24 07:00 87 12/07/24 03:36 36.7 C 102 H 18 131/89 93 Room Air 12/06/24 23:30 36.7 C 100 H 16 98/68 L 96 Room Air 12/06/24 22:28 105 H Laboratory Results Cardiac Enzymes 12/07/24 Range/Units 07:04 AST 16 (13-39) U/L CBC 12/07/24 Range/Units 07:04 WBC 8.28 (4.8-10.8) K/ul RBC 5.04 (4.70-6.10) M/uL Hgb 14.2 (14.0-18.0) g/dl Hct 42.7 (42.0-52.0) % Plt Count 106 L (130-400) K/uL Neut # (Auto) 5.16 (1.40-6.50) K/uL Lymph # (Auto) 1.87 (1.20-3.40) K/uL [place] # (Auto) 0.98 H (0.11-0.59) K/uL Eos # (Auto) 0.22 (0.00-0.50) K/uL Baso # (Auto) 0.02 (0.00-0.20) K/uL Comprehensive Metabolic Panel 12/07/24 Range/Units 07:04 Sodium 133 L (136-145) mmol/L Potassium 4.8 (3.5-5.1) mmol/L Chloride 100 (98-107) mmol/L Carbon Dioxide 30 (21-32) mmol/L BUN 22 (6-23) mg/dl Creatinine 1.54 H D (0.6-1.4) mg/dl Glucose 146 H (70-99(Fasting)) mg/dl Calcium 8.4 L (8.6-10.3) mg/dl AST 16 (13-39) U/L ALT 17 (7-52) U/L Alkaline Phosphatase 65 (34-104) U/L Total Protein 5.8 L (6.0-8.3) gm/dl Albumin 3.1 L (3.4-5.0) gm/dl Intake and Output 12/06/24 12/07/24 12/07/24 22:59 06:59 14:59 Intake Total 1100 / 1940 620 / 1940 0 / 0 Balance 1100 / 1540 620 / 1540 0 / 0 Intake: IV 1100 / 1300 100 / 1300 Piperacillin/Tazobactam 4.5 gm 100 / 300 100 / 300 In 100 ml @ 25 mls/hr IV Q8H ERIKA Rx#:[id number] Sodium Chloride 0.9% 1,000 ml @ 1000 / 1000 50 mls/hr IV .Q20H [facility] Rx#: [id number] Oral 520 / 640 0 / 0 Other: Weight 92 kg Weight Measurement Method Built in Bedscale
--- NOTE | 2024-12-07 10:46 | Gastroenterology Progress Note ---
Date of Service December 07, 2024 Assessment & Plan (1) RUQ abdominal pain: Plan: History of right upper quadrant pain. On current admission complaining of midepigastric periumbilical burning. History of significant aspirin ingestion thousand plus milligrams per day for headaches. Schedule EGD to evaluate for peptic ulcer disease. (2) Gall stones: Plan: Surgery evaluating for potential cholecystectomy. Admission and Anticipated Discharge Date Admission Date: December 05, 2024 Subjective Abdominal pain burning Symptoms appear to be improved. He is sitting up in bed with no complaints. He has been seen by surgery and being considered for cholecystectomy. Patient on review is taking up to 1000+ milligrams of aspirin per day in addition to a baby aspirin. I think an EGD would be appropriate to evaluate for peptic ulcer disease. This will be performed tomorrow unless he goes to surgery. Continue PPI. Review of Systems Review of Systems: No fever chills night sweats or abdominal pain at this time Physical Exam Physical Exam: Benign abdominal examination. Hitchcock sign negative. 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 Results & Data Results & Data Vital Signs (Past 12 Hours) Vital Signs Temp Pulse Pulse Resp BP Pulse Ox O2 Del Method 12/07/24 08:25 36.5 C 113 H 17 135/85 97 Room Air 12/07/24 08:00 Room Air 12/07/24 07:00 87 12/07/24 03:36 36.7 C 102 H 18 131/89 93 Room Air 12/06/24 23:30 36.7 C 100 H 16 98/68 L 96 Room Air PG Care Time/CCT Total # of Minutes Spent Total Time Spent with Patient: Total time spent is greater than 50% in coordination of care (as documented) at patient's floor/unit and/or counseling patient: Coding Level of Care Code 46938 SUB INP/OBS CARE 10/18MIN Diagnoses RUQ abdominal pain R10.11 Gall stones K80.20
--- NOTE | 2024-12-07 10:53 | Hospitalist Progress Note ---
Date of Service December 07, 2024 Assessment & Plan (1) Abdominal pain: Plan: 54-year-old male with past med history significant for uncontrolled insulin- dependent diabetes, hyperlipidemia, TBI, nonocclusive CAD, nonischemic cardiomyopathy, heart failure with reduced ejection fraction, GERD presents with abdominal pain. Abdominal pain Possible biliary colic/acute cholecystitis Patient presents with periumbilical and right upper quadrant pain Gallbladder ultrasound shows gallstones with gallbladder wall thickening; findings suspicious of acute cholecystitis No leukocytosis present LFTs within normal limits GI evaluated the patient; previous HIDA scan suggestive for Chronic cholecystitis. History of use of large amount of aspirin; plan for possible endoscopy tomorrow a.m. if no plans for surgery. General surgery planning for possible laparoscopic cholecystectomy Continue on Zosyn, Protonix twice daily, n.p.o. from midnight History of chronic systolic CHF and right ventricular systolic function Nonischemic cardiomyopathy Echo on July 2024 shows EF 20 to 25% Echo in October 2024 shows Ef 20-25% Last admission in October 2024 Jardiance and Entresto and Aldactone stopped for hyperkalemia Currently on Lasix and metoprolol succinate On LifeVest Discussed with cardiology; no signs of volume overload or heart failure. No contraindication to procedure/surgery if indicated Type 2 Diabetes Poorly controlled On Novolin 70/30 on Lantus 15 units twice daily and sliding scale Glycemic pharmacy consult Close monitor Hyperlipidemia On Crestor,continue Nonocclusive CAD On aspirin statin and beta-goldie,continue GERD- on protonix Thrombocytopenia- Platelets around 100s. DVT prophylaxis SCDs for now Disposition Med/telemetry Full code Time spent evaluating patient, direct bedside care, chart review, placing orders, interpretation of diagnostic studies, discussion with consultants, patient, and family members, as well as other required patient management activities is 50 minutes Please note the above document was generated using voice recognition software. It may contain grammatical, syntax or spelling errors. Any formal questions or concerns about the content, text or information contained within the body of this dictation should be directly addressed to the provider for clarification Admission and Anticipated Discharge Date Admission Date: December 05, 2024 Subjective Patient seen and examined at bedside. He reports that the pain has improved compared to previous day. He has been afebrile and other vital signs are stable No significant events overnight Review of Systems Review of Systems: All systems reviewed & are unremarkable except as noted in Subjective Physical Exam Physical Exam: General-Not in distress Head- atraumatic Eyes- PERRL. ENT- oropharynx clear Neck- supple, no JVD. Lungs- clear to auscultation no wheezing or crackles Heart- regular rhythm; no murmur, no gallop. Abdomen- Mild tenderness present in right upper quadrant region Extremities- no pretibial edema, no erythema seen. Neuro- alert, oriented PERRL, no facial palsy; no dysarthria; moves extremities Results & Data Results & Data Vital Signs (Past 12 Hours) Vital Signs Temp Pulse Pulse Resp BP Pulse Ox O2 Del Method 12/07/24 08:25 36.5 C 113 H 17 135/85 97 Room Air 12/07/24 08:00 Room Air 12/07/24 07:00 87 12/07/24 03:36 36.7 C 102 H 18 131/89 93 Room Air 12/06/24 23:30 36.7 C 100 H 16 98/68 L 96 Room Air
[2024-12-07] MEDS: INSULIN ASPART PER UNIT CHARGE SC SCH (12:32)
--- NOTE | 2024-12-07 13:30 | Communication Note ---
Date of Service: December 07, 2024 Attempted to see patient this afternoon with Dr Pantoja. Patient was in BR. Pt nurse present and reports he is tolerating a diet without increase in abd discomfort or N/V. He is scheduled for a possible EGD tomorrow . From a surgical standpoint there is no urgency to remove GB this admission, however would recommend pt follow up in the office to discuss elective removal upon d/c.
--- NOTE | 2024-12-07 14:42 | Surgery Progress Note ---
Date of Service December 07, 2024 Assessment & Plan (1) Gall stones: Plan: Went to see patient earlier he was in the BR denies abd pain , ABd soft TTP RUQ describes it as "pressure" wbc wnl , lft wnl pt tolerating diet , to be NPO at [place] for EGD tomorrow was recommending outpatient cholecystectomy, however patient is requesting surgical intervention this admission. no acute surgical intervention at this time Will discuss with wire preparation machine tender surgeon Dr Pantoja Admission and Anticipated Discharge Date Admission Date: December 05, 2024 Subjective pt denies abd pain at present , denies n/v is requesting to have his GB removed this admission, expressed frustration with possibly having to wait Review of Systems Gastrointestinal: no abdominal pain, no nausea and no vomiting Physical Exam Gastrointestinal (Abdomen): Percussion/Palpation: + abdomen tender (mildly TTP RUQ ) and abdomen soft Results & Data Vital Signs (Past 12 Hours) Vital Signs Temp Pulse Pulse Resp BP Pulse Ox O2 Del Method 12/07/24 12:11 97.3 F L 96 H 15 118/76 98 Room Air 12/07/24 08:25 97.7 F 113 H 17 135/85 97 Room Air 12/07/24 08:00 Room Air 12/07/24 07:00 87 12/07/24 03:36 98.1 F 102 H 18 131/89 93 Room Air Results CBC w Diff Results: RBC 5.04 M/uL (4.70-6.10) 12/07/24 WBC 8.28 K/ul (4.8-10.8) 12/07/24 Hgb 14.2 g/dl (14.0-18.0) 12/07/24 Hct 42.7 % (42.0-52.0) 12/07/24 MCV 84.7 fL (80.0-100.0) 12/07/24 MCH 28.2 pg (25.0-34.0) 12/07/24 MCHC 33.3 g/dL (32.0-36.0) 12/07/24 RDW Standard Deviation 36.4 fL (36.4-46.3) 12/07/24 RDW Coefficient of Variation 11.9 % (11.5-14.5) 12/07/24 Plt Count 106 K/uL (130-400) L 12/07/24 MPV 11.6 fL (9.4-12.4) 12/07/24 Neutrophils (%) (Auto) 62.3 % 12/07/24 Lymphocytes (%) (Auto) 22.6 % 12/07/24 Monocytes # (Auto) 0.98 K/uL (0.11-0.59) H 12/07/24 Eosinophils # (Auto) 0.22 K/uL (0.00-0.50) 12/07/24 Immature Granulocyte % (Auto) 0.4 % 12/07/24 Neutrophils # (Auto) 5.16 K/uL (1.40-6.50) 12/07/24 Lymphocytes # (Auto) 1.87 K/uL (1.20-3.40) 12/07/24 Monocytes # (Auto) 0.98 K/uL (0.11-0.59) H 12/07/24 Eosinophils # (Auto) 0.22 K/uL (0.00-0.50) 12/07/24 Basophils # (Auto) 0.02 K/uL (0.00-0.20) 12/07/24 Immature Granulocyte # (Auto) 0.03 K/uL (0.01-0.20) 5 PG Care Time/CCT Total # of Minutes Spent Total Time Spent with Patient: Total time spent is greater than 50% in coordination of care (as documented) at patient's floor/unit and/or counseling patient: Coding Level of Care Code 63581 SUB INP/OBS CARE 10/18MIN Diagnoses Gall stones K80.20
--- NOTE | 2024-12-08 07:21 | Surgery Progress Note ---
Date of Service December 08, 2024 Assessment & Plan (1) Gall stones: Plan: Call our office to schedule an appointment to be seen for electively scheduling for laparoscopic cholecystectomy possible open (the patient was seen by multiple surgeons in our office over the past years and to make an appointment with anyone about) Meantime avoid any greasy or spicy foods Admission and Anticipated Discharge Date Admission Date: December 05, 2024 Subjective Following up on chronic cholecystitis cholelithiasis 10-year duration with significant reflux symptoms patient is scheduled for an EGD today I discussed with the patient and the medical service considering the proceed with laparoscopic cholecystectomy cholangiogram possible open Physical Exam Physical Exam: Patient disposition is bit subdued due to the fact that I recommended that the patient follow-up as an outpatient in our office to electively schedule a laparoscopic cholecystectomy cholangiogram No abdominal findings resting comfortably Results & Data Vital Signs (Past 12 Hours) Vital Signs Temp Pulse Pulse Resp BP Pulse Ox O2 Del Method 12/08/24 04:10 36.5 C 93 H 18 104/77 100 Room Air 12/07/24 23:53 36.6 C 91 H 18 107/79 99 Room Air 12/07/24 22:00 91 H 12/07/24 20:05 36.5 C 86 16 98/70 L 98 Room Air
[2024-12-08 07:47] VITALS: BP 118/86; RESP 16; TEMP 97.9; O2SAT 95
[2024-12-08 07:49] LABS: Calcium 8.6 mg/dl (8.6-10.3); Creatinine Clr Calc Pharmacy 60.7 ml/min; Potassium 4.7 mmol/L (3.5-5.1)
--- NOTE | 2024-12-08 09:30 | History & Physical Bridge Note ---
Date of Service December 08, 2024 History & Physical Bridge Note I have examined the patient, reviewed the History & Physical and in the interval since the performance of the History & Physical I have noted the following changes of clinical significance: no changes noted. Continue IV PPI. Keep NPO & proceed with EGD today.
--- NOTE | 2024-12-08 09:45 | Anesthesiology Consultation ---
Date of Service December 08, 2024 Assessment & Plan Chart Review Chart Review: Acceptable Risk for Surgery, Patient NOT seen in Pre Admission Testing and entry level project coordinator initiated Consults Requested none History Surgery Operation Date: 12/08/24 16:45 Proposed Procedures p Esophagogastroduodenoscopy Dr. Villegas - Weston Villegas MD Height/Weight Height: 5 ft 11 in Weight: 92.7 kg Allergies Allergy/AdvReac Type Severity Reaction Status Date / Time lidocaine AdvReac Unknown Unknown Verified 12/05/24 23:53 Medications Home Medications Medication Instructions Recorded Confirmed Last Taken aspirin 81 mg tablet,delayed 81 mg PO DAILY 12/05/24 12/05/24 12/04/24 19:00 release famotidine 20 mg tablet 20 mg PO DAILY 12/05/24 12/05/24 12/05/24 18:00 furosemide 40 mg tablet 40 mg PO DAILY 12/05/24 12/05/24 12/05/24 18:00 insulin NPH-regular 70-30 U-100 35 unit subcut BID 12/05/24 12/05/24 12/05/24 19:00 insulin 100 unit/mL subcutaneous pen (Novolin 70-30 FlexPen U-100 Insulin) metoprolol succinate 25 mg 25 mg PO DAILY 12/05/24 12/05/24 12/05/24 19:00 tablet,extended release 24 hr rosuvastatin 5 mg tablet (Crestor) 5 mg PO DAILY 12/05/24 12/05/24 12/05/24 19:00 Active Medications Generic Name Dose Route Start Last Admin Trade Name Freq PRN Reason Stop Dose Admin Acetaminophen 650 mg 12/06/24 01:20 12/08/24 04:14 Acetaminophen 325 Mg Tab PO 01/05/25 01:19 650 mg Q4H PRN Administration Pain or Fever Aspirin 81 mg 12/06/24 09:00 12/08/24 08:44 Aspirin 81 Mg Ectab PO 01/05/25 08:59 81 mg DAILY ERIKA Administration Furosemide 40 mg 12/06/24 09:00 12/08/24 08:44 Furosemide 40 Mg Tab PO 01/05/25 08:59 40 mg DAILY ERIKA Administration Hydromorphone HCl 0.5 mg 12/06/24 01:20 12/07/24 22:15 Hydromorphone Inj 0.5 Mg/0.5 Ml Syr IV 12/20/24 01:19 0.5 mg Q4H PRN Administration Severe Pain (Scale 7, 8, 9,10) Piperacillin Sod/Tazobactam Sod 4.5 gm in 100 mls @ 25 mls/hr 12/06/24 08:00 12/08/24 08:47 Zosyn IV 12/16/24 07:59 25 mls/hr Q8H ERIKA Administration Protocol Pantoprazole Sodium 40 mg in 10 mls @ 5 mls/min 12/06/24 09:15 12/08/24 08:44 Protonix IV 01/05/25 09:14 5 mls/min BID ERIKA Administration Insulin Aspart 0 units 12/07/24 12:00 12/08/24 06:07 Insulin Aspart Per Unit Charge SC 01/06/25 11:59 Not Given Q6 ERIKA Insulin Human NPH 8 units 12/06/24 08:00 12/07/24 17:40 Insulin Human Nph SC 01/05/25 07:59 8 units BIDM ERIKA Administration Metoprolol Succinate 37.5 mg 12/07/24 09:00 12/08/24 08:44 Metoprolol Succ 25mg Ext Rel Tab PO 01/06/25 08:59 37.5 mg DAILY ERIKA Administration Rosuvastatin Calcium 5 mg 12/06/24 09:00 12/08/24 08:44 Rosuvastatin Calcium 5 Mg Tab PO 01/05/25 08:59 5 mg DAILY ERIKA Administration Past Medical History Medical History TBI (traumatic brain injury) No pertinent family history Past Family History Family History Mother Diabetes Social History Smoking Status: Never smoker Do You Dip or Chew Tobacco: No Hx Alcohol Use: No Hx Substance Use: No substance use type: does not use Physical Exam Vital Signs Last Vital Signs Temp 36.6 C 12/08/24 07:46 Pulse 93 H 12/08/24 09:41 Resp 16 12/08/24 07:46 BP 118/86 12/08/24 07:46 Pulse Ox 95 12/08/24 07:46 O2 Del Method Room Air 12/08/24 08:04 Testing Laboratory Results 12/07/24 07:04 12/08/24 06:05 Hemoglobin A1c 10.9 % (4.5-5.6) H 12/06/24 05:22 Urine Color [place] 12/06/24 09:22 Urine Appearance Clear (Clear) 12/06/24 09:22 Urine pH 5.0 (4.5-7.5) 12/06/24 09:22 Ur Specific [place] 1.035 (1.000-1.030) H 12/06/24 09:22 Urine Protein 2+ (Negative) H 12/06/24 09:22 Urine Glucose (UA) 2+ (Negative) H 12/06/24 09:22 Urine Ketones Trace (Negative) H 12/06/24 09:22 Urine Nitrite Negative (Negative) 12/06/24 09:22 Ur Leukocyte Esterase 1+ (Negative) H 12/06/24 09:22 Urine WBC (Auto) 6-10 /hpf (0-5) H 12/06/24 09:22 Urine RBC (Auto) 3-5 /hpf (0-2) H 12/06/24 09:22 U Hyaline Cast (Auto) 0-2 /lpf (0-2) 12/06/24 09:22 U Epithel Cells (Auto) 0-2 /hpf (0-2) 12/06/24 09:22 Urine Bacteria (Auto) None Seen (None Seen) 12/06/24 09:22 12/08/24 12/07/24 05:59 23:50 POC Glucose 100 H 123 H Electrocardiogram Date: 12/05/24 Findings: + ST @ (119) PVCs, LAD Echocardiogram Date: 11/12/24 EF: 20-25 LV Function: dysfunctional (severe global dyskinesis) Valvular Disease: + no significant valvular disease Other Testing Per cardiology note 12/06/24 Patient carries a history of coronary artery disease via August 18, 2024 diagnostic cardiac catheterization performed by Dr. Robles at [facility]. Angiography revealed a moderate to borderline severe diagonal lesion and a vessel too small for PCI with otherwise mild nonobstructive coronary artery disease. Patient's cardiomyopathy out of proportion to coronary disease, nonischemic cardiomyopathy with LVEF 20 to 25%. Patient currently should a wearable defibrillator. Patient recently hospitalized at [facility] in October 2024 with acute on chronic heart failure with reduced ejection fraction following noncompliance with medications as well as dietary indiscretion, treated with IV furosemide and resumption of some guideline directed medical therapy.
--- NOTE | 2024-12-08 10:25 | Communication Note ---
<Statement entered by Weston Villegas MD - 12/08/24 13:18> I have reviewed the discussion by the mid-level provider, and agree with the stated assessment and recommendations. Weston Villegas MD Date of Service: December 08, 2024 I presented to see the patient and prepare him for EGD today and he noted to me that he was being discharged and did not want to pursue EGD. Hospitalist contacted me via [place] Text to confirm. Offered patient an EGD as an outpatient, but he noted he did not wish to follow- up with anyone within the [facility].
--- NOTE | 2024-12-08 11:56 | Cardiology Progress Note ---
Date of Service December 08, 2024 Assessment & Plan (1) Preop cardiovascular exam: (2) Nonischemic cardiomyopathy: (3) ASCVD (arteriosclerotic cardiovascular disease): (4) HTN, goal below 130/80: (5) Dyslipidemia, goal LDL below 70: Plan Patient initially evaluated for preop cholecystectomy. Surgical plans changed and recommended EGD first along with HIDA scan. Patient is agitated about this change of plans and now declining all further work up. He refused EGD and HIDA. He is requesting discharge after current dose of antibiotics has been completed. I discussed the benefits of EGD and HIDA Scan for further evaluation, rather than proceeding with surgery directly. He continues to decline. Cardiac history notable for coronary artery disease and nonischemic cardiomyopathy with left ventricular ejection fraction 20 to 25%. Volume status is compensated, without new or worsening cardiac complaints, asymptomatic. Metoprolol was increased yesterday due to mild sinus tachycardia from 25 to 37.5 mg daily. He remains tachycardic this morning. Will increase metoprolol to 50 mg daily I encouraged him to stay for the additional recommended testing, but he declines. Case discussed with Dr. Mei I spent a total of 35 minutes on the date of service in preparation, delivery, and documentation of the care provided to this patient, excluding any time spent in the performance of separately billed services. Karely Castro PA-C Department of Cardiology, [facility] This chart was completed in part utilizing Speech Voice Recognition Software. Grammatical errors, random word insertions, pronoun errors, and incomplete sentences are an occasional consequence of this system due to software limitations, ambient noise, and hardware issues. Any formal questions or concerns about the content, text, or information contained within the body of this dictation should be directly addressed to the provider for clarification. Admission and Anticipated Discharge Date Admission Date: December 05, 2024 Supervising Physician Co-Signing Physician Notes I have reviewed the advance practitioner's documentation, and I agree with, and take responsibility for the plan of care. Agree with titration of metoprolol to 50 mg twice daily. Patient declined EGD and was discharged prior to evaluation by the undersigned. Outpatient cardiology follow-up scheduled 01/14/25. Casimiro Mei DO, [facility] Subjective Patient agitated this morning that he is not having his gallbladder removed. He was to have EGD instead to r/o gastritis causing his symptoms due to high dose ASA. But patient refused. He also refused HIDA scan. He is "leaving" after dose of antibiotics. No chest pain, SOB or palpitations. Metoprolol increased yesterday to 37.5 mg due to tachycardia. Review of Systems Review of Systems: All systems reviewed & are unremarkable except as noted in HPI & below Physical Exam Physical Exam: General: NAD. HENT: Normocephalic. Atraumatic. Eyes: PER. Conjunctiva pink, sclera clear. Neck: No carotid bruits. No JVD. No HJR. Heart: Regular, slightly tachycardic Lungs: Clear to auscultation. Abdomen: +BS. Soft. Nontender. No masses or organomegaly. Extremities: No clubbing, cyanosis, or edema. Limited neurological examination is without focal deficits. Results & Data Vital Signs (Past 12 Hours) Vital Signs Temp Pulse Pulse Resp BP Pulse Ox O2 Del Method 12/08/24 09:41 93 H 12/08/24 08:04 Room Air 12/08/24 07:46 36.6 C 94 H 16 118/86 95 Room Air 12/08/24 04:10 36.5 C 93 H 18 104/77 100 Room Air Laboratory Results Comprehensive Metabolic Panel 12/08/24 Range/Units 06:05 Sodium 140 (136-145) mmol/L Potassium 4.7 (3.5-5.1) mmol/L Chloride 103 (98-107) mmol/L Carbon Dioxide 33 H (21-32) mmol/L BUN 26 H (6-23) mg/dl Creatinine 1.62 H (0.6-1.4) mg/dl Glucose 100 H (70-99(Fasting)) mg/dl Calcium 8.6 (8.6-10.3) mg/dl Intake and Output 12/07/24 12/08/24 12/08/24 22:59 06:59 14:59 Intake Total 1560 / 2000 100 / 2000 Output Total 350 / 650 300 / 650 Balance 1210 / 1350 -200 / 1350 Intake: IV 1100 / 1300 100 / 1300 Piperacillin/Tazobactam 4.5 gm 100 / 300 100 / 300 In 100 ml @ 25 mls/hr IV Q8H [facility] Rx#:[id number] Sodium Chloride 0.9% 1,000 ml @ 1000 / 1000 50 mls/hr IV .Q20H [facility] Rx#: [id number] Oral 460 / 700 Output: Urine 350 / 650 300 / 650 Other: Other Intake Source npo Weight 92.7 kg 92.7 kg Weight Measurement Method Built in [facility] Patient Weight 12/09/24 06:59 Weight 92.7 kg Diagnostic Findings Telemetry reviewed: NSR/Sinus tachycardia with HR ranging 90-120's. Medications Administered Current Inpatient Medications Acetaminophen (Acetaminophen 325 Mg Tab) 650 mg PO Q4H PRN PRN Reason: Pain or Fever Stop: 01/05/25 01:19 Last Admin: 12/08/24 04:14 Dose: 650 mg Aspirin (Aspirin 81 Mg Ectab) 81 mg PO DAILY [facility] Stop: 01/05/25 08:59 Last Admin: 12/08/24 08:44 Dose: 81 mg Dextrose (Dextrose 50% 50 Ml Syringe) 25 - 50 ml IV UD PRN; Protocol PRN Reason: Hypoglycemia Protocol Stop: 01/05/25 01:19 Furosemide (Furosemide 40 Mg Tab) 40 mg PO DAILY [facility] Stop: 01/05/25 08:59 Last Admin: 12/08/24 08:44 Dose: 40 mg Glucagon (Glucagon For Inj 1 Mg Vial) 1 mg SQ UD PRN; Protocol PRN Reason: Hypoglycemia Protocol Stop: 01/05/25 01:19 Glucose (Glucose 40% Gel 15 Gm Tube) 15 - 30 gm PO UD PRN; Protocol PRN Reason: Hypoglycemia Protocol Stop: 01/05/25 01:19 Glucose (Glucose 10 Tab/Tube) 4 - 8 tab PO UD PRN; Protocol PRN Reason: Hypoglycemia Protocol Stop: 01/05/25 01:19 Hydromorphone HCl (Hydromorphone Inj 0.5 Mg/0.5 Ml Syr) 0.25 mg IV Q4H PRN PRN Reason: Moderate Pain (Scale 4, 5, 6) Stop: 12/20/24 01:19 Hydromorphone HCl (Hydromorphone Inj 0.5 Mg/0.5 Ml Syr) 0.5 mg IV Q4H PRN PRN Reason: Severe Pain (Scale 7, 8, 9,10) Stop: 12/20/24 01:19 Last Admin: 12/07/24 22:15 Dose: 0.5 mg Piperacillin Sod/Tazobactam Sod (Zosyn) 4.5 gm in 100 mls @ 25 mls/hr IV Q8H [facility]; Protocol Stop: 12/16/24 07:59 Last Admin: 12/08/24 08:47 Dose: 25 mls/hr Pantoprazole Sodium (Protonix) 40 mg in 10 mls @ 5 mls/min IV BID [facility] Stop: 01/05/25 09:14 Last Admin: 12/08/24 08:44 Dose: 5 mls/min Insulin Aspart (Insulin Aspart Per Unit Charge) 0 units SC Q6 [facility] Stop: 01/06/25 11:59 Last Admin: 12/08/24 06:07 Dose: Not Given Insulin Human NPH (Insulin Human Nph) 8 units SC BIDM [facility] Stop: 01/05/25 07:59 Last Admin: 12/07/24 17:40 Dose: 8 units Metoprolol Succinate (Metoprolol Succ 50mg Ext Rel Tab) 50 mg PO DAILY [facility] Stop: 01/08/25 08:59 Miscellaneous (Carbohydrates For Hypoglycemia ) 15 - 30 gm PO UD PRN PRN Reason: Hypoglycemia Protocol Stop: 01/05/25 01:19 Miscellaneous Information (Pharmacy Glycemic Mgmt Consult) 1 each N/A UD PRN PRN Reason: Consult Stop: 01/05/25 01:19 Nitroglycerin (Nitroglycerin Sl 0.4 Mg/Tab Tab) 0.4 mg SL Q5M PRN PRN Reason: Chest Pain Stop: 01/05/25 01:19 Ondansetron HCl (Ondansetron Inj 2 Mg/Ml 2 Ml Vial) 4 mg IV Q6H PRN PRN Reason: Nausea Stop: 01/05/25 01:19 Rosuvastatin Calcium (Rosuvastatin Calcium 5 Mg Tab) 5 mg PO DAILY [facility] Stop: 01/05/25 08:59 Last Admin: 12/08/24 08:44 Dose: 5 mg
[2024-12-08 12:04] VITALS: PULSE 94
--- NOTE | 2024-12-08 13:06 | Hospitalist Progress Note ---
Date of Service December 08, 2024 Assessment & Plan (1) Abdominal pain: Plan: 54-year-old male with past med history significant for uncontrolled insulin- dependent diabetes, hyperlipidemia, TBI, nonocclusive CAD, nonischemic cardiomyopathy, heart failure with reduced ejection fraction, GERD presents with abdominal pain. Abdominal pain Possible biliary colic/acute cholecystitis Patient presents with periumbilical and right upper quadrant pain Gallbladder ultrasound shows gallstones with gallbladder wall thickening; findings suspicious of acute cholecystitis No leukocytosis present LFTs within normal limits GI evaluated the patient; previous HIDA scan suggestive for Chronic cholecystitis. History of use of large amount of aspirin; plan for possible endoscopy tomorrow a.m. if no plans for surgery. General surgery planning for possible laparoscopic cholecystectomy Continue on Zosyn, Protonix twice daily, n.p.o. from midnight History of chronic systolic CHF and right ventricular systolic function Nonischemic cardiomyopathy Echo on July 2024 shows EF 20 to 25% Echo in October 2024 shows Ef 20-25% Last admission in October 2024 Jardiance and Entresto and Aldactone stopped for hyperkalemia Currently on Lasix and metoprolol succinate On LifeVest Discussed with cardiology; no signs of volume overload or heart failure. No contraindication to procedure/surgery if indicated Type 2 Diabetes Poorly controlled On Novolin 70/30 on Lantus 15 units twice daily and sliding scale Glycemic pharmacy consult Close monitor Hyperlipidemia On Crestor,continue Nonocclusive CAD On aspirin statin and beta-goldie,continue GERD- on protonix Thrombocytopenia- Platelets around 100s. DVT prophylaxis SCDs for now Disposition Med/telemetry Full code Time spent evaluating patient, direct bedside care, chart review, placing orders, interpretation of diagnostic studies, discussion with consultants, patient, and family members, as well as other required patient management activities is 50 minutes Please note the above document was generated using voice recognition software. It may contain grammatical, syntax or spelling errors. Any formal questions or concerns about the content, text or information contained within the body of this dictation should be directly addressed to the provider for clarification Admission and Anticipated Discharge Date Admission Date: December 05, 2024 Physical Exam Physical Exam: General-Not in distress Head- atraumatic Eyes- PERRL. ENT- oropharynx clear Neck- supple, no JVD. Lungs- clear to auscultation no wheezing or crackles Heart- regular rhythm; no murmur, no gallop. Abdomen- Mild tenderness present in right upper quadrant region Extremities- no pretibial edema, no erythema seen. Neuro- alert, oriented PERRL, no facial palsy; no dysarthria; moves extremities Results & Data Results & Data Vital Signs (Past 12 Hours) Vital Signs Temp Pulse Pulse Resp BP Pulse Ox O2 Del Method 12/08/24 12:02 36.6 C 94 H 16 118/86 95 12/08/24 09:41 93 H 12/08/24 08:04 Room Air 12/08/24 07:46 36.6 C 94 H 16 118/86 95 Room Air 12/08/24 04:10 36.5 C 93 H 18 104/77 100 Room Air
--- NOTE | 2024-12-08 13:07 | Discharge Summary ---
Date of Service December 08, 2024 Admission HPI Per Admitting Provider 54-year-old male with past med history significant for uncontrolled insulin- dependent diabetes, hyperlipidemia, TBI, nonocclusive CAD, nonischemic cardiomyopathy, heart failure with reduced ejection fraction, GERD presents with abdominal pain. Patient says he has abdominal pain in the periumbilical region going on for last 1 month on and off. This pain started yesterday severe in nature not able to ambulate because of pain. Patient was in the ER yesterday morning and thought to be gastritis and discharged on omeprazole. As the pain is not getting better he came back to the ER today. No radiation of pain. D enies any nausea. Denies any diarrhea or constipation. No blood in stools or black stools. Micturating okay. Denies chest pain. Denies shortness of breath. Denies fevers. No headache. No blurred visions. No runny nose or sore throat. No cough. Hemodynamics are okay. [facility] [place] Patient says he has gallstones and there is a plan for surgery for it as per patient. Past medical history. As mentioned above Past surgical history. No significant past surgical history. Social history. No alcohol use. No drug use. No smoking. Family history. Mother has diabetes. Admission Exam Per Admitting Provider General-Not in distress Head- atraumatic Eyes- PERRL. ENT- oropharynx clear Neck- supple, no JVD. Lungs- clear to auscultation no wheezing or crackles Heart- regular rhythm; no murmur, no gallop. Abdomen- normal bowel sounds, soft, mild periumbilical discomfort, no distension Extremities- no pretibial edema, no erythema seen. Neuro- alert, oriented PERRL, no facial palsy; no dysarthria; moves extremities Principal Diagnosis Abdominal pain Possible acute gastritis Possible biliary colic Discharge Exam Constitutional: WD/WN, vitals as above, NAD, sitting up in bed, pleasant, conversing easily Respiratory: normal respiratory effort, lungs clear to auscultation, no wheeze, rales, rhonchi. Normal insp/exp effort, no accessory muscle use Cardiovascular: RRR, no murmur, no edema Vessels: no JVD or carotid bruit Chest: normal inspection of chest Abdomen: Soft, nontender. Neurologic: PERRL, EOMI, accommodation nl, no face palsy, no dysarthria CN's II- XI intact bilaterally and moves all extremities Psychiatric: A+Ox3, euthymic affect Discharge Data Allergies Allergy/AdvReac Type Severity Reaction Status Date / Time lidocaine AdvReac Unknown Unknown Verified 12/05/24 23:53 Consultations 12/05/24 22:54 ED Decision to Admit Stat 12/06/24 08:00 Consult Cardiology Routine Consult Gastroenterology Routine Consult General Surgery Routine Procedures Performed Operation Date: 12/08/24 16:45 <No data on this case meets the specified criteria> Ordered Studies 12/05/24 20:25 US gallbladder Stat Diabetes Follow up Diabetes Follow-up Needed for HgbA1c >9% Hospital Course (1) Abdominal pain: Plan 54-year-old male with past med history significant for uncontrolled insulin- dependent diabetes, hyperlipidemia, TBI, nonocclusive CAD, nonischemic cardiomyopathy, heart failure with reduced ejection fraction, GERD presents with abdominal pain. Patient reported abdominal pain around periumbilical region. Is burning type, nonradiating, not associated with food intake. Patient reports taking high doses of aspirin. CT abdomen and pelvis did not show any acute finding. Gallbladder ultrasound showed gallstones with gallbladder wall thickening. Patient's LFTs were within normal limits. General surgery and GI were consulted for comanagement. Patient was started on Protonix for possible acute gastroenteritis given the nature of the pain. Reported improvement in the abdominal pain with trial of Protonix. General surgery recommended outpatient follow-up to schedule laparoscopic cholecystectomy. Patient was scheduled to undergo endoscopy on 12/08/2024. However, he refused to undergo endoscopy. I discussed possibility of severe gastritis, gastric ulcer which can lead to bowel perforation, sepsis and ; patient verbalized understanding of the risks. Patient was frustrated not being able to undergo surgery during the hospitalization. He wanted to go home as soon as possible. Patient was given prescription for Protonix. Patient was recommended to follow-up with primary care physician and general surgery. Please note the above document was generated using voice recognition software. It may contain grammatical, syntax or spelling errors. Any formal questions or concerns about the content, text or information contained within the body of this dictation should be directly addressed to the provider for clarification Total Time Total Time Spent Total Time Spent (In Minutes): 45 Total Time Includes: Examination of the Patient, Discharge Planning, Medication Reconciliation, Communication With Other Providers and Other Discharge Plan Discharge Items Patient Disposition: Home - Self-Care Reason For Visit: ABDOMINAL PAIN, HX OF CHF Discharge Diagnosis: Abdominal pain Possible biliary colic Possible Acute Gastritis Condition on Discharge: Fair Activity: Resume your previous activity Non-emergency contact: Primary Care Provider Call non-emergency contact if: you have any medication questions and your symptoms worsen Follow-up/Referrals: Miguelito Pantoja MD, FACS [Surgeon] - (call office to discuss cholecystectomy ) Pilar Elena CRNP [Primary Care Provider] - (The office will call you for a follow up appointment. If you do not hear from them, please call and make an appointment. ) Diet: Regular Addtl Attending Provider Instructions: You were admitted to the hospital with abdominal pain. The likely cause for the abdominal pain could be gastritis. You are prescribed Protonix to be taken once a day in the morning and empty stomach. Please avoid spicy and oily food. Please avoid taking large amount of aspirin, ibuprofen or naproxen. You will receive a call from your primary care office for follow-up. Pending Studies at Discharge: No Stand-Alone Forms: My [facility] [employer], Smoking Cessation Medications and DC Order Prescriptions: New pantoprazole [Protonix] 40 mg tablet,delayed release (DR/EC) 40 mg PO QAM 42 Days Qty: 42 0RF Continued furosemide 40 mg tablet 40 mg PO DAILY aspirin 81 mg Tablet,Delayed Release (Dr/Ec) 81 mg PO DAILY metoprolol succinate 25 mg Tablet Extended Release 24 Hr 25 mg PO DAILY rosuvastatin [Crestor] 5 mg Tablet 5 mg PO DAILY Novolin 70-30 FlexPen U-100 100 unit/mL (70-30) Insulin Pen 35 unit SUBCUT BID Discontinued famotidine 20 mg tablet 20 mg PO DAILY Discharge Orders: Discharge Order (Routine); Ordered 12/08/24 Ordered By: Huber Stern/Other Patient Handouts: High Blood Sugar (Hyperglycemia), Managing Type 2 Diabetes Admission Data Admit Date/Time: 12/05/24 23:45 Attending Provider: Huber Sharma Admit Provider: Sixto Harding Primary Care Provider: Pilar Elena Other Providers: Sixto Harding; Jason Montano; Miguelito Pantoja; Brayden Vo; [facility] Other Interventions: Discharge Summary Assessment (RN) Last Done: 12/08/24 12:02
[2024-12-09] MEDS ORDERED: METOPROLOL SUCC 50MG EXT REL TAB PO SCH (09:00)
== END 2024-12-08 12:21 | disposition home or self-care (01) | DRG 392 ==
LOC: ED 20:21 → 2N 23:45

== ENCOUNTER 2025-04-17 05:10 | Inpatient (IN) ==
--- NOTE | 2025-04-17 05:20 | Emergency Department Note ---
History of Present Illness General Chief complaint: Chest Pain Stated complaint: Chest Pain, SOB Time Seen by Provider: 04/17/25 05:15 History of Present Illness This 54-year-old male with coronary artery disease, chronic kidney disease heart failure and diabetes presents ER complaining of chest pain described as a elephant sitting on his chest tonight. EMS gave aspirin. He refused nitroglycerin. No known prior heart attack. He has [facility]. Patient denies fever, chills, cough, congestion, abdominal pain or any other medical complaints. Home Medications Medication Instructions Recorded Confirmed Type aspirin 81 mg tablet,delayed 81 mg PO DAILY 12/05/24 03/07/25 History release insulin NPH-regular 70-30 U-100 35 unit subcut BID 12/05/24 03/07/25 History insulin 100 unit/mL subcutaneous pen (Novolin 70-30 FlexPen U-100 Insulin) acetaminophen 325 mg tablet 650 mg (2 x 325 mg) PO Q4H PRN 03/10/25 Rx (Tylenol) pain #30 tabs metoprolol succinate 25 mg 25 mg PO QAM #30 tabs 03/10/25 Rx tablet,extended release 24 hr oxycodone 5 mg tablet 5 mg PO Q8H PRN pain #21 tabs 03/10/25 Rx pantoprazole 40 mg tablet,delayed 40 mg PO BID #30 tabs 03/10/25 Rx release rosuvastatin 5 mg tablet 5 mg PO QAM #30 tabs 03/10/25 Rx torsemide 20 mg tablet 40 mg (2 x 20 mg) PO QAM #60 tabs 03/10/25 Rx Allergies Allergy/AdvReac Type Severity Reaction Status Date / Time tomato Allergy Severe Gastrointestinal Unverified 03/07/25 17:53 Upset lidocaine AdvReac Unknown Unknown Verified 03/07/25 17:29 Past Med/Surg History Problem List (Updated 04/17/25 @ 05:42 by Kristie Clark PA-C) Atypical chest pain (Acute) CKD (chronic kidney disease) stage 3, GFR 30-59 ml/min Hyperkalemia Non-occlusive coronary artery disease Open wound, lower leg Possible urinary tract infection Acute calculous cholecystitis Abdominal pain (Acute) Dyslipidemia, goal LDL below 70 HTN, goal below 130/80 ASCVD (arteriosclerotic cardiovascular disease) Gall stones (Acute) Tachycardia (Acute) Acute dehydration (Acute) Acute hyperglycemia (Acute) RUQ abdominal pain (Acute) Wound of right lower extremity DM type 2 (diabetes mellitus, type 2) Nonischemic cardiomyopathy Acute on chronic heart failure with reduced ejection fraction (HFrEF, <= 40%) Hypomagnesemia (Acute) Transaminitis (Acute) Acute CHF (Acute) Abdominal pain (Acute) Chest pain (Acute) Hyperkalemia Acute heart failure with reduced ejection fraction (HFrEF, <= 40%) Acute upper abdominal pain (Acute) Cholelithiasis (Acute) Elevated LFTs (Acute) Pleural effusion (Acute) Elevated troponin (Acute) COVID-19 (Acute) Tinnitus of both ears Diabetic peripheral neuropathy Dizziness Ataxia (Acute) No significant past surgical history (Chronic) GERD (gastroesophageal reflux disease) (Chronic) Type 2 diabetes mellitus (Chronic) Abdominal pain (Acute) Dehydration (Acute) Nausea (Acute) New onset type 2 diabetes mellitus (Acute) Medical History TBI (traumatic brain injury) No pertinent family history Family History Mother Diabetes Social History Smoking Status: Never smoker Second Hand Exposure: No; Do You Dip or Chew Tobacco: No; Hx Alcohol Use: No Hx Substance Use: No Preferred Language: Qatari Communication Ability: Effective Relief Captain Required: No Beliefs That Will Affect Care: None marital status: Single Current Living Situation: Significant Other current occupational status: employed Feels Safe at Home: Yes Assistive Devices: None Review of Systems A total of 10 systems reviewed and were otherwise negative Physical Exam Vital Signs Vital Signs - 24 hr 04/17/25 05:04 04/17/25 05:04 04/17/25 05:15 Temperature 36.6 C Temperature Source Oral Pulse Rate 107 H 109 H Pulse Rate [Apical] Respiratory Rate 20 Respiratory Effort / Characteristics Short of Breath Respiratory Depth Normal Blood Pressure 141/107 H Blood Pressure [Right Arm] Blood Pressure Mean 118 Blood Pressure Mean [Right Arm] Blood Pressure Position [Right Arm] Pulse Oximetry 100 Oxygen Delivery Method Room Air Sepsis Recent Fever Within 48 Hours No Sepsis New/Unexplained Change in Mental Status No Sepsis Action Taken by Nursing No Action Required 04/17/25 05:19 04/17/25 05:22 04/17/25 05:30 Temperature Temperature Source Pulse Rate 106 H 104 H Pulse Rate [Apical] 107 H Respiratory Rate 16 18 18 Respiratory Effort / Characteristics Non-Labored Spontaneous Respiratory Depth Normal Blood Pressure 129/99 Blood Pressure [Right Arm] 140/108 H Blood Pressure Mean 110 Blood Pressure Mean [Right Arm] 118 Blood Pressure Position [Right Arm] Lying Pulse Oximetry 100 98 97 Oxygen Delivery Method Room Air Room Air Room Air Sepsis Recent Fever Within 48 Hours Sepsis New/Unexplained Change in Mental Status Sepsis Action Taken by Nursing VITALS: Vitals are noted on the nurse's note and reviewed by myself. Vital signs stable. GENERAL: Pleasant patient, in no acute distress, nondiaphoretic, well-developed well-nourished. SKIN: Capillary reflex less than 2 seconds. HEENT: Normocephalic. PERRLA. EOMI. Nares patent. Mucous membranes moist. Neck is supple without nuchal rigidity. HEART: Regular rate and rhythm LUNGS: Clear to auscultation bilaterally without wheezes, rales or rhonchi. No retractions or accessory muscle use. ABDOMEN: Positive bowel sounds x 4. Normal tympanic percussion. Soft, nontender, without masses or organomegaly. Hitchcock sign negative. No guarding or rebound tenderness. no CVA tenderness MUSCULOSKELETAL: No gross musculoskeletal defects. NEURO: Patient was alert and oriented to person place and time. No focal neurological deficits. Course Administered Medications Discontinued Medications Acetaminophen (Ofirmev) 1,000 mg in 100 mls @ 400 mls/hr IV NOW STA Stop: 04/17/25 05:40 Last Infusion: 04/17/25 05:59 Dose: Infused Documented By: Admin: 04/17/25 05:32 Dose: 400 mls/hr Documented By: GIOVANNA Medical Decision Making Medical Records Attestation: I reviewed the patient's medical records. Home Medications Current Medication List: was personally reviewed by me Laboratory Data Attestation: I reviewed the patient's lab results. 04/17/25 05:13 04/17/25 05:13 Lab Results 04/17/25 Range/Units 05:13 WBC 6.43 (4.8-10.8) K/ul RBC 5.55 (4.70-6.10) M/uL Hgb 15.8 (14.0-18.0) g/dl Hct 48.1 (42.0-52.0) % MCV 86.7 (80.0-100.0) fL MCH 28.5 (25.0-34.0) pg MCHC 32.8 (32.0-36.0) g/dL RDW Std Deviation 44.1 (36.4-46.3) fL RDW Coeff of Kt 13.8 (11.5-14.5) % Plt Count 166 (130-400) K/uL MPV 10.5 (9.4-12.4) fL Immature Gran % (Auto) 0.2 % Neut % (Auto) 46.6 % Lymph % (Auto) 39.7 % Mclennan % (Auto) 10.4 % Eos % (Auto) 2.6 % Baso % (Auto) 0.5 % Neut # (Auto) 3.00 (1.40-6.50) K/uL Lymph # (Auto) 2.55 (1.20-3.40) K/uL Mclennan # (Auto) 0.67 H (0.11-0.59) K/uL Eos # (Auto) 0.17 (0.00-0.50) K/uL Baso # (Auto) 0.03 (0.00-0.20) K/uL Immature Gran # (Auto) 0.01 (0.01-0.20) K/uL Sodium 135 L (136-145) mmol/L Potassium 4.4 (3.5-5.1) mmol/L Chloride 103 (98-107) mmol/L Carbon Dioxide 25 (21-32) mmol/L Anion Gap 7 (3-11) BUN 25 H (6-23) mg/dl Creatinine 1.28 (0.6-1.4) mg/dl Est Cr Clr Drug Dosing 81.5 ml/min eGFR 66.51 BUN/Creatinine Ratio 19.5 (10-20) Glucose 87 (70-99(Fasting)) mg/dl Calcium 8.4 L (8.6-10.3) mg/dl Total Bilirubin 0.3 (0.2-1.0) mg/dl AST 62 H (13-39) U/L ALT 62 H (7-52) U/L Alkaline Phosphatase 71 (34-104) U/L Total Protein 5.9 L (6.0-8.3) gm/dl Albumin 3.1 L (3.4-5.0) gm/dl Globulin 2.8 (2.5-4.0) gm/dl Albumin/Globulin Ratio 1.1 (0.9-2) Lipase 38 (11-82) U/L Imaging Data Attestation: I personally reviewed and interpreted this imaging study as follows: MDM Narrative Prior records/ancillary studies reviewed. Triage Nursing notes reviewed. Additional history obtained from EMS. The patient's history was concerning for chest pain. Differential diagnosis: Etiologies such as cardiac ischemia, aortic dissection, pulmonary embolism, pneumonia, pneumothorax, musculoskeletal, infections, pericarditis, myocarditis, esophageal rupture, gastrointestinal, as well as others were entertained. Physical examination: As above. ER treatment provided: An order was placed for continuous cardiac monitoring. The monitor shows a rate of 60-100 with a sinus rhythm per my interpretation. EMS gave aspirin. Patient refuses nitroglycerin On reassessment the patient felt better. Diagnostic interpretation by me: The electrocardiogram was negative for pathologic change. Ordered for chest pain EKG: Poor baseline, normal sinus, left axis, no acute ST-T wave changes, rate of 106. Impression sinus tachycardia with left axis deviation independently interpreted by myself I think arrhythmia is unlikely. EKG shows normal sinus rhythm with no interval abnormalities such as QT prolongation or WPW. There are no findings to suggest Brugada syndrome. Cardiac monitoring in the emergency department reveals no tachycardic or bradycardic dysrhythmia. Hypertrophic cardiomyopathy was considered but there are no clear historical elements pointing toward this. EKG is not suggestive. The QRS voltage is not extremely large and there are no suggestive Q waves. The labs Independently Interpreted by myself revealed mildly chronically elevated LFTs No worrisome leukocytosis, stable H&H Imaging studies: Chest x-ray was reviewed and read by radiology HEART SCORE: Hx: high/mod/low suspicion: 1 ECG: ST depression/nonspecific changes/normal: 0 Age: Greater than 65/45-64/less than 45: 1 Risk factors: (Hypertension, hyperlipidemia, diabetes, coronary disease, tobacco use, cocaine use): 2 Troponin: Greater than 2 times normal limits/1-2 times normal limits/normal: 0 Total: 4 Consultation: A consultation was placed with the hospitalist. The case was discussed and diagnostics were reviewed. The patient was evaluated in the ER for further treatment. Exam and history seem consistent with chest pain with concerns for possible cardiac in etiology. Patient has multiple risk factors. He describes the pain as elephant sitting on his chest. EMS gave aspirin. He refused nitroglycerin. Medicine was consulted and the case was discussed. He will be evaluated for possible admission. By the evaluation outlined above emergent etiologies such as aortic dissection, pulmonary embolism, pneumonia, pneumothorax, infections, pericarditis, myocarditis, gastrointestinal, as well as others were deemed relatively unlikely. The pt informed about the findings as listed above. All questions were answered and pleased with the treatment. The chart was completed utilizing [employer] Speech voice recognition software. Grammatical errors, random word insertions, pronoun errors, and incomplete sentences are an occassional consequence of this system due to software limitations, ambient noise, and hardware issues. Any formal questions or concerns about the content, text, or information contained within the body of this dictation should be directly addressed to the physician engineer first assistant for clarification. Impression & Plan Atypical chest pain Discharge Plan Visit Data Chief Complaint: Chest Pain Stated Complaint: Chest Pain, SOB ED Provider: Jass Cortez ED Midlevel Provider: Kristie Clark Discharge Problem: Atypical chest pain Patient Disposition: Being Evaluated by Hospitalist Condition: Good Forms Stand Alone Forms: [employer] Prescriptions Prescriptions: No Action aspirin 81 mg Tablet,Delayed Release (Dr/Ec) 81 mg PO DAILY Novolin 70-30 FlexPen U-100 100 unit/mL (70-30) Insulin Pen 35 unit SUBCUT BID torsemide 20 mg Tablet 40 mg PO QAM Qty: 60 0RF pantoprazole 40 mg Tablet,Delayed Release (Dr/Ec) 40 mg PO BID Qty: 30 0RF metoprolol succinate 25 mg Tablet Extended Release 24 Hr 25 mg PO QAM Qty: 30 0RF rosuvastatin 5 mg Tablet 5 mg PO QAM Qty: 30 0RF oxycodone 5 mg tablet 5 mg PO Q8H PRN (Reason: pain) Qty: 21 0RF acetaminophen [Tylenol] 325 mg tablet 650 mg PO Q4H PRN (Reason: pain) Qty: 30 0RF Referrals Referrals: iPlar Elena CRNP [Primary Care Provider] -
[2025-04-17] MEDS: ACETAMINOPHEN 1,000 MG/100 ML VIAL IV STA (05:32)
[2025-04-17 05:37] LABS: Hematocrit (blood only) 48.1 % (42.0-52.0); Hemoglobin 15.8 g/dl (14.0-18.0); Immature Granulocytes # (auto) 0.01 K/uL (0.01-0.20); Immature Granulocytes % (auto) 0.2 %; Mean Corpuscular Hemoglobin 28.5 pg (25.0-34.0); Mean Corpuscular Volume 86.7 fL (80.0-100.0); Platelet Count 166 K/uL (130-400); RDW Standard Deviation 44.1 fL (36.4-46.3); Red Blood Count 5.55 M/uL (4.70-6.10); White Blood Count 6.43 K/ul (4.8-10.8)
[2025-04-17 06:05] LABS: Alanine Aminotransferase 62.0 U/L (7-52); Albumin Globulin Ratio 1.1 (0.9-2); Alkaline Phosphatase 71.0 U/L (34-104); Anion Gap 7.0 (3-11); Bilirubin,Total 0.3 mg/dl (0.2-1.0); Blood Urea Nitrogen 25.0 mg/dl (6-23); Calcium 8.4 mg/dl (8.6-10.3); Carbon Dioxide 25.0 mmol/L (21-32); Chloride 103.0 mmol/L (98-107); Creatinine Clr Calc Pharmacy 81.5 ml/min; Globulin 2.8 gm/dl (2.5-4.0); Glucose 87.0 mg/dl (70-99(Fasting)); Lipase 38.0 U/L (11-82); Potassium 4.4 mmol/L (3.5-5.1); Sodium 135.0 mmol/L (136-145); Total Protein 5.9 gm/dl (6.0-8.3)
[2025-04-17] MEDS: MoRPHine SULFATE 2 MG/ML CARP ONE (06:13)
[2025-04-17] MEDS: FAMOTIDINE 20MG IV PUSH 20 MG/5 ML SYR IV STA (06:14)
[2025-04-17] MEDS: MoRPHine SULFATE 2 MG/ML CARP IV STA ×2 (06:15→06:43)
--- NOTE | 2025-04-17 06:47 | XRay Report ---
EXAM: XR chest 1V portable CLINICAL HISTORY: Chest pain, nonspecific TECHNIQUE: An X-ray image of the chest is obtained in AP projection. 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 No evidence of consolidation, collapse, or focal opacities. No pulmonary nodules are identified. Right costophrenic angle appears mildly blunted- possible minimal pleural effusion Heart and Mediastinum: Heart size and shape are normal. No mediastinal widening or masses. No hilar or mediastinal lymphadenopathy. Bony Thorax: Bony thorax appears intact without fractures or deformities. Soft Tissues: Soft tissues overlying the chest wall are unremarkable. Chest leads and wires are seen in anterior chest wall IMPRESSION: Right costophrenic angle appears mildly blunted- possible minimal pleural effusion-reduced compare to prior. No other new interval abnormality since prior study. Electronically signed by Edilson Powell 04-17-2025 06:47 AM
--- NOTE | 2025-04-17 08:15 | History & Physical Report ---
Date of Service April 17, 2025 Assessment & Plan (1) Chest pain: Plan: 54-year-old male with past medical history significant for CAD, nonischemic cardiomyopathy EF 20 to 25%, on LifeVest, type 2 diabetes, GERD, TBI, gallstones, gastric ulcers presents with chest pain. Patient states since last night having chest pain which progressively got worse and came to the ER. States pain is pressure-like feeling. Also having some shortness of breath. Having sweating. Denies any cough. No fevers. Has mild headache. No blurred vision. No runny nose or sore throat. No abdominal pain. Normal bowel and bladder movements. States ambulating okay. Patient had couple of admissions recent past for acute calculus cholecystitis. Last admission was last month. Was treated with IV antibiotics. Surgery recommended outpatient follow-up with tertiary care for elective lap cholecystectomy. Seems patient has not followed up. Last admission patient also was having hyperkalemia. Was started on torsemide. Jardiance, Entresto and Aldactone were stopped for hyperkalemia. Jardiance was attempted to restart but patient declined complaining of medication making him dizzy. Cardiology thought patient likely not to be a candidate for spironolactone or SANJEEV inhibitor's or ARB's. Was advised for low sodium and low potassium diet. Patient followed up with [facility] cardiology on 04/16/2025. Per epic notes per cardiology patient was recently again admitted at [facility] in [place] for abdominal pain/chest pain. Found to be in acute CHF and treated with IV diuretics. Had congestive hepatopathy and SHIELA. SHIELA resolved with diuresis and LFTs also returned to baseline. Also at [facility] EGD done on 03/26/2025 which showed multiple nonbleeding gastric ulcers. It was recommended to continue PPI and 3 months follow-up with [place] for repeat EGD. Cardiology also gave prescriptions for beta-goldie Entresto and Lasix. [facility] and be [facility]. Today patient did not bring his medication list. He says he still on his same medications he was discharged from here. Says he is taking torsemide. He was not sure whether he was taking rosuvastatin or Lipitor. Chest pain Initial EKG and troponin unremarkable Will follow serial cardiac enzymes and echo Telemetry Consult cardiology for further recommendation History of CAD Moderate to severe diagonal lesion and vessel too small for PCI with otherwise mild nonobstructive CAD per cath done at [facility] in 07/2024 On aspirin, statin and beta-goldie Question of compliance with medications Nonischemic cardiomyopathy Chronic systolic CHF EF 20 to 25%. On Live Vest. On metoprolol succinate and torsemide Jardiance, Entresto and spironolactone were stopped last admission for hyperkalemia Monitor for volume overload Not sure currently what medication patient is taking cardiology advised to [facility] for [facility] Diabetes Hold home insulin Will place him on Lantus 15 units twice daily as patient currently n.p.o. Sliding scale Glycemic pharmacy consult Gastric ulcers Continue Protonix followup with GI for repeat EGD in 3months iv pepcid Gallbladder disease Recent admissions for cholecystitis Surgery recommended tertiary care follow-up but patient seems not followed up total bilirubin 0.3, ast 62, alt 62, alk phosp 71 Follow labs Hyperlipidemia On statin. Not sure on Crestor or high dose Lipitor. Right lower extremity wound medial aspect of right lower calf healing wound care. History of TBI DVT prophylaxis SCDs Disposition Telemetry Full code. History of Present Illness Chief Complaint: Chest pain Primary Care Provider: RON Mckeon 54-year-old male with past medical history significant for CAD, nonischemic cardiomyopathy EF 20 to 25%, on LifeVest, type 2 diabetes, GERD, TBI, gallstones, gastric ulcers presents with chest pain. Patient states since last night having chest pain which progressively got worse and came to the ER. States pain is pressure-like feeling. Also having some shortness of breath. Having sweating. Denies any cough. No fevers. Has mild headache. No blurred vision. No runny nose or sore throat. No abdominal pain. Normal bowel and bladder movements. States ambulating okay. Patient had couple of admissions recent past for acute calculus cholecystitis. Last admission was last month. Was treated with IV antibiotics. Surgery recommended outpatient follow-up with tertiary care for elective lap cholecystectomy. Seems patient has not followed up. Last admission patient also was having hyperkalemia. Was started on torsemide. Jardiance, Entresto and Aldactone were stopped for hyperkalemia. Jardiance was attempted to restart but patient declined complaining of medication making him dizzy. Cardiology thought patient likely not to be a candidate for spironolactone or SANJEEV inhibitor's or ARB's. Was advised for low sodium and low potassium diet. Patient followed up with [facility] cardiology on 04/16/2025. Per epic notes per cardiology patient was recently again admitted at [facility] in [place] for abdominal pain/chest pain. Found to be in acute CHF and treated with IV diuretics. Had congestive hepatopathy and SHIELA. SHIELA resolved with diuresis and LFTs also returned to baseline. Also at [facility] EGD done on 03/26/2025 which showed multiple nonbleeding gastric ulcers. It was recommended to continue PPI and 3 months [facility]. Cardiology also gave prescriptions for beta-goldie Entresto and Lasix. He was encouraged to [facility] and be evaluated for ICD placement. Today patient did not bring his medication list. He says he still on his same medications he was discharged from here. Says he is taking torsemide. He was not sure whether he was taking rosuvastatin or Lipitor. Past medical history. As mentioned above. Past surgical history. No significant past surgical history. Social history. No alcohol use. No drug use. No smoking. Family history. Mother has diabetes. Allergies Allergy/AdvReac Type Severity Reaction Status Date / Time tomato Allergy Severe Gastrointestinal Unverified 03/07/25 17:53 Upset lidocaine AdvReac Unknown Unknown Verified 03/07/25 17:29 Home Medications Medication Instructions Recorded Confirmed Type aspirin 81 mg tablet,delayed 81 mg PO DAILY 04/17/25 04/17/25 History release insulin NPH-regular 70-30 U-100 35 unit subcut BID 04/17/25 04/17/25 History insulin 100 unit/mL subcutaneous pen metoprolol succinate 25 mg 25 mg PO DAILY 04/17/25 04/17/25 History tablet,extended release 24 hr pantoprazole 40 mg tablet,delayed 40 mg PO DAILY 04/17/25 04/17/25 History release rosuvastatin 5 mg tablet 5 mg PO DAILY 04/17/25 04/17/25 History torsemide 20 mg tablet 40 mg PO QAM 04/17/25 04/17/25 History Past Med/Surg History Problem List (Updated 04/17/25 @ 08:21 by Sixto Harding MD) Chest pain Atypical chest pain (Acute) CKD (chronic kidney disease) stage 3, GFR 30-59 ml/min Hyperkalemia Non-occlusive coronary artery disease Open wound, lower leg Possible urinary tract infection Acute calculous cholecystitis Abdominal pain (Acute) Dyslipidemia, goal LDL below 70 HTN, goal below 130/80 ASCVD (arteriosclerotic cardiovascular disease) Gall stones (Acute) Tachycardia (Acute) Acute dehydration (Acute) Acute hyperglycemia (Acute) RUQ abdominal pain (Acute) Wound of right lower extremity DM type 2 (diabetes mellitus, type 2) Nonischemic cardiomyopathy Acute on chronic heart failure with reduced ejection fraction (HFrEF, <= 40%) Hypomagnesemia (Acute) Transaminitis (Acute) Acute CHF (Acute) Abdominal pain (Acute) Chest pain (Acute) Hyperkalemia Acute heart failure with reduced ejection fraction (HFrEF, <= 40%) Acute upper abdominal pain (Acute) Cholelithiasis (Acute) Elevated LFTs (Acute) Pleural effusion (Acute) Elevated troponin (Acute) COVID-19 (Acute) Tinnitus of both ears Diabetic peripheral neuropathy Dizziness Ataxia (Acute) No significant past surgical history (Chronic) GERD (gastroesophageal reflux disease) (Chronic) Type 2 diabetes mellitus (Chronic) Abdominal pain (Acute) Dehydration (Acute) Nausea (Acute) New onset type 2 diabetes mellitus (Acute) Medical History TBI (traumatic brain injury) No pertinent family history Family History Mother Diabetes Social History Smoking Status: Never smoker Second Hand Exposure: No; Do You Dip or Chew Tobacco: No; Hx Alcohol Use: No Hx Substance Use: No Preferred Language: Lao Communication Ability: Effective 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 ENT- oropharynx clear Neck- supple, no JVD. Lungs- clear to auscultation no wheezing or crackles Heart- regular rhythm; no murmur, no gallop. Abdomen- normal bowel sounds, soft, nontender, no distension Extremities- no pretibial edema, wound on the right lower calf medial aspect healing Neuro- alert, oriented PERRL, no facial palsy; no dysarthria; moves extremities Results & Data Results & Data Vital Signs (Past 12 Hours) Vital Signs Temp Pulse Pulse Resp BP BP Pulse Ox 04/17/25 05:30 104 H 18 129/99 97 04/17/25 05:22 106 H 18 98 04/17/25 05:19 107 H 16 140/108 H 100 04/17/25 05:15 109 H 04/17/25 05:04 36.6 C 107 H 20 141/107 H 100 O2 Del Method 04/17/25 05:30 Room Air 04/17/25 05:22 Room Air 04/17/25 05:19 Room Air 04/17/25 05:15 04/17/25 05:04 Room Air Diagnostic Findings Laboratory Results WBC 6.43 K/ul (4.8-10.8) 04/17/25 05:13 RBC 5.55 M/uL (4.70-6.10) 04/17/25 05:13 Hgb 15.8 g/dl (14.0-18.0) 04/17/25 05:13 Hct 48.1 % (42.0-52.0) 04/17/25 05:13 MCV 86.7 fL (80.0-100.0) 04/17/25 05:13 MCH 28.5 pg (25.0-34.0) 04/17/25 05:13 MCHC 32.8 g/dL (32.0-36.0) 04/17/25 05:13 RDW Std Deviation 44.1 fL (36.4-46.3) 04/17/25 05:13 RDW Coeff of Kt 13.8 % (11.5-14.5) 04/17/25 05:13 Plt Count 166 K/uL (130-400) 04/17/25 05:13 MPV 10.5 fL (9.4-12.4) 04/17/25 05:13 Immature Gran % (Auto) 0.2 % 04/17/25 05:13 Neut % (Auto) 46.6 % 04/17/25 05:13 Lymph % (Auto) 39.7 % 04/17/25 05:13 Vigo % (Auto) 10.4 % 04/17/25 05:13 Eos % (Auto) 2.6 % 04/17/25 05:13 Baso % (Auto) 0.5 % 04/17/25 05:13 Neut # (Auto) 3.00 K/uL (1.40-6.50) 04/17/25 05:13 Lymph # (Auto) 2.55 K/uL (1.20-3.40) 04/17/25 05:13 Vigo # (Auto) 0.67 K/uL (0.11-0.59) H 04/17/25 05:13 Eos # (Auto) 0.17 K/uL (0.00-0.50) 04/17/25 05:13 Baso # (Auto) 0.03 K/uL (0.00-0.20) 04/17/25 05:13 Immature Gran # (Auto) 0.01 K/uL (0.01-0.20) 04/17/25 05:13 Sodium 135 mmol/L (136-145) L 04/17/25 05:13 Potassium 4.4 mmol/L (3.5-5.1) 04/17/25 05:13 Chloride 103 mmol/L (98-107) 04/17/25 05:13 Carbon Dioxide 25 mmol/L (21-32) 04/17/25 05:13 Anion Gap 7 (3-11) 04/17/25 05:13 BUN 25 mg/dl (6-23) H 04/17/25 05:13 Creatinine 1.28 mg/dl (0.6-1.4) 04/17/25 05:13 Est Cr Clr Drug Dosing 81.5 ml/min 04/17/25 05:13 eGFR 66.51 04/17/25 05:13 BUN/Creatinine Ratio 19.5 (10-20) 04/17/25 05:13 Glucose 87 mg/dl (70-99(Fasting)) 04/17/25 05:13 Calcium 8.4 mg/dl (8.6-10.3) L 04/17/25 05:13 Total Bilirubin 0.3 mg/dl (0.2-1.0) 04/17/25 05:13 AST 62 U/L (13-39) H 04/17/25 05:13 ALT 62 U/L (7-52) H 04/17/25 05:13 Alkaline Phosphatase 71 U/L (34-104) 04/17/25 05:13 Troponin I High Sens 13.2 pg/ml (0-20) 04/17/25 05:13 Total Protein 5.9 gm/dl (6.0-8.3) L 04/17/25 05:13 Albumin 3.1 gm/dl (3.4-5.0) L 04/17/25 05:13 Globulin 2.8 gm/dl (2.5-4.0) 04/17/25 05:13 Albumin/Globulin Ratio 1.1 (0.9-2) 04/17/25 05:13 Lipase 38 U/L (11-82) 04/17/25 05:13 Impressions Chest X-Ray 04/17/25 05:13 EXAM: XR chest 1V portable CLINICAL HISTORY: Chest pain, nonspecific TECHNIQUE: An X-ray image of the chest is obtained in AP projection. 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 No evidence of consolidation, collapse, or focal opacities. No pulmonary nodules are identified. Right costophrenic angle appears mildly blunted- possible minimal pleural effusion Heart and Mediastinum: Heart size and shape are normal. No mediastinal widening or masses. No hilar or mediastinal lymphadenopathy. Bony Thorax: Bony thorax appears intact without fractures or deformities. Soft Tissues: Soft tissues overlying the chest wall are unremarkable. Chest leads and wires are seen in anterior chest wall IMPRESSION: Right costophrenic angle appears mildly blunted- possible minimal pleural effusion-reduced compare to prior. No other new interval abnormality since prior study. Electronically signed by Edilson Powell 04-17-2025 06:47 AM ECG Additional Comments: ECG. Sinus tachycardia with occasional PVCs with rate of 106. Possible left atrial enlargement. Left axis deviation. No acute ST changes seen. QTc 454. Code Status & VTE Plan VTE Prophylaxis Plan VTE Prophylaxis will be ordered: Yes
[2025-04-17] MEDS ORDERED: GLUCOSE 10 TAB/TUBE PO PRN (09:51)
[2025-04-17] MEDS ORDERED: POLYETHYLENE (MIRALAX) 17 GM PACK PO PRN (09:51)
[2025-04-17] MEDS ORDERED: DEXTROSE 50% 50 ML SYRINGE IV PRN (09:51)
[2025-04-17] MEDS ORDERED: PHARMACY GLYCEMIC MGMT CONSULT PRN (09:51)
[2025-04-17] MEDS ORDERED: GLUCAGON FOR INJ 1 MG VIAL SQ PRN (09:51)
[2025-04-17] MEDS ORDERED: GLUCOSE 40% GEL 15 GM TUBE PO PRN (09:51)
--- NOTE | 2025-04-17 10:33 | Cardiology Consultation ---
Date of Consultation April 17, 2025 Assessment & Plan (1) Chest pain: (2) Non-occlusive coronary artery disease: (3) Nonischemic cardiomyopathy: (4) NYHA Class III cardiovascular function: (5) CKD (chronic kidney disease) stage 3, GFR 30-59 ml/min: (6) Noncompliance: Supervising Physician Co-Signing Physician Notes Attending Staff: 54 yo man presenting with chest pain * Chest pain is atypical- * Patient experienced Chest Pain 1 hr after eating significant amount of Broccoli and Cauliflower * He decided to do sit up after consuming the vegetables * Exam - mild volume overload * Check BNP/ProBNP * NonIschemic Cardiomyopathy * LVEF 20-25% * Coronary Angiography -08/18/2024 * Diagonal disease - too small for PCI * Narrow QRS * [facility] - Battery is depleted * Troponin - WNL * EKG - 04-17-2025 - no active ischemia * Did not tolerate Aldactone 25 mg po per day * Continue Toprol XL 25 mg po per day * Consider Hydralazine/Isordil combination as an outpt * Did not tolerate Jardiance * Will need repeat ECHO on enhanced GDMT to decide re: ICD * CXR-no CHF noted * PPI for GERD * Follow up with [facility]iology * Please call back with additional questions Aaron Keith History of Present Illness Reason for Consultation: Chest pain Requesting Physician: [facility] Hospitalist Service, Dr. Sixto Harding [facility] Gideon Steen MD History of Present Illness Admitted on April 17, 2025 with chest pain. EKG without acute change. High sensitivity troponin negative x 2 at 13.2 then 10.2 pg/mL. Admission CXR with mildly blunted right costophrenic angle, otherwise no new interval abnormality. Patient admitted to [facility] in February 2025 with abdominal pain, acute cholecystitis. Surgical intervention recommended at tertiary care center. Course complicated by volume overload. SANJEEV/ARB/ARNI/spironolactone previously discontinued secondary to hyperkalemia. Jardiance declined, RE: Dizziness ICD for primary prevention recommended after infection/gallbladder issues addre ssed. Past Medical and Surgical History Nonischemic cardiomyopathy, LVEF 20 to 25%, NYHA Class III, Stage C. Narrow QRS duration. In sinus rhythm Coronary artery disease with moderately severe diagonal branch stenosis not amendable to PCI with otherwise nonobstructive coronary artery disease via July 2024 diagnostic cardiac catheterization Hypertension Dyslipidemia Type 2 diabetes mellitus with neuropathy GERD Gastric ulcers Cognitive disorder Chronic headaches History of traumatic brain injury Family History: Not notable for CAD in mother or father Social History non-smoker. No alcohol. No illegal drug use. , followed by the [facility]. Allergies Allergy/AdvReac Type Severity Reaction Status Date / Time tomato Allergy Severe Gastrointestinal Unverified 03/07/25 17:53 Upset lidocaine AdvReac Unknown Unknown Verified 03/07/25 17:29 Home Medications Medication Instructions Recorded Confirmed Type aspirin 81 mg tablet,delayed 81 mg PO DAILY 04/17/25 04/17/25 History release insulin NPH-regular 70-30 U-100 35 unit subcut BID 04/17/25 04/17/25 History insulin 100 unit/mL subcutaneous pen metoprolol succinate 25 mg 25 mg PO DAILY 04/17/25 04/17/25 History tablet,extended release 24 hr pantoprazole 40 mg tablet,delayed 40 mg PO DAILY 04/17/25 04/17/25 History release rosuvastatin 5 mg tablet 5 mg PO DAILY 04/17/25 04/17/25 History torsemide 20 mg tablet 40 mg PO QAM 04/17/25 04/17/25 History Patient History Medical History TBI (traumatic brain injury) No pertinent family history Family History Mother Diabetes Social History Smoking Status: Never smoker Second Hand Exposure: No; Do You Dip or Chew Tobacco: No; Tobacco Cessation Education Requested by Patient: No Hx Alcohol Use: No Hx Substance Use: No Preferred Language: Egyptian 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 Results & Data Vital Signs (Past 12 Hours) Vital Signs Temp Pulse Pulse Resp BP BP Pulse Ox 04/17/25 10:07 36.3 C L 129/81 04/17/25 10:00 36.6 C 104 H 16 241/194 H 100 04/17/25 09:00 95 H 16 115/89 95 04/17/25 08:36 100 H 14 115/91 97 04/17/25 08:01 103 H 14 123/89 98 04/17/25 08:00 98 H 22 123/89 95 04/17/25 07:00 102 H 16 123/97 94 04/17/25 06:39 102 H 17 95 04/17/25 06:30 131/94 04/17/25 06:30 105 H 131/94 04/17/25 06:00 102 H 130/108 H 04/17/25 05:30 104 H 18 129/99 97 04/17/25 05:22 106 H 18 98 04/17/25 05:19 107 H 16 140/108 H 100 04/17/25 05:15 109 H 04/17/25 05:04 36.6 C 107 H 20 141/107 H 100 O2 Del Method 04/17/25 10:07 04/17/25 10:00 Room Air 04/17/25 09:00 Room Air 04/17/25 08:36 04/17/25 08:01 Room Air 04/17/25 08:00 Room Air 04/17/25 07:00 Room Air 04/17/25 06:39 04/17/25 06:30 04/17/25 06:30 04/17/25 06:00 04/17/25 05:30 Room Air 04/17/25 05:22 Room Air 04/17/25 05:19 Room Air 04/17/25 05:15 04/17/25 05:04 Room Air Laboratory Results Cardiac Enzymes 04/17/25 04/17/25 Range/Units 05:13 08:00 AST 62 H (13-39) U/L Troponin I High Sens 13.2 10.2 (0-20) pg/ml CBC 04/17/25 Range/Units 05:13 WBC 6.43 (4.8-10.8) K/ul RBC 5.55 (4.70-6.10) M/uL Hgb 15.8 (14.0-18.0) g/dl Hct 48.1 (42.0-52.0) % Plt Count 166 (130-400) K/uL Neut # (Auto) 3.00 (1.40-6.50) K/uL Lymph # (Auto) 2.55 (1.20-3.40) K/uL Ross # (Auto) 0.67 H (0.11-0.59) K/uL Eos # (Auto) 0.17 (0.00-0.50) K/uL Baso # (Auto) 0.03 (0.00-0.20) K/uL Comprehensive Metabolic Panel 04/17/25 Range/Units 05:13 Sodium 135 L (136-145) mmol/L Potassium 4.4 (3.5-5.1) mmol/L Chloride 103 (98-107) mmol/L Carbon Dioxide 25 (21-32) mmol/L BUN 25 H (6-23) mg/dl Creatinine 1.28 (0.6-1.4) mg/dl Glucose 87 (70-99(Fasting)) mg/dl Calcium 8.4 L (8.6-10.3) mg/dl AST 62 H (13-39) U/L ALT 62 H (7-52) U/L Alkaline Phosphatase 71 (34-104) U/L Total Protein 5.9 L (6.0-8.3) gm/dl Albumin 3.1 L (3.4-5.0) gm/dl Intake and Output 04/16/25 04/17/25 04/17/25 22:59 06:59 14:59 Intake Total 100 / 100 Balance 100 / 100 Intake: IV 100 / 100 Acetaminophen 1,000 mg In 100 100 / 100 ml @ 400 mls/hr IV NOW STA Rx#: [id number] Other: Weight 102 kg 102 kg Weight Measurement Method [facility] Built in [facility] Patient Weight 04/18/25 06:59 Weight 102 kg Diagnostic Findings August 18, 2024 right and left heart catheterization ([facility], Dr. Robles): Right heart cath findings: PCWP-11 mmHg PAP-50/31 mmHg, mean 37 mmHg RVP-50/12 mmHg, RVEDP 14 mmHg RAP-13 mmHg AO sat-96% PA sat-75% RA sat 72% CO (Jasper)-7.08 L/min CI (Jasper)-3.3 L/min/m Pulmonary vascular resistance-4.1 Sotelo units Systemic vascular resistance-9.75 Sotelo units Total vascular resistance-11.58 Sotelo units Coronary angiography findings: PAY-rwnqr-pfmhznb vessel trifurcating into LAD, ramus, and circumflex. No more than mild luminal irregularities. RVO-bwlaf-lyujcjt and transapical. Gives a medium caliber branching first diagonal. Proximal LAD has luminal irregularities. The mid vessel just after the diagonal has a focal 30 to 40% narrowing. The diagonal has a proximal 50 to 70% narrowing but appears too small for PCI. Distally the LAD has no angiographically evident disease. Mkjyo-alvbn-fvpyvzh and branching with no more than mild luminal irregularities. QSj-nkfhv-fkmttgt and nondominant. Travels in the AV groove giving a medium caliber OM1, medium caliber OM 2 and a small caliber posterolateral branch. There is no more than mild luminal irregularities in the circumflex and its branches. RCA-this is large caliber and dominant. Bifurcates distally into the PDA and multi branching posterolateral. The RCA and its branches have no disease. March 10, 2025 Echo: Mildly dilated LV. Mild concentricl LVH. Severely reduced LV systolic function. EF 20-25%. Mildly reduced RV systolic function. Mild mitral regurgitation. Compared to prior study dated 11/12/2024, LV is now mildly dilated. LV systolic function is relatively unchanged. Admission EKG: Sinus tachycardia at 106 bpm with occasional PVC's, possible left atrial enlargement. QRS duration 82 ms. QTc 454 ms. Telemetry: Sinus/sinus tachycardia with PVC's, heart rates predominately in the 90's to low 100's Medications Administered Current Inpatient Medications Acetaminophen (Acetaminophen 325 Mg Tab) 650 mg PO Q4H PRN PRN Reason: Pain or Fever Stop: 05/17/25 09:50 Aspirin (Aspirin 81 Mg Ectab) 81 mg PO DAILY ERIKA Stop: 05/17/25 09:50 Last Admin: 04/17/25 11:38 Dose: 81 mg Dextrose (Dextrose 50% 50 Ml Syringe) 25 - 50 ml IV UD PRN; Protocol PRN Reason: Hypoglycemia Protocol Stop: 05/17/25 09:50 Glucagon (Glucagon For Inj 1 Mg Vial) 1 mg SQ UD PRN; Protocol PRN Reason: Hypoglycemia Protocol Stop: 05/17/25 09:50 Glucose (Glucose 40% Gel 15 Gm Tube) 15 - 30 gm PO UD PRN; Protocol PRN Reason: Hypoglycemia Protocol Stop: 05/17/25 09:50 Glucose (Glucose 10 Tab/Tube) 4 - 8 tab PO UD PRN; Protocol PRN Reason: Hypoglycemia Protocol Stop: 05/17/25 09:50 Famotidine (Pepcid 20mg Iv Push) 20 mg in 5 mls @ 2.5 mls/min IV Q12H ERIKA Stop: 05/17/25 18:59 Insulin Aspart (Insulin Aspart Per Unit Charge) 0 units SC Q6 ERIKA Stop: 05/17/25 11:59 Last Admin: 04/17/25 11:39 Dose: Not Given Insulin Glargine (Lantus Per Unit Charge) 10 units SQ BID ERIKA Stop: 05/17/25 11:29 Last Admin: 04/17/25 11:38 Dose: Not Given Metoprolol Succinate (Metoprolol Succ 25mg Ext Rel Tab) 25 mg PO DAILY ERIKA Stop: 05/17/25 09:50 Last Admin: 04/17/25 11:38 Dose: 25 mg Miscellaneous (Carbohydrates For Hypoglycemia ) 15 - 30 gm PO UD PRN PRN Reason: Hypoglycemia Protocol Stop: 05/17/25 09:50 Miscellaneous Information (Pharmacy Glycemic Mgmt Consult) 1 each N/A UD PRN PRN Reason: Consult Stop: 05/17/25 09:50 Nitroglycerin (Nitroglycerin Sl 0.4 Mg/Tab Tab) 0.4 mg SL Q5M PRN PRN Reason: Chest Pain Stop: 05/17/25 09:50 Pantoprazole Sodium (Pantoprazole 40 Mg Tab) 40 mg PO DAILY ERIKA Stop: 05/17/25 09:50 Last Admin: 04/17/25 11:38 Dose: 40 mg Polyethylene Glycol (Polyethylene (Miralax) 17 Gm Pack) 17 gm PO DAILY PRN PRN Reason: Constipation Stop: 05/17/25 09:50 Rosuvastatin Calcium (Rosuvastatin Calcium 5 Mg Tab) 5 mg PO DAILY ERIKA Stop: 05/17/25 09:50 Last Admin: 04/17/25 11:38 Dose: 5 mg Torsemide (Torsemide 20 Mg Tab) 40 mg PO QAM ERIKA Stop: 05/17/25 09:50 Last Admin: 04/17/25 11:38 Dose: 40 mg PG Care Time/CCT Total # of Minutes Spent Total Time Spent with Patient: Total time spent is greater than 50% in coordination of care (as documented) at patient's floor/unit and/or counseling patient: Coding Level of Care Code 20612 IN/OBS CONSULT LVL 5,80M Diagnoses Chest pain R07.9 Non-occlusive coronary artery disease I25.10 Nonischemic cardiomyopathy I42.8 NYHA Class III cardiovascular function I50.9 CKD (chronic kidney disease) stage 3, GFR 30-59 ml/min N18.30 Noncompliance Z91.199
[2025-04-17] MEDS: ASPIRIN 81 MG ECTAB PO SCH (11:38)
[2025-04-17] MEDS: TORSEMIDE 20 MG TAB PO SCH (11:38)
[2025-04-17] MEDS: METOPROLOL SUCC 25MG EXT REL TAB PO SCH (11:38)
[2025-04-17] MEDS: LANTUS PER UNIT CHARGE SQ SCH (11:38)
[2025-04-17] MEDS: ROSUVASTATIN CALCIUM 5 MG TAB PO SCH (11:38)
[2025-04-17] MEDS: INSULIN ASPART PER UNIT CHARGE SC SCH ×2 (11:39→18:00)
--- NOTE | 2025-04-17 11:50 | Pharmacy Report ---
Pharmacy Glycemic Short Note 2 - Date of Service April 17, 2025 - Glycemic Short BSG Results (Last 24 hours): 04/17/25 04/17/25 05:13 11:02 Glucose 87 POC Glucose 93 OUTPATIENT ANTIDIABETIC REGIMEN: * Novolin 70/30, 35 units SQ BID * HbA1c: 10.9% (03/08/25) ASSESSMENT: * Mr Babb is a 54yo diabetic admitted with chest pain. * Pt is NPO while cardiology evaluates the need for intervention. * Pt is managed on 70/30 insulin as an outpt. SQ basal/bolus insulin initiated on admission. * Pharmacy will continue to follow and adjust regimen as indicated. PLAN FOR INPATIENT GLYCEMIC CONTROL: * Hold outpatient oral diabetes medications * Basal insulin * Lantus 10 units SQ BID (pt refused AM dose today) * Bolus insulin * NovoLog per scale ACHS or Q6hrs while NPO * Goal Range: Low 110 mg/dL - High 140 mg/dL * Correction Factor: 25 mg/dL/unit * Nutritional / Prandial insulin per carb ratio of 1 unit per 8 grams CHO consumed
--- NOTE | 2025-04-17 14:21 | Hospitalist Progress Note ---
Date of Service April 17, 2025 Assessment & Plan (1) Chest pain: Plan: 54-year-old male with past medical history significant for CAD, nonischemic cardiomyopathy EF 20 to 25%, on LifeVest, type 2 diabetes, GERD, TBI, gallstones, gastric ulcers presents with chest pain. Patient states since last night having chest pain which progressively got worse and came to the ER. States pain is pressure-like feeling. Also having some shortness of breath. Having sweating. Denies any cough. No fevers. Has mild headache. No blurred vision. No runny nose or sore throat. No abdominal pain. Normal bowel and bladder movements. States ambulating okay. Patient had couple of admissions recent past for acute calculus cholecystitis. Last admission was last month. Was treated with IV antibiotics. Surgery recommended outpatient follow-up with tertiary care for elective lap cholecystectomy. Seems patient has not followed up. Last admission patient also was having hyperkalemia. Was started on torsemide. Jardiance, Entresto and Aldactone were stopped for hyperkalemia. Jardiance was attempted to restart but patient declined complaining of medication making him dizzy. Cardiology thought patient likely not to be a candidate for spironolactone or SANJEEV inhibitor's or ARB's. Was advised for low sodium and low potassium diet. Patient followed up with [facility] cardiology on 04/16/2025. Per epic notes per cardiology patient was recently again admitted at [facility] in [place] for abdominal pain/chest pain. Found to be in acute CHF and treated with IV diuretics. Had congestive hepatopathy and SHIELA. SHIELA resolved with diuresis and LFTs also returned to baseline. Also at [facility] EGD done on 03/26/2025 which showed multiple nonbleeding gastric ulcers. It was recommended to continue PPI and 3 [facility]. Cardiology also gave prescriptions for beta-goldie Entresto and Lasix. He was encouraged [facility] and be evaluated for ICD placement. Today patient did not bring his medication list. He says he still on his same medications he was discharged from here. Says he is taking torsemide. He was not sure whether he was taking rosuvastatin or Lipitor. Chest pain DD: Peptic Ulcer/GERD H/O CAD:moderately severe diagonal branch stenosis not amendable to PCI with otherwise nonobstructive coronary artery disease via July 2024 diagnostic cardiac catheterization Reports having chest pain while exercising and after eating broccoli/cauliflower --Troponin X3: Negative --ECHO: Mild concentric LVH. Severe global hypokinesis of left ventricle. EF 20 to 25%. Mildly dilated left and right ventricle. Right ventricular systolic function mildly reduced. Left atrium is mildly dilated. Mild mitral regurgitation. The left ventricular diastolic function is abnormal and consistent with elevated left ventricular filling pressures. Compared to prior echo in February, left ventricular ejection fraction is unchanged. -- Current EKG showed no signs of acute ischemia --Did not tolerate Aldactone, Jardiance in the past per cardiology --Continue aspirin, metoprolol, Crestor --Consideration for hydralazine/isosorbide as outpatient --Needs follow-up with cardiology on discharge --Continue PPI --Was discharged on LifeVest on last admission: ? Battery depleted --Advance diet as tolerated Nonischemic cardiomyopathy Chronic systolic CHF EF 20 to 25%. On Live Vest. On metoprolol succinate and torsemide Jardiance, Entresto and spironolactone were stopped last admission for hyperkalemia Monitor for volume overload Update BNP Appreciate cardiology input Cardiology advised to [facility] in the past DM II Uncontrolled diabetes mellitus Last HbA1c 10.9 Hold home insulin Continue insulin per protocol Monitor blood glucose levels Glycemic pharmacy consult Gastric ulcers Continue Protonix followup with GI for repeat EGD in 3months Continue IV Pepcid for now Gallbladder disease Recent admissions for cholecystitis Surgery recommended tertiary care follow-up but patient seems not followed up Total bilirubin 0.3, ast 62, alt 62, alk phosp 71 Monitor LFTs Currently denies abdominal pain, nausea, vomiting Hyperlipidemia continue statin Right lower extremity wound medial aspect of right lower calf Healing continue wound care History of TBI Monitor DVT prophylaxis Heparin SQ SCDs CODE STATUS Full code Admission and Anticipated Discharge Date Admission Date: April 17, 2025 Subjective Patient is seen and examined at bedside Chest pain resolved Denies any dyspnea, nausea, vomiting, dizziness, abdominal pain No other complaints today Review of Systems Review of Systems: All systems reviewed & are unremarkable except as noted in Subjective Physical Exam Physical Exam: Physical Exam: Vitals signs as noted above General Appearance:overweight, no apparent distress Head: normocephalic, Atraumatic Eyes: normal inspection, EOMI Neck: supple, Trachea midline Respiratory/Chest: Normal breath sounds, CTA, No accessory muscle use Cardiovascular: S1, S2, + murmur Abdomen/GI:Soft, Non tender, Bowel sounds present Extremities/Musculoskeletal:normal inspection, 1+ LE edema Neurologic/Psych:AAOX3, grossly no focal neurological deficits Skin: normal color, warm Results & Data Results & Data Vital Signs (Past 12 Hours) Vital Signs Temp Pulse Pulse Resp BP BP Pulse Ox 04/17/25 10:07 36.3 C L 129/81 04/17/25 10:00 36.6 C 104 H 16 241/194 H 100 04/17/25 09:00 95 H 16 115/89 95 04/17/25 08:36 100 H 14 115/91 97 04/17/25 08:01 103 H 14 123/89 98 04/17/25 08:00 98 H 22 123/89 95 04/17/25 07:00 102 H 16 123/97 94 04/17/25 06:39 102 H 17 95 04/17/25 06:30 131/94 04/17/25 06:30 105 H 131/94 04/17/25 06:00 102 H 130/108 H 04/17/25 05:30 104 H 18 129/99 97 04/17/25 05:22 106 H 18 98 04/17/25 05:19 107 H 16 140/108 H 100 04/17/25 05:15 109 H 04/17/25 05:04 36.6 C 107 H 20 141/107 H 100 O2 Del Method 04/17/25 10:07 04/17/25 10:00 Room Air 04/17/25 09:00 Room Air 04/17/25 08:36 04/17/25 08:01 Room Air 04/17/25 08:00 Room Air 04/17/25 07:00 Room Air 04/17/25 06:39 04/17/25 06:30 04/17/25 06:30 04/17/25 06:00 04/17/25 05:30 Room Air 04/17/25 05:22 Room Air 04/17/25 05:19 Room Air 04/17/25 05:15 04/17/25 05:04 Room Air Laboratory Results Short CBC 04/17/25 Range/Units 05:13 WBC 6.43 (4.8-10.8) K/ul Hgb 15.8 (14.0-18.0) g/dl Hct 48.1 (42.0-52.0) % Plt Count 166 (130-400) K/uL BMP 04/17/25 05:13 Sodium 135 L Potassium 4.4 Chloride 103 Carbon Dioxide 25 BUN 25 H Creatinine 1.28 Glucose 87 Calcium 8.4 L Liver Function 04/17/25 Range/Units 05:13 Total Bilirubin 0.3 (0.2-1.0) mg/dl AST 62 H (13-39) U/L ALT 62 H (7-52) U/L Alkaline Phosphatase 71 (34-104) U/L Albumin 3.1 L (3.4-5.0) gm/dl
[2025-04-17] MEDS: ACETAMINOPHEN 325 MG TAB PO PRN (17:51)
[2025-04-17] MEDS: FAMOTIDINE 20MG IV PUSH 20 MG/5 ML SYR IV SCH (17:52)
[2025-04-17] MEDS: HEPARIN SOD 5,000 UNIT/0.5 ML VIAL SQ SCH (21:09)
[2025-04-17] MEDS: SUCRALFATE 1 GM TAB PO STA (21:32)
[2025-04-17] MEDS: ALUMINUM/MAGNESIUM/SIMETH (MAALOX MAX) 30 ML UDC PO STA (21:32)
--- NOTE | 2025-04-17 22:17 | Electrocardiogram Report ---
Test Reason : Blood Pressure : */* mmHG Vent. Rate : 106 BPM Atrial Rate : 106 BPM P-R Int : 156 ms QRS Dur : 82 ms QT Int : 342 ms P-R-T Axes : 72 -31 66 degrees QTcB Int : 454 ms Sinus tachycardia with occasional Premature ventricular complexes Possible Left atrial enlargement Left axis deviation Abnormal ECG When compared with ECG of 07-Mar-2025 13:22, Nonspecific T wave abnormality no longer evident in Inferior leads Nonspecific T wave abnormality, improved in Lateral leads Confirmed by Oskar Fuller ([id number]) on 04/17/2025 10:16:39 PM Referred By: REFERRED SELF Confirmed By: Oskar Fuller
[2025-04-18 06:01] LABS: Hematocrit (blood only) 47.3 % (42.0-52.0); Hemoglobin 15.9 g/dl (14.0-18.0); Immature Granulocytes # (auto) 0.01 K/uL (0.01-0.20); Immature Granulocytes % (auto) 0.2 %; Mean Corpuscular Hemoglobin 29.3 pg (25.0-34.0); Mean Corpuscular Volume 87.1 fL (80.0-100.0); Platelet Count 168 K/uL (130-400); RDW Standard Deviation 43.8 fL (36.4-46.3); Red Blood Count 5.43 M/uL (4.70-6.10); White Blood Count 5.73 K/ul (4.8-10.8)
[2025-04-18 06:24] LABS: Alanine Aminotransferase 88 U/L (7-52); Alkaline Phosphatase 51 U/L (34-104); Anion Gap 5 (3-11); Bilirubin,Total 0.7 mg/dl (0.2-1.0); Blood Urea Nitrogen 30 mg/dl (6-23); Calcium 8.5 mg/dl (8.6-10.3); Carbon Dioxide 31 mmol/L (21-32); Chloride 99 mmol/L (98-107); Creatinine Clr Calc Pharmacy 56.7 ml/min; Glucose 136 mg/dl (70-99(Fasting)); Magnesium 2.0 mg/dl (1.7-2.4); Sodium 135 mmol/L (136-145); Total Protein 5.8 gm/dl (6.0-8.3)
[2025-04-18 07:01] LABS: Potassium 5.2 mmol/L (3.5-5.1)
[2025-04-18 07:32] LABS: Hemoglobin A1C 8.7 % (4.5-5.6)
[2025-04-18] MEDS: INSULIN HUMAN NPH SC SCH (08:42)
[2025-04-18] MEDS: NITROGLYCERIN SL 0.4 MG/TAB TAB SL PRN (09:03)
--- NOTE | 2025-04-18 09:42 | XRay Report ---
XR chest 1V portable CLINICAL HISTORY: Dyspnea COMPARISON STUDY: 04/17/2025 FINDINGS: Stable cardiomegaly without pulmonary vascular congestion. There is interval patchy opacity at the right lung base. No other consolidation or pleural effusion. No pneumothorax. IMPRESSION: Early pneumonia right lung base. ACT 112: Negative or not required by law. Electronically signed by: Matthew Velasquez M.D. 04/18/2025 9:41 AM
[2025-04-18 11:44] LABS: Anion Gap 3.0 (3-11); Blood Urea Nitrogen 31.0 mg/dl (6-23); Calcium 8.7 mg/dl (8.6-10.3); Carbon Dioxide 32.0 mmol/L (21-32); Chloride 100.0 mmol/L (98-107); Creatinine Clr Calc Pharmacy 56.4 ml/min; Glucose 138.0 mg/dl (70-99(Fasting)); Potassium 4.5 mmol/L (3.5-5.1); Sodium 135.0 mmol/L (136-145)
--- NOTE | 2025-04-18 13:50 | Pharmacy Report ---
Pharmacy Glycemic Short Note 2 - Date of Service April 18, 2025 - Glycemic Short BSG Results (Last 24 hours): 04/17/25 04/17/25 04/18/25 15:56 20:19 05:13 Glucose 136 H POC Glucose 98 159 H 04/18/25 04/18/25 04/18/25 07:08 11:08 11:33 Glucose 138 H POC Glucose 112 H 131 H OUTPATIENT ANTIDIABETIC REGIMEN: * Novolin 70/30, 35 units SQ BID * HbA1c: 10.9% (03/08/25) ASSESSMENT: 04/18: * Km received 14 units of insulin yesterday (10 were basal) * Fasting BSG this AM within goal range, Lantus given yesterday, now with a diet, will switch to insulin NPH with breakfast and dinner to better mimic home 70/30 regimen. * No changes to NovoLog at this time. No glycemic stressors noted. 04/17: * Mr Babb is a 54yo diabetic admitted with chest pain. * Pt is NPO while cardiology evaluates the need for intervention. * Pt is managed on 70/30 insulin as an outpt. SQ basal/bolus insulin initiated on admission. * Pharmacy will continue to follow and adjust regimen as indicated. PLAN FOR INPATIENT GLYCEMIC CONTROL: * Hold outpatient oral diabetes medications * Basal insulin * Insulin NPH 10 units SQ BIDM * Bolus insulin * NovoLog per scale ACHS or Q6hrs while NPO * Goal Range: Low 110 mg/dL - High 140 mg/dL * Correction Factor: 25 mg/dL/unit * Nutritional / Prandial insulin per carb ratio of 1 unit per 8 grams CHO consumed
--- NOTE | 2025-04-18 14:24 | Hospitalist Progress Note ---
Date of Service April 18, 2025 Assessment & Plan (1) Chest pain: Plan: 54-year-old male with past medical history significant for CAD, nonischemic cardiomyopathy EF 20 to 25%, on LifeVest, type 2 diabetes, GERD, TBI, gallstones, gastric ulcers presents with chest pain. Patient states since last night having chest pain which progressively got worse and came to the ER. States pain is pressure-like feeling. Also having some shortness of breath. Having sweating. Denies any cough. No fevers. Has mild headache. No blurred vision. No runny nose or sore throat. No abdominal pain. Normal bowel and bladder movements. States ambulating okay. Patient had couple of admissions recent past for acute calculus cholecystitis. Last admission was last month. Was treated with IV antibiotics. Surgery recommended outpatient follow-up with tertiary care for elective lap cholecystectomy. Seems patient has not followed up. Last admission patient also was having hyperkalemia. Was started on torsemide. Jardiance, Entresto and Aldactone were stopped for hyperkalemia. Jardiance was attempted to restart but patient declined complaining of medication making him dizzy. Cardiology thought patient likely not to be a candidate for spironolactone or SANJEEV inhibitor's or ARB's. Was advised for low sodium and low potassium diet. Patient followed up with [facility] cardiology on 04/16/2025. Per epic notes per cardiology patient was recently again admitted at in [place] for abdominal pain/chest pain. Found to be in acute CHF and treated with IV diuretics. Had congestive hepatopathy and SHIELA. SHIELA resolved with diuresis and LFTs also returned to baseline. Also at EGD done on 03/26/2025 which showed multiple nonbleeding gastric ulcers. It was recommended to continue PPI and [facility] Cardiology also gave prescriptions for beta-goldie Entresto and Lasix. He was encouraged [facility] and be evaluated for ICD placement. Today patient did not bring his medication list. He says he still on his same medications he was discharged from here. Says he is taking torsemide. He was not sure whether he was taking rosuvastatin or Lipitor. Chest pain DD: Peptic Ulcer/GERD H/O CAD:moderately severe diagonal branch stenosis not amendable to PCI with otherwise nonobstructive coronary artery disease via July 2024 diagnostic cardiac catheterization Medication noncompliance as per record Reports having chest pain while exercising and after eating broccoli/cauliflower --Troponin X3: Negative --ECHO: Mild concentric LVH. Severe global hypokinesis of left ventricle. EF 20 to 25%. Mildly dilated left and right ventricle. Right ventricular systolic function mildly reduced. Left atrium is mildly dilated. Mild mitral regurgitation. The left ventricular diastolic function is abnormal and consistent with elevated left ventricular filling pressures. Compared to prior echo in February, left ventricular ejection fraction is unchanged. -- Current EKG showed no signs of acute ischemia --Did not tolerate Aldactone, Jardiance in the past per cardiology --Continue aspirin, metoprolol, Crestor --Consideration for hydralazine/isosorbide as outpatient --Needs follow-up with cardiology on discharge --Continue PPI---increase to twice a day --Was discharged on LifeVest on last admission -- Consulted GI for possible EGD Nonischemic cardiomyopathy Chronic systolic CHF EF 20 to 25%. On Live Vest. On metoprolol succinate and torsemide Jardiance, Entresto and spironolactone were stopped last admission for hyperkalemia Monitor for volume overload Appreciate cardiology input Cardiology advised [facility] in the past DM II Uncontrolled diabetes mellitus Last HbA1c 10.9 Hold home insulin Continue insulin per protocol Monitor blood glucose levels Glycemic pharmacy consult Gastric ulcers Continue Protonix 40 mg twice a day Await GI input Abnormal chest x-ray Suspected pneumonia Patient denies any cough No fever, leukocytosis Normal procalcitonin Monitor for now CKD III Monitor renal function Avoid nephrotoxic agents as able Gallbladder disease Recent admissions for cholecystitis Surgery recommended tertiary care follow-up but patient seems not followed up Total bilirubin 0.3, ast 62, alt 62, alk phosp 71 Monitor LFTs Currently denies abdominal pain, nausea, vomiting Hyperlipidemia continue statin Right lower extremity wound medial aspect of right lower calf Healing continue wound care History of TBI Monitor DVT prophylaxis Heparin SQ SCDs CODE STATUS Full code Admission and Anticipated Discharge Date Admission Date: April 17, 2025 Subjective Patient is seen and examined at bedside Patient states having transient retrosternal chest pain after eating Also reports some dyspnea associated with it Denies any nausea, vomiting, abdominal pain, cough Review of Systems Review of Systems: All systems reviewed & are unremarkable except as noted in Subjective Physical Exam Physical Exam: Physical Exam: Vitals signs as noted above General Appearance:overweight, no apparent distress Head: normocephalic, Atraumatic Eyes: normal inspection, EOMI Neck: supple, Trachea midline Respiratory/Chest: Normal breath sounds, CTA, No accessory muscle use Cardiovascular: S1, S2, + murmur Abdomen/GI:Soft, Non tender, Bowel sounds present Extremities/Musculoskeletal:normal inspection, 1+ LE edema Neurologic/Psych:AAOX3, grossly no focal neurological deficits Skin: normal color, warm Results & Data Results & Data Vital Signs (Past 12 Hours) Vital Signs Temp Pulse Pulse Pulse Resp BP Pulse Ox 04/18/25 13:03 99 H 04/18/25 11:19 36.3 C L 96 H 20 141/89 H 99 04/18/25 09:51 04/18/25 09:42 91 H 118/83 04/18/25 08:50 99 H 17 123/86 99 04/18/25 07:22 36.5 C 103 H 21 121/70 97 04/18/25 05:28 97 H 04/18/25 03:49 36.6 C 101 H 20 117/81 98 Pulse Ox O2 Del Method O2 Del Method O2 Flow Rate O2 Flow Rate 04/18/25 13:03 04/18/25 11:19 Nasal Cannula 2 04/18/25 09:51 97 Nasal Cannula 2 04/18/25 09:42 04/18/25 08:50 Room Air 04/18/25 07:22 Room Air 04/18/25 05:28 04/18/25 03:49 Room Air Laboratory Results Short CBC 04/18/25 Range/Units 05:13 WBC 5.73 (4.8-10.8) K/ul Hgb 15.9 (14.0-18.0) g/dl Hct 47.3 (42.0-52.0) % Plt Count 168 (130-400) K/uL BMP 04/18/25 04/18/25 04/18/25 05:13 06:29 11:08 Sodium 135 L 135 L Potassium TNP 5.2 H 4.5 Chloride 99 100 Carbon Dioxide 31 32 BUN 30 H 31 H Creatinine 1.84 H D 1.78 H Glucose 136 H 138 H Calcium 8.5 L 8.7 Liver Function 04/18/25 04/18/25 Range/Units 05:13 06:29 Total Bilirubin 0.7 (0.2-1.0) mg/dl Direct Bilirubin TNP 0.2 AST TNP 78 H ALT 88 H (7-52) U/L Alkaline Phosphatase 51 (34-104) U/L Albumin 3.2 L (3.4-5.0) gm/dl
[2025-04-18] MEDS: CARBOHYDRATES FOR HYPOGLYCEMIA PO PRN (20:20)
[2025-04-19 06:42] LABS: Anion Gap 8.0 (3-11); Blood Urea Nitrogen 36.0 mg/dl (6-23); Calcium 8.9 mg/dl (8.6-10.3); Carbon Dioxide 32.0 mmol/L (21-32); Chloride 98.0 mmol/L (98-107); Creatinine Clr Calc Pharmacy 48.5 ml/min; Glucose 99.0 mg/dl (70-99(Fasting)); Potassium 4.2 mmol/L (3.5-5.1); Sodium 138.0 mmol/L (136-145)
[2025-04-19] MEDS: INSULIN HUMAN NPH SC SCH (08:49)
--- NOTE | 2025-04-19 09:05 | Gastrointestinal Consultation ---
Date of Consultation April 19, 2025 Assessment & Plan (1) Abdominal pain: I suspect his abdominal pain is due to recurrent biliary colic supported by imaging of his gallbladder and and biliary tree. Would have surgery reevaluate him for cholecystectomy. Would need cardiac clearance in light of his signi ficant cardiac disease. I do not think his gastric ulcers are causing his pain which have been recently diagnosed he should remain on his Protonix twice daily. (2) Chest pain: I suspect the chest pain is also related to biliary colic and noncardiac at this time. (3) Gall stones: History of Present Illness Reason for Consultation: Abdominal pain and chest pain Attending Physician: Gideon Steen MD History of Present Illness Patient presents with recurrent mid abdominal pain and chest pain associated with shortness of breath. He has had episodic abdominal pain for the last several months requiring frequent visits to the emergency room and hospitalizations for evaluation. Earlier this month he had an endoscopy elsewhere which revealed nonbleeding gastric ulcers. He was started on Pro tonix. Imaging has confirmed evidence of gallstones. He has been evaluated by surgery who is recommended laparoscopic cholecystectomy at some point delayed because of significant underlying cardiac disease. Imaging this admission once again reveals gallstones including a large stone at the neck of the gallbladder. No bile duct pathology. Allergies Allergy/AdvReac Type Severity Reaction Status Date / Time tomato Allergy Severe Gastrointestinal Unverified 03/07/25 17:53 Upset lidocaine AdvReac Unknown Unknown Verified 03/07/25 17:29 Home Medications Medication Instructions Recorded Confirmed Type aspirin 81 mg tablet,delayed 81 mg PO DAILY 04/17/25 04/17/25 History release insulin NPH-regular 70-30 U-100 35 unit subcut BID 04/17/25 04/17/25 History insulin 100 unit/mL subcutaneous pen metoprolol succinate 25 mg 25 mg PO DAILY 04/17/25 04/17/25 History tablet,extended release 24 hr pantoprazole 40 mg tablet,delayed 40 mg PO DAILY 04/17/25 04/17/25 History release rosuvastatin 5 mg tablet 5 mg PO DAILY 04/17/25 04/17/25 History torsemide 20 mg tablet 40 mg PO QAM 04/17/25 04/17/25 History Patient History Medical History TBI (traumatic brain injury) No pertinent family history Family History Mother Diabetes Social History Smoking Status: Never smoker Second Hand Exposure: No; Do You Dip or Chew Tobacco: No; Tobacco Cessation Education Requested by Patient: No Hx Alcohol Use: No Hx Substance Use: No Preferred Language: Divehi Communication Ability: Effective Golf Caddy Required: No Beliefs That Will Affect Care: None marital status: Single Current Living Situation: Alone current occupational status: employed Other Information That Helps Us Care for You: No Feels Safe at Home: Yes Safety Concerns: Feels Safe At This Time Assistive Devices: None Assistive Devices Comment: life vest with patient Review of Systems Review of Systems: No fever No chills No SOB history of chest pain and Abd pain Physical Exam Physical Exam: Eyes; anicteric HENT No masses Chest clear to A Cor S1, S2 physiologic Abd: softer nontender no masses Ext no edema Results & Data Vital Signs (Past 12 Hours) Vital Signs Temp Pulse Pulse Resp BP Pulse Ox O2 Del Method 04/19/25 06:48 36.3 C L 97 H 19 125/89 97 Room Air 04/19/25 04:23 36.5 C 95 H 18 130/87 96 Room Air 04/19/25 00:02 36.4 C L 104 H 18 136/100 99 Room Air 04/18/25 23:00 96 H Laboratory Results Laboratory Results - last 48 hr 04/17/25 04/17/25 04/17/25 11:02 11:23 15:56 WBC RBC Hgb Hct MCV MCH MCHC RDW Std Deviation RDW Coeff of Kt Plt Count MPV Immature Gran % (Auto) Neut % (Auto) Lymph % (Auto) [place] % (Auto) Eos % (Auto) Baso % (Auto) Neut # (Auto) Lymph # (Auto) [place] # (Auto) Eos # (Auto) Baso # (Auto) Immature Gran # (Auto) Sodium Potassium Chloride Carbon Dioxide Anion Gap BUN Creatinine Est Cr Clr Drug Dosing eGFR BUN/Creatinine Ratio Glucose POC Glucose 93 98 Estimat Average Glucose Hemoglobin A1c Calcium Magnesium Total Bilirubin Direct Bilirubin AST ALT Alkaline Phosphatase Troponin I High Sens 16.3 D B-Natriuretic Peptide Total Protein Albumin Procalcitonin 04/17/25 04/17/25 04/17/25 18:01 20:19 23:51 WBC RBC Hgb Hct MCV MCH MCHC RDW Std Deviation RDW Coeff of Kt Plt Count MPV Immature Gran % (Auto) Neut % (Auto) Lymph % (Auto) [place] % (Auto) Eos % (Auto) Baso % (Auto) Neut # (Auto) Lymph # (Auto) Trinity # (Auto) Eos # (Auto) Baso # (Auto) Immature Gran # (Auto) Sodium Potassium Chloride Carbon Dioxide Anion Gap BUN Creatinine Est Cr Clr Drug Dosing eGFR BUN/Creatinine Ratio Glucose POC Glucose 159 H Estimat Average Glucose Hemoglobin A1c Calcium Magnesium Total Bilirubin Direct Bilirubin AST ALT Alkaline Phosphatase Troponin I High Sens 13.3 15.8 B-Natriuretic Peptide Total Protein Albumin Procalcitonin 04/18/25 04/18/25 04/18/25 05:13 06:29 07:08 WBC 5.73 RBC 5.43 Hgb 15.9 Hct 47.3 MCV 87.1 MCH 29.3 MCHC 33.6 RDW Std Deviation 43.8 RDW Coeff of Kt 13.7 Plt Count 168 MPV 10.7 Immature Gran % (Auto) 0.2 Neut % (Auto) 42.4 Lymph % (Auto) 41.9 Trinity % (Auto) 12.7 Eos % (Auto) 2.3 Baso % (Auto) 0.5 Neut # (Auto) 2.43 Lymph # (Auto) 2.40 Trinity # (Auto) 0.73 H Eos # (Auto) 0.13 Baso # (Auto) 0.03 Immature Gran # (Auto) 0.01 Sodium 135 L Potassium TNP 5.2 H Chloride 99 Carbon Dioxide 31 Anion Gap 5 BUN 30 H Creatinine 1.84 H D Est Cr Clr Drug Dosing 56.7 eGFR 43.03 BUN/Creatinine Ratio 16.3 Glucose 136 H POC Glucose 112 H Estimat Average Glucose 203 Hemoglobin A1c 8.7 H Calcium 8.5 L Magnesium 2.0 Total Bilirubin 0.7 Direct Bilirubin TNP 0.2 AST TNP 78 H ALT 88 H Alkaline Phosphatase 51 Troponin I High Sens B-Natriuretic Peptide 712 H Total Protein 5.8 L Albumin 3.2 L Procalcitonin 04/18/25 04/18/25 04/18/25 11:08 11:33 14:06 WBC RBC Hgb Hct MCV MCH MCHC RDW Std Deviation RDW Coeff of Kt Plt Count MPV Immature Gran % (Auto) Neut % (Auto) Lymph % (Auto) [place] % (Auto) Eos % (Auto) Baso % (Auto) Neut # (Auto) Lymph # (Auto) [place] # (Auto) Eos # (Auto) Baso # (Auto) Immature Gran # (Auto) Sodium 135 L Potassium 4.5 Chloride 100 Carbon Dioxide 32 Anion Gap 3 BUN 31 H Creatinine 1.78 H Est Cr Clr Drug Dosing 56.4 eGFR 44.77 BUN/Creatinine Ratio 17.4 Glucose 138 H POC Glucose 131 H 76 Estimat Average Glucose Hemoglobin A1c Calcium 8.7 Magnesium Total Bilirubin Direct Bilirubin AST ALT Alkaline Phosphatase Troponin I High Sens B-Natriuretic Peptide Total Protein Albumin Procalcitonin 0.12 04/18/25 04/18/25 04/18/25 14:45 16:18 20:28 WBC RBC Hgb Hct MCV MCH MCHC RDW Std Deviation RDW Coeff of Kt Plt Count MPV Immature Gran % (Auto) Neut % (Auto) Lymph % (Auto) Trinity % (Auto) Eos % (Auto) Baso % (Auto) Neut # (Auto) Lymph # (Auto) [place] # (Auto) Eos # (Auto) Baso # (Auto) Immature Gran # (Auto) Sodium Potassium Chloride Carbon Dioxide Anion Gap BUN Creatinine Est Cr Clr Drug Dosing eGFR BUN/Creatinine Ratio Glucose POC Glucose 91 90 51 L* Estimat Average Glucose Hemoglobin A1c Calcium Magnesium Total Bilirubin Direct Bilirubin AST ALT Alkaline Phosphatase Troponin I High Sens B-Natriuretic Peptide Total Protein Albumin Procalcitonin 04/18/25 04/19/25 04/19/25 21:02 05:28 07:21 WBC RBC Hgb Hct MCV MCH MCHC RDW Std Deviation RDW Coeff of Kt Plt Count MPV Immature Gran % (Auto) Neut % (Auto) Lymph % (Auto) [place] % (Auto) Eos % (Auto) Baso % (Auto) Neut # (Auto) Lymph # (Auto) [place] # (Auto) Eos # (Auto) Baso # (Auto) Immature Gran # (Auto) Sodium 138 Potassium 4.2 Chloride 98 Carbon Dioxide 32 Anion Gap 8 BUN 36 H Creatinine 1.91 H Est Cr Clr Drug Dosing 48.5 eGFR 41.14 BUN/Creatinine Ratio 18.8 Glucose 99 POC Glucose 76 94 Estimat Average Glucose Hemoglobin A1c Calcium 8.9 Magnesium Total Bilirubin Direct Bilirubin AST ALT Alkaline Phosphatase Troponin I High Sens B-Natriuretic Peptide Total Protein Albumin Procalcitonin Diagnostic Findings Chest X-Ray 04/18/25 08:54 XR chest 1V portable CLINICAL HISTORY: Dyspnea COMPARISON STUDY: 04/17/2025 FINDINGS: Stable cardiomegaly without pulmonary vascular congestion. There is interval patchy opacity at the right lung base. No other consolidation or pleural effusion. No pneumothorax. IMPRESSION: Early pneumonia right lung base. ACT 112: Negative or not required by law. Electronically signed by: Matthew Velasquez M.D. 04/18/2025 9:41 AM PG Care Time/CCT Total # of Minutes Spent Total Time Spent with Patient: Total time spent is greater than 50% in coordination of care (as documented) at patient's floor/unit and/or counseling patient: Coding Level of Care Code 14231 INT INP/OBS CARE 2/55MIN Diagnoses Abdominal pain R10.9 Chest pain R07.9 Gall stones K80.20
[2025-04-19 10:52] VITALS: RESP 17
--- NOTE | 2025-04-19 12:05 | Hospitalist Progress Note ---
Date of Service April 19, 2025 Assessment & Plan (1) Chest pain: Plan: 54-year-old male with past medical history significant for CAD, nonischemic cardiomyopathy EF 20 to 25%, on LifeVest, type 2 diabetes, GERD, TBI, gallstones, gastric ulcers presents with chest pain. Patient states since last night having chest pain which progressively got worse and came to the ER. States pain is pressure-like feeling. Also having some shortness of breath. Having sweating. Denies any cough. No fevers. Has mild headache. No blurred vision. No runny nose or sore throat. No abdominal pain. Normal bowel and bladder movements. States ambulating okay. Patient had couple of admissions recent past for acute calculus cholecystitis. Last admission was last month. Was treated with IV antibiotics. Surgery recommended outpatient follow-up with tertiary care for elective lap cholecystectomy. Seems patient has not followed up. Last admission patient also was having hyperkalemia. Was started on torsemide. Jardiance, Entresto and Aldactone were stopped for hyperkalemia. Jardiance was attempted to restart but patient declined complaining of medication making him dizzy. Cardiology thought patient likely not to be a candidate for spironolactone or SANJEEV inhibitor's or ARB's. Was advised for low sodium and low potassium diet. Patient followed up with [facility] cardiology on 04/16/2025. Per epic notes per cardiology patient was recently again admitted at [facility] in [place] for abdominal pain/chest pain. Found to be in acute CHF and treated with IV diuretics. Had congestive hepatopathy and SHIELA. SHIELA resolved with diuresis and LFTs also returned to baseline. Also at [facility] EGD done on 03/26/2025 which showed multiple nonbleeding gastric ulcers. It was recommended to continue PPI and [facility] Cardiology also gave prescriptions for beta-goldie Entresto and Lasix. He was encouraged [facility] and be evaluated for ICD placement. Today patient did not bring his medication list. He says he still on his same medications he was discharged from here. Says he is taking torsemide. He was not sure whether he was taking rosuvastatin or Lipitor. Chest pain DD: Peptic Ulcer/GERD H/O CAD:moderately severe diagonal branch stenosis not amendable to PCI with otherwise nonobstructive coronary artery disease via July 2024 diagnostic cardiac catheterization Medication noncompliance as per record Reports having chest pain while exercising and after eating broccoli/cauliflower --Troponin X3: Negative --ECHO: Mild concentric LVH. Severe global hypokinesis of left ventricle. EF 20 to 25%. Mildly dilated left and right ventricle. Right ventricular systolic function mildly reduced. Left atrium is mildly dilated. Mild mitral regurgitation. The left ventricular diastolic function is abnormal and consistent with elevated left ventricular filling pressures. Compared to prior echo in February, left ventricular ejection fraction is unchanged. -- Current EKG showed no signs of acute ischemia --Did not tolerate Aldactone, Jardiance in the past per cardiology --Continue aspirin, metoprolol, Crestor --Consideration for hydralazine/isosorbide as outpatient --Needs follow-up with cardiology on discharge --Continue PPI---increase to twice a day --Was to continue LifeVest --Needs follow-up with cardiology for ICD placement Suspected biliary colic Peptic ulcer disease/GERD Cholelithiasis Continue PPI Appreciate GI input Await for surgery Monitor LFTs Nonischemic cardiomyopathy Chronic systolic CHF EF 20 to 25%. On Live Vest. On metoprolol succinate and torsemide Jardiance, Entresto and spironolactone were stopped last admission for hyperkalemia Monitor for volume overload Appreciate cardiology input Cardiology advised [facility] the past DM II Uncontrolled diabetes mellitus Last HbA1c 10.9 Hold home insulin Continue insulin per protocol Monitor blood glucose levels Glycemic pharmacy consult Abnormal chest x-ray Suspected pneumonia Patient denies any cough No fever, leukocytosis Normal procalcitonin Monitor for now CKD III Monitor renal function Avoid nephrotoxic agents as able Hyperlipidemia continue statin Right lower extremity wound medial aspect of right lower calf Healing continue wound care History of TBI Monitor DVT prophylaxis Heparin SQ SCDs CODE STATUS Full code Admission and Anticipated Discharge Date Admission Date: April 18, 2025 Subjective Patient is seen and examined at bedside States having intermittent abdominal pain Denies any chest pain, dyspnea, nausea, vomiting, dysphagia Review of Systems Review of Systems: All systems reviewed & are unremarkable except as noted in Subjective Physical Exam Physical Exam: Physical Exam: Vitals signs as noted above General Appearance:overweight, no apparent distress Head: normocephalic, Atraumatic Eyes: normal inspection, EOMI Neck: supple, Trachea midline Respiratory/Chest: Normal breath sounds, CTA, No accessory muscle use Cardiovascular: S1, S2, + murmur Abdomen/GI:Soft, Non tender, Bowel sounds present Extremities/Musculoskeletal:normal inspection, 1+ LE edema Neurologic/Psych:AAOX3, grossly no focal neurological deficits Skin: normal color, warm Results & Data Results & Data Vital Signs (Past 12 Hours) Vital Signs Temp Pulse Resp BP Pulse Ox O2 Del Method O2 Del Method 04/19/25 10:51 36.3 C L 91 H 17 120/92 94 Room Air 04/19/25 09:00 Room Air 04/19/25 08:00 Room Air 04/19/25 06:48 36.3 C L 97 H 19 125/89 97 Room Air 04/19/25 04:23 36.5 C 95 H 18 130/87 96 Room Air Laboratory Results [facility] 04/19/25 05:28 Sodium 138 Potassium 4.2 Chloride 98 Carbon Dioxide 32 BUN 36 H Creatinine 1.91 H Glucose 99 Calcium 8.9
--- NOTE | 2025-04-19 12:25 | Surgery Consultation ---
Date of Consultation April 19, 2025 Assessment & Plan (1) Gall stones: I do suspect this is contributing to his issue. Currently no urgent or emergent indication for cholecystectomy. [facility] previously and recommended to have elective cholecystectomy at a tertiary center. He is currently eating a regular diet and having no symptoms whatsoever. I told him upon discharge he should contact his PCP and arrange for urgent referral to a tertiary center to discuss elective cholecystectomy. The patient understands. Please call me with any questions or concerns. (2) Tachycardia: (3) Acute dehydration: (4) Acute hyperglycemia: (5) DM type 2 (diabetes mellitus, type 2): (6) Nonischemic cardiomyopathy: (7) Acute on chronic heart failure with reduced ejection fraction (HFrEF, <= 40%): (8) Acute CHF: History of Present Illness Attending Physician: Gideon Steen MD History of Present Illness Patient seen. Has a known large gallstone which we think has been causing some symptoms for quite a while now. Currently here admitted with chest pain with cardiac workup being performed. Currently having no pain. He is sitting eating a large regular breakfast currently. No nausea Allergies Allergy/AdvReac Type Severity Reaction Status Date / Time tomato Allergy Severe Gastrointestinal Unverified 03/07/25 17:53 Upset lidocaine AdvReac Unknown Unknown Verified 03/07/25 17:29 Home Medications Medication Instructions Recorded Confirmed Type aspirin 81 mg tablet,delayed 81 mg PO DAILY 04/17/25 04/17/25 History release insulin NPH-regular 70-30 U-100 35 unit subcut BID 04/17/25 04/17/25 History insulin 100 unit/mL subcutaneous pen metoprolol succinate 25 mg 25 mg PO DAILY 04/17/25 04/17/25 History tablet,extended release 24 hr pantoprazole 40 mg tablet,delayed 40 mg PO DAILY 04/17/25 04/17/25 History release rosuvastatin 5 mg tablet 5 mg PO DAILY 04/17/25 04/17/25 History torsemide 20 mg tablet 40 mg PO QAM 04/17/25 04/17/25 History Patient History Medical History TBI (traumatic brain injury) No pertinent family history Family History Mother Diabetes Social History Smoking Status: Never smoker Second Hand Exposure: No; Do You Dip or Chew Tobacco: No; Tobacco Cessation Education Requested by Patient: No Hx Alcohol Use: No Hx Substance Use: No Preferred Language: Arabic Communication Ability: Effective Lease Examiner Required: No Beliefs That Will Affect Care: None marital status: Single Current Living Situation: Alone current occupational status: employed Other Information That Helps Us Care for You: No Feels Safe at Home: Yes Safety Concerns: Feels Safe At This Time Assistive Devices: None Assistive Devices Comment: life vest with patient Physical Exam Constitutional: WD/WN, vitals as above no acute distress and not ill appearing Eyes: PERRL, conjunctivae normal, anicteric sclerae EOM intact bilaterally ENMT: external ear and nose normal, oropharynx normal Ears: no hearing impairment Neck: trachea midline, no thyromegaly Respiratory: normal respiratory effort; no respiratory distress and does not use accessory muscles Cardiovascular: Rate/Rhythm: regular rate and regular rhythm Gastrointestinal (Abdomen): normal bowel sounds, soft, nontender, no hepatosplenomegaly Skin: no rashes, warm and dry Psychiatric: Orientation: alert, oriented x 3 and cooperative Results & Data Vital Signs (Past 12 Hours) Vital Signs Temp Pulse Resp BP Pulse Ox O2 Del Method O2 Del Method 04/19/25 10:51 36.3 C L 91 H 17 120/92 94 Room Air 04/19/25 09:00 Room Air 04/19/25 08:00 Room Air 04/19/25 06:48 36.3 C L 97 H 19 125/89 97 Room Air 04/19/25 04:23 36.5 C 95 H 18 130/87 96 Room Air PG Care Time/CCT Total # of Minutes Spent Total Time Spent with Patient: Total time spent is greater than 50% in coordination of care (as documented) at patient's floor/unit and/or counseling patient: Coding Level of Care Code 54250 IN/OBS CONSULT LVL 2,35M Diagnoses Gall stones K80.20 Tachycardia R00.0 Acute dehydration E86.0 Acute hyperglycemia R73.9 Type 2 diabetes mellitus with other specified complication, with long-term current use of insulin E11.69; Z79.4 Diabetes mellitus termite control servicer insulin use: with residential use Diabetes mellitus complication status: with other specified complication Nonischemic cardiomyopathy I42.8 Acute on chronic heart failure with reduced ejection fraction (HFrEF, <= 40%) I50.23 Acute CHF I50.9 (5) DM type 2 (diabetes mellitus, type 2) Diabetes mellitus residential insulin use: with termite control servicer use Diabetes mellitus complication status: with other specified complication Qualified Code(s): E11.69 - Type 2 diabetes mellitus with other specified complication; Z79.4 - termite control servicer (current) use of insulin
--- NOTE | 2025-04-19 13:36 | Discharge Summary ---
Date of Service April 19, 2025 Admission HPI Per Admitting Provider 54-year-old male with past medical history significant for CAD, nonischemic cardiomyopathy EF 20 to 25%, on LifeVest, type 2 diabetes, GERD, TBI, gallstones, gastric ulcers presents with chest pain. Patient states since last night having chest pain which progressively got worse and came to the ER. States pain is pressure-like feeling. Also having some shortness of breath. Having sweating. Denies any cough. No fevers. Has mild headache. No blurred vision. No runny nose or sore throat. No abdominal pain. Normal bowel and bladder movements. States ambulating okay. Patient had couple of admissions recent past for acute calculus cholecystitis. Last admission was last month. Was treated with IV antibiotics. Surgery recommended outpatient follow-up with tertiary care for elective lap cholecystectomy. Seems patient has not followed up. Last admission patient also was having hyperkalemia. Was started on torsemide. Jardiance, Entresto and Aldactone were stopped for hyperkalemia. Jardiance was attempted to restart but patient declined complaining of medication making him dizzy. Cardiology thought patient likely not to be a candidate for spironolactone or SANJEEV inhibitor's or ARB's. Was advised for low sodium and low potassium diet. Patient followed up with [facility] cardiology on 04/16/2025. Per epic notes per cardiology patient was recently again admitted at [facility] in [place] for abdominal pain/chest pain. Found to be in acute CHF and treated with IV diuretics. Had congestive hepatopathy and SHIELA. SHIELA resolved with diuresis and LFTs also returned to baseline. Also at [facility] EGD done on 03/26/2025 which showed multiple nonbleeding gastric ulcers. It was recommended to continue PPI and [facility] Cardiology also gave prescriptions for beta-goldie Entresto and Lasix. He was encouraged [facility] and be evaluated for ICD placement. Today patient did not bring his medication list. He says he still on his same medications he was discharged from here. Says he is taking torsemide. He was not sure whether he was taking rosuvastatin or Lipitor. Past medical history. As mentioned above. Past surgical history. No significant past surgical history. Social history. No alcohol use. No drug use. No smoking. Family history. Mother has diabetes. Admission Exam Per Admitting Provider General- Not in acute distress Head- atraumatic Eyes- PERRL. ENT- oropharynx clear Neck- supple, no JVD. Lungs- clear to auscultation no wheezing or crackles Heart- regular rhythm; no murmur, no gallop. Abdomen- normal bowel sounds, soft, nontender, no distension Extremities- no pretibial edema, wound on the right lower calf medial aspect healing Neuro- alert, oriented PERRL, no facial palsy; no dysarthria; moves extremities Principal Diagnosis Atypical chest pain Suspected biliary colic Nonischemic cardiomyopathy Peptic ulcer disease Discharge Data Allergies Allergy/AdvReac Type Severity Reaction Status Date / Time lidocaine AdvReac Unknown Unknown Verified 03/07/25 17:29 Consultations 04/17/25 06:18 ED Decision to Admit Stat 04/18/25 10:31 Consult Gastroenterology Routine 04/19/25 09:47 Consult General Surgery Routine Procedures Performed Laboratory Results WBC 5.73 K/ul (4.8-10.8) 04/18/25 05:13 RBC 5.43 M/uL (4.70-6.10) 04/18/25 05:13 Hgb 15.9 g/dl (14.0-18.0) 04/18/25 05:13 Hct 47.3 % (42.0-52.0) 04/18/25 05:13 MCV 87.1 fL (80.0-100.0) 04/18/25 05:13 MCH 29.3 pg (25.0-34.0) 04/18/25 05:13 MCHC 33.6 g/dL (32.0-36.0) 04/18/25 05:13 RDW Std Deviation 43.8 fL (36.4-46.3) 04/18/25 05:13 RDW Coeff of Kt 13.7 % (11.5-14.5) 04/18/25 05:13 Plt Count 168 K/uL (130-400) 04/18/25 05:13 MPV 10.7 fL (9.4-12.4) 04/18/25 05:13 Immature Gran % (Auto) 0.2 % 04/18/25 05:13 Neut % (Auto) 42.4 % 04/18/25 05:13 Lymph % (Auto) 41.9 % 04/18/25 05:13 [place] % (Auto) 12.7 % 04/18/25 05:13 Eos % (Auto) 2.3 % 04/18/25 05:13 Baso % (Auto) 0.5 % 04/18/25 05:13 Neut # (Auto) 2.43 K/uL (1.40-6.50) 04/18/25 05:13 Lymph # (Auto) 2.40 K/uL (1.20-3.40) 04/18/25 05:13 [place] # (Auto) 0.73 K/uL (0.11-0.59) H 04/18/25 05:13 Eos # (Auto) 0.13 K/uL (0.00-0.50) 04/18/25 05:13 Baso # (Auto) 0.03 K/uL (0.00-0.20) 04/18/25 05:13 Immature Gran # (Auto) 0.01 K/uL (0.01-0.20) 04/18/25 05:13 Sodium 138 mmol/L (136-145) 04/19/25 05:28 Potassium 4.2 mmol/L (3.5-5.1) 04/19/25 05:28 Chloride 98 mmol/L (98-107) 04/19/25 05:28 Carbon Dioxide 32 mmol/L (21-32) 04/19/25 05:28 Anion Gap 8 (3-11) 04/19/25 05:28 BUN 36 mg/dl (6-23) H 04/19/25 05:28 Creatinine 1.91 mg/dl (0.6-1.4) H 04/19/25 05:28 Est Cr Clr Drug Dosing 48.5 ml/min 04/19/25 05:28 eGFR 41.14 04/19/25 05:28 BUN/Creatinine Ratio 18.8 (10-20) 04/19/25 05:28 Glucose 99 mg/dl (70-99(Fasting)) 04/19/25 05:28 POC Glucose 135 mg/dl (70-99) H 04/19/25 11:23 Estimat Average Glucose 203 mg/dl 04/18/25 05:13 Hemoglobin A1c 8.7 % (4.5-5.6) H 04/18/25 05:13 Calcium 8.9 mg/dl (8.6-10.3) 04/19/25 05:28 Magnesium 2.0 mg/dl (1.7-2.4) 04/18/25 05:13 Total Bilirubin 0.7 mg/dl (0.2-1.0) 04/18/25 05:13 Direct Bilirubin 0.2 mg/dl (0-0.2) 04/18/25 06:29 AST 78 U/L (13-39) H 04/18/25 06:29 ALT 88 U/L (7-52) H 04/18/25 05:13 Alkaline Phosphatase 51 U/L (34-104) 04/18/25 05:13 Troponin I High Sens 15.8 pg/ml (0-20) 04/17/25 23:51 B-Natriuretic Peptide 712 pg/ml (0-100) H 04/18/25 05:13 Total Protein 5.8 gm/dl (6.0-8.3) L 04/18/25 05:13 Albumin 3.2 gm/dl (3.4-5.0) L 04/18/25 05:13 Globulin 2.8 gm/dl (2.5-4.0) 04/17/25 05:13 Albumin/Globulin Ratio 1.1 (0.9-2) 04/17/25 05:13 Lipase 38 U/L (11-82) 04/17/25 05:13 Procalcitonin 0.12 ng/ml (0-0.5) 04/18/25 11:08 Impressions Chest X-Ray 04/18/25 08:54 XR chest 1V portable CLINICAL HISTORY: Dyspnea COMPARISON STUDY: 04/17/2025 FINDINGS: Stable cardiomegaly without pulmonary vascular congestion. There is interval patchy opacity at the right lung base. No other consolidation or pleural effusion. No pneumothorax. IMPRESSION: Early pneumonia right lung base. ACT 112: Negative or not required by law. Electronically signed by: Matthew Velasquez M.D. 04/18/2025 9:41 AM Hospital Course (1) Chest pain: 54-year-old male with past medical history significant for CAD, nonischemic cardiomyopathy EF 20 to 25%, on LifeVest, type 2 diabetes, GERD, TBI, gallstones, gastric ulcers presents with chest pain. Patient states since last night having chest pain which progressively got worse and came to the ER. States pain is pressure-like feeling. Also having some shortness of breath. Having sweating. Denies any cough. No fevers. Has mild headache. No blurred vision. No runny nose or sore throat. No abdominal pain. Normal bowel and bladder movements. States ambulating okay. Patient had couple of admissions recent past for acute calculus cholecystitis. Last admission was last month. Was treated with IV antibiotics. Surgery recommended outpatient follow-up with tertiary care for elective lap cholecystectomy. Seems patient has not followed up. Last admission patient also was having hyperkalemia. Was started on torsemide. Jardiance, Entresto and Aldactone were stopped for hyperkalemia. Jardiance was attempted to restart but patient declined complaining of medication making him dizzy. Cardiology thought patient likely not to be a candidate for spironolactone or SANJEEV inhibitor's or ARB's. Was advised for low sodium and low potassium diet. Patient followed up with [facility] cardiology on 04/16/2025. Per epic notes per cardiology patient was recently again admitted at [facility] in [place] for abdominal pain/chest pain. Found to be in acute CHF and treated with IV diuretics. Had congestive hepatopathy and SHIELA. SHIELA resolved with diuresis and LFTs also returned to baseline. Also at [facility] EGD done on 03/26/2025 which showed multiple nonbleeding gastric ulcers. It was recommended to continue PPI and 3 [facility] Cardiology also gave prescriptions for beta-goldie Entresto and Lasix. He was encouraged [facility] and be evaluated for ICD placement. Today patient did not bring his medication list. He says he still on his same medications he was discharged from here. Says he is taking torsemide. He was not sure whether he was taking rosuvastatin or Lipitor. Chest pain DD: Peptic Ulcer/GERD H/O CAD:moderately severe diagonal branch stenosis not amendable to PCI with otherwise nonobstructive coronary artery disease via July 2024 diagnostic cardiac catheterization Medication noncompliance as per record Reports having chest pain while exercising and after eating broccoli/cauliflower --Troponin X3: Negative --ECHO: Mild concentric LVH. Severe global hypokinesis of left ventricle. EF 20 to 25%. Mildly dilated left and right ventricle. Right ventricular systolic function mildly reduced. Left atrium is mildly dilated. Mild mitral regurgitation. The left ventricular diastolic function is abnormal and consistent with elevated left ventricular filling pressures. Compared to prior echo in February, left ventricular ejection fraction is unchanged. -- Current EKG showed no signs of acute ischemia --Did not tolerate Aldactone, Jardiance in the past per cardiology --Continue aspirin, metoprolol, Crestor --Consideration for hydralazine/isosorbide as outpatient --Needs follow-up with cardiology on discharge --Continue PPI---increase to twice a day --Was to continue LifeVest --Needs follow-up with cardiology for ICD placement Suspected biliary colic Peptic ulcer disease/GERD Cholelithiasis Continue PPI Appreciate GI input Await for surgery Monitor LFTs Nonischemic cardiomyopathy Chronic systolic CHF EF 20 to 25%. On Live Vest. On metoprolol succinate and torsemide Jardiance, Entresto and spironolactone were stopped last admission for hyperkalemia Monitor for volume overload Appreciate cardiology input Cardiology advised [facility] in the past DM II Uncontrolled diabetes mellitus Last HbA1c 10.9 Hold home insulin Continue insulin per protocol Monitor blood glucose levels Glycemic pharmacy consult Abnormal chest x-ray Suspected pneumonia Patient denies any cough No fever, leukocytosis Normal procalcitonin Monitor for now CKD III Monitor renal function Avoid nephrotoxic agents as able Hyperlipidemia continue statin Right lower extremity wound medial aspect of right lower calf Healing continue wound care History of TBI Monitor DVT prophylaxis Heparin SQ SCDs CODE STATUS Full code Total Time Total Time Spent Total Time Spent (In Minutes): 54 minutes Discharge Plan Discharge Items Patient Disposition: Home - Self-Care Reason For Visit: Chest Pain Discharge Diagnosis: Atypical chest pain Suspected biliary colic Nonischemic cardiomyopathy Peptic ulcer disease Condition on Discharge: Good Activity: Per Instructions section Exercise/Sports: Wait until after follow-up appointment Non-emergency contact: Primary Care Provider, Surgeon, Geology Teacher and Manager Utilization Call non-emergency contact if: you have any medication questions, your symptoms worsen, your pain is concerning for you and you have a fever Follow-up/Referrals: Pilar Elena CRNP [Primary Care Provider] - Diet: Carb Consistent or DM2 and Heart Healthy Addtl Attending Provider Instructions: --upon discharge, pt should contact his pcp and arrange for referral to a tertiary center for elective laparoscopic cholecystectomy. Add Metal Burrer Provider Instructions: --Follow-up with your primary care physician in 1 week --Follow-up with your surgeon for elective laparoscopic cholecystectomy as recommended --Follow-up with your tire recapping machine operator in 1 week as advised --Follow-up with your commercial diver for further management of peptic ulcer disease --Start taking Protonix 40 mg twice a day -- Take medications regularly, continue to use LifeVest and follow-up with your appointments as advised Seek immediate medical attention if your symptoms reoccur or worsen Please review medication list provided on discharge for any medication changes as instructed. Please call if you have any questions or problems. You can reach a [facility] hospitalist on duty at [facility] 24 hours a day by calling [phone] Pending Studies at Discharge: No Stand-Alone Forms: My [facility], Smoking Cessation Medications and DC Order Prescriptions: New sucralfate [Carafate] 1 gram tablet 1 g PO ACHS 10 Days Qty: 40 0RF Continued torsemide 20 mg Tablet 40 mg PO QAM aspirin [Aspir-81] 81 mg Tablet,Delayed Release (Dr/Ec) 81 mg PO DAILY metoprolol succinate 25 mg Tablet Extended Release 24 Hr 25 mg PO DAILY rosuvastatin 5 mg Tablet 5 mg PO DAILY insulin NPH and regular human 100 unit/mL (70-30) Insulin Pen 35 unit SUBCUT BID Changed pantoprazole 40 mg tablet,delayed release (DR/EC) 40 mg PO BID Qty: 60 0RF Discharge Orders: Discharge Order (Routine); Ordered 04/19/25 Ordered By: Gideon Stern/Other Patient Handouts: Managing Type 2 Diabetes Admission Data Admit Date/Time: 04/18/25 14:24 Attending Provider: Gideon Steen Admit Provider: Sixto Harding Primary Care Provider: Pilar Elena Other Providers: Sixto Harding; Conrad Kirkpatrick; Jason Montano; Celeste Gomez; Brianne Mukherjee; Leah Ni; Marcia Morgan; Doug Fisher; Gemma Paul; Berta Cerda; Simone Maldonado S; Yulia Cai; Marcelina Thayer; Rochelle Ladd; Cathy Lynch; Dorothy Song; Baldemar Ellington; Po Chong; Sera Tamayo; Jose A Alcocer Jr; Tavo Apodaca; Arun Ventura; Jordy Roberto; Jani Cabezas; Eva Lemon; Todd Guadarrama I; Meredith Correa; Giovanni Teran; Weston Villegas; Rosales Vaz; Kristian Way; Jag Wilkerson; Jose M Clemente; Amy Paul; Gallo Diane; Rosales Carbone; Pilar Ford; Celeste Rivera; Dale Ferguson Jr; Kwame Iyer; Berry Mora; Cathy Rodriguez
[2025-04-19 15:49] VITALS: BP 111/81; PULSE 91; TEMP 97.9; O2SAT 99
--- NOTE | 2025-04-20 06:36 | Electrocardiogram Report ---
Test Reason : Blood Pressure : */* mmHG Vent. Rate : 94 BPM Atrial Rate : 94 BPM P-R Int : 172 ms QRS Dur : 78 ms QT Int : 380 ms P-R-T Axes : 71 -25 31 degrees QTcB Int : 475 ms Sinus rhythm with occasional Premature ventricular complexes Possible Left atrial enlargement Nonspecific T wave abnormality When compared with ECG of 17-Apr-2025 05:15, No significant change was found Confirmed by Ivan Jenkins ([id number]) on 04/20/2025 6:36:26 AM Referred By: REFERRED SELF Confirmed By: Ivan Jenkins
--- NOTE | 2025-04-20 06:37 | Electrocardiogram Report ---
Test Reason : Blood Pressure : */* mmHG Vent. Rate : 99 BPM Atrial Rate : 99 BPM P-R Int : 174 ms QRS Dur : 80 ms QT Int : 362 ms P-R-T Axes : 74 -43 55 degrees QTcB Int : 464 ms Sinus rhythm with occasional Premature ventricular complexes Possible Left atrial enlargement Left axis deviation Nonspecific T wave abnormality Abnormal ECG When compared with ECG of 18-Apr-2025 05:45, No significant change was found Confirmed by Ivan Jenkins ([id number]) on 04/20/2025 6:36:56 AM Referred By: REFERRED SELF Confirmed By: Ivan Jenkins
--- NOTE | 2025-04-20 06:37 | Electrocardiogram Report ---
Test Reason : Blood Pressure : */* mmHG Vent. Rate : 96 BPM Atrial Rate : 96 BPM P-R Int : 178 ms QRS Dur : 88 ms QT Int : 376 ms P-R-T Axes : 72 -39 44 degrees QTcB Int : 475 ms Sinus rhythm with occasional Premature ventricular complexes Possible Left atrial enlargement Left axis deviation Nonspecific T wave abnormality Abnormal ECG When compared with ECG of 18-Apr-2025 08:58, No significant change was found Confirmed by Ivan Jenkins ([id number] on 04/20/2025 6:37:35 AM Referred By: REFERRED SELF Confirmed By: Ivan Jenkins
== END 2025-04-19 17:01 | disposition home or self-care (01) | DRG 444 ==
LOC: 2S 05:10 → ED 05:10 → 2S 09:27

== ENCOUNTER 2025-04-29 00:14 | Inpatient (IN) ==
--- NOTE | 2025-04-29 00:32 | Emergency Department Note ---
Impression & Plan Chest pain, Dyspnea, Hypoglycemia ED Provider Note ED Provider Note NAME: FINN GONZALEZ AGE:54 SEX: Male : 1970 ARRIVES VIA: EMS INFORMANT: Patient ED PROVIDER(s): Jessica Anders DO CHIEF COMPLAINT: chest pain, shortness of breath HPI: This is a 54-year-old male brought in by EMS due to concern for chest pain and shortness of breath. Patient states symptoms began around 7 PM. Patient states he was not doing anything exertional at the time. He states the chest pain is central and nonradiating. Patient states he also feels lightheaded and nauseated. Patient states he has had similar prior episodes and does have significant cardiac history. Patient does wear a LifeVest and has so for the last 2 years. Patient denies any prior heart attack. Patient denies any recent fevers, chills, or illness. He states he is taking his medications as prescribed. No recent change in activity. PAST MEDICAL HISTORY:See Below PAST SURGICAL HISTORY:See Below FAMILY HISTORY:See Below SOCIAL HISTORY:See Below HOME MEDICATIONS:See Below ALLERGIES:See Below VITALS:See Below PHYSICAL EXAMINATION: GENERAL: alert, well appearing, well nourished, no distress, non-toxic EYE EXAM: normal conjunctiva, PERRL and EOM's grossly intact OROPHARYNX: no exudate, no erythema, lips, buccal mucosa, and tongue normal and mucous membranes are moist NECK: supple, no nuchal rigidity, no adenopathy, non-tender LUNGS: Clear to auscultation. Normal chest wall mechanics, no w/r/r HEART: no murmurs, S1 normal and S2 normal, mildly reproducible pain with palpation over the central sternum, LifeVest present ABDOMEN: abdomen soft, non-tender, normo-active bowel sounds, no masses, no rebound or guarding. SKIN: no rashes, petechiae, orbruising UPPER EXTREMITIES: upper extremities are grossly normal. FROM, nml pulses b/l. LOWER EXTREMITIES: No pitting edema. FROM, nml pulses b/l. NEURO EXAM: Normal sensorium, cranial nerves II-XII grossly intact, normal speech, no facial droop,nogross weakness of arms, no gross weakness of legs. Gross sensation intact. No ataxia. Vital Signs: reviewed and remarkable Differential Diagnosis: acute coronary syndrome, pericarditis, pulmonary embolus, aortic dissection, pneumonia, pneumothorax, musculoskeletal pain, shingles, GERD, GI bleed, as well as others were considered MEDICAL DECISION MAKING: This is a 54-year-old male who presents emergency department due to concern for chest pain and shortness of breath. Patient with extensive cardiac history, known decreased ejection fraction, and does wear a LifeVest. Patient was afebrile and his vital signs were stable. Labs were drawn and sent, IV established, EKG and chest x-ray performed at bedside and interpreted by me and the patient was monitored on telemetry. Patient given additional nitro, IV Tylenol, and IV morphine for pain with improvement. He did complain of an atypical headache which she states is different than prior episodes that he has had related to nitroglycerin so CT head was performed additionally. Patient's labs revealed a negative troponin and no obvious EKG changes were noted however his BNP was elevated similar to his prior episode which did require admission. Patient's hypoglycemia improved here after D50 and was stable following this upon further rechecks. Patient denies any dietary indiscretions and states he is taking his torsemide daily as prescribed. He has not noted any increased lower extremity edema or worsening cough. Patient monitored and continued to feel improved, repeat troponin drawn and sent and was still negative. Given complicated cardiac history, case discussed with on-call cardiology who recommended further inpatient evaluation and management. Case discussed with the hospitalist team. Consultation(s): 0657: Discussed with Dr. Mei, cardiology, via tiger text regarding the patient's condition. 0730: Discussed with Tony Rsoen hospitalist team, for additional evaluation and mgmt. ER Treatment Provided: See below Diagnostics Interpreted By Me: -ECG: Sinus tachycardia at 111, leftward axis, normal intervals, nonspecific ST/T wave changes -Cardiac Monitoring: An order was placed for continuous cardiac monitoring. The monitor shows a rate of 90 with normal sinus rhythm. -Laboratory studies: As stated above and show below. -Imaging studies: X-ray Chest: A single view study of the chest was reviewed and was negative for cardiomegaly, focal infiltrate, effusion, pulmonary edema, or wide mediastinum. Triage Nursing Note Reviewed Prior/Outside Records Reviewed -discharge summary from April 19 reviewed, recent echo reviewed Past Med/Surg History Problem List (Updated 04/30/25 @ 00:07 by Background Daemon) Chronic heart failure with reduced ejection fraction and diastolic dysfunction Palpitations Hypoglycemia (Acute) Dyspnea (Acute) Chest pain (Acute) Abdominal pain Noncompliance NYHA Class III cardiovascular function Chest pain Atypical chest pain (Acute) CKD (chronic kidney disease) stage 3, GFR 30-59 ml/min Hyperkalemia Non-occlusive coronary artery disease Open wound, lower leg Possible urinary tract infection Acute calculous cholecystitis Abdominal pain (Acute) Dyslipidemia, goal LDL below 70 HTN, goal below 130/80 ASCVD (arteriosclerotic cardiovascular disease) Gall stones (Acute) Tachycardia (Acute) Acute dehydration (Acute) Acute hyperglycemia (Acute) RUQ abdominal pain (Acute) Wound of right lower extremity DM type 2 (diabetes mellitus, type 2) Nonischemic cardiomyopathy Acute on chronic heart failure with reduced ejection fraction (HFrEF, <= 40%) Hypomagnesemia (Acute) Transaminitis (Acute) Acute CHF (Acute) Abdominal pain (Acute) Chest pain (Acute) Hyperkalemia Acute heart failure with reduced ejection fraction (HFrEF, <= 40%) Acute upper abdominal pain (Acute) Cholelithiasis (Acute) Elevated LFTs (Acute) Pleural effusion (Acute) Elevated troponin (Acute) COVID-19 (Acute) Tinnitus of both ears Diabetic peripheral neuropathy Dizziness Ataxia (Acute) No significant past surgical history (Chronic) GERD (gastroesophageal reflux disease) (Chronic) Type 2 diabetes mellitus (Chronic) Abdominal pain (Acute) Dehydration (Acute) Nausea (Acute) New onset type 2 diabetes mellitus (Acute) Medical History Peptic ulcer disease TBI (traumatic brain injury) No pertinent family history Family History Mother Diabetes Social History Smoking Status: Never smoker Second Hand Exposure: No; Do You Dip or Chew Tobacco: No; Tobacco Cessation Education Requested by Patient: No Hx Alcohol Use: Yes Alcohol type: wine Hx Substance Use: No Preferred Language: Monegasque Communication Ability: Effective Thread Dresser Required: No Beliefs That Will Affect Care: None marital status: Single Current Living Situation: Alone current occupational status: employed Other Information That Helps Us Care for You: No Feels Safe at Home: Yes Assistive Devices: None Allergies Allergies Allergy/AdvReac Type Severity Reaction Status Date / Time lidocaine AdvReac Unknown Unknown Verified 03/07/25 17:29 Home Meds Home Medications Medication Instructions Recorded Confirmed aspirin 81 mg tablet,delayed 81 mg PO DAILY 04/17/25 04/29/25 release insulin NPH-regular 70-30 U-100 35 unit subcut BID 04/17/25 04/29/25 insulin 100 unit/mL subcutaneous pen metoprolol succinate 25 mg 25 mg PO DAILY 04/17/25 04/29/25 tablet,extended release 24 hr rosuvastatin 5 mg tablet 5 mg PO DAILY 04/17/25 04/29/25 torsemide 20 mg tablet 40 mg PO QAM 04/17/25 04/29/25 Previous Rx's Medication Instructions Recorded pantoprazole 40 mg tablet,delayed 40 mg PO BID #60 tabs 04/19/25 release Results & Data (ED) Vital Signs Vital Signs - 24 hr 04/29/25 00:19 04/29/25 00:25 04/29/25 00:25 Temperature 36.6 C Temperature Source Oral Pulse Rate 111 H 112 H Pulse Rate [Right Finger] Pulse Rate from SpO2 Sensor Pulse Rhythm Regular Pulse Rhythm [Right Finger] Pulse Strength Normal Pulse Strength [Right Finger] Respiratory Rate 18 Respiratory Effort / Characteristics Non-Labored Spontaneous Respiratory Depth Normal Respiratory Pattern Regular Blood Pressure 134/107 H Blood Pressure [Right Arm] Blood Pressure Mean 116 Blood Pressure Mean [Right Arm] Blood Pressure Position Lying Blood Pressure Position [Right Arm] Pulse Oximetry 98 Oxygen Delivery Method Room Air Room Air Sepsis Recent Fever Within 48 Hours No Sepsis New/Unexplained Change in Mental Status N/A Sepsis Action Taken by Nursing No Action Required 04/29/25 00:25 04/29/25 02:11 04/29/25 02:54 Temperature Temperature Source Pulse Rate 93 H Pulse Rate [Right Finger] 102 H 103 H Pulse Rate from SpO2 Sensor 93 H Pulse Rhythm Pulse Rhythm [Right Finger] Regular Regular Pulse Strength Pulse Strength [Right Finger] Normal Normal Respiratory Rate 20 16 18 Respiratory Effort / Characteristics Non-Labored Spontaneous Non-Labored Spontaneous Respiratory Depth Normal Normal Respiratory Pattern Regular Regular Blood Pressure 117/94 Blood Pressure [Right Arm] 134/107 H 122/92 Blood Pressure Mean 101 Blood Pressure Mean [Right Arm] 116 102 Blood Pressure Position Blood Pressure Position [Right Arm] Lying Lying Pulse Oximetry 94 97 96 Oxygen Delivery Method Room Air Room Air Room Air Sepsis Recent Fever Within 48 Hours Sepsis New/Unexplained Change in Mental Status Sepsis Action Taken by Nursing 04/29/25 04:00 04/29/25 04:08 04/29/25 06:00 Temperature Temperature Source Pulse Rate 94 H Pulse Rate [Right Finger] 102 H 93 H Pulse Rate from SpO2 Sensor Pulse Rhythm Pulse Rhythm [Right Finger] Regular Pulse Strength Pulse Strength [Right Finger] Normal Respiratory Rate 21 20 Respiratory Effort / Characteristics Non-Labored Spontaneous Non-Labored Spontaneous Respiratory Depth Normal Normal Respiratory Pattern Regular Regular Blood Pressure Blood Pressure [Right Arm] 120/93 103/79 Blood Pressure Mean Blood Pressure Mean [Right Arm] 102 87 Blood Pressure Position Blood Pressure Position [Right Arm] Lying Lying Pulse Oximetry 97 99 Oxygen Delivery Method Room Air Room Air Sepsis Recent Fever Within 48 Hours Sepsis New/Unexplained Change in Mental Status Sepsis Action Taken by Nursing Laboratory Data 04/30/25 07:05 04/30/25 07:05 Lab Results 04/29/25 04/29/25 04/29/25 Range/Units 00:20 00:25 01:28 WBC 5.92 (4.8-10.8) K/ul RBC 5.47 (4.70-6.10) M/uL Hgb 15.6 (14.0-18.0) g/dl Hct 47.1 (42.0-52.0) % MCV 86.1 (80.0-100.0) fL MCH 28.5 (25.0-34.0) pg MCHC 33.1 (32.0-36.0) g/dL RDW Std Deviation 40.9 (36.4-46.3) fL RDW Coeff of Kt 13.1 (11.5-14.5) % Plt Count 188 (130-400) K/uL MPV 10.8 (9.4-12.4) fL Immature Gran % (Auto) 0.2 % Neut % (Auto) 54.0 % Lymph % (Auto) 34.1 % Mccone % (Auto) 10.0 % Eos % (Auto) 1.4 % Baso % (Auto) 0.3 % Neut # (Auto) 3.20 (1.40-6.50) K/uL Lymph # (Auto) 2.02 (1.20-3.40) K/uL Mccone # (Auto) 0.59 (0.11-0.59) K/uL Eos # (Auto) 0.08 (0.00-0.50) K/uL Baso # (Auto) 0.02 (0.00-0.20) K/uL Immature Gran # (Auto) 0.01 (0.01-0.20) K/uL PT 12.1 H (9.0-12.0) Seconds INR 1.1 (0.9-1.1) Sodium 138 (136-145) mmol/L Potassium 4.1 (3.5-5.1) mmol/L Chloride 104 (98-107) mmol/L Carbon Dioxide 27 (21-32) mmol/L Anion Gap 7 (3-11) BUN 22 (6-23) mg/dl Creatinine 1.16 (0.6-1.4) mg/dl Est Cr Clr Drug Dosing 86.9 ml/min eGFR 74.85 BUN/Creatinine Ratio 19.0 (10-20) Glucose 42 L* (70-99(Fasting)) mg/dl POC Glucose 43 L* 121 H (70-99) mg/dl Calcium 8.8 (8.6-10.3) mg/dl Magnesium 1.7 (1.7-2.4) mg/dl Total Bilirubin 0.4 (0.2-1.0) mg/dl AST 45 H (13-39) U/L ALT 40 (7-52) U/L Alkaline Phosphatase 64 (34-104) U/L Troponin I High Sens 9.9 (0-20) pg/ml B-Natriuretic Peptide 690 H (0-100) pg/ml Total Protein 6.2 (6.0-8.3) gm/dl Albumin 3.2 L (3.4-5.0) gm/dl Globulin 3.0 (2.5-4.0) gm/dl Albumin/Globulin Ratio 1.1 (0.9-2) Lipase 21 (11-82) U/L TSH 1.602 (0.300-4.500) uIu/ml 04/29/25 04/29/25 04/29/25 Range/Units 02:10 03:49 04:37 WBC (4.8-10.8) K/ul RBC (4.70-6.10) M/uL Hgb (14.0-18.0) g/dl Hct (42.0-52.0) % MCV (80.0-100.0) fL MCH (25.0-34.0) pg MCHC (32.0-36.0) g/dL RDW Std Deviation (36.4-46.3) fL RDW Coeff of Kt (11.5-14.5) % Plt Count (130-400) K/uL MPV (9.4-12.4) fL Immature Gran % (Auto) % Neut % (Auto) % Lymph % (Auto) % Mccone % (Auto) % Eos % (Auto) % Baso % (Auto) % Neut # (Auto) (1.40-6.50) K/uL Lymph # (Auto) (1.20-3.40) K/uL Mccone # (Auto) (0.11-0.59) K/uL Eos # (Auto) (0.00-0.50) K/uL Baso # (Auto) (0.00-0.20) K/uL Immature Gran # (Auto) (0.01-0.20) K/uL PT (9.0-12.0) Seconds INR (0.9-1.1) Sodium (136-145) mmol/L Potassium (3.5-5.1) mmol/L Chloride (98-107) mmol/L Carbon Dioxide (21-32) mmol/L Anion Gap (3-11) BUN (6-23) mg/dl Creatinine (0.6-1.4) mg/dl Est Cr Clr Drug Dosing ml/min eGFR BUN/Creatinine Ratio (10-20) Glucose (70-99(Fasting)) mg/dl POC Glucose 117 H 103 H (70-99) mg/dl Calcium (8.6-10.3) mg/dl Magnesium (1.7-2.4) mg/dl Total Bilirubin (0.2-1.0) mg/dl AST (13-39) U/L ALT (7-52) U/L Alkaline Phosphatase (34-104) U/L Troponin I High Sens 13.3 (0-20) pg/ml B-Natriuretic Peptide (0-100) pg/ml Total Protein (6.0-8.3) gm/dl Albumin (3.4-5.0) gm/dl Globulin (2.5-4.0) gm/dl Albumin/Globulin Ratio (0.9-2) Lipase (11-82) U/L TSH (0.300-4.500) uIu/ml 04/29/25 04/29/25 04/29/25 Range/Units 05:00 06:09 07:14 WBC (4.8-10.8) K/ul RBC (4.70-6.10) M/uL Hgb (14.0-18.0) g/dl Hct (42.0-52.0) % MCV (80.0-100.0) fL MCH (25.0-34.0) pg MCHC (32.0-36.0) g/dL RDW Std Deviation (36.4-46.3) fL RDW Coeff of Kt (11.5-14.5) % Plt Count (130-400) K/uL MPV (9.4-12.4) fL Immature Gran % (Auto) % Neut % (Auto) % Lymph % (Auto) % Mccone % (Auto) % Eos % (Auto) % Baso % (Auto) % Neut # (Auto) (1.40-6.50) K/uL Lymph # (Auto) (1.20-3.40) K/uL Mccone # (Auto) (0.11-0.59) K/uL Eos # (Auto) (0.00-0.50) K/uL Baso # (Auto) (0.00-0.20) K/uL Immature Gran # (Auto) (0.01-0.20) K/uL PT (9.0-12.0) Seconds INR (0.9-1.1) Sodium (136-145) mmol/L Potassium (3.5-5.1) mmol/L Chloride (98-107) mmol/L Carbon Dioxide (21-32) mmol/L Anion Gap (3-11) BUN (6-23) mg/dl Creatinine (0.6-1.4) mg/dl Est Cr Clr Drug Dosing ml/min eGFR BUN/Creatinine Ratio (10-20) Glucose (70-99(Fasting)) mg/dl POC Glucose 141 H 175 H 178 H (70-99) mg/dl Calcium (8.6-10.3) mg/dl Magnesium (1.7-2.4) mg/dl Total Bilirubin (0.2-1.0) mg/dl AST (13-39) U/L ALT (7-52) U/L Alkaline Phosphatase (34-104) U/L Troponin I High Sens (0-20) pg/ml B-Natriuretic Peptide (0-100) pg/ml Total Protein (6.0-8.3) gm/dl Albumin (3.4-5.0) gm/dl Globulin (2.5-4.0) gm/dl Albumin/Globulin Ratio (0.9-2) Lipase (11-82) U/L TSH (0.300-4.500) uIu/ml Administered Medications Acetaminophen (Acetaminophen 325 Mg Tab) 650 mg PO Q4H PRN PRN Reason: Pain or Fever Stop: 05/29/25 08:58 Last Admin: 04/30/25 03:42 Dose: 650 mg Documented By: ROBBY Al Hydrox/Mg Hydrox/Simethicone (Aluminum/Magnesium Susp 30 Ml Udc) 15 ml PO Q4H PRN PRN Reason: Dyspepsia Stop: 05/29/25 08:58 Last Admin: 04/29/25 18:54 Dose: 15 ml Documented By: Aspirin (Aspirin 81 Mg Ectab) 81 mg PO QAM COUNTS INCLUDE 234 BEDS AT THE [facility] Stop: 05/29/25 12:44 Last Admin: 04/29/25 13:08 Dose: 81 mg Documented By: ABRAHAM Heparin Sodium (Porcine) (Heparin Sod 5,000 Unit/0.5 Ml Vial) 5,000 units SQ Q8 COUNTS INCLUDE 234 BEDS AT THE [facility] Stop: 05/29/25 21:59 Last Admin: 04/30/25 06:14 Dose: 5,000 units Documented By: Admin: 04/29/25 21:18 Dose: 5,000 units Documented By: ROBBY Insulin Aspart (Insulin Aspart Per Unit Charge) 0 units SC ACHS COUNTS INCLUDE 234 BEDS AT THE [facility] Stop: 05/29/25 08:44 Last Admin: 04/29/25 21:17 Dose: Not Given Documented By: Admin: 04/29/25 17:00 Dose: 1 units Documented By: ABRAHAM Co-signed By: PETRA Admin: 04/29/25 11:09 Dose: Not Given Documented By: Admin: 04/29/25 09:10 Dose: 1 units Documented By: ABRAHAM Co-signed By: PK Metoprolol Succinate (Metoprolol Succ 25mg Ext Rel Tab) 25 mg PO QAM COUNTS INCLUDE 234 BEDS AT THE [facility] Stop: 05/29/25 12:44 Last Admin: 04/29/25 13:08 Dose: 25 mg Documented By: ABRAHAM Pantoprazole Sodium (Pantoprazole 40 Mg Tab) 40 mg PO BID COUNTS INCLUDE 234 BEDS AT THE [facility] Stop: 05/29/25 09:59 Last Admin: 04/29/25 21:17 Dose: 40 mg Documented By: Admin: 04/29/25 10:55 Dose: 40 mg Documented By: ABRAHAM Rosuvastatin Calcium (Rosuvastatin Calcium 5 Mg Tab) 5 mg PO QPM COUNTS INCLUDE 234 BEDS AT THE [facility] Stop: 05/29/25 20:59 Last Admin: 04/29/25 21:17 Dose: 5 mg Documented By: ROBBY Sucralfate (Sucralfate 1 Gm/10 Ml Udc) 1 gm PO QID COUNTS INCLUDE 234 BEDS AT THE [facility] Stop: 05/29/25 12:59 Last Admin: 04/29/25 21:18 Dose: 1 gm Documented By: Admin: 04/29/25 17:01 Dose: 1 gm Documented By: Admin: 04/29/25 13:08 Dose: 1 gm Documented By: ABRAHAM Discontinued Medications Dextrose (Dextrose 50% 50 Ml Syringe) 50 ml IV NOW ONE Stop: 04/29/25 00:29 Last Admin: 04/29/25 00:35 Dose: 50 ml Documented By: KELLEE Famotidine (Pepcid 20mg Iv Push) 20 mg in 5 mls @ 2.5 mls/min IV NOW STA Stop: 04/29/25 00:26 Last Admin: 04/29/25 00:36 Dose: 2.5 mls/min Documented By: KELLEE Acetaminophen (Ofirmev) 1,000 mg in 100 mls @ 400 mls/hr IV NOW STA Stop: 04/29/25 00:39 Last Infusion: 04/29/25 02:47 Dose: Infused Documented By: Admin: 04/29/25 00:36 Dose: 400 mls/hr Documented By: KELLEE Pantoprazole Sodium (Protonix) 40 mg in 10 mls @ 5 mls/min IV NOW ONE Stop: 04/29/25 00:30 Last Admin: 04/29/25 00:43 Dose: 5 mls/min Documented By: KELLEE Magnesium Sulfate/Dextrose (Magnesium Sulfate / D5w) 1 gm in 100 mls @ 100 mls/hr IV NOW STA Stop: 04/29/25 03:46 Last Infusion: 04/29/25 03:53 Dose: Infused Documented By: Admin: 04/29/25 02:53 Dose: 100 mls/hr Documented By: YANELI Morphine Sulfate (Morphine Sulfate 4 Mg/Ml 1 Ml Carp\Vial) 4 mg IV NOW STA Stop: 04/29/25 00:26 Last Admin: 04/29/25 00:42 Dose: 4 mg Documented By: KELLEE Ondansetron HCl (Ondansetron Inj 2 Mg/Ml 2 Ml Vial) 4 mg IV NOW STA Stop: 04/29/25 00:26 Last Admin: 04/29/25 00:36 Dose: 4 mg Documented By: KELLEE Imaging Data Radiologist's Impression: Chest X-Ray 04/29/25 00:25 EXAM: XR chest 1V portable CLINICAL HISTORY: CP, sob. TECHNIQUE: An X-ray image of the chest is obtained in AP projection. COMPARISON: 04/17/2025 FINDINGS: Pulmonary Parenchyma: Lungs are clear bilaterally. No evidence of consolidation, collapse, or focal opacities. No pulmonary nodules are identified. Right costophrenic angle appears mildly blunted- possible minimal pleural effusion Heart and Mediastinum: Heart size and shape are normal. No mediastinal widening or masses. No hilar or mediastinal lymphadenopathy. Bony Thorax: Bony thorax appears intact without fractures or deformities. Soft Tissues: Soft tissues overlying the chest wall are unremarkable. Chest leads and wires are seen in anterior chest wall. IMPRESSION: 1. Right costophrenic angle appears mildly blunted- possible minimal pleural effusion. interval regression compared to the last study. 2. No other new interval abnormality since the prior study. Electronically signed by David Garcia 04-29-2025 01:[address] 04/29/25 03:44 EXAM: CT head/brain wo con CLINICAL HISTORY: atypical headache TECHNIQUE: Multiple axial images are obtained from the skull base to the vertex without contrast. CT scan was performed according to ALARA (as low as reasonable achievable). COMPARISON: oct 00:58:00 MANAGER MORTGAGE FINDINGS: No evidence of space occupying lesion, hemorrhage, edema, mass effect, midline shift, extra axial collection, or hydrocephalus is noted. Basal cisterns are symmetric and normal in size and configuration. There are scattered periventricular hypodensities as can be seen with chronic microvascular ischemic changes. The howell-white matter differentiation is preserved. Visualized paranasal sinuses and mastoid air cells are well aerated. Orbital contents are within normal limits. Bony structures are intact. IMPRESSION: 1. No evidence of acute intracranial abnormality is demonstrated. 2. Chronic microvascular ischemic changes.-stable. No other new interval abnormality since prior study. Electronically signed by Edilson Powell 04-29-2025 04:55 AM Discharge Plan Visit Data Chief Complaint: Cardiac Assessment Stated Complaint: CHEST PAIN, WEAKNESS ED Provider: Jessica Anders Discharge Problem: Chest pain, Dyspnea, Hypoglycemia Patient Disposition: Admitted As Inpatient Condition: Fair Discharge Instructions Interventions: ED Discharge Assessment Last Done: 04/29/25 08:45 Discharge Problem: Chest pain Qualifiers: Chest pain type: unspecified Qualified Code(s): R07.9 - Chest pain, unspecified
[2025-04-29] MEDS: DEXTROSE 50% 50 ML SYRINGE IV ONE (00:35)
[2025-04-29] MEDS: FAMOTIDINE 20MG IV PUSH 20 MG/5 ML SYR IV STA (00:36)
[2025-04-29] MEDS: ACETAMINOPHEN 1,000 MG/100 ML VIAL IV STA (00:36)
[2025-04-29] MEDS: ONDANSETRON INJ 2 MG/ML 2 ML VIAL IV STA (00:36)
[2025-04-29] MEDS: MoRPHine SULFATE 4 MG/ML 1 ML CARP\\VIAL IV STA (00:42)
[2025-04-29] MEDS: PANTOprazole 40 MG/10 ML SYR IV ONE (00:43)
[2025-04-29 00:58] LABS: Hematocrit (blood only) 47.1 % (42.0-52.0); Hemoglobin 15.6 g/dl (14.0-18.0); Immature Granulocytes # (auto) 0.01 K/uL (0.01-0.20); Immature Granulocytes % (auto) 0.2 %; Mean Corpuscular Hemoglobin 28.5 pg (25.0-34.0); Mean Corpuscular Volume 86.1 fL (80.0-100.0); Platelet Count 188 K/uL (130-400); RDW Standard Deviation 40.9 fL (36.4-46.3); Red Blood Count 5.47 M/uL (4.70-6.10); White Blood Count 5.92 K/ul (4.8-10.8)
[2025-04-29 01:22] LABS: Alanine Aminotransferase 40.0 U/L (7-52); Albumin Globulin Ratio 1.1 (0.9-2); Alkaline Phosphatase 64.0 U/L (34-104); Anion Gap 7.0 (3-11); Bilirubin,Total 0.4 mg/dl (0.2-1.0); Blood Urea Nitrogen 22.0 mg/dl (6-23); Calcium 8.8 mg/dl (8.6-10.3); Carbon Dioxide 27.0 mmol/L (21-32); Chloride 104.0 mmol/L (98-107); Creatinine Clr Calc Pharmacy 86.9 ml/min; Globulin 3.0 gm/dl (2.5-4.0); Glucose 42.0 mg/dl (70-99(Fasting)); Lipase 21.0 U/L (11-82); Magnesium 1.7 mg/dl (1.7-2.4); Potassium 4.1 mmol/L (3.5-5.1); Sodium 138.0 mmol/L (136-145); Total Protein 6.2 gm/dl (6.0-8.3)
[2025-04-29 01:27] LABS: INR 1.1 (0.9-1.1); Prothrombin Time 12.1 Seconds (9.0-12.0)
[2025-04-29 01:35] LABS: Thyroid Stimulating Hormone 1.602 uIu/ml (0.300-4.500)
--- NOTE | 2025-04-29 01:47 | XRay Report ---
EXAM: XR chest 1V portable CLINICAL HISTORY: CP, sob. TECHNIQUE: An X-ray image of the chest is obtained in AP projection. COMPARISON: 04/17/2025 FINDINGS: Pulmonary Parenchyma: Lungs are clear bilaterally. No evidence of consolidation, collapse, or focal opacities. No pulmonary nodules are identified. Right costophrenic angle appears mildly blunted- possible minimal pleural effusion Heart and Mediastinum: Heart size and shape are normal. No mediastinal widening or masses. No hilar or mediastinal lymphadenopathy. Bony Thorax: Bony thorax appears intact without fractures or deformities. Soft Tissues: Soft tissues overlying the chest wall are unremarkable. Chest leads and wires are seen in anterior chest wall. IMPRESSION: 1. Right costophrenic angle appears mildly blunted- possible minimal pleural effusion. interval regression compared to the last study. 2. No other new interval abnormality since the prior study. Electronically signed by David Garcia 04-29-2025 01:47 AM
[2025-04-29] MEDS: MAGNESIUM SULFATE / D5W 1 GM/100 ML BAG IV STA (02:53)
--- NOTE | 2025-04-29 04:55 | CT Scan Report ---
EXAM: CT head/brain wo con CLINICAL HISTORY: atypical headache TECHNIQUE: Multiple axial images are obtained from the skull base to the vertex without contrast. CT scan was performed according to ALARA (as low as reasonable achievable). COMPARISON: oct 00:58:00 CHIROPRACTIC PHYSICIAN FINDINGS: No evidence of space occupying lesion, hemorrhage, edema, mass effect, midline shift, extra axial collection, or hydrocephalus is noted. Basal cisterns are symmetric and normal in size and configuration. There are scattered periventricular hypodensities as can be seen with chronic microvascular ischemic changes. The howell-white matter differentiation is preserved. Visualized paranasal sinuses and mastoid air cells are well aerated. Orbital contents are within normal limits. Bony structures are intact. IMPRESSION: 1. No evidence of acute intracranial abnormality is demonstrated. 2. Chronic microvascular ischemic changes.-stable. No other new interval abnormality since prior study. Electronically signed by Edilson Powell 04-29-2025 04:55 AM
[2025-04-29] MEDS ORDERED: PHARMACY GLYCEMIC MGMT CONSULT PRN (07:40)
--- NOTE | 2025-04-29 08:17 | History & Physical Report ---
Date of Service April 29, 2025 Assessment & Plan (1) Atypical chest pain: (2) Noncompliance: (3) Hypoglycemia: (4) Peptic ulcer disease: (5) Cholelithiasis: (6) Nonischemic cardiomyopathy: (7) DM type 2 (diabetes mellitus, type 2): (8) HTN, goal below 130/80: (9) Dyslipidemia, goal LDL below 70: Plan This is a 54yo M with PMH of CAD, nonischemic cardiomyopathy EF 20-25% on LifeVest, DM II, GERD, TBI, gallstones, gastric ulcers presents with chest pain. Multiple admissions for atypical CP this year in setting of PUD and suspected biliary colic. During admission 2 weeks ago * Recommended by gen surg to follow up for cholecystectomy eval at tertiary care center. Cardiology recommending follow up for ICD placement. GI recommending Protonix 40mg BID. * Has not followed up with PCP or gen surg Atypical chest pain / epigastric pain In setting of known history of peptic ulcer disease, suspected biliary colic and non-ischemic cardiomyopathy H/O CAD:moderately severe diagonal branch stenosis not amendable to PCI with otherwise nonobstructive coronary artery disease via July 2024 diagnostic cardiac catheterization Medication noncompliance as per record Reports having chest pain while exercising and after eating, similar to adm ission 2 weeks ago Cardiac work up - -Troponin negative x pending ECHO from 03/2025: Mild concentric LVH. Severe global hypokinesis of left ventricle. EF 20-25%. Mildly dilated left and right ventricle. Right ventricular systolic function mildly reduced. Left atrium is mildly dilated. Mild mitral regurgitation. The left ventricular diastolic function is abnormal and consistent with elevated left ventricular filling pressures. Compared to prior echo in February, left ventricular ejection fraction is unchanged. -- Current ECG showed no signs of acute ischemia ---Cardiology will try to request information from [employer] from last evening to verify no arrhythmias at time of event. Recommend f/u with cards for ICD placement Nonischemic cardiomyopathy -Recent 2D echo as above -Previously intolerant of SANJEEV/ARB/ARNI due to hyperkalemia. Jardiance contributed to dizziness -Continue Toprol, Crestor, Torsemide. Resume aspirin 81mg, which patient had stopped taking at home -Did follow up with cardiology in March - recommended to see EP to discuss future ICD implant, but it was felt his gallbladder needed to be removed first Peptic ulcer disease Continue protonix 40mg BID GI consulted - recommend trial of Carafate Suspected biliary colic Noted on multiple admissions this year - per gen surgery eval 2 weeks ago, recommending cholecystectomy evaluation at a tertiary care center given complex cardiac hx No indication for transfer as LFTs wnl, no change to abdominal sx Hypoglycemia DM II Uncontrolled diabetes mellitus Last HbA1c 10.9 Current regimen 35u NPH BID BSG 42 on admission, given D50 and improved to 120 Glycemic consult for outpatient mgmt recs given hypoglycemic episode BSG ACHS CKD III Monitor renal function Avoid nephrotoxic agents as able Hyperlipidemia Continue statin Right lower extremity wound Medial aspect of right lower calf, healing History of TBI Seems to be at baseline. Question underlying judgement and ability to coordinate complex outpatient mgmt - will try to contact family / PCP at [place] DVT prophylaxis: Heparin SQ CODE STATUS: Full code PCP: FRANCISCO in [place] Dispo: Obs PCU, likely discharge in AM Patient seen in collaboration with Dr. Steen. Please see addendum. I spent a total of 75 minutes coordinating, documenting, and providing care for this patient excluding time spent in the performance of separately billed services or time spent by another provider/QHP. History of Present Illness Chief Complaint: CP Primary Care Provider: RON Mckeon This is a 54yo M with PMH of CAD, nonischemic cardiomyopathy EF 20-25% on LifeVest, DM II, GERD, TBI, gallstones, gastric ulcers presents with chest pain. Was recently admitted for atypical CP felt to be due to PUD and suspected biliary colic. Also found to have low battery of life vest. Recommended by gen surg to follow up for cholecystectomy eval at tertiary care center. Cardiology recommending follow up for ICD placement. GI recommending Protonix 40mg BID. Has not yet followed up with providers at [place]. History of medication noncompliance. Has not tolerated aldactone or jardiance in the past per chart review of last a dmission. Patient reports he ate an egg salad sandwich last night and then decided to do some sit ups. Developed pressure in his chest/epigastrium during exercise and he stopped. Denies any associated SOB or nausea. Walked accross the street to a gas station to buy some water and felt dizzy in the parking lot and sat down. Camilla sweaty and like he may pass out, prompting a bystander to call EMS. Patient was brought to ED for further evaluation. Pain had resolved upon arrival but due to complex cardiac history, payroll professional medical oncology physician recommended patient come in for further evaluation. Patient did take his medications yesterday, including his 35 units of NPH in morning and evening before dinner. Has not been taking baby aspirin because he did not think he was supposed to. States he has been compliant with life vest. Echo from 04/17 with mild concentric LVH, severe global hypokinesis of left ventricle. EF 20-25%. Mildly dilated left and right ventricle. Right ventricular systolic function mildly reduced. Left atrium is mildly dilated. Mild mitral regurgitation. The left ventricular diastolic function is abnormal and consistent with elevated left ventricular filling pressures. Compared to prior echo in February, left ventricular ejection fraction is unchanged. Allergies Allergy/AdvReac Type Severity Reaction Status Date / Time lidocaine AdvReac Unknown Unknown Verified 03/07/25 17:29 Home Medications Medication Instructions Recorded Confirmed Type aspirin 81 mg tablet,delayed 81 mg PO DAILY 04/17/25 04/29/25 History release insulin NPH-regular 70-30 U-100 35 unit subcut BID 04/17/25 04/29/25 History insulin 100 unit/mL subcutaneous pen metoprolol succinate 25 mg 25 mg PO DAILY 04/17/25 04/29/25 History tablet,extended release 24 hr rosuvastatin 5 mg tablet 5 mg PO DAILY 04/17/25 04/29/25 History torsemide 20 mg tablet 40 mg PO QAM 04/17/25 04/29/25 History pantoprazole 40 mg tablet,delayed 40 mg PO BID #60 tabs 04/19/25 04/29/25 Rx release Past Med/Surg History Problem List Chronic heart failure with reduced ejection fraction and diastolic dysfunction Palpitations Hypoglycemia (Acute) Dyspnea (Acute) Chest pain (Acute) Abdominal pain Noncompliance NYHA Class III cardiovascular function Chest pain Atypical chest pain (Acute) CKD (chronic kidney disease) stage 3, GFR 30-59 ml/min Hyperkalemia Non-occlusive coronary artery disease Open wound, lower leg Possible urinary tract infection Acute calculous cholecystitis Abdominal pain (Acute) Dyslipidemia, goal LDL below 70 HTN, goal below 130/80 ASCVD (arteriosclerotic cardiovascular disease) Gall stones (Acute) Tachycardia (Acute) Acute dehydration (Acute) Acute hyperglycemia (Acute) RUQ abdominal pain (Acute) Wound of right lower extremity DM type 2 (diabetes mellitus, type 2) Nonischemic cardiomyopathy Acute on chronic heart failure with reduced ejection fraction (HFrEF, <= 40%) Hypomagnesemia (Acute) Transaminitis (Acute) Acute CHF (Acute) Abdominal pain (Acute) Chest pain (Acute) Hyperkalemia Acute heart failure with reduced ejection fraction (HFrEF, <= 40%) Acute upper abdominal pain (Acute) Cholelithiasis (Acute) Elevated LFTs (Acute) Pleural effusion (Acute) Elevated troponin (Acute) COVID-19 (Acute) Tinnitus of both ears Diabetic peripheral neuropathy Dizziness Ataxia (Acute) No significant past surgical history (Chronic) GERD (gastroesophageal reflux disease) (Chronic) Type 2 diabetes mellitus (Chronic) Abdominal pain (Acute) Dehydration (Acute) Nausea (Acute) New onset type 2 diabetes mellitus (Acute) Medical History Peptic ulcer disease TBI (traumatic brain injury) No pertinent family history Family History Mother Diabetes Social History Smoking Status: Never smoker Second Hand Exposure: No; Do You Dip or Chew Tobacco: No; Tobacco Cessation Education Requested by Patient: No Hx Alcohol Use: Yes Alcohol type: wine Hx Substance Use: No Preferred Language: Honduran Communication Ability: Effective Owner 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 Physical Exam Physical Exam: General Appearance: WD/WN, vitals as above, NAD, sitting up in bed, pleasant Head: normocephalic, atraumatic Eyes: normal inspection, PERRL, conjunctivae normal, anicteric sclerae ENT: external ear and nose normal, oropharynx normal Neck: normal visual inspection Respiratory: normal respiratory effort, lungs clear to auscultation, no wheeze, rales, rhonchi Cardiovascular: regular rate, rhythm, no murmur, normal peripheral pulses, no BLE edema Chest: normal inspection of chest Abdomen/GI: normal bowel sounds, soft, nontender, no hepatosplenomegaly Extremities/Musculoskeletal: no cyanosis or clubbing, extremities motor strength 5/5 Neurologic: PERRL, EOMI, accommodation nl, no face palsy, no dysarthria, CN's II-XI intact bilaterally and moves all extremities Psychiatric: A+Ox3, euthymic affect, + poor insight/judgement Skin: normal color, warm/dry Results & Data Results & Data Vital Signs (Past 12 Hours) Vital Signs Temp Pulse Pulse Resp BP BP Pulse Ox 04/29/25 07:43 129/99 04/29/25 07:42 96 H 19 98 04/29/25 06:00 93 H 20 103/79 99 04/29/25 04:08 94 H 04/29/25 04:00 102 H 21 120/93 97 04/29/25 02:54 93 H 18 117/94 96 04/29/25 02:11 103 H 16 122/92 97 04/29/25 00:25 102 H 20 134/107 H 94 04/29/25 00:25 04/29/25 00:25 36.6 C 112 H 18 134/107 H 98 04/29/25 00:19 111 H O2 Del Method 04/29/25 07:43 04/29/25 07:42 Room Air 04/29/25 06:00 Room Air 04/29/25 04:08 04/29/25 04:00 Room Air 04/29/25 02:54 Room Air 04/29/25 02:11 Room Air 04/29/25 00:25 Room Air 04/29/25 00:25 Room Air 04/29/25 00:25 Room Air 04/29/25 00:19 Laboratory Results Short CBC 04/29/25 Range/Units 00:25 WBC 5.92 (4.8-10.8) K/ul Hgb 15.6 (14.0-18.0) g/dl Hct 47.1 (42.0-52.0) % Plt Count 188 (130-400) K/uL BMP 04/29/25 00:25 Sodium 138 Potassium 4.1 Chloride 104 Carbon Dioxide 27 BUN 22 Creatinine 1.16 Glucose 42 L* Calcium 8.8 Liver Function 04/29/25 Range/Units 00:25 Total Bilirubin 0.4 (0.2-1.0) mg/dl AST 45 H (13-39) U/L ALT 40 (7-52) U/L Alkaline Phosphatase 64 (34-104) U/L Albumin 3.2 L (3.4-5.0) gm/dl Diagnostic Findings Chest X-Ray 04/29/25 00:25 EXAM: XR chest 1V portable CLINICAL HISTORY: CP, sob. TECHNIQUE: An X-ray image of the chest is obtained in AP projection. COMPARISON: 04/17/2025 FINDINGS: Pulmonary Parenchyma: Lungs are clear bilaterally. No evidence of consolidation, collapse, or focal opacities. No pulmonary nodules are identified. Right costophrenic angle appears mildly blunted- possible minimal pleural effusion Heart and Mediastinum: Heart size and shape are normal. No mediastinal widening or masses. No hilar or mediastinal lymphadenopathy. Bony Thorax: Bony thorax appears intact without fractures or deformities. Soft Tissues: Soft tissues overlying the chest wall are unremarkable. Chest leads and wires are seen in anterior chest wall. IMPRESSION: 1. Right costophrenic angle appears mildly blunted- possible minimal pleural effusion. interval regression compared to the last study. 2. No other new interval abnormality since the prior study. Electronically signed by David Garcia 04-29-2025 01:[address] 04/29/25 03:44 EXAM: CT head/brain wo con CLINICAL HISTORY: atypical headache TECHNIQUE: Multiple axial images are obtained from the skull base to the vertex without contrast. CT scan was performed according to ALARA (as low as reasonable achievable). COMPARISON: oct 00:58:00 ORDERLY FINDINGS: No evidence of space occupying lesion, hemorrhage, edema, mass effect, midline shift, extra axial collection, or hydrocephalus is noted. Basal cisterns are symmetric and normal in size and configuration. There are scattered periventricular hypodensities as can be seen with chronic microvascular ischemic changes. The howell-white matter differentiation is preserved. Visualized paranasal sinuses and mastoid air cells are well aerated. Orbital contents are within normal limits. Bony structures are intact. IMPRESSION: 1. No evidence of acute intracranial abnormality is demonstrated. 2. Chronic microvascular ischemic changes.-stable. No other new interval abnormality since prior study. Electronically signed by Edilson Powell 04-29-2025 04:55 AM ECG Additional Comments: sinus tachycardia with PVCs. No ST elevation Code Status & VTE Plan VTE Prophylaxis Plan VTE Prophylaxis will be ordered: Yes Supervising Physician Co-Signing Physician Notes Patient is a 54-year-old male with multiple comorbidities presents with history of chest pain while doing sit ups. He reports some associated shortness of breath, diaphoresis. Currently chest pain resolved. Please review HPI for complete details of presentation. He was found to be hypoglycemic. Patient has been noncompliant. His last EF is 20 to 25%. I personally reviewed blood work and imaging studies. Right pleural effusion on chest x-ray resolving. Noted PVCs on EKG. Glucose 42 on presentation. Troponins negative. Appreciate cardiology input. Physical Exam: Vitals signs as noted above General Appearance:overweight, no apparent distress Head: normocephalic, Atraumatic Eyes: normal inspection, EOMI Neck: supple, Trachea midline Respiratory/Chest: Normal breath sounds, CTA, No accessory muscle use Cardiovascular: S1, S2, + murmur Abdomen/GI:Soft, Non tender, Bowel sounds present Extremities/Musculoskeletal:normal inspection, 1+ LE edema Neurologic/Psych:AAOX3, grossly no focal neurological deficits Skin: normal color, warm Atypical chest pain Peptic ulcer disease Uncontrolled diabetes mellitus with hypoglycemic episodes PVCs Noncompliance Appreciate GI, cardiology input Continue PPI, Carafate Continue home cardiac medications Advised multiple times to avoid strenuous activity until further clearance from cardiology as outpatient Continue LifeVest No further cardiac intervention per cardiology Will monitor overnight and likely discharge home tomorrow Adjust insulin to prevent hypoglycemic episodes Glycemic pharmacist monitoring I personally interviewed and examined the patient at bedside. I have reviewed the advanced practitioner's documentation on the date of service referred in note and agree with plan. Patient's care is coordinated with Jessika Velázquez PA-C. Please refer to the documentation above for details of patient's presentation and for discussion of other issues. I spent a total [id number] coordinating, documenting, and providing care for this patient excluding time spent in the performance of separately billed services or time spent by another provider/QHP. (7) DM type 2 (diabetes mellitus, type 2) Diabetes mellitus complication status: with other specified complication Diabetes mellitus termite helper insulin use: with termite helper use Qualified Code(s): E11.69 - Type 2 diabetes mellitus with other specified complication; Z79.4 - correction (current) use of insulin
--- NOTE | 2025-04-29 08:33 | Pharmacy Report ---
Pharmacy Glycemic Short Note 2 - Date of Service April 29, 2025 - Glycemic Short BSG Results (Last 24 hours): 04/29/25 04/29/25 04/29/25 00:20 00:25 01:28 Glucose 42 L* POC Glucose 43 L* 121 H 04/29/25 04/29/25 04/29/25 02:10 03:49 05:00 Glucose POC Glucose 117 H 103 H 141 H 04/29/25 04/29/25 04/29/25 06:09 07:14 08:05 Glucose POC Glucose 175 H 178 H 172 H OUTPATIENT ANTIDIABETIC REGIMEN: * Novolin 70/30, 35 units SQ BID * HbA1c: 10.9% (03/08/25), down to 8.7% 04/18/25; noted to have overnight hypoglycemia ASSESSMENT: 04/29: * Mr Babb is a 54yo Type 2 diabetic admitted with chest pain, known to glycemic service from recent admission last month. * Pt is managed on 70/30 insulin as an outpt with noted hypoglycemia overnight. * SQ basal/bolus insulin will be initiated on admission using NPH for basal to match home basal insulin. * Cardio consult, diet not ordered yet, will wait to start basal insulin, euglycemic at this time. * Pharmacy will continue to follow and adjust regimen as indicated. PLAN FOR INPATIENT GLYCEMIC CONTROL: * Hold outpatient diabetes medications * Basal insulin * Insulin NPH 10 units SQ BIDM - will begin when diet begins * Bolus insulin * NovoLog per scale ACHS or Q6hrs while NPO * Goal Range: Low 110 mg/dL - High 140 mg/dL * Correction Factor: 25 mg/dL/unit * Nutritional / Prandial insulin per carb ratio of 1 unit per 8 grams CHO consumed
[2025-04-29] MEDS ORDERED: GLUCOSE 10 TAB/TUBE PO PRN (08:45)
[2025-04-29] MEDS ORDERED: GLUCOSE 40% GEL 15 GM TUBE PO PRN (08:45)
[2025-04-29] MEDS ORDERED: GLUCAGON FOR INJ 1 MG VIAL SQ PRN (08:45)
[2025-04-29] MEDS ORDERED: DEXTROSE 50% 50 ML SYRINGE IV PRN (08:45)
[2025-04-29] MEDS: INSULIN ASPART PER UNIT CHARGE SC SCH (09:10)
--- NOTE | 2025-04-29 10:00 | Gastrointestinal Consultation ---
Date of Consultation April 29, 2025 Assessment & Plan (1) Chest pain: Patient with a significant cardiovascular history, biliary colic, and PUD admitted with ongoing Chest pain. Scope done last month reportedly shown ulcers. - start protonix 40mg bid. - start carafate 1 gm qid. - no plans for endoscopic evaluation at this time. Supervising Physician Co-Signing Physician Notes I personally saw and examined the patient. I have reviewed the chart and agree with the documentation provided by the UNDERWATER HUNTER TRAPPER including discussion about the assessment, treatment and plan. Briefly, 54 year old male with a past medical history of CAD, nonischemic cardiomyopathy EF 20-25% on LifeVest, DM II, GERD, TBI, gallstones, gastric ulcers who presented to the ED 04/29/25 with chest pain. He was recently admitted for atypical chest pain that was felt to be due to PUD and suspected biliary colic. He was recommended by gen surg to follow up for cholecystectomy evaluation at a tertiary care center. Cardiology recommending follow up for ICD placement. GI recommended Protonix 40mg BID. He has not yet followed up with providers at [place]. Chart lists a history of medication noncompliance. EGD in the past month showed shallow gastric ulcers with gastritis. I would just treat him with PPI twice daily and Carafate. Supportive care. No role for endoscopy at this point. GI will sign off please call back with any questions. History of Present Illness Reason for Consultation: chest pain, PUD, history of biliary colic. Requesting Physician: Jessika GOLDSTEIN Attending Physician: Gideon Steen MD History of Present Illness Patient is a 54 year old male with a past medical history of CAD, nonischemic cardiomyopathy EF 20-25% on LifeVest, DM II, GERD, TBI, gallstones, gastric ulcers who presented to the ED 04/29/25 with chest pain. He was recently admitted for atypical chest pain that was felt to be due to PUD and suspected biliary colic. He was recommended by gen surg to follow up for cholecystectomy evaluatio n at a tertiary care center. Cardiology recommending follow up for ICD placement. GI recommended Protonix 40mg BID. He has not yet followed up with providers at [place]. Chart lists a history of medication noncompliance. He does feel like the chest pain that he has is worse with eating but he also feels like some of it is heart related. He also endorses a history of heart burn which he feels is benefited by folic acid. He reportedly had an EGD done last month showing nonbleeding gastric ulcers. the rest of the GI ros are unremarkable. 04/29/25 cbc unremarkable, INR 1.1, LFTs unremarkable except AST 45, lipase 21. Allergies Allergy/AdvReac Type Severity Reaction Status Date / Time lidocaine AdvReac Unknown Unknown Verified 03/07/25 17:29 Home Medications Medication Instructions Recorded Confirmed Type aspirin 81 mg tablet,delayed 81 mg PO DAILY 04/17/25 04/29/25 History release insulin NPH-regular 70-30 U-100 35 unit subcut BID 04/17/25 04/29/25 History insulin 100 unit/mL subcutaneous pen metoprolol succinate 25 mg 25 mg PO DAILY 04/17/25 04/29/25 History tablet,extended release 24 hr rosuvastatin 5 mg tablet 5 mg PO DAILY 04/17/25 04/29/25 History torsemide 20 mg tablet 40 mg PO QAM 04/17/25 04/29/25 History pantoprazole 40 mg tablet,delayed 40 mg PO BID #60 tabs 04/19/25 04/29/25 Rx release Patient History Medical History TBI (traumatic brain injury) No pertinent family history Family History Mother Diabetes Social History Smoking Status: Never smoker Second Hand Exposure: No; Do You Dip or Chew Tobacco: No; Tobacco Cessation Education Requested by Patient: No Hx Alcohol Use: Yes Alcohol type: wine Hx Substance Use: No Preferred Language: Divehi Communication Ability: Effective 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 Tunnel Elastic Operator Required: No Beliefs That Will Affect Care: None marital status: Single Current Living Situation: Alone current occupational status: employed Other Information That Helps Us Care for You: No Feels Safe at Home: Yes Assistive Devices: None Review of Systems Review of Systems: All systems reviewed & are unremarkable except as noted in HPI & below Physical Exam Constitutional: WD/WN, vitals as above Respiratory: normal respiratory effort, lungs clear to auscultation Cardiovascular: Rate/Rhythm: regular rate and regular rhythm Gastrointestinal (Abdomen): normal bowel sounds, soft, nontender, no hepatosplenomegaly Psychiatric: Orientation: alert and oriented x 3 Affect: euthymic affect Results & Data Vital Signs (Past 12 Hours) Vital Signs Temp Pulse Pulse Resp BP BP Pulse Ox 04/29/25 09:17 97.5 F L 103 H 16 130/80 99 04/29/25 09:12 104 H 04/29/25 08:56 97.5 F L 103 H 16 134/80 99 04/29/25 08:45 04/29/25 08:15 99 H 18 93 04/29/25 08:00 121/95 04/29/25 07:57 99 H 12 96 04/29/25 07:54 97 H 16 94 04/29/25 07:43 129/99 04/29/25 07:43 129/99 04/29/25 07:42 96 H 19 98 04/29/25 06:00 93 H 20 103/79 99 04/29/25 04:08 94 H 04/29/25 04:00 102 H 21 120/93 97 04/29/25 02:54 93 H 18 117/94 96 04/29/25 02:11 103 H 16 122/92 97 04/29/25 00:25 102 H 20 134/107 H 94 04/29/25 00:25 04/29/25 00:25 97.9 F 112 H 18 134/107 H 98 04/29/25 00:19 111 H O2 Del Method 04/29/25 09:17 Room Air 04/29/25 09:12 04/29/25 08:56 Room Air 04/29/25 08:45 Room Air 04/29/25 08:15 04/29/25 08:00 04/29/25 07:57 04/29/25 07:54 04/29/25 07:43 04/29/25 07:43 04/29/25 07:42 Room Air 04/29/25 06:00 Room Air 04/29/25 04:08 04/29/25 04:00 Room Air 04/29/25 02:54 Room Air 04/29/25 02:11 Room Air 04/29/25 00:25 Room Air 04/29/25 00:25 Room Air 04/29/25 00:25 Room Air 04/29/25 00:19 Coding Level of Care Code 86244 IN/OBS CONSULT LVL 4,60M Diagnoses Chest pain R07.9
--- NOTE | 2025-04-29 11:00 | Electrocardiogram Report ---
Test Reason : Blood Pressure : */* mmHG Vent. Rate : 111 BPM Atrial Rate : 111 BPM P-R Int : 170 ms QRS Dur : 82 ms QT Int : 334 ms P-R-T Axes : 80 -34 74 degrees QTcB Int : 454 ms Sinus tachycardia with occasional Premature ventricular complexes Left atrial enlargement Left axis deviation Poor R wave progression, consider anterior NM vs. lead placement vs. LVH Abnormal ECG Confirmed by Cyrus Barragan ([id number]) on 04/29/2025 10:59:55 AM Referred By: REFERRED SELF Confirmed By: Cyrus Barragan
--- NOTE | 2025-04-29 11:29 | Cardiology Consultation ---
Date of Consultation April 29, 2025 Assessment & Plan (1) Hypoglycemia: (2) Chest pain: (3) Palpitations: (4) Nonischemic cardiomyopathy: (5) Chronic heart failure with reduced ejection fraction and diastolic dysfunction: Plan Patient is a 54 year old male with history of non ischemic cardiomypathy, LVEF 25%, mild CAD per cath in 2023, chronic HFpEF and non compliance with meds and appointments. He presented to [facility] with complaints of atypical chest pain, palpitations, and diaphoresis and diagnosed with hypoglycemia. Found to be hypoglycemic by EMS and treated with glucose gel on route to ER. Glucose was 42 on arrival to ER. Symptoms improved as sugar improved. No recurrent chest pain or palpitations overnight. HS troponin negative x2 since admission EKG demonstrated sinus tachy with PVC's. No ischemic changes. Resume oral/home metoprolol succinate 25 mg daily. First dose now. Will try to request information from [employer] from last evening to verify no arrhythmias at time of event. Resume ASA 81 mg and rosuvastatin. No indication for repeat echo at this time. Last echo completed 04/17 during admission for atypical chest pain and LVEF was unchanged at 25% He currently appears euvolemic. Continue torsemide 40 mg daily (home dose) Recent admission for acute neelam and patient was to have f/u with Gen surgery as outpatient. Patient missed this appt. Was to be rescheduled at [facility]. Currently no significant abdominal pain. He also has long history of gastritis/GERD, likely contributing to his symptoms of chest pain in the post prandial period. PPI initiated as well. Patient previously intolerant of SANJEEV/ARB/ARNI due to hyperkalemia. Jardiance contributed to dizziness. After gallbladder is removed, further consideration of implantable ICD to be discussed. Case discussed with Dr. Kyle I spent a total of 70 minutes on the date of service in preparation, delivery, and documentation of the care provided to this patient, excluding any time spent in the performance of separately billed services. Karely Castro PA-C Department of Cardiology, [facility] This chart was completed in part utilizing Speech Voice Recognition Software. Grammatical errors, random word insertions, pronoun errors, and incomplete sentences are an occasional consequence of this system due to software limitations, ambient noise, and hardware issues. Any formal questions or concerns about the content, text, or information contained within the body of this dictation should be directly addressed to the provider for clarification. Supervising Physician Co-Signing Physician Notes Attending attestation: Case reviewed with the advanced practitioner. I have personally performed a history and physical examination on the patient. I have reviewed the advanced practitioner's documentation on the date of service referenced in note, and I agree with, and take responsibility for the plan of care. Subjective: Patient feeling well. No additional complaints. Exam: CV: regular rhythm, no murmurs, no edema Data: Cardiac catheterization performed 08/18/2024 with noted focal 30-40% mid LAD stenosis, 50 to 70% diagonal 1 stenosis (small vessel, too small for PCI). Impression/ Plan: Chronic heart failure with reduced ejection fraction, nonischemic cardiomyopathy Apparent presentation for symptomatic hypoglycemia. Patient will compensated from a cardiac perspective. Medication therapy for his nonischemic cardiomyopathy has been limited due to medication intolerance. Tentative plan is for reassessment by surgery, perhaps outpatient laparoscopic cholecystectomy at tertiary center given his cardiac history. Plan is for the patient to recover from laparoscopic cholecystectomy prior to implantation of AICD in an effort to reduce risk of seeding the device. No further cardiac testing indicated at present. I spent a total of 20 minutes coordinating, documenting, and providing care for this patient excluding time spent in the performance of separately billed services or time spent by another provider. Rell Kyle, History of Present Illness Reason for Consultation: atypical chest pain Requesting Physician: Tony hospitalist Attending Physician: Dr. Kyle History of Present Illness Patient is a 54 year old male known to [facility] cardiology, admitted for an episode of atypical chest pain, dizziness, palpitations. Symptoms began after patient ate an egg and cheese sandwich last evening, then began to "exercise" by doing multiple sit ups. Before dinner he recalls giving himself his insulin shot. During exercise, he began to have significant epigastric pain radiating to his chest. He decided to walk to the local [employer] to get a "cold water". On his walk, patient reports feeling palpitations and suddenly weak and diaphoretic. He sat down in the parking lot and bystanders called 911. When EMS arrived, apparently patient's glucose levels were very low and he was given glucose gel packets on way to ER. Upon arrival to ER, glucose was reported at 42 and still low but symptoms were improving. Chest pain, palpitations had already resolved. EKG demonstrating sinus tachycardia with PVC's. No ischemic changes. HS troponin negative x2 since admisison. He was recently admitted approx 1-2 weeks ago with atypical chest pain, similar setting after eating vegetables and then doing sit ups. Symptoms were thought to be probbable GERD/episgastric in natreu. PPI recommended. He had also been previously admitted to [facility] in February 2025 with abdominal pain, acute cholecystitis. Surgical intervention recommended at tertiary care center. Course complicated by volume overload. Patient was to have f/u with Gen surgery as an outpatient but failed to keep this appointment. he did keep his outpatient cardio f/u in 2024. He is to see EP to discuss future ICD implant, but it was felt his gallbladder needed to be removed first. He has a long history of non compliance with appts and medications. Still wearing external defib/life vest - [employer] ([facility] Patient reports he was wearing device last night but did not have a shock. SANJEEV/ARB/ARNI/spironolactone previously discontinued secondary to hyperkalemia. Jardiance previously discontinued due to dizziness. At time of consult, patient feeling well. Denies acute cardiac complaints. No chest pain or SOB. no orthopnea, PND or edema. He reports compliance with medications. He is slightly tachycardic but has not yet received AM metoprolol (not ordered on admission) Past Medical and Surgical History Nonischemic cardiomyopathy, LVEF 20 to 25%, NYHA Class III, Stage C. Narrow QRS duration. In sinus rhythm Coronary artery disease with moderately severe diagonal branch stenosis not amendable to PCI with otherwise nonobstructive coronary artery disease via July 2024 diagnostic cardiac catheterization Hypertension Dyslipidemia Type 2 diabetes mellitus with neuropathy GERD Gastric ulcers Cognitive disorder Chronic headaches History of traumatic brain injury Allergies Allergy/AdvReac Type Severity Reaction Status Date / Time lidocaine AdvReac Unknown Unknown Verified 03/07/25 17:29 Home Medications Medication Instructions Recorded Confirmed Type aspirin 81 mg tablet,delayed 81 mg PO DAILY 04/17/25 04/29/25 History release insulin NPH-regular 70-30 U-100 35 unit subcut BID 04/17/25 04/29/25 History insulin 100 unit/mL subcutaneous pen metoprolol succinate 25 mg 25 mg PO DAILY 04/17/25 04/29/25 History tablet,extended release 24 hr rosuvastatin 5 mg tablet 5 mg PO DAILY 04/17/25 04/29/25 History torsemide 20 mg tablet 40 mg PO QAM 04/17/25 04/29/25 History pantoprazole 40 mg tablet,delayed 40 mg PO BID #60 tabs 04/19/25 04/29/25 Rx release Patient History Medical History (Updated 04/29/25 @ 15:33 by Jessika Velázquez PA-C) Peptic ulcer disease TBI (traumatic brain injury) No pertinent family history Family History Mother Diabetes Social History Smoking Status: Never smoker Second Hand Exposure: No; Do You Dip or Chew Tobacco: No; Tobacco Cessation Education Requested by Patient: No Hx Alcohol Use: Yes Alcohol type: wine Hx Substance Use: No Preferred Language: Croatian Communication Ability: Effective Olive 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: No Beliefs That Will Affect Care: None marital status: Single Current Living Situation: Alone current occupational status: employed Other Information That Helps Us Care for You: No Feels Safe at Home: Yes Assistive Devices: None Review of Systems Review of Systems: All systems reviewed & are unremarkable except as noted in HPI & below Physical Exam Constitutional: WD/WN, vitals as above well developed; no acute distress Neck: trachea midline, no thyromegaly Respiratory: normal respiratory effort, lungs clear to auscultation Cardiovascular: Rate/Rhythm: regular rate and regular rhythm Heart Sounds: normal S1 and normal S2; no murmur Vessels: no JVD Extremities: no edema Gastrointestinal (Abdomen): normal bowel sounds, soft, nontender, no hepatosplenomegaly Musculoskeletal: no cyanosis or clubbing, extremities motor strength 5/5 Neurologic: PERRL, EOMI, accommodation nl, no face palsy, no dysarthria Psychiatric: A+Ox3, euthymic affect Results & Data Vital Signs (Past 12 Hours) Vital Signs Temp Pulse Pulse Resp BP BP Pulse Ox 04/29/25 11:02 36.3 C L 97 H 18 108/81 97 04/29/25 09:17 36.4 C L 103 H 16 130/80 99 04/29/25 09:12 104 H 04/29/25 08:56 36.4 C L 103 H 16 134/80 99 04/29/25 08:45 04/29/25 08:15 99 H 18 93 04/29/25 08:00 121/95 04/29/25 07:57 99 H 12 96 04/29/25 07:54 97 H 16 94 04/29/25 07:43 129/99 04/29/25 07:43 129/99 04/29/25 07:42 96 H 19 98 04/29/25 06:00 93 H 20 103/79 99 04/29/25 04:08 94 H 04/29/25 04:00 102 H 21 120/93 97 04/29/25 02:54 93 H 18 117/94 96 04/29/25 02:11 103 H 16 122/92 97 04/29/25 00:25 102 H 20 134/107 H 94 04/29/25 00:25 04/29/25 00:25 36.6 C 112 H 18 134/107 H 98 04/29/25 00:19 111 H O2 Del Method 04/29/25 11:02 Room Air 04/29/25 09:17 Room Air 04/29/25 09:12 04/29/25 08:56 Room Air 04/29/25 08:45 Room Air 04/29/25 08:15 04/29/25 08:00 04/29/25 07:57 04/29/25 07:54 04/29/25 07:43 04/29/25 07:43 04/29/25 07:42 Room Air 04/29/25 06:00 Room Air 04/29/25 04:08 04/29/25 04:00 Room Air 04/29/25 02:54 Room Air 04/29/25 02:11 Room Air 04/29/25 00:25 Room Air 04/29/25 00:25 Room Air 04/29/25 00:25 Room Air 04/29/25 00:19 Laboratory Results Cardiac Enzymes 04/29/25 04/29/25 Range/Units 00:25 04:37 AST 45 H (13-39) U/L Troponin I High Sens 9.9 13.3 (0-20) pg/ml B-Natriuretic Peptide 690 H (0-100) pg/ml Coagulation 04/29/25 Range/Units 00:25 PT 12.1 H (9.0-12.0) Seconds B-Natriuretic Peptide 690 H (0-100) pg/ml CBC 04/29/25 Range/Units 00:25 WBC 5.92 (4.8-10.8) K/ul RBC 5.47 (4.70-6.10) M/uL Hgb 15.6 (14.0-18.0) g/dl Hct 47.1 (42.0-52.0) % Plt Count 188 (130-400) K/uL Neut # (Auto) 3.20 (1.40-6.50) K/uL Lymph # (Auto) 2.02 (1.20-3.40) K/uL Nelson # (Auto) 0.59 (0.11-0.59) K/uL Eos # (Auto) 0.08 (0.00-0.50) K/uL Baso # (Auto) 0.02 (0.00-0.20) K/uL Comprehensive Metabolic Panel 04/29/25 Range/Units 00:25 Sodium 138 (136-145) mmol/L Potassium 4.1 (3.5-5.1) mmol/L Chloride 104 (98-107) mmol/L Carbon Dioxide 27 (21-32) mmol/L BUN 22 (6-23) mg/dl Creatinine 1.16 (0.6-1.4) mg/dl Glucose 42 L* (70-99(Fasting)) mg/dl Calcium 8.8 (8.6-10.3) mg/dl AST 45 H (13-39) U/L ALT 40 (7-52) U/L Alkaline Phosphatase 64 (34-104) U/L Total Protein 6.2 (6.0-8.3) gm/dl Albumin 3.2 L (3.4-5.0) gm/dl Intake and Output 04/28/25 04/29/25 04/29/25 22:59 06:59 14:59 Intake Total 200 / 200 Balance 200 / 200 Intake: IV 200 / 200 Acetaminophen 1,000 mg In 100 100 / 100 ml @ 400 mls/hr IV NOW STA Rx#: [id number] Magnesium Sulfate / D5w 1 gm In 100 / 100 100 ml @ 100 mls/hr IV NOW STA Rx#:[id number] Other: Weight 98.1 kg 98.1 kg Weight Measurement Method Built in Bedscale Standing Scale Patient Weight 04/30/25 06:59 Weight 98.1 kg Diagnostic Findings Telemetry reviewed: Sinus tachycardia in the 100's. Occ PVC's. No arrhythmias. EKG on arrival: Sinus tachycardia at 111 with occ PVC LAD No ischemic changes noted Chest X-Ray 04/29/25 00:25 IMPRESSION: 1. Right costophrenic angle appears mildly blunted- possible minimal pleural effusion. interval regression compared to the last study. 2. No other new interval abnormality since the prior study. Electronically signed by David Garcia 04-29-2025 01:[address] 04/29/25 03:44 IMPRESSION: 1. No evidence of acute intracranial abnormality is demonstrated. 2. Chronic microvascular ischemic changes.-stable. No other new interval abnormality since prior study. Electronically signed by Edilson Powell 04-29-2025 04:55 AM Prior echo report reviewed dated 04/17/25: LV is mildly dilated Mild concentric LVH Severe global hypokinesis of the LV LVEF 20-25% Mild MR Medications Administered Current Inpatient Medications Acetaminophen (Acetaminophen 325 Mg Tab) 650 mg PO Q4H PRN PRN Reason: Pain or Fever Stop: 05/29/25 08:58 Al Hydrox/Mg Hydrox/Simethicone (Aluminum/Magnesium Susp 30 Ml Udc) 15 ml PO Q4H PRN PRN Reason: Dyspepsia Stop: 05/29/25 08:58 Dextrose (Dextrose 50% 50 Ml Syringe) 25 - 50 ml IV UD PRN; Protocol PRN Reason: Hypoglycemia Protocol Stop: 05/29/25 08:44 Glucagon (Glucagon For Inj 1 Mg Vial) 1 mg SQ UD PRN; Protocol PRN Reason: Hypoglycemia Protocol Stop: 05/29/25 08:44 Glucose (Glucose 40% Gel 15 Gm Tube) 15 - 30 gm PO UD PRN; Protocol PRN Reason: Hypoglycemia Protocol Stop: 05/29/25 08:44 Glucose (Glucose 10 Tab/Tube) 4 - 8 tab PO UD PRN; Protocol PRN Reason: Hypoglycemia Protocol Stop: 05/29/25 08:44 Insulin Aspart (Insulin Aspart Per Unit Charge) 0 units SC ACHS ERIKA Stop: 05/29/25 08:44 Last Admin: 04/29/25 11:09 Dose: Not Given Melatonin (Melatonin 3 Mg Tab) 3 mg PO HS PRN PRN Reason: Sleep Stop: 05/29/25 08:58 Miscellaneous (Carbohydrates For Hypoglycemia ) 15 - 30 gm PO UD PRN PRN Reason: Hypoglycemia Treatment Stop: 05/29/25 08:44 Miscellaneous Information (Pharmacy Glycemic Mgmt Consult) 1 each N/A UD PRN; Protocol PRN Reason: Consult Stop: 05/29/25 07:39 Ondansetron HCl (Ondansetron Inj 2 Mg/Ml 2 Ml Vial) 4 mg IV Q6H PRN PRN Reason: Nausea Stop: 05/29/25 08:58 Pantoprazole Sodium (Pantoprazole 40 Mg Tab) 40 mg PO BID ERIKA Stop: 05/29/25 09:59 Last Admin: 04/29/25 10:55 Dose: 40 mg Sucralfate (Sucralfate 1 Gm/10 Ml Udc) 1 gm PO QID ERIKA Stop: 05/29/25 12:59 PG Care Time/CCT Total # of Minutes Spent Total Time Spent with Patient: Total time spent is greater than 50% in coordination of care (as documented) at patient's floor/unit and/or counseling patient: 70 Coding Level of Care Code 90968 OFFICE CONSULT LVL M Diagnoses Hypoglycemia E16.2 Chest pain, unspecified type R07.9 Chest pain type: unspecified Palpitations R00.2 Nonischemic cardiomyopathy I42.8 Chronic heart failure with reduced ejection fraction and diastolic dysfunction I50.42 Time Spent (min) 90 Comment 70 minutes by Myah Castro PA-C, [address] Kyle (2) Chest pain Chest pain type: unspecified Qualified Code(s): R07.9 - Chest pain, unspecified
[2025-04-29] MEDS: SUCRALFATE 1 GM/10 ML UDC PO SCH (13:08)
[2025-04-29] MEDS: METOPROLOL SUCC 25MG EXT REL TAB PO SCH (13:08)
[2025-04-29] MEDS: ASPIRIN 81 MG ECTAB PO SCH (13:08)
[2025-04-29] MEDS: ALUMINUM/MAGNESIUM SUSP 30 ML UDC PO PRN (18:54)
[2025-04-29] MEDS: ROSUVASTATIN CALCIUM 5 MG TAB PO SCH (21:17)
[2025-04-29] MEDS: HEPARIN SOD 5,000 UNIT/0.5 ML VIAL SQ SCH (21:18)
[2025-04-30] MEDS: ACETAMINOPHEN 325 MG TAB PO PRN (03:42)
[2025-04-30 07:40] LABS: Hematocrit (blood only) 51.9 % (42.0-52.0); Hemoglobin 16.7 g/dl (14.0-18.0); Mean Corpuscular Hemoglobin 29.1 pg (25.0-34.0); Mean Corpuscular Volume 90.6 fL (80.0-100.0); Platelet Count 168 K/uL (130-400); RDW Standard Deviation 44.7 fL (36.4-46.3); Red Blood Count 5.73 M/uL (4.70-6.10); White Blood Count 7.06 K/ul (4.8-10.8)
[2025-04-30 07:59] LABS: Anion Gap 5.0 (3-11); Blood Urea Nitrogen 34.0 mg/dl (6-23); Calcium 8.4 mg/dl (8.6-10.3); Carbon Dioxide 23.0 mmol/L (21-32); Chloride 107.0 mmol/L (98-107); Creatinine Clr Calc Pharmacy 60.8 ml/min; Glucose 105.0 mg/dl (70-99(Fasting)); Magnesium 1.9 mg/dl (1.7-2.4); Potassium 5.5 mmol/L (3.5-5.1); Sodium 135.0 mmol/L (136-145)
[2025-04-30] MEDS: TORSEMIDE 20 MG TAB PO SCH (08:24)
--- NOTE | 2025-04-30 08:35 | Hospitalist Progress Note ---
Date of Service April 30, 2025 Assessment & Plan (1) Atypical chest pain: (2) Noncompliance: (3) Hypoglycemia: (4) Peptic ulcer disease: (5) Cholelithiasis: (6) Nonischemic cardiomyopathy: (7) DM type 2 (diabetes mellitus, type 2): (8) HTN, goal below 130/80: (9) Dyslipidemia, goal LDL below 70: Plan This is a 54yo M with PMH of CAD, nonischemic cardiomyopathy EF 20-25% on LifeVest, DM II, GERD, TBI, gallstones, gastric ulcers presents with chest pain. Multiple admissions for atypical CP this year in setting of PUD and suspected biliary colic. During admission 2 weeks ago * Recommended by gen surg to follow up for cholecystectomy eval at tertiary care center. Cardiology recommending follow up for ICD placement. GI recommending Protonix 40mg BID. * Has not followed up with PCP or gen surg Atypical chest pain / epigastric pain In setting of known history of peptic ulcer disease, suspected biliary colic and non-ischemic cardiomyopathy H/O CAD:moderately severe diagonal branch stenosis not amendable to PCI with otherwise nonobstructive coronary artery disease via July 2024 diagnostic cardiac catheterization Medication noncompliance as per record Reports having chest pain while exercising and after eating, similar to admission 2 weeks ago Cardiac work up - -Troponin negative ECHO from 03/2025: Mild concentric LVH. Severe global hypokinesis of left ventricle. EF 20-25%. Mildly dilated left and right ventricle. Right ventricular systolic function mildly reduced. Left atrium is mildly dilated. Mild mitral regurgitation. The left ventricular diastolic function is abnormal and consistent with elevated left ventricular filling pressures. Compared to prior echo in February, left ventricular ejection fraction is unchanged. -- Cardiology will try to request information from [employer] from last evening to verify no arrhythmias at time of event. Recommend f/u with cards for ICD placement -- Continue aspirin 81 mg daily, rosuvastatin 5 mg daily, metoprolol succinate increased to 25 mg twice a day -Appreciate cardiology input -Needs follow-up with cardiology on discharge Hyperkalemia Insetting of CKD Received calcium gluconate Low K diet Also given a dose of [place] Monitor potassium levels Nonischemic cardiomyopathy -Recent 2D echo as above ---Intolerant to SANJEEV/ARB/ARNI due to hyperkalemia; reported dizziness with Jardiance use -Continue metoprolol succinate, Torsemide. -Did follow up with cardiology in March - recommended to see EP to discuss future ICD implant, but it was felt his gallbladder needed to be removed first Peptic ulcer disease Continue Protonix 40mg BID GI consulted - recommend trial of Carafate Tolerating current diet Suspected biliary colic Noted on multiple admissions this year - per gen surgery eval 2 weeks ago, recommending cholecystectomy evaluation at a tertiary care center given complex cardiac hx No indication for transfer as LFTs wnl, no change to abdominal sx Needs follow-up with surgery at tertiary care center for cholecystectomy Hypoglycemia DM II Uncontrolled diabetes mellitus Last HbA1c 8.7 Current regimen 35u NPH BID at home BSG 42 on admission, given D50 and improved to 120 Glycemic consult for outpatient mgmt recs given hypoglycemic episode BSG ACHS Currently not requiring much insulin while hospitalized Needs follow-up with PCP for adjusting his insulin CKD III Monitor renal function Avoid nephrotoxic agents as able Hyperlipidemia Continue statin Right lower extremity wound Medial aspect of right lower calf, healing History of TBI Seems to be at baseline. Question underlying judgement and ability to coordinate complex outpatient mgmt - will try to contact family / PCP at [place] DVT prophylaxis: Heparin SQ CODE STATUS: Full code PCP: [place] Admission and Anticipated Discharge Date Admission Date: April 29, 2025 Subjective Patient is seen and examined at bedside Denies any complaints of chest pain today Reported some discomfort of her abdomen to RN which seem to be resolved Denies any nausea, vomiting, dyspnea, dizziness No other complaints Review of Systems Review of Systems: All systems reviewed & are unremarkable except as noted in Subjective Physical Exam Physical Exam: Physical Exam: Vitals signs as noted above General Appearance:overweight, no apparent distress Head: normocephalic, Atraumatic Eyes: normal inspection, EOMI Neck: supple, Trachea midline Respiratory/Chest: Normal breath sounds, CTA, No accessory muscle use Cardiovascular: S1, S2, + murmur Abdomen/GI:Soft, Non tender, Bowel sounds present Extremities/Musculoskeletal:normal inspection, 1+ LE edema Neurologic/Psych:AAOX3, grossly no focal neurological deficits Skin: normal color, warm Results & Data Results & Data Vital Signs (Past 12 Hours) Vital Signs Temp Pulse Pulse Resp BP Pulse Ox O2 Del Method 04/30/25 07:33 36.4 C L 101 H 18 125/93 99 Room Air 04/30/25 03:04 36.6 C 101 H 20 115/88 95 Room Air 04/29/25 23:07 36.6 C 66 18 147/77 H 94 Room Air 04/29/25 22:02 91 H Laboratory Results Short CBC 04/30/25 Range/Units 07:05 WBC 7.06 (4.8-10.8) K/ul Hgb 16.7 (14.0-18.0) g/dl Hct 51.9 (42.0-52.0) % Plt Count 168 (130-400) K/uL BMP 04/30/25 07:05 Sodium 135 L Potassium 5.5 H D Chloride 107 Carbon Dioxide 23 BUN 34 H Creatinine 1.66 H D Glucose 105 H Calcium 8.4 L (7) DM type 2 (diabetes mellitus, type 2) Diabetes mellitus complication status: with other specified complication Diabetes mellitus mcc insulin use: with intermediate teacher use Qualified Code(s): E11.69 - Type 2 diabetes mellitus with other specified complication; 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
[2025-04-30] MEDS: FAMOTIDINE 20MG IV PUSH 20 MG/5 ML SYR IV ONE (10:58)
--- NOTE | 2025-04-30 11:11 | Cardiology Progress Note ---
Date of Service April 30, 2025 Assessment & Plan (1) Hypoglycemia: (2) Chest pain: (3) Palpitations: (4) Nonischemic cardiomyopathy: (5) Chronic heart failure with reduced ejection fraction and diastolic dysfunction: Plan 04/30/25 Patient is a 54 year old male with history of non ischemic cardiomypathy, LVEF 25%, mild CAD per cath in 2023, chronic HFpEF and non compliance with meds and appointments. He presented to [place] with complaints of atypical chest pain, palpitations, and diaphoresis and diagnosed with hypoglycemia. Found to be hypoglycemic by EMS and treated with glucose gel on route to ER. Glucose was 42 on arrival to ER. Symptoms improved as sugar improved. No recurrent chest pain or palpitations overnight. HS troponin negative x2 since admission EKG demonstrated sinus tachy with PVC's. No ischemic changes. Resume oral/home metoprolol succinate 25 mg daily. First dose now. Will try to request information from [employer] vest from last evening to verify no arrhythmias at time of event. Resume ASA 81 mg and rosuvastatin. No indication for repeat echo at this time. Last echo completed 04/17 during admission for atypical chest pain and LVEF was unchanged at 25% He currently appears euvolemic. Continue torsemide 40 mg daily (home dose) Recent admission for acute neelam and patient was to have f/u with Gen surgery as outpatient. Patient missed this appt. [facility] to be [place]ched[place] [facility] Currently no significant abdominal pain. He also has long history of gastritis/GERD, likely contributing to his symptoms of chest pain in the post prandial period. PPI initiated as well. Patient previously intolerant of SANJEEV/ARB/ARNI due to hyperkalemia. Jardiance contributed to dizziness. After gallbladder is removed, further consideration of implantable ICD to be discussed. 04/30/25: No recurrent chest pain or palpitations Nurse contacted [employer] rep and there were no arrhythmias the evening of 04/28 that would have correlated with his symptoms He has been mildly tachycardic since arrival. Increase metoprolol succinate to 25 mg BID Appears euvolemic. GDMT is limited due to hypotension, history of renal insufficiency and hyperkalemia. Potassium elevated this morning. Continue torsemide 40 mg daily No SANJEEV/ARB/ARNI. Avoid spironolactone. Consider Veltassa if potassium increases. He reports abdominal pain, with reported tenderness to palpation of the area. However he is able to move freely in the bed without symptoms. He has pain med seeking behavior this morning. Asking only for "max dose morphine". He is in no apparent distress upon evaluation. No nausea/vomiting/diarrhea. At this time, no further cardiac testing warranted. Will sign off. Please contact radiosonde operator special education professor with additional questions or concerns. Case discussed with Dr. Kyle I spent a total of 30 minutes on the date of service in preparation, delivery, and documentation of the care provided to this patient, excluding any time spent in the performance of separately billed services. Karely Castro PA-C Department of Cardiology, [facility] This chart was completed in part utilizing Speech Voice Recognition Software. Grammatical errors, random word insertions, pronoun errors, and incomplete sentences are an occasional consequence of this system due to software limitations, ambient noise, and hardware issues. Any formal questions or concerns about the content, text, or information contained within the body of this dictation should be directly addressed to the provider for clarification. Admission and Anticipated Discharge Date Admission Date: April 29, 2025 Supervising Physician Co-Signing Physician Notes Attending attestation: Case reviewed with the advanced practitioner. I have personally performed a history and physical examination on the patient. I have reviewed the advanced practitioner's documentation on the date of service referenced in note, and I agree with, and take responsibility for the plan of care. Subjective: Patient feeling better. No symptoms of hypoglycemia. Volume status stable. Hyperkalemia however noted. Exam: Cardiovascular regular rhythm, no murmurs, no edema Pulmonary: CTAB Data: Potassium 5.6 Impression/ Plan: Problems as noted above Continue metoprolol, torsemide, subcutaneous heparin for DVT prophylaxis. Agree with plans for calcium gluconate, Veltassa, Lokelma for hyperkalemia. I spent a total of 20 minutes coordinating, documenting, and providing care for this patient excluding time spent in the performance of separately billed services or time spent by another provider. Rell Kyle, DO Subjective Patient resting in bed. reports feeling "awful" with ongoing abdominal pain. Located centrally. He is requesting morphine and that he is unable to be discharged today. He reports morphine is the only thing that helps. No nausea, vomiting or diarrhea. He appears comfortable and not in distress. No chest pain or SOB reported. Review of Systems Review of Systems: All systems reviewed & are unremarkable except as noted in HPI & below Physical Exam Constitutional: WD/WN, vitals as above well developed; no acute distress Neck: trachea midline, no thyromegaly Respiratory: normal respiratory effort, lungs clear to auscultation Cardiovascular: Rate/Rhythm: regular rate and regular rhythm Heart Sounds: normal S1 and normal S2; no murmur Vessels: no JVD Extremities: no edema Gastrointestinal (Abdomen): normal bowel sounds, soft, nontender, no hepatosplenomegaly Musculoskeletal: no cyanosis or clubbing, extremities motor strength 5/5 Neurologic: PERRL, EOMI, accommodation nl, no face palsy, no dysarthria Psychiatric: A+Ox3, euthymic affect Results & Data Vital Signs (Past 12 Hours) Vital Signs Temp Pulse Pulse Resp BP Pulse Ox O2 Del Method 04/30/25 10:49 36.2 C L 98 H 18 115/86 96 Room Air 04/30/25 09:26 108 H 04/30/25 07:33 36.4 C L 101 H 18 125/93 99 Room Air 04/30/25 03:04 36.6 C 101 H 20 115/88 95 Room Air Laboratory Results CBC 04/30/25 Range/Units 07:05 WBC 7.06 (4.8-10.8) K/ul RBC 5.73 (4.70-6.10) M/uL Hgb 16.7 (14.0-18.0) g/dl Hct 51.9 (42.0-52.0) % Plt Count 168 (130-400) K/uL Comprehensive Metabolic Panel 04/30/25 Range/Units 07:05 Sodium 135 L (136-145) mmol/L Potassium 5.5 H D (3.5-5.1) mmol/L Chloride 107 (98-107) mmol/L Carbon Dioxide 23 (21-32) mmol/L BUN 34 H (6-23) mg/dl Creatinine 1.66 H D (0.6-1.4) mg/dl Glucose 105 H (70-99(Fasting)) mg/dl Calcium 8.4 L (8.6-10.3) mg/dl Intake and Output 04/29/25 04/30/25 04/30/25 22:59 06:59 14:59 Intake Total 400 / 700 300 / 700 Balance 400 / 200 300 / 200 Intake: Oral 400 / 700 300 / 700 Other: # Unmeasured Voids 1 1 Weight 98.3 kg Weight Measurement Method Built in [facility] Diagnostic Findings Telemetry reviewed: NSR and Sinus tach ranging 90-110 with occ PVC Medications Administered Current Inpatient Medications Acetaminophen (Acetaminophen 325 Mg Tab) 650 mg PO Q4H PRN PRN Reason: Pain or Fever Stop: 05/29/25 08:58 Last Admin: 04/30/25 08:00 Dose: 650 mg Al Hydrox/Mg Hydrox/Simethicone (Aluminum/Magnesium Susp 30 Ml Udc) 15 ml PO Q4H PRN PRN Reason: Dyspepsia Stop: 05/29/25 08:58 Last Admin: 04/30/25 10:05 Dose: 15 ml Aspirin (Aspirin 81 Mg Ectab) [facility] [place] Stop: 05/29/25 12:44 Last Admin: 04/30/25 08:24 Dose: 81 mg Dextrose (Dextrose 50% 50 Ml Syringe) 25 - 50 ml IV UD PRN; Protocol PRN Reason: Hypoglycemia Protocol Stop: 05/29/25 08:44 Glucagon (Glucagon For Inj 1 Mg Vial) 1 mg SQ UD PRN; Protocol PRN Reason: Hypoglycemia Protocol Stop: 05/29/25 08:44 Glucose (Glucose 40% Gel 15 Gm Tube) 15 - 30 gm PO UD PRN; Protocol PRN Reason: Hypoglycemia Protocol Stop: 05/29/25 08:44 Glucose (Glucose 10 Tab/Tube) 4 - 8 tab PO UD PRN; Protocol PRN Reason: Hypoglycemia Protocol Stop: 05/29/25 08:44 Heparin Sodium (Porcine) (Heparin Sod 5,000 Unit/0.5 Ml Vial) 5,000 units SQ Q8 ERIKA Stop: 05/29/25 21:59 Last Admin: 04/30/25 06:14 Dose: 5,000 units Insulin Aspart (Insulin Aspart Per Unit Charge) 0 units SC ACHS [facility] Stop: 05/29/25 08:44 Last Admin: 04/30/25 08:23 Dose: Not Given Melatonin (Melatonin 3 Mg Tab) 3 mg PO HS PRN PRN Reason: Sleep Stop: 05/29/25 08:58 Metoprolol Succinate (Metoprolol Succ 25mg Ext Rel Tab) 25 mg PO QAM [facility] Stop: 05/29/25 12:44 Last Admin: 04/30/25 08:25 Dose: 25 mg Miscellaneous (Carbohydrates For Hypoglycemia ) 15 - 30 gm PO UD PRN PRN Reason: Hypoglycemia Treatment Stop: 05/29/25 08:44 Miscellaneous Information (Pharmacy Glycemic Mgmt Consult) 1 each N/A UD PRN; Protocol PRN Reason: Consult Stop: 05/29/25 07:39 Ondansetron HCl (Ondansetron Inj 2 Mg/Ml 2 Ml Vial) 4 mg IV Q6H PRN PRN Reason: Nausea Stop: 05/29/25 08:58 Pantoprazole Sodium (Pantoprazole 40 Mg Tab) 40 mg PO BID [facility] Stop: 05/29/25 09:59 Last Admin: 04/30/25 08:25 Dose: 40 mg Rosuvastatin Calcium (Rosuvastatin Calcium 5 Mg Tab) 5 mg PO QPM [facility] Stop: 05/29/25 20:59 Last Admin: 04/29/25 21:17 Dose: 5 mg Sucralfate (Sucralfate 1 Gm/10 Ml Udc) 1 gm PO QID [facility] Stop: 05/29/25 12:59 Last Admin: 04/30/25 08:25 Dose: 1 gm Torsemide (Torsemide 20 Mg Tab) 40 mg PO QAM [facility] Stop: 05/30/25 08:59 Last Admin: 04/30/25 08:24 Dose: 40 mg Coding Level of Care Code 99115 SUB INP/OBS CARE 3/50MIN History Comprehensive Exam Comprehensive Medical Decision Making High Complexity Diagnoses Hypoglycemia E16.2 Chest pain, unspecified type R07.9 Chest pain type: unspecified Palpitations R00.2 Nonischemic cardiomyopathy I42.8 Chronic heart failure with reduced ejection fraction and diastolic dysfunction I50.42 Time Spent (min) 50 Comment 30 minutes spent by Myah Castro PA-C, [address] Kyle (2) Chest pain Chest pain type: unspecified Qualified Code(s): R07.9 - Chest pain, unspecified
--- NOTE | 2025-04-30 11:48 | Electrocardiogram Report ---
Test Reason : Blood Pressure : */* mmHG Vent. Rate : 100 BPM Atrial Rate : 100 BPM P-R Int : 170 ms QRS Dur : 86 ms QT Int : 350 ms P-R-T Axes : 70 -55 70 degrees QTcB Int : 451 ms Normal sinus rhythm Possible Left atrial enlargement Left axis deviation Abnormal ECG When compared with ECG of 29-Apr-2025 00:18, Premature ventricular complexes are no longer Present Confirmed by Cyrus Barragan ([id number]) on 04/30/2025 11:48:46 AM Referred By: REFERRED SELF Confirmed By: Cyrus Barragan
[2025-04-30] MEDS: CALCIUM GLUCONATE 1,000 MG/60 ML BAG IV ONE (12:58)
[2025-04-30] MEDS: PATIROMER CALCIUM SORBITEX 8.4 GM PACK PO ONE (13:14)
[2025-04-30] MEDS ORDERED: SODIUM ZIRCONIUM CYCLOSILICATE 10 GM PACKET PO SCH (14:00)
--- NOTE | 2025-04-30 15:23 | Pharmacy Report ---
Pharmacy Glycemic Short Note 2 - Date of Service April 30, 2025 - Glycemic Short BSG Results (Last 24 hours): 04/29/25 04/29/25 04/30/25 16:34 19:41 07:00 Glucose POC Glucose 76 92 95 04/30/25 04/30/25 07:05 10:55 Glucose 105 H POC Glucose 154 H OUTPATIENT ANTIDIABETIC REGIMEN: * Novolin 70/30, 35 units SQ BID * HbA1c: 10.9% (03/08/25), down to 8.7% 04/18/25; noted to have overnight hypoglycemia ASSESSMENT: 04/30: * Km received 2 units of bolus insulin yesterday * Fasting BSG this AM still below goal range, did not order insulin NPH yet, diet started yesterday. BSGs beginning to trend up with lunch, will start and insulin NPH scale with dinner based on BSGs. * No changes to Novolog at this time. No glycemic stressors noted. 04/29: * Mr Babb is a 54yo Type 2 diabetic admitted with chest pain, known to glycemic service from recent admission last month. * Pt is managed on 70/30 insulin as an outpt with noted hypoglycemia overnight. * SQ basal/bolus insulin will be initiated on admission using NPH for basal to match home basal insulin. * Cardio consult, diet not ordered yet, will wait to start basal insulin, euglycemic at this time. * Pharmacy will continue to follow and adjust regimen as indicated. PLAN FOR INPATIENT GLYCEMIC CONTROL: * Hold outpatient diabetes medications * Basal insulin * Insulin NPH 0-15 units SQ BIDM (see eMAR for additional details) * Bolus insulin * NovoLog per scale ACHS or Q6hrs while NPO * Goal Range: Low 110 mg/dL - High 140 mg/dL * Correction Factor: 25 mg/dL/unit * Nutritional / Prandial insulin per carb ratio of 1 unit per 8 grams CHO consumed
[2025-04-30] MEDS: CARBOHYDRATES FOR HYPOGLYCEMIA PO PRN (16:16)
[2025-04-30] MEDS: INSULIN HUMAN NPH SC SCH (16:33)
[2025-04-30] MEDS: METOPROLOL SUCC 25MG EXT REL TAB PO SCH (20:45)
[2025-04-30] MEDS: ONDANSETRON INJ 2 MG/ML 2 ML VIAL IV PRN (20:45)
[2025-04-30] MEDS: MELATONIN 3 MG TAB PO PRN (20:45)
[2025-05-01 06:56] LABS: Anion Gap 5.0 (3-11); Blood Urea Nitrogen 40.0 mg/dl (6-23); Calcium 8.8 mg/dl (8.6-10.3); Carbon Dioxide 33.0 mmol/L (21-32); Chloride 100.0 mmol/L (98-107); Creatinine Clr Calc Pharmacy 50.1 ml/min; Glucose 128.0 mg/dl (70-99(Fasting)); Potassium 4.9 mmol/L (3.5-5.1); Sodium 138.0 mmol/L (136-145)
[2025-05-01 09:44] LABS: Bilirubin,Total 0.5 mg/dl (0.2-1.0)
[2025-05-01 09:50] LABS: Alanine Aminotransferase 40.0 U/L (7-52); Alkaline Phosphatase 63.0 U/L (34-104); Total Protein 5.9 gm/dl (6.0-8.3)
--- NOTE | 2025-05-01 12:22 | Cardiology Progress Note ---
Date of Service May 01, 2025 Assessment & Plan (1) Hypoglycemia: (2) Chest pain: (3) Palpitations: (4) Nonischemic cardiomyopathy: (5) Chronic heart failure with reduced ejection fraction and diastolic dysfunction: Plan 04/29/25 Patient is a 54 year old male with history of non ischemic cardiomypathy, LVEF 25%, mild CAD per cath in 2023, chronic HFpEF and non compliance with meds and appointments. He presented to [place] with complaints of atypical chest pain, palpitations, and diaphoresis and diagnosed with hypoglycemia. Found to be hypoglycemic by EMS and treated with glucose gel on route to ER. Glucose was 42 on arrival to ER. Symptoms improved as sugar improved. No recurrent chest pain or palpitations overnight. HS troponin negative x2 since admission EKG demonstrated sinus tachy with PVC's. No ischemic changes. Resume oral/home metoprolol succinate 25 mg daily. First dose now. Will try to request information from [employer] vest from last evening to verify no arrhythmias at time of event. Resume ASA 81 mg and rosuvastatin. No indication for repeat echo at this time. Last echo completed 04/17 during admission for atypical chest pain and LVEF was unchanged at 25% He currently appears euvolemic. Continue torsemide 40 mg daily (home dose) Recent admission for acute neelam and patient was to have f/u with Gen surgery as outpatient. Patient missed this appt. Was to be rescheduled at [facility]. Currently no significant abdominal pain. He also has long history of gastritis/GERD, likely contributing to his symptoms of chest pain in the post prandial period. PPI initiated as well. Patient previously intolerant of SANJEEV/ARB/ARNI due to hyperkalemia. Jardiance contributed to dizziness. After gallbladder is removed, further consideration of implantable ICD to be discussed. 04/30/25: No recurrent chest pain or palpitations Nurse contacted [employer] rep and there were no arrhythmias the evening of 04/28 that would have correlated with his symptoms He has been mildly tachycardic since arrival. Increase metoprolol succinate to 25 mg BID Appears euvolemic. GDMT is limited due to hypotension, history of renal insufficiency and hyperkalemia. Potassium elevated this morning. Continue torsemide 40 mg daily No SANJEEV/ARB/ARNI. Avoid spironolactone. Consider Veltassa if potassium increases. He reports abdominal pain, with reported tenderness to palpation of the area. However he is able to move freely in the bed without symptoms. He has pain med seeking behavior this morning. Asking only for "max dose morphine". He is in no apparent distress upon evaluation. No nausea/vomiting/diarrhea. 05/01/25: Potassium levels improved this morning - treated yesterday with calcium gluconate, Lokelma, Veltassa. Creatinine higher this morning at 2.0 torsemide placed on hold. Appears euvolemic. History of non ischemic cardiomyopathy with severe LV dysfunction GDMT limited due to hypotension, hyperkalemia. Continue metoprolol succinate 25 mg BID (dose increased this admission due to sinus tach). Patient reportedly not taking at home. Continue life vest for now Outpatient EP f/u to be arranged. however, patient with recent acute neelam and needs gallbladder out before device is implanted due to risks of sepsis/infection Needs outpatient gen surgery evaluation. Recommended to be done at [facility] No further cardiac testing warranted. Consider resuming low dose torsemide as outpatient to maintain volume status Continue metoprolol Case discussed with Dr. Kyle I spent a total of 30 minutes on the date of service in preparation, delivery, and documentation of the care provided to this patient, excluding any time spent in the performance of separately billed services. Karely Castro PA-C Department of Cardiology, [facility] This chart was completed in part utilizing Speech Voice Recognition Software. Grammatical errors, random word insertions, pronoun errors, and incomplete sentences are an occasional consequence of this system due to software limitations, ambient noise, and hardware issues. Any formal questions or concerns about the content, text, or information contained within the body of this dictation should be directly addressed to the provider for clarification. Admission and Anticipated Discharge Date Admission Date: April 30, 2025 Supervising Physician Co-Signing Physician Notes Attending attestation: Case reviewed with the advanced practitioner. I have personally performed a history and physical examination on the patient. I have reviewed the advanced practitioner's documentation on the date of service referenced in note, and I agree with, and take responsibility for the plan of care. [place] improved. Hold torsemide. Question compliance. I spent a total of 20 minutes coordinating, documenting, and providing care for this patient excluding time spent in the performance of separately billed services or time spent by another provider. Rell Kyle, DO Subjective Patient ambulating in room, reports feeling "much better". No abdominal pain. No chest pain or dyspnea. Voices no complaints. Review of Systems Review of Systems: All systems reviewed & are unremarkable except as noted in HPI & below Physical Exam Constitutional: WD/WN, vitals as above well developed; no acute distress Neck: trachea midline, no thyromegaly Respiratory: normal respiratory effort, lungs clear to auscultation Cardiovascular: Rate/Rhythm: regular rate and regular rhythm Heart Sounds: normal S1 and normal S2; no murmur Vessels: no JVD Extremities: no edema Gastrointestinal (Abdomen): normal bowel sounds, soft, nontender, no hepatosplenomegaly Musculoskeletal: no cyanosis or clubbing, extremities motor strength 5/5 Neurologic: PERRL, EOMI, accommodation nl, no face palsy, no dysarthria Psychiatric: A+Ox3, euthymic affect Results & Data Vital Signs (Past 12 Hours) Vital Signs Temp Pulse Pulse Resp BP Pulse Ox O2 Del Method 05/01/25 11:25 36.3 C L 91 H 18 102/83 96 Room Air 05/01/25 08:12 36.3 C L 05/01/25 08:00 85 05/01/25 08:00 93 H 18 115/80 100 Room Air 05/01/25 02:56 36.6 C 93 H 20 122/87 97 Room Air Laboratory Results Cardiac Enzymes 05/01/25 Range/Units 09:15 AST 34 (13-39) U/L Comprehensive Metabolic Panel 05/01/25 05/01/25 Range/Units 05:56 09:15 Sodium 138 (136-145) mmol/L Potassium 4.9 (3.5-5.1) mmol/L Chloride 100 (98-107) mmol/L Carbon Dioxide 33 H (21-32) mmol/L BUN 40 H (6-23) mg/dl Creatinine 2.01 H D (0.6-1.4) mg/dl Glucose 128 H (70-99(Fasting)) mg/dl Calcium 8.8 (8.6-10.3) mg/dl Direct Bilirubin 0.1 (0-0.2) mg/dl AST 34 (13-39) U/L ALT 40 (7-52) U/L Alkaline Phosphatase 63 (34-104) U/L Total Protein 5.9 L (6.0-8.3) gm/dl Albumin 3.2 L (3.4-5.0) gm/dl Intake and Output 04/30/25 05/01/25 05/01/25 22:59 06:59 14:59 Intake Total 0 / 960 400 / 960 Balance 0 / 485 400 / 485 Intake: Oral 0 / 900 400 / 900 Other: # Unmeasured Voids 1 2 Weight 98 kg Weight Measurement Method Built in [facility] Diagnostic Findings Telemetry reviewed: NSR, HR ranging 80-100 bmp Medications Administered Current Inpatient Medications Acetaminophen (Acetaminophen 325 Mg Tab) 650 mg PO Q4H PRN PRN Reason: Pain or Fever Stop: 05/29/25 08:58 Last Admin: 05/01/25 08:28 Dose: 650 mg Al Hydrox/Mg Hydrox/Simethicone (Aluminum/Magnesium Susp 30 Ml Udc) 15 ml PO Q4H PRN PRN Reason: Dyspepsia Stop: 05/29/25 08:58 Last Admin: 04/30/25 10:05 Dose: 15 ml Aspirin (Aspirin 81 Mg Ectab) 81 mg PO QAM [facility] Stop: 05/29/25 12:44 Last Admin: 05/01/25 08:17 Dose: 81 mg Dextrose (Dextrose 50% 50 Ml Syringe) 25 - 50 ml IV UD PRN; Protocol PRN Reason: Hypoglycemia Protocol Stop: 05/29/25 08:44 Glucagon (Glucagon For Inj 1 Mg Vial) 1 mg SQ UD PRN; Protocol PRN Reason: Hypoglycemia Protocol Stop: 05/29/25 08:44 Glucose (Glucose 40% Gel 15 Gm Tube) 15 - 30 gm PO UD PRN; Protocol PRN Reason: Hypoglycemia Protocol Stop: 05/29/25 08:44 Glucose (Glucose 10 Tab/Tube) 4 - 8 tab PO UD PRN; Protocol PRN Reason: Hypoglycemia Protocol Stop: 05/29/25 08:44 Heparin Sodium (Porcine) (Heparin Sod 5,000 Unit/0.5 Ml Vial) 5,000 units SQ Q8 [facility] Stop: 05/29/25 21:59 Last Admin: 05/01/25 05:58 Dose: 5,000 units Insulin Aspart (Insulin Aspart Per Unit Charge) 0 units SC ACHS [facility] Stop: 05/29/25 08:44 Last Admin: 05/01/25 11:39 Dose: Not Given Insulin Human NPH (Insulin Human Nph) 0 units SC BIDM [facility]; Protocol Stop: 05/30/25 16:59 Last Admin: 04/30/25 16:33 Dose: Not Given Melatonin (Melatonin 3 Mg Tab) 3 mg PO HS PRN PRN Reason: Sleep Stop: 05/29/25 08:58 Last Admin: 04/30/25 20:45 Dose: 3 mg Metoprolol Succinate (Metoprolol Succ 25mg Ext Rel Tab) 25 mg PO BID [facility] Stop: 05/30/25 20:59 Last Admin: 05/01/25 08:16 Dose: 25 mg Miscellaneous (Carbohydrates For Hypoglycemia ) 15 - 30 gm PO UD PRN PRN Reason: Hypoglycemia Treatment Stop: 05/29/25 08:44 Last Admin: 04/30/25 16:16 Dose: 30 gm Miscellaneous Information (Pharmacy Glycemic Mgmt Consult) 1 each N/A UD PRN; Protocol PRN Reason: Consult Stop: 05/29/25 07:39 Ondansetron HCl (Ondansetron Inj 2 Mg/Ml 2 Ml Vial) 4 mg IV Q6H PRN PRN Reason: Nausea Stop: 05/29/25 08:58 Last Admin: 04/30/25 20:45 Dose: 4 mg Pantoprazole Sodium (Pantoprazole 40 Mg Tab) 40 mg PO BID [facility] Stop: 05/29/25 09:59 Last Admin: 05/01/25 08:16 Dose: 40 mg Rosuvastatin Calcium (Rosuvastatin Calcium 5 Mg Tab) 5 mg PO QPM [facility] Stop: 05/29/25 20:59 Last Admin: 04/30/25 20:45 Dose: 5 mg Sucralfate (Sucralfate 1 Gm/10 Ml Udc) 1 gm PO QID [facility] Stop: 05/29/25 12:59 Last Admin: 05/01/25 08:16 Dose: 1 gm Torsemide (Torsemide 20 Mg Tab) 40 mg PO QAM [facility] Stop: 05/30/25 08:59 Last Admin: 04/30/25 08:24 Dose: 40 mg PG Care Time/CCT Total # of Minutes Spent Total Time Spent with Patient: Total time spent is greater than 50% in coordination of care (as documented) at patient's floor/unit and/or counseling patient: 30 Coding Level of Care Code 87298 SUB INP/OBS CARE 3/50MIN Diagnoses Hypoglycemia E16.2 Chest pain, unspecified type R07.9 Chest pain type: unspecified Palpitations R00.2 Nonischemic cardiomyopathy I42.8 Chronic heart failure with reduced ejection fraction and diastolic dysfunction I50.42 Time Spent (min) 50 Comment 30 minutes by Myah MENG C [address] Kyle (2) Chest pain Chest pain type: unspecified Qualified Code(s): R07.9 - Chest pain, unspecified
--- NOTE | 2025-05-01 12:37 | Nephrology Consultation ---
Date of Consultation May 01, 2025 Assessment & Plan (1) Acute kidney injury superimposed on stage 3a chronic kidney disease: His renal functions will fluctuate as per diuretic use and his volume status, He has not been compliant w/ fluid and food restrictions, His weight has climbed up to 98 kilo ( he normally weights @ 92 ), Torsemide was withheld today.Normal his creatnine is in early to mid 1.0;s. - Restart torsemide 40 mg daily. -Routine follow up w/Nephrology in 4- 6 weeks time after discharge w/ CMP (2) Hyperkalemia: Hyperkalemia: today is normal. Restart on torsemide 40 mg. Low k diet and needs strict blood sugar control No Jc/ Arb /MRB at the moment, this can be started at a lower dose if the K levels are wnl. History of Present Illness Attending Physician: Gideon Steen MD History of Present Illness 54 year old male who presented w/ with A typical chest pain, palpitationsand hypoglycemai.Multiple admission in the past with similar complains, in the setting NICM , EF 20-25 % on life vest , PUD, suspected biliary colic (Recommended by gen surg to follow up for cholecystectomy eval at tertiary care center. during last visit--- did not follow). ER labs were significant with K of 5.5 , he received insulin/ dextrose / calcium and Valtessa>>4.9 today) Fluctuating baseline CKD 3a w/ Scr in early to mid 1.0's>> this was 1.6 on admission which has climbed to 2.01 today.BP has been soft today with systolics in early 100's and weighs 98 kilo(generally he is in early 90's) , continues to make urine,( 500 mls daily),He is on 40 mg torsemide at home.He admitted to not being regular with the diuretic as " this makes me pee". He has a a history of non compliance w/ fluid and food restrictions, PMH-history of Nonocclusive CAD, NonIschemic Cardiomyopathy EF 20-25%, DM 2, GERD, TBI Allergies Allergy/AdvReac Type Severity Reaction Status Date / Time lidocaine AdvReac Unknown Unknown Verified 03/07/25 17:29 Home Medications Medication Instructions Recorded Confirmed Type aspirin 81 mg tablet,delayed 81 mg PO DAILY 04/17/25 04/29/25 History release insulin NPH-regular 70-30 U-100 35 unit subcut BID 04/17/25 04/29/25 History insulin 100 unit/mL subcutaneous pen metoprolol succinate 25 mg 25 mg PO DAILY 04/17/25 04/29/25 History tablet,extended release 24 hr rosuvastatin 5 mg tablet 5 mg PO DAILY 04/17/25 04/29/25 History torsemide 20 mg tablet 40 mg PO QAM 04/17/25 04/29/25 History pantoprazole 40 mg tablet,delayed 40 mg PO BID #60 tabs 04/19/25 04/29/25 Rx release sucralfate 1 gram tablet (Carafate) 1 g PO ACHS 30 days #120 tabs 04/30/25 Rx Patient History Medical History Peptic ulcer disease TBI (traumatic brain injury) No pertinent family history Family History Mother Diabetes Social History Smoking Status: Never smoker Second Hand Exposure: No; Do You Dip or Chew Tobacco: No; Tobacco Cessation Education Requested by Patient: No Hx Alcohol Use: Yes Alcohol type: wine Hx Substance Use: No Preferred Language: Khmer 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 Beliefs That Will Affect Care: None marital status: Single Current Living Situation: Alone current occupational status: employed Other Information That Helps Us Care for You: No Feels Safe at Home: Yes Assistive Devices: None Review of Systems 2 Review of Systems: All systems reviewed & are unremarkable except as noted in HPI & below Physical Exam 2 Physical Exam: General Appearance:overweight, no apparent distress Respiratory/Chest: Normal breath sounds, CTA, No accessory muscle use Cardiovascular: S1, S2, + murmur Abdomen/GI:Soft, Non tender, Bowel sounds present Extremities/Musculoskeletal:normal inspection,Trace LE edema Results & Data Vital Signs (Past 12 Hours) Vital Signs Temp Pulse Pulse Resp BP Pulse Ox O2 Del Method 05/01/25 11:25 36.3 C L 91 H 18 102/83 96 Room Air 05/01/25 08:12 36.3 C L 05/01/25 08:00 85 05/01/25 08:00 93 H 18 115/80 100 Room Air 05/01/25 02:56 36.6 C 93 H 20 122/87 97 Room Air Laboratory Results 04/30/25 07:05 05/01/25 05:56
[2025-05-01] MEDS: MoRPHine SULFATE 2 MG/ML CARP ONE (14:45)
--- NOTE | 2025-05-01 14:47 | Pharmacy Report ---
Pharmacy Glycemic Short Note 2 - Date of Service May 01, 2025 - Glycemic Short BSG Results (Last 24 hours): 04/30/25 04/30/25 04/30/25 16:13 16:16 16:38 Glucose POC Glucose 45 L* 42 L* 70 04/30/25 05/01/25 05/01/25 19:49 05:56 07:10 Glucose 128 H POC Glucose 140 H 166 H 05/01/25 11:02 Glucose POC Glucose 138 H OUTPATIENT ANTIDIABETIC REGIMEN: * Novolin 70/30, 35 units SQ BID * HbA1c: 10.9% (03/08/25), down to 8.7% 04/18/25; noted to have overnight hypoglycemia ASSESSMENT: 05/01: * Patient received total of 9 units of insulin yesterday. No NPH given. * BSG trending down at dinner to 42 mg/dL - treated per hypoglycemia protocol * Will hold NPH again today - will provide looser parameters for Novolog today 04/30: * Km received 2 units of bolus insulin yesterday * Fasting BSG this AM still below goal range, did not order insulin NPH yet, diet started yesterday. BSGs beginning to trend up with lunch, will start and insulin NPH scale with dinner based on BSGs. * No changes to Novolog at this time. No glycemic stressors noted. 04/29: * Mr Babb is a 54yo Type 2 diabetic admitted with chest pain, known to glycemic service from recent admission last month. * Pt is managed on 70/30 insulin as an outpt with noted hypoglycemia overnight. * SQ basal/bolus insulin will be initiated on admission using NPH for basal to match home basal insulin. * Cardio consult, diet not ordered yet, will wait to start basal insulin, euglycemic at this time. * Pharmacy will continue to follow and adjust regimen as indicated. PLAN FOR INPATIENT GLYCEMIC CONTROL: * Hold outpatient diabetes medications * Basal insulin * Insulin NPH - hold * Bolus insulin * NovoLog per scale ACHS or Q6hrs while NPO * Goal Range: Low 110 mg/dL - High 140 mg/dL * Correction Factor: 30 mg/dL/unit * Nutritional / Prandial insulin per carb ratio of 1 unit per 12 grams CHO consumed
--- NOTE | 2025-05-01 15:34 | Nuclear Medicine Report ---
NUCLEAR MEDICINE HEPATOBILIARY SCAN CLINICAL HISTORY: Cholelithiasis. Atypical chest pain. COMPARISON: CT of the abdomen and pelvis, right upper quadrant ultrasound and MRCP March 07, 2025. TECHNIQUE: 6 mCi of technetium 99m Choletec IV was injected at 1:40 PM on May 01, 2025. Immediate ly following injection, imaging of the abdomen was carried out for 60 minutes in the anterior project ion. FINDINGS: Hepatic uptake of radiotracer was prompt and homogeneous. Activity is identified within the common bile duct at 10 minutes. Small bowel activity was noted at 15 minutes. No radiotracer was ankur ntified within the gallbladder at 60 minutes. Therefore, 2 mg of morphine was administered IV as per protocol and imaging was carried out for an additional 30 minutes. Gallbladder activity was not ident ified at the completion of this exam. IMPRESSION: Nonvisualization of gallbladder activity following morphine administration. The findings are consistent with cystic duct obstruction and suggest acute cholecystitis. The findings will be ca lled/faxed to the ordering provider at time of dictation. ACT 112: Negative or not required by law. Electronically signed by: Nicolas Love M.D. 05/01/2025 3:33 PM
[2025-05-01] MEDS: SODIUM CHLORIDE 0.9% IV ONE (15:37)
[2025-05-01] MEDS: SINCALIDE IV ONE (15:37)
--- NOTE | 2025-05-01 16:20 | Hospitalist Progress Note ---
Date of Service May 01, 2025 Assessment & Plan (1) Atypical chest pain: (2) Noncompliance: (3) Hypoglycemia: (4) Peptic ulcer disease: (5) Cholelithiasis: (6) Nonischemic cardiomyopathy: (7) DM type 2 (diabetes mellitus, type 2): (8) HTN, goal below 130/80: (9) Dyslipidemia, goal LDL below 70: Plan This is a 54yo M with PMH of CAD, nonischemic cardiomyopathy EF 20-25% on LifeVest, DM II, GERD, TBI, gallstones, gastric ulcers presents with chest pain. Multiple admissions for atypical CP this year in setting of PUD and suspected biliary colic. During admission 2 weeks ago * Recommended by gen surg to follow up for cholecystectomy eval at tertiary care center. Cardiology recommending follow up for ICD placement. GI recommending Protonix 40mg BID. * Has not followed up with PCP or gen surg Atypical chest pain / epigastric pain In setting of known history of peptic ulcer disease, suspected biliary colic and non-ischemic cardiomyopathy H/O CAD:moderately severe diagonal branch stenosis not amendable to PCI with otherwise nonobstructive coronary artery disease via July 2024 diagnostic cardiac catheterization Medication noncompliance as per record Reports having chest pain while exercising and after eating, similar to admission 2 weeks ago Cardiac work up - -Troponin negative ECHO from 03/2025: Mild concentric LVH. Severe global hypokinesis of left ventricle. EF 20-25%. Mildly dilated left and right ventricle. Right ventricular systolic function mildly reduced. Left atrium is mildly dilated. Mild mitral regurgitation. The left ventricular diastolic function is abnormal and consistent with elevated left ventricular filling pressures. Compared to prior echo in February, left ventricular ejection fraction is unchanged. -- Cardiology will try to request information from [facility] from last evening to verify no arrhythmias at time of event. Recommend f/u with cards for ICD placement -- Continue aspirin 81 mg daily, rosuvastatin 5 mg daily, metoprolol succinate increased to 25 mg twice a day -Appreciate cardiology input -Needs follow-up with cardiology on discharge Acute cholecystitis with cystic duct obstruction--POA Presented with biliary colic on multiple admissions: --HIDA:Nonvisualization of gallbladder activity following morphine administration. The findings are consistent with cystic duct obstruction and suggest acute cholecystitis. -- Will get blood cultures --Normal LFTs -- Empirically started on Zosyn -- Discussed with surgery: Needs percutaneous Fatoumata drain/cholecystectomy at tertiary care hospital given comorbidities --No IR available over the weekend -- Patient agrees to be transferred to tertiary care facility if accepted Hyperkalemia Insetting of CKD Received calcium gluconate Low K diet Also given a dose of V[place]assa Monitor potassium levels Nonischemic cardiomyopathy -Recent 2D echo as above ---Intolerant to SANJEEV/ARB/ARNI due to hyperkalemia; reported dizziness with Jardiance use -Continue metoprolol succinate, Torsemide. -Did follow up with cardiology in March - recommended to see EP to discuss future ICD implant, but it was felt his gallbladder needed to be removed first Peptic ulcer disease Continue Protonix 40mg BID GI consulted - recommend trial of Carafate Tolerating current diet Hypoglycemia DM II Uncontrolled diabetes mellitus Last HbA1c 8.7 Current regimen 35u NPH BID at home BSG 42 on admission, given D50 and improved to 120 Glycemic consult for outpatient mgmt recs given hypoglycemic episode BSG ACHS Currently not requiring much insulin while hospitalized Needs follow-up with PCP for adjusting his insulin Acute kidney injury on CKD III Monitor renal function Avoid nephrotoxic agents as able Noted weight gain from baseline Appreciate nephrology input: Okay to resume torsemide Hyperlipidemia Continue statin Right lower extremity wound Medial aspect of right lower calf, healing History of TBI Seems to be at baseline. Question underlying judgement and ability to coordinate complex outpatient mgmt - will try to contact family / PCP at [facility] DVT prophylaxis: Heparin SQ CODE STATUS: Full code PCP: [facility] [place] Disposition Likely to tertiary care facility if accepted Admission and Anticipated Discharge Date Admission Date: April 30, 2025 Subjective Patient is seen and examined at bedside Reports intermittent abdominal pain Also reports having some headache Discussed with surgery and nephrology today Denies any chest pain, nausea, vomiting, dyspnea, dizziness Review of Systems Review of Systems: All systems reviewed & are unremarkable except as noted in Subjective Physical Exam Physical Exam: Physical Exam: Vitals signs as noted above General Appearance:overweight, no apparent distress Head: normocephalic, Atraumatic Eyes: normal inspection, EOMI Neck: supple, Trachea midline Respiratory/Chest: Normal breath sounds, CTA, No accessory muscle use Cardiovascular: S1, S2, + murmur Abdomen/GI:Soft, mild tender, Bowel sounds present Extremities/Musculoskeletal:normal inspection, 1+ LE edema Neurologic/Psych:AAOX3, grossly no focal neurological deficits Skin: normal color, warm Results & Data Results & Data Vital Signs (Past 12 Hours) Vital Signs Temp Pulse Pulse Resp BP Pulse Ox O2 Del Method 05/01/25 15:56 36.4 C L 90 16 94/70 L 97 Room Air 05/01/25 13:30 90 05/01/25 11:25 36.3 C L 91 H 18 102/83 96 Room Air 05/01/25 08:12 36.3 C L 05/01/25 08:00 85 05/01/25 08:00 93 H 18 115/80 100 Room Air Laboratory Results [facility] 05/01/25 05:56 Sodium 138 Potassium 4.9 Chloride 100 Carbon Dioxide 33 H BUN 40 H Creatinine 2.01 H D Glucose 128 H Calcium 8.8 Liver Function 05/01/25 Range/Units 09:15 Total Bilirubin 0.5 (0.2-1.0) mg/dl Direct Bilirubin 0.1 (0-0.2) mg/dl AST 34 (13-39) U/L ALT 40 (7-52) U/L Alkaline Phosphatase 63 (34-104) U/L Albumin 3.2 L (3.4-5.0) gm/dl (7) DM type 2 (diabetes mellitus, type 2) 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
--- NOTE | 2025-05-01 17:23 | Discharge Summary ---
Date of Service May 01, 2025 Admission HPI Per Admitting Provider This is a 54yo M with PMH of CAD, nonischemic cardiomyopathy EF 20-25% on LifeVest, DM II, GERD, TBI, gallstones, gastric ulcers presents with chest pain. Was recently admitted for atypical CP felt to be due to PUD and suspected biliary colic. Also found to have low battery of life vest. Recommended by gen surg to follow up for cholecystectomy eval at tertiary care center. Cardiology recommending follow up for ICD placement. GI recommending Protonix 40mg BID. Has not yet followed up with providers at [facility]. History of medication noncompliance. Has not tolerated aldactone or jardiance in the past per chart review of last admission. Patient reports he ate an egg salad sandwich last night and then decided to do some sit ups. Developed pressure in his chest/epigastrium during exercise and he stopped. Denies any associated SOB or nausea. Walked accross the street to a gas station to buy some water and felt dizzy in the parking lot and sat down. [place] sweaty and like he may pass out, prompting a bystander to call EMS. Patient was brought to ED for further evaluation. Pain had resolved upon arrival but due to complex cardiac history, stonework supervisor handbag finisher recommended patient come in for further evaluation. Patient did take his medications yesterday, including his 35 units of NPH in morning and evening before dinner. Has not been taking baby aspirin because he did not think he was supposed to. States he has been compliant with life vest. Echo from 04/17 with mild concentric LVH, severe global hypokinesis of left ventricle. EF 20-25%. Mildly dilated left and right ventricle. Right ventricular systolic function mildly reduced. Left atrium is mildly dilated. Mild mitral regurgitation. The left ventricular diastolic function is abnormal and consistent with elevated left ventricular filling pressures. Compared to prior echo in February, left ventricular ejection fraction is unchanged. Admission Exam Per Admitting Provider General Appearance: WD/WN, vitals as above, NAD, sitting up in bed, pleasant Head: normocephalic, atraumatic Eyes: normal inspection, PERRL, conjunctivae normal, anicteric sclerae ENT: external ear and nose normal, oropharynx normal Neck: normal visual inspection Respiratory: normal respiratory effort, lungs clear to auscultation, no wheeze, rales, rhonchi Cardiovascular: regular rate, rhythm, no murmur, normal peripheral pulses, no BLE edema Chest: normal inspection of chest Abdomen/GI: normal bowel sounds, soft, nontender, no hepatosplenomegaly Extremities/Musculoskeletal: no cyanosis or clubbing, extremities motor strength 5/5 Neurologic: PERRL, EOMI, accommodation nl, no face palsy, no dysarthria, CN's II-XI intact bilaterally and moves all extremities Psychiatric: A+Ox3, euthymic affect, + poor insight/judgement Skin: normal color, warm/dry Principal Diagnosis Acute cholecystitis with cystic duct obstruction SHIELA on CKD III Atypical chest pain Peptic ulcer disease DM II with Hypoglycemia Discharge Data Allergies Allergy/AdvReac Type Severity Reaction Status Date / Time lidocaine AdvReac Unknown Unknown Verified 03/07/25 17:29 Consultations 04/29/25 07:35 ED Decision to Admit Stat 04/29/25 07:46 Consult Cardiology Routine 04/29/25 07:47 Consult Gastroenterology Routine 05/01/25 08:37 Consult General Surgery Routine 05/01/25 09:22 Consult Nephrology Routine Procedures Performed Laboratory Results WBC 7.06 K/ul (4.8-10.8) 04/30/25 07:05 RBC 5.73 M/uL (4.70-6.10) 04/30/25 07:05 Hgb 16.7 g/dl (14.0-18.0) 04/30/25 07:05 Hct 51.9 % (42.0-52.0) 04/30/25 07:05 MCV 90.6 fL (80.0-100.0) D 04/30/25 07:05 MCH 29.1 pg (25.0-34.0) 04/30/25 07:05 MCHC 32.2 g/dL (32.0-36.0) 04/30/25 07:05 RDW Std Deviation 44.7 fL (36.4-46.3) 04/30/25 07:05 RDW Coeff of Kt 13.2 % (11.5-14.5) 04/30/25 07:05 Plt Count 168 K/uL (130-400) 04/30/25 07:05 MPV 10.1 fL (9.4-12.4) 04/30/25 07:05 Immature Gran % (Auto) 0.2 % 04/29/25 00:25 Neut % (Auto) 54.0 % 04/29/25 00:25 Lymph % (Auto) 34.1 % 04/29/25 00:25 Miller % (Auto) 10.0 % 04/29/25 00:25 Eos % (Auto) 1.4 % 04/29/25 00:25 Baso % (Auto) 0.3 % 04/29/25 00:25 Neut # (Auto) 3.20 K/uL (1.40-6.50) 04/29/25 00:25 Lymph # (Auto) 2.02 K/uL (1.20-3.40) 04/29/25 00:25 Miller # (Auto) 0.59 K/uL (0.11-0.59) 04/29/25 00:25 Eos # (Auto) 0.08 K/uL (0.00-0.50) 04/29/25 00:25 Baso # (Auto) 0.02 K/uL (0.00-0.20) 04/29/25 00:25 Immature Gran # (Auto) 0.01 K/uL (0.01-0.20) 04/29/25 00:25 PT 12.1 Seconds (9.0-12.0) H 04/29/25 00:25 INR 1.1 (0.9-1.1) 04/29/25 00:25 Sodium 138 mmol/L (136-145) 05/01/25 05:56 Potassium 4.9 mmol/L (3.5-5.1) 05/01/25 05:56 Chloride 100 mmol/L (98-107) 05/01/25 05:56 Carbon Dioxide 33 mmol/L (21-32) H 05/01/25 05:56 Anion Gap 5 (3-11) 05/01/25 05:56 BUN 40 mg/dl (6-23) H 05/01/25 05:56 Creatinine 2.01 mg/dl (0.6-1.4) H D 05/01/25 05:56 Est Cr Clr Drug Dosing 50.1 ml/min 05/01/25 05:56 eGFR 38.70 05/01/25 05:56 BUN/Creatinine Ratio 19.9 (10-20) 05/01/25 05:56 Glucose 128 mg/dl (70-99(Fasting)) H 05/01/25 05:56 POC Glucose 117 mg/dl (70-99) H 05/01/25 16:12 Calcium 8.8 mg/dl (8.6-10.3) 05/01/25 05:56 Magnesium 1.9 mg/dl (1.7-2.4) 04/30/25 07:05 Total Bilirubin 0.5 mg/dl (0.2-1.0) 05/01/25 09:15 Direct Bilirubin 0.1 mg/dl (0-0.2) 05/01/25 09:15 AST 34 U/L (13-39) 05/01/25 09:15 ALT 40 U/L (7-52) 05/01/25 09:15 Alkaline Phosphatase 63 U/L (34-104) 05/01/25 09:15 Troponin I High Sens 13.3 pg/ml (0-20) 04/29/25 04:37 B-Natriuretic Peptide 690 pg/ml (0-100) H 04/29/25 00:25 Total Protein 5.9 gm/dl (6.0-8.3) L 05/01/25 09:15 Albumin 3.2 gm/dl (3.4-5.0) L 05/01/25 09:15 Globulin 3.0 gm/dl (2.5-4.0) 04/29/25 00:25 Albumin/Globulin Ratio 1.1 (0.9-2) 04/29/25 00:25 Lipase 21 U/L (11-82) 04/29/25 00:25 TSH 1.602 uIu/ml (0.300-4.500) 04/29/25 00:25 Impressions Chest X-Ray 04/29/25 00:25 EXAM: XR chest 1V portable CLINICAL HISTORY: CP, sob. TECHNIQUE: An X-ray image of the chest is obtained in AP projection. COMPARISON: 04/17/2025 FINDINGS: Pulmonary Parenchyma: Lungs are clear bilaterally. No evidence of consolidation, collapse, or focal opacities. No pulmonary nodules are identified. Right costophrenic angle appears mildly blunted- possible minimal pleural effusion Heart and Mediastinum: Heart size and shape are normal. No mediastinal widening or masses. No hilar or mediastinal lymphadenopathy. Bony Thorax: Bony thorax appears intact without fractures or deformities. Soft Tissues: Soft tissues overlying the chest wall are unremarkable. Chest leads and wires are seen in anterior chest wall. IMPRESSION: 1. Right costophrenic angle appears mildly blunted- possible minimal pleural effusion. interval regression compared to the last study. 2. No other new interval abnormality since the prior study. Electronically signed by David Garcia 04-29-2025 01:[address] 04/29/25 03:44 EXAM: CT head/brain wo con CLINICAL HISTORY: atypical headache TECHNIQUE: Multiple axial images are obtained from the skull base to the vertex without contrast. CT scan was performed according to ALARA (as low as reasonable achievable). COMPARISON: oct 00:58:00 CHIEF SAFETY OFFICER FINDINGS: No evidence of space occupying lesion, hemorrhage, edema, mass effect, midline shift, extra axial collection, or hydrocephalus is noted. Basal cisterns are symmetric and normal in size and configuration. There are scattered periventricular hypodensities as can be seen with chronic microvascular ischemic changes. The howell-white matter differentiation is preserved. Visualized paranasal sinuses and mastoid air cells are well aerated. Orbital contents are within normal limits. Bony structures are intact. IMPRESSION: 1. No evidence of acute intracranial abnormality is demonstrated. 2. Chronic microvascular ischemic changes.-stable. No other new interval abnormality since prior study. Electronically signed by Edilson Powell 04-29-2025 04:55 AM Hepatobiliary Scan Nuclear Medicine 05/01/25 09:23 NUCLEAR MEDICINE HEPATOBILIARY SCAN CLINICAL HISTORY: Cholelithiasis. Atypical chest pain. COMPARISON: CT of the abdomen and pelvis, right upper quadrant ultrasound and MRCP March 07, 2025. TECHNIQUE: 6 mCi of technetium 99m Choletec IV was injected at 1:40 PM on May 01, 2025. Immediately following injection, imaging of the abdomen was carried out for 60 minutes in the anterior projection. FINDINGS: Hepatic uptake of radiotracer was prompt and homogeneous. Activity is identified within the common bile duct at 10 minutes. Small bowel activity was noted at 15 minutes. No radiotracer was identified within the gallbladder at 60 minutes. Therefore, 2 mg of morphine was administered IV as per protocol and imaging was carried out for an additional 30 minutes. Gallbladder activity was not identified at the completion of this exam. IMPRESSION: Nonvisualization of gallbladder activity following morphine administration. The findings are consistent with cystic duct obstruction and suggest acute cholecystitis. The findings will be called/faxed to the ordering provider at time of dictation. ACT 112: Negative or not required by law. Electronically signed by: Nicolas Love M.D. 05/01/2025 3:33 PM Ordered Studies 04/29/25 03:44 CT head/brain wo con Stat Hospital Course (1) Atypical chest pain: (2) Noncompliance: (3) Hypoglycemia: (4) Peptic ulcer disease: (5) Cholelithiasis: (6) Nonischemic cardiomyopathy: (7) DM type 2 (diabetes mellitus, type 2): (8) HTN, goal below 130/80: (9) Dyslipidemia, goal LDL below 70: Plan This is a 54yo M with PMH of CAD, nonischemic cardiomyopathy EF 20-25% on LifeVest, DM II, GERD, TBI, gallstones, gastric ulcers presents with chest pain. Multiple admissions for atypical CP this year in setting of PUD and suspected biliary colic. During admission 2 weeks ago * Recommended by gen surg to follow up for cholecystectomy eval at tertiary [facility] center. Cardiology recommending follow up for ICD placement. GI recommending Protonix 40mg BID. * Has not followed up with PCP or gen surg Acute cholecystitis with cystic duct obstruction--POA Presented with biliary colic on multiple admissions: --HIDA:Nonvisualization of gallbladder activity following morphine administration. The findings are consistent with cystic duct obstruction and suggest acute cholecystitis. -- Will get blood cultures --Normal LFTs -- Empirically started on Zosyn -- Discussed with surgery: Needs percutaneous Fatoumata drain/cholecystectomy at [facility] given comorbidities --No IR available over the weekend -- Patient agrees to be transferred to tertiary care facility if accepted Discussed with Dr. Dagoberto Luz at [facility]: Patient is accepted for further management. Accepting physician Dr.Deepa Guzman. Atypical chest pain / epigastric pain In setting of known history of peptic ulcer disease, suspected biliary colic and non-ischemic cardiomyopathy H/O CAD:moderately severe diagonal branch stenosis not amendable to PCI with otherwise nonobstructive coronary artery disease via July 2024 diagnostic cardiac catheterization Medication noncompliance as per record Reports having chest pain while exercising and after eating, similar to admission 2 weeks ago Cardiac work up - -Troponin negative ECHO from 03/2025: Mild concentric LVH. Severe global hypokinesis of left ventricle. EF 20-25%. Mildly dilated left and right ventricle. Right ventricular systolic function mildly reduced. Left atrium is mildly dilated. Mild mitral regurgitation. The left ventricular diastolic function is abnormal and consistent with elevated left ventricular filling pressures. Compared to prior echo in February, left ventricular ejection fraction is unchanged. -- Cardiology will try to request information from [employer] from last evening to verify no arrhythmias at time of event. Recommend f/u with cards for ICD placement -- Continue aspirin 81 mg daily, rosuvastatin 5 mg daily, metoprolol succinate increased to 25 mg twice a day -Appreciate cardiology input -Needs follow-up with cardiology on discharge Hyperkalemia Insetting of CKD Received calcium gluconate Low K diet Also given a dose of [place] Monitor potassium levels Nonischemic cardiomyopathy -Recent 2D echo as above ---Intolerant to SANJEEV/ARB/ARNI due to hyperkalemia; reported dizziness with Jardiance use -Continue metoprolol succinate, Torsemide. -Did follow up with cardiology in March - recommended to see EP to discuss future ICD implant, but it was felt his gallbladder needed to be removed first Peptic ulcer disease Continue Protonix 40mg BID GI consulted - recommend trial of Carafate Tolerating current diet Hypoglycemia DM II Uncontrolled diabetes mellitus Last HbA1c 8.7 Current regimen 35u NPH BID at home BSG 42 on admission, given D50 and improved to 120 Glycemic consult for outpatient mgmt recs given hypoglycemic episode BSG ACHS Currently not requiring much insulin while hospitalized Needs follow-up with PCP for adjusting his insulin Acute kidney injury on CKD III Monitor renal function Avoid nephrotoxic agents as able Noted weight gain from baseline Appreciate nephrology input: Okay to resume torsemide Hyperlipidemia Continue statin Right lower extremity wound Medial aspect of right lower calf, healing History of TBI Seems to be at baseline. Question underlying judgement and ability to coordinate complex outpatient mgmt - will try to contact family / PCP at [place] DVT prophylaxis: Heparin SQ CODE STATUS: Full code PCP: FR[facility]ISCO in [facility]iary care facility Total Time Total Time Spent Total Time Spent (In Minutes): 69 minutes Discharge Plan Discharge Items Patient Disposition: Transfer Acute Care Hospital Reason For Visit: CHEST PAIN Discharge Diagnosis: Acute cholecystitis with cystic duct obstruction SHIELA on CKD III Atypical chest pain Peptic ulcer disease DM II with Hypoglycemia Condition on Discharge: Fair Activity: Per Instructions section Exercise/Sports: Wait until after follow-up appointment Non-emergency contact: Primary Care Provider, Surgeon, Converter Operator and Felt Hat Flanging Operator Call non-emergency contact if: you have any medication questions, your symptoms worsen, your pain is concerning for you and you have a fever Follow-up/Referrals: Pilar Elena CRNP [Primary Care Provider] - Diet: Carb Consistent or DM2 and Heart Healthy Add Attending Provider Instructions: --Follow-up with your surgeon for laparoscopic cholecystectomy Vs drain placement at tertiary care facility as recommended --Follow-up with your primary care physician in 1 week upon discharge from hospital --Follow-up with your pulp bleacher for further management of peptic ulcer disease --Follow-up with your handbag finisher for ICD placement as recommended -- Take medications regularly, continue to use LifeVest and follow-up with your appointments as advised --Monitor your blood glucose levels regularly. Discuss with your primary care physician for further adjustment of insulin as recommended. Seek immediate medical attention if your symptoms reoccur or worsen Please review medication list provided on discharge for any medication changes as instructed. Please call if you have any questions or problems. You can reach a [facility] hospitalist on duty at [facility] 24 hours a day by calling [phone] Steve Head Custodian Provider Instructions: Date of Service: May 01, 2025 Current Inpatient Medications Acetaminophen (Acetaminophen 325 Mg Tab) 650 mg PO Q4H PRN PRN Reason: Pain or Fever Stop: 05/29/25 08:58 Last Admin: 05/01/25 08:28 Dose: 650 mg Al Hydrox/Mg Hydrox/Simethicone (Aluminum/Magnesium Susp 30 Ml Udc) 15 ml PO Q4H PRN PRN Reason: Dyspepsia Stop: 05/29/25 08:58 Last Admin: 04/30/25 10:05 Dose: 15 ml Aspirin (Aspirin 81 Mg Ectab) [facility] Stop: 05/29/25 12:44 Last Admin: 05/01/25 08:17 Dose: 81 mg Dextrose (Dextrose 50% 50 Ml Syringe) 25 - 50 ml IV UD PRN; Protocol PRN Reason: Hypoglycemia Protocol Stop: 05/29/25 08:44 Glucagon (Glucagon For Inj 1 Mg Vial) 1 mg SQ UD PRN; Protocol PRN Reason: Hypoglycemia Protocol Stop: 05/29/25 08:44 Glucose (Glucose 40% Gel 15 Gm Tube) 15 - 30 gm PO UD PRN; Protocol PRN Reason: Hypoglycemia Protocol Stop: 05/29/25 08:44 Glucose (Glucose 10 Tab/Tube) 4 - 8 tab PO UD PRN; Protocol PRN Reason: Hypoglycemia Protocol Stop: 05/29/25 08:44 Heparin Sodium (Porcine) (Heparin Sod 5,000 Unit/0.5 Ml Vial) 5,000 units SQ Q8 ERIKA Stop: 05/29/25 21:59 Last Admin: 05/01/25 15:47 Dose: 5,000 units Piperacillin Sod/Tazobactam Sod (Zosyn) 4.5 gm in 100 mls @ 25 mls/hr IV Q8H [facility]; Protocol Stop: 05/11/25 21:59 Insulin Aspart (Insulin Aspart Per Unit Charge) 0 units SC ACHS [facility] Stop: 05/29/25 08:44 Last Admin: 05/01/25 11:39 Dose: Not Given Insulin Human NPH (Insulin Human Nph) 0 units SC BIDM [facility]; Protocol Stop: 05/30/25 16:59 Last Admin: 04/30/25 16:33 Dose: Not Given Melatonin (Melatonin 3 Mg Tab) 3 mg PO HS PRN PRN Reason: Sleep Stop: 05/29/25 08:58 Last Admin: 04/30/25 20:45 Dose: 3 mg Metoprolol Succinate (Metoprolol Succ 25mg Ext Rel Tab) 25 mg PO BID [facility] Stop: 05/30/25 20:59 Last Admin: 05/01/25 08:16 Dose: 25 mg Miscellaneous (Carbohydrates For Hypoglycemia ) 15 - 30 gm PO UD PRN PRN Reason: Hypoglycemia Treatment Stop: 05/29/25 08:44 Last Admin: 04/30/25 16:16 Dose: 30 gm Miscellaneous Information (Pharmacy Glycemic Mgmt Consult) 1 each N/A UD PRN; Protocol PRN Reason: Consult Stop: 05/29/25 07:39 Ondansetron HCl (Ondansetron Inj 2 Mg/Ml 2 Ml Vial) 4 mg IV Q6H PRN PRN Reason: Nausea Stop: 05/29/25 08:58 Last Admin: 04/30/25 20:45 Dose: 4 mg Pantoprazole Sodium (Pantoprazole 40 Mg Tab) 40 mg PO BID [facility] Stop: 05/29/25 09:59 Last Admin: 05/01/25 08:16 Dose: 40 mg Rosuvastatin Calcium (Rosuvastatin Calcium 5 Mg Tab) 5 mg PO QPM [facility] Stop: 05/29/25 20:59 Last Admin: 04/30/25 20:45 Dose: 5 mg Sucralfate (Sucralfate 1 Gm/10 Ml Udc) 1 gm PO QID [facility] Stop: 05/29/25 12:59 Last Admin: 05/01/25 13:01 Dose: Not Given Torsemide (Torsemide 20 Mg Tab) 40 mg PO QAM [facility] Stop: 05/30/25 08:59 Last Admin: 04/30/25 08:24 Dose: 40 mg Pending Studies at Discharge: No Stand-Alone Forms: [employer], Smoking Cessation Skilled Items Patient informed of condition?: Yes DNR: No Discharge Level of Care: Other Communicable Disease: No Discharge Prognosis: Other Lines: Peripheral IV Urinary Catheter: No Medications and DC Order Prescriptions: New sucralfate [Carafate] 1 gram tablet 1 g PO ACHS 30 Days Qty: 120 0RF metoprolol succinate 25 mg Tablet Extended Release 24 Hr 25 mg PO BID Qty: 60 0RF Continued torsemide 20 mg Tablet 40 mg PO QAM aspirin 81 mg Tablet,Delayed Release (Dr/Ec) 81 mg PO DAILY rosuvastatin 5 mg Tablet 5 mg PO DAILY pantoprazole 40 mg tablet,delayed release (DR/EC) 40 mg PO BID Qty: 60 0RF Held insulin NPH and regular human 100 unit/mL (70-30) Insulin Pen 35 unit SUBCUT BID Hold Instructions: Hold taking until further recommendations from your primary care physician given hypoglycemic episodes Discontinued metoprolol succinate 25 mg Tablet Extended Release 24 Hr 25 mg PO DAILY Discharge Orders: Discharge Order (Routine); Ordered 05/01/25 Ordered By: Gideon Steen Admission Data Admit Date/Time: 04/30/25 12:29 Attending Provider: Gideon Steen Admit Provider: Gideon Steen Primary Care Provider: Pilar Elena Other Providers: James Carmona; Jordy Roberto; Rell Kyle; Jessika Velázquez; [facility]; Mk Rosenthal
[2025-05-01] MEDS: 4.5GM X1 IV STA (18:01)
[2025-05-01] MEDS: PIPERACILLIN/TAZOBACTAM 4.5 GM/100 ML BAG IV SCH (21:30)
[2025-05-01 23:29] VITALS: PULSE 82; O2SAT 98
[2025-05-02 03:19] VITALS: BP 112/80; RESP 19; TEMP 97.9
[2025-05-02 07:32] LABS: Alanine Aminotransferase 41.0 U/L (7-52); Alkaline Phosphatase 39.0 U/L (34-104); Anion Gap 7.0 (3-11); Bilirubin,Total 0.8 mg/dl (0.2-1.0); Blood Urea Nitrogen 33.0 mg/dl (6-23); Calcium 8.8 mg/dl (8.6-10.3); Carbon Dioxide 30.0 mmol/L (21-32); Chloride 101.0 mmol/L (98-107); Creatinine Clr Calc Pharmacy 57.2 ml/min; Glucose 115.0 mg/dl (70-99(Fasting)); Potassium 4.9 mmol/L (3.5-5.1); Sodium 138.0 mmol/L (136-145); Total Protein 6.1 gm/dl (6.0-8.3)
[2025-05-02 07:34] LABS: Hematocrit (blood only) 49.7 % (42.0-52.0); Hemoglobin 16.5 g/dl (14.0-18.0); Mean Corpuscular Hemoglobin 28.1 pg (25.0-34.0); Mean Corpuscular Volume 84.7 fL (80.0-100.0); Platelet Count 186 K/uL (130-400); RDW Standard Deviation 39.8 fL (36.4-46.3); Red Blood Count 5.87 M/uL (4.70-6.10); White Blood Count 5.17 K/ul (4.8-10.8)
--- NOTE | 2025-05-02 08:28 | Hospitalist Progress Note ---
Date of Service May 02, 2025 Assessment & Plan (1) Atypical chest pain: (2) Noncompliance: (3) Hypoglycemia: (4) Peptic ulcer disease: (5) Cholelithiasis: (6) Nonischemic cardiomyopathy: (7) DM type 2 (diabetes mellitus, type 2): (8) HTN, goal below 130/80: (9) Dyslipidemia, goal LDL below 70: Plan This is a 54yo M with PMH of CAD, nonischemic cardiomyopathy EF 20-25% on LifeVest, DM II, GERD, TBI, gallstones, gastric ulcers presents with chest pain. Multiple admissions for atypical CP this year in setting of PUD and suspected biliary colic. During admission 2 weeks ago * Recommended by gen surg to follow up for cholecystectomy eval at tertiary care center. Cardiology recommending follow up for ICD placement. GI recommending Protonix 40mg BID. * Has not followed up with PCP or gen surg Acute cholecystitis with cystic duct obstruction--POA Presented with biliary colic on multiple admissions: --HIDA:Nonvisualization of gallbladder activity following morphine administration. The findings are consistent with cystic duct obstruction and suggest acute cholecystitis. -- Will get blood cultures --Normal LFTs -- Empirically started on Zosyn -- Discussed with surgery: Needs percutaneous Fatoumata drain/cholecystectomy at tertiary care hospital given comorbidities --No IR available over the weekend -- Patient agrees to be transferred to tertiary care facility if accepted Discussed with Dr. Dagoberto Luz at [facility]: Patient is accepted for further management. Accepting physician Dr.Deepa Guzman. Atypical chest pain / epigastric pain In setting of known history of peptic ulcer disease, suspected biliary colic and non-ischemic cardiomyopathy H/O CAD:moderately severe diagonal branch stenosis not amendable to PCI with otherwise nonobstructive coronary artery disease via July 2024 diagnostic cardiac catheterization Medication noncompliance as per record Reports having chest pain while exercising and after eating, similar to admission 2 weeks ago Cardiac work up - -Troponin negative ECHO from 03/2025: Mild concentric LVH. Severe global hypokinesis of left ventricle. EF 20-25%. Mildly dilated left and right ventricle. Right ventricular systolic function mildly reduced. Left atrium is mildly dilated. Mild mitral regurgitation. The left ventricular diastolic function is abnormal and consistent with elevated left ventricular filling pressures. Compared to prior echo in February, left ventricular ejection fraction is unchanged. -- Cardiology will try to request information from ClasesD vest from last evening to verify no arrhythmias at time of event. Recommend f/u with cards for ICD placement -- Continue aspirin 81 mg daily, rosuvastatin 5 mg daily, metoprolol succinate increased to 25 mg twice a day -Appreciate cardiology input -Needs follow-up with cardiology on discharge Hyperkalemia Insetting of CKD Received calcium gluconate Low K diet Also given a dose of [place] Monitor potassium levels Nonischemic cardiomyopathy -Recent 2D echo as above ---Intolerant to SANJEEV/ARB/ARNI due to hyperkalemia; reported dizziness with Jardiance use -Continue metoprolol succinate, Torsemide. -Did follow up with cardiology in March - recommended to see EP to discuss future ICD implant, but it was felt his gallbladder needed to be removed first Peptic ulcer disease Continue Protonix 40mg BID GI consulted - recommend trial of Carafate Tolerating current diet Hypoglycemia DM II Uncontrolled diabetes mellitus Last HbA1c 8.7 Current regimen 35u NPH BID at home BSG 42 on admission, given D50 and improved to 120 Glycemic consult for outpatient mgmt recs given hypoglycemic episode BSG ACHS Currently not requiring much insulin while hospitalized Needs follow-up with PCP for adjusting his insulin Acute kidney injury on CKD III Monitor renal function Avoid nephrotoxic agents as able Noted weight gain from baseline Appreciate nephrology input: Okay to resume torsemide Hyperlipidemia Continue statin Right lower extremity wound Medial aspect of right lower calf, healing History of TBI Seems to be at baseline. Question underlying judgement and ability to coordinate complex outpatient mgmt - will try to contact family / PCP at [place] DVT prophylaxis: Heparin SQ CODE STATUS: Full code PCP: CT in [facility] Tertiary care facility Admission and Anticipated Discharge Date Admission Date: April 30, 2025 Results & Data Results & Data Vital Signs (Past 12 Hours) Vital Signs Temp Pulse Resp BP Pulse Ox O2 Del Method 05/02/25 03:17 36.6 C 82 19 112/80 98 Room Air 05/01/25 22:46 36.5 C 82 18 104/74 98 Room Air (7) DM type 2 (diabetes mellitus, type 2) Diabetes mellitus residential insulin use: with director long term care use Diabetes mellitus complication status: with other specified complication Qualified Code(s): E11.69 - Type 2 diabetes mellitus with other specified complication; Z79.4 - intermediate frame tender (current) use of insulin
--- NOTE | 2025-05-02 09:31 | Communication Note ---
Date of Service: May 02, 2025 Patient not seen. Left to Tertiary care hospital this AM
== END 2025-05-02 08:38 | disposition short-term general hospital (02) | DRG 445 ==
LOC: ED 00:14 → 2S 00:14

== ENCOUNTER 2025-05-11 17:40 | Observation (INO) ==
--- NOTE | 2025-05-11 17:53 | Emergency Department Note ---
Impression & Plan Hypomagnesemia, Hypoglycemia, Acute intractable headache ED Provider Note HISTORY OF PRESENT ILLNESS: Patient is a 54-year-old male presenting with multiple complaints. Patient presents via EMS because he was walking to the store when he became short of breath and very lightheaded and dizzy. He called 911 and on their arrival he was found to be diaphoretic and pale. Fingerstick glucose for EMS was 45. He was given oral glucose and fingerstick glucose showed a 40 and he was given to 50 cc of D10. His repeat sugar for EMS was 200 mg/dL. On arrival to the emergency department, patient's fingerstick glucose was 148. Patient reports he has a history of type 2 diabetes. He takes 70/30 insulin twice daily and states he only took his morning dose this morning. He has yet to take his evening dose. He states that he is having "a horrible headache." He states he had a headache for the last 2 days. He states that the pain started yesterday and has progressively worsened. He states he has been taking Tylenol with little relief in his symptoms. He states that he has had headaches like this before, but "it has been a while." He does not take anything for migraine headaches. Denies any recent falls or head injury. Denies any chiropractic manipulation of his neck. He denies any double or blurry vision. He had a cholecystectomy 1 week ago. He has a LifeVest in place. Patient denies any chest pain but reports feeling short of breath at baseline. Denies any abdominal pain, nausea or vomiting. He states "morphine is the only thing that normally helps my headaches." ROS: as above PHYSICAL EXAM: Constitutional: Patient appears in no acute distress. HENT: Head: Normocephalic and atraumatic. Eyes: EOMI, PERRL Mouth/Throat: Mucous membranes moist. Neck: Trachea midline. Neck supple. Full range of motion of the neck without any stiffness. Cardiovascular: Tachycardic with regular rhythm. No murmurs, rubs or gallops. Intact distal pulses. Pulmonary/Chest: No respiratory distress. Breath sounds clear and equal bilaterally. No wheezes or rales. LifeVest in place. Abdominal: Abdomen soft, no tenderness, rebound or guarding. Musculoskeletal: No edema, tenderness or deformity noted. Skin: Warm and dry. No rash, erythema, pallor or cyanosis Psychiatric: Appropriate mood and affect for situation. Neurological: Alert and keenly responsive. CN II-XII grossly intact, moving all extremities equally and fully. MDM: - Vitals signs showed hypertension and tachycardia - History obtained via patient. History as above. - Chronic conditions affecting care: DM-2; GERD; CHF; CKD; HTN - Differential diagnoses include, but are not limited to: SAH; CVA; primary headache; dehydration; electrolyte abnormality; ACS; CHF; pneumonia; meningitis - Order placed for continuous cardiac monitoring. At this time, monitor showed rate of 102 bpm with normal sinus rhythm, per my interpretation. - External medical records reviewed. Discharge summary dated 05/01/2025 was reviewed. Patient was admitted at that time for acute cholecystitis with cystic duct obstruction. - EKG image interpreted by myself showed normal sinus rhythm. Rate tachycardic at 114 bpm. QT 340. No acute ischemic changes. - Laboratory workup interpreted by myself showed slight leukopenia (WBC 4.78); normal PT/INR; stable electrolytes other than hypomagnesemia (Mg 1.5); normal troponin; normal lipase; normal AST/ALT - CXR image reviewed by myself is negative for pneumonia, per my interpretation - CT head wo contrast negative for acute pathology - CTA head negative for acute pathology - Patient initially given 1L NS, 5 mg IV compazine, 25 mg IV benadryl for headache. On reassessment, he is still complaining of headache and asking for morphine. - Given 1g IV tylenol, 1L NS, 15 mg IV toradol and 1g IV magnesium - On reassessment, patient still complaining of headache. - Given patient's continued headache, will admit to hospital service for intractable headache. Patient has full range of motion of his neck without any meningismus and has no neurological deficits. CT imaging is negative for any acute intracranial pathology. Do feel that an acute subarachnoid hemorrhage is unlikely, given his negative imaging. Do not feel that he requires an LP at this time. - Discussion was had with case management specialist about patient's case and need for admission - Hospitalist, Dr. Harding, consulted for admission at 20:57 - Patient admitted to [facility] service for further evaluation and management. ASSESSMENT AND PLAN: Diagnosis: Intractable headache; hypoglycemia; hypomagnesemia Plan: Admit Past Med/Surg History Problem List (Updated 05/11/25 @ 20:58 by Ketty Estrada MD) Acute intractable headache (Acute) Hypoglycemia (Acute) Hypomagnesemia (Acute) Acute kidney injury superimposed on stage 3a chronic kidney disease Chronic heart failure with reduced ejection fraction and diastolic dysfunction Palpitations Hypoglycemia (Acute) Dyspnea (Acute) Chest pain (Acute) Abdominal pain Noncompliance NYHA Class III cardiovascular function Chest pain Atypical chest pain (Acute) CKD (chronic kidney disease) stage 3, GFR 30-59 ml/min Hyperkalemia Non-occlusive coronary artery disease Open wound, lower leg Possible urinary tract infection Acute calculous cholecystitis Abdominal pain (Acute) Dyslipidemia, goal LDL below 70 HTN, goal below 130/80 ASCVD (arteriosclerotic cardiovascular disease) Gall stones (Acute) Tachycardia (Acute) Acute dehydration (Acute) Acute hyperglycemia (Acute) RUQ abdominal pain (Acute) Wound of right lower extremity DM type 2 (diabetes mellitus, type 2) Nonischemic cardiomyopathy Acute on chronic heart failure with reduced ejection fraction (HFrEF, <= 40%) Hypomagnesemia (Acute) Transaminitis (Acute) Acute CHF (Acute) Abdominal pain (Acute) Chest pain (Acute) Hyperkalemia Acute heart failure with reduced ejection fraction (HFrEF, <= 40%) Acute upper abdominal pain (Acute) Cholelithiasis (Acute) Elevated LFTs (Acute) Pleural effusion (Acute) Elevated troponin (Acute) COVID-19 (Acute) Tinnitus of both ears Diabetic peripheral neuropathy Dizziness Ataxia (Acute) No significant past surgical history (Chronic) GERD (gastroesophageal reflux disease) (Chronic) Type 2 diabetes mellitus (Chronic) Abdominal pain (Acute) Dehydration (Acute) Nausea (Acute) New onset type 2 diabetes mellitus (Acute) Medical History Peptic ulcer disease TBI (traumatic brain injury) No pertinent family history Family History Mother Diabetes Social History Smoking Status: Unknown if ever smoked Second Hand Exposure: No; Do You Dip or Chew Tobacco: No; Hx Alcohol Use: Yes Alcohol type: wine Hx Substance Use: No Preferred Language: Mohawk Communication Ability: Effective Family Dinner Service Specialist Required: No Beliefs That Will Affect Care: None marital status: Single Current Living Situation: Alone current occupational status: employed Feels Safe at Home: Yes Assistive Devices: None Allergies Allergies Allergy/AdvReac Type Severity Reaction Status Date / Time lidocaine AdvReac Unknown Unknown Verified 05/11/25 20:15 Home Meds Home Medications Medication Instructions Recorded Confirmed aspirin 81 mg tablet,delayed 81 mg PO DAILY 04/17/25 05/11/25 release insulin NPH-regular 70-30 U-100 35 unit subcut BID 04/17/25 05/11/25 insulin 100 unit/mL subcutaneous pen rosuvastatin 5 mg tablet 5 mg PO DAILY 04/17/25 05/11/25 torsemide 20 mg tablet 40 mg PO QAM 04/17/25 05/11/25 Previous Rx's Medication Instructions Recorded pantoprazole 40 mg tablet,delayed 40 mg PO BID #60 tabs 04/19/25 release sucralfate 1 gram tablet (Carafate) 1 g PO ACHS 30 days #120 tabs 04/30/25 metoprolol succinate 25 mg 25 mg PO BID #60 tabs 05/01/25 tablet,extended release 24 hr Results & Data (ED) Vital Signs Vital Signs - 24 hr 05/11/25 17:53 05/11/25 17:57 05/11/25 18:13 Temperature 37.1 C Temperature Source Oral Pulse Rate 116 H 115 H Pulse Rate [Apical] 115 H Pulse Rhythm [Apical] Pulse Strength [Apical] Respiratory Rate 15 20 Respiratory Effort / Characteristics Non-Labored Non-Labored Respiratory Depth Normal Normal Respiratory Pattern Blood Pressure 150/117 H Blood Pressure [Right Arm] 145/116 H Blood Pressure Mean 128 Blood Pressure Mean [Right Arm] 125 Blood Pressure Position [Right Arm] Pulse Oximetry 99 98 Oxygen Delivery Method Room Air Room Air Sepsis Recent Fever Within 48 Hours No Sepsis New/Unexplained Change in Mental Status Yes Sepsis Action Taken by Nursing No Action Required 05/11/25 18:21 05/11/25 18:34 05/11/25 20:00 Temperature Temperature Source Pulse Rate Pulse Rate [Apical] 117 H 113 H Pulse Rhythm [Apical] Regular Pulse Strength [Apical] Normal Respiratory Rate 20 20 Respiratory Effort / Characteristics Non-Labored Non-Labored Spontaneous Respiratory Depth Normal Normal Respiratory Pattern Regular Blood Pressure Blood Pressure [Right Arm] 142/114 H 146/113 H Blood Pressure Mean Blood Pressure Mean [Right Arm] 123 124 Blood Pressure Position [Right Arm] Lying Pulse Oximetry 99 97 100 Oxygen Delivery Method Room Air Room Air Room Air Sepsis Recent Fever Within 48 Hours Sepsis New/Unexplained Change in Mental Status Sepsis Action Taken by Nursing 05/11/25 20:33 Temperature Temperature Source Pulse Rate Pulse Rate [Apical] 102 H Pulse Rhythm [Apical] Pulse Strength [Apical] Respiratory Rate 12 Respiratory Effort / Characteristics Non-Labored Spontaneous Respiratory Depth Respiratory Pattern Blood Pressure Blood Pressure [Right Arm] 146/116 H Blood Pressure Mean Blood Pressure Mean [Right Arm] 126 Blood Pressure Position [Right Arm] Pulse Oximetry 97 Oxygen Delivery Method Room Air Sepsis Recent Fever Within 48 Hours Sepsis New/Unexplained Change in Mental Status Sepsis Action Taken by Nursing Laboratory Data 05/11/25 18:05 05/11/25 18:05 Lab Results 05/11/25 05/11/25 05/11/25 Range/Units 17:46 18:05 19:42 WBC 4.78 L (4.8-10.8) K/ul RBC 5.40 (4.70-6.10) M/uL Hgb 15.4 (14.0-18.0) g/dl Hct 46.5 (42.0-52.0) % MCV 86.1 (80.0-100.0) fL MCH 28.5 (25.0-34.0) pg MCHC 33.1 (32.0-36.0) g/dL RDW Std Deviation 39.8 (36.4-46.3) fL RDW Coeff of Kt 12.7 (11.5-14.5) % Plt Count 195 (130-400) K/uL MPV 10.8 (9.4-12.4) fL Immature Gran % (Auto) 0.2 % Neut % (Auto) 61.3 % Lymph % (Auto) 28.5 % [place] % (Auto) 7.7 % Eos % (Auto) 1.7 % Baso % (Auto) 0.6 % Neut # (Auto) 2.93 (1.40-6.50) K/uL Lymph # (Auto) 1.36 (1.20-3.40) K/uL [place] # (Auto) 0.37 (0.11-0.59) K/uL Eos # (Auto) 0.08 (0.00-0.50) K/uL Baso # (Auto) 0.03 (0.00-0.20) K/uL Immature Gran # (Auto) 0.01 (0.01-0.20) K/uL PT 11.5 (9.0-12.0) Seconds INR 1.1 (0.9-1.1) Sodium 137 (136-145) mmol/L Potassium 3.8 (3.5-5.1) mmol/L Chloride 104 (98-107) mmol/L Carbon Dioxide 29 (21-32) mmol/L Anion Gap 4 (3-11) BUN 9 (6-23) mg/dl Creatinine 0.95 (0.6-1.4) mg/dl Est Cr Clr Drug Dosing 107.7 ml/min eGFR 95.12 BUN/Creatinine Ratio 9.5 L (10-20) Glucose 134 H (70-99(Fasting)) mg/dl POC Glucose 148 H 96 (70-99) mg/dl Calcium 8.5 L (8.6-10.3) mg/dl Magnesium 1.5 L (1.7-2.4) mg/dl Total Bilirubin 0.5 (0.2-1.0) mg/dl AST 27 (13-39) U/L ALT 22 (7-52) U/L Alkaline Phosphatase 47 (34-104) U/L Troponin I High Sens 8.7 (0-20) pg/ml Total Protein 6.6 (6.0-8.3) gm/dl Albumin 3.2 L (3.4-5.0) gm/dl Globulin 3.4 (2.5-4.0) gm/dl Albumin/Globulin Ratio 0.9 (0.9-2) Lipase 12 (11-82) U/L Administered Medications Magnesium Sulfate/Dextrose (Magnesium Sulfate / D5w) 1 gm in 100 mls @ 50 mls/hr IV ONE ONE Stop: 05/11/25 23:26 Last Admin: 05/11/25 21:34 Dose: 50 mls/hr Documented By: TATIANA Discontinued Medications Diphenhydramine HCl (Diphenhydramine 50 Mg/Ml Vial) 25 mg IV NOW STA Stop: 05/11/25 18:16 Last Admin: 05/11/25 18:34 Dose: 25 mg Documented By: ES Sodium Chloride (Nss) 1,000 mls @ 999 mls/hr IV .Q1H1M ONE Stop: 05/11/25 19:15 Last Infusion: 05/11/25 21:13 Dose: Infused Documented By: Admin: 05/11/25 18:34 Dose: 999 mls/hr Documented By: ES Prochlorperazine (Compazine) 1 mls @ 1 mls/min IV ONE ONE Stop: 05/11/25 18:16 Last Admin: 05/11/25 18:34 Dose: 1 mls/min Documented By: ES Acetaminophen (Ofirmev) 1,000 mg in 100 mls @ 400 mls/hr IV NOW STA Stop: 05/11/25 19:37 Last Infusion: 05/11/25 20:33 Dose: Infused Documented By: Admin: 05/11/25 19:40 Dose: 400 mls/hr Documented By: LAF Sodium Chloride (Nss) 1,000 mls @ 999 mls/hr IV .Q1H1M ONE Stop: 05/11/25 20:26 Last Infusion: 05/11/25 21:13 Dose: Infused Documented By: Admin: 05/11/25 19:41 Dose: 999 mls/hr Documented By: LAF Magnesium Sulfate/Dextrose (Magnesium Sulfate / D5w) 1 gm in 100 mls @ 100 mls/hr IV NOW STA Stop: 05/11/25 20:45 Last Infusion: 05/11/25 21:13 Dose: Infused Documented By: Admin: 05/11/25 19:59 Dose: 100 mls/hr Documented By: KELLEE Ioversol (Optiray 320 125ml) 118 ml IV ONCE ONE Stop: 05/11/25 19:11 Last Admin: 05/11/25 19:10 Dose: 118 ml Documented By: GAURI Ketorolac Tromethamine (Ketorolac Tromethamine 15 Mg/Ml Vial) 15 mg IV NOW STA Stop: 05/11/25 19:47 Last Admin: 05/11/25 19:59 Dose: 15 mg Documented By: KELLEE Methylprednisolone (Methylprednisolone 125 Mg/2 Ml Vial) 60 mg IV NOW STA Stop: 05/11/25 20:34 Last Admin: 05/11/25 20:45 Dose: 60 mg Documented By: [facility] Morphine Sulfate (Morphine Sulfate 4 Mg/Ml 1 Ml Carp\\Vial) 3 mg IV NOW STA Stop: 05/11/25 21:27 Last Admin: 05/11/25 21:30 Dose: 3 mg Documented By: [facility] Imaging Data Radiologist's Impression: Head CT 05/11/25 18:15 [address] head without and CT angiogram with contrast History: Headache Comparison: None Technique: Using multidetector thin collimation helical acquisition technique, axial, coronal and sagittal CT images from the skull base to the vertex were obtained with and without intravenous contrast. Dose reduction techniques were achieved by using automatic exposure control and/or adjustment of mA and/or kV according to patient size and/or use of iterative reconstruction technique. Findings: No intracranial hemorrhage, mass-effect, or midline shift. The ventricles are proportionate to the cerebral sulci. The howell to white matter differentiation of the cerebral hemispheres is preserved. The basal cisterns are patent. The visualized paranasal sinuses are clear. Mastoid air cells are clear. CT angiogram demonstrates no large vessel occlusion or stenosis or aneurysm of the major arteries intracranially. Impression: No acute intracranial pathology. Normal CT head Electronically signed by Cyrus Rosa 05-11-2025 7:28 PM Head CTA 05/11/25 18:15 [address] head without and CT angiogram with contrast History: Headache Comparison: None Technique: Using multidetector thin collimation helical acquisition technique, axial, coronal and sagittal CT images from the skull base to the vertex were obtained with and without intravenous contrast. Dose reduction techniques were achieved by using automatic exposure control and/or adjustment of mA and/or kV according to patient size and/or use of iterative reconstruction technique. Findings: No intracranial hemorrhage, mass-effect, or midline shift. The ventricles are proportionate to the cerebral sulci. The howell to white matter differentiation of the cerebral hemispheres is preserved. The basal cisterns are patent. The visualized paranasal sinuses are clear. Mastoid air cells are clear. CT angiogram demonstrates no large vessel occlusion or stenosis or aneurysm of the major arteries intracranially. Impression: No acute intracranial pathology. Normal CT head Electronically signed by Cyrus Rosa 05-11-2025 7:28 PM Chest X-Ray 05/11/25 18:16 EXAM: XR chest 1V portable CLINICAL HISTORY: Chest pain, nonspecific TECHNIQUE: An X-ray image of the chest is obtained in AP projection. COMPARISON: 04/28/2025 FINDINGS: Pulmonary Parenchyma: No evidence of consolidation, collapse, or focal opacities. No pulmonary nodules are identified. No evidence of pleural effusion or pleural thickening. The right costophrenic angle is clearly identified compared to the prior Heart and Mediastinum: Cardiomegaly No hilar or mediastinal lymphadenopathy. Bony Thorax: Bony thorax appears intact without fractures or deformities. Soft Tissues: Soft tissues overlying the chest wall are unremarkable. Multiple lines and tubes are seen projected over the chest IMPRESSION: 1. No acute abnormalities are identified (stable) 2. Cardiomegaly (stable) Electronically signed by Daivd Garcia 05-11-2025 7:25 PM Discharge Plan Visit Data Chief Complaint: Hypoglycemia Stated Complaint: LOW BLOOD SUGAR ED Provider: Ketty Estrada Discharge Problem: Hypomagnesemia, Hypoglycemia, Acute intractable headache Condition: Fair Forms Stand Alone Forms: [facility] Resident Research Prescriptions Prescriptions: No Action sucralfate [Carafate] 1 gram tablet 1 g PO ACHS 30 Days Qty: 120 0RF metoprolol succinate 25 mg Tablet Extended Release 24 Hr 25 mg PO BID Qty: 60 0RF torsemide 20 mg Tablet 40 mg PO QAM aspirin 81 mg Tablet,Delayed Release (Dr/Ec) 81 mg PO DAILY rosuvastatin 5 mg Tablet 5 mg PO DAILY insulin NPH and regular human 100 unit/mL (70-30) Insulin Pen 35 unit SUBCUT BID Hold Instructions: Hold taking until further recommendations from your primary care physician given hypoglycemic episodes pantoprazole 40 mg tablet,delayed release (DR/EC) 40 mg PO BID Qty: 60 0RF Referrals Referrals: Pilar Elena CRNP [Primary Care Provider] -
[2025-05-11 18:33] LABS: Hematocrit (blood only) 46.5 % (42.0-52.0); Hemoglobin 15.4 g/dl (14.0-18.0); Immature Granulocytes # (auto) 0.01 K/uL (0.01-0.20); Immature Granulocytes % (auto) 0.2 %; Mean Corpuscular Hemoglobin 28.5 pg (25.0-34.0); Mean Corpuscular Volume 86.1 fL (80.0-100.0); Platelet Count 195 K/uL (130-400); RDW Standard Deviation 39.8 fL (36.4-46.3); Red Blood Count 5.40 M/uL (4.70-6.10); White Blood Count 4.78 K/ul (4.8-10.8)
[2025-05-11] MEDS: diphenhydrAMINE 50 MG/ML VIAL IV STA (18:34)
[2025-05-11] MEDS: PROCHLORPERAZINE 1 ML IV ONE (18:34)
[2025-05-11] MEDS: SODIUM CHLORIDE 0.9% 1,000 ML IV ONE ×2 (18:34→19:41)
[2025-05-11 18:52] LABS: Alanine Aminotransferase 22.0 U/L (7-52); Albumin Globulin Ratio 0.9 (0.9-2); Alkaline Phosphatase 47.0 U/L (34-104); Anion Gap 4.0 (3-11); Bilirubin,Total 0.5 mg/dl (0.2-1.0); Blood Urea Nitrogen 9.0 mg/dl (6-23); Calcium 8.5 mg/dl (8.6-10.3); Carbon Dioxide 29.0 mmol/L (21-32); Chloride 104.0 mmol/L (98-107); Creatinine Clr Calc Pharmacy 107.7 ml/min; Globulin 3.4 gm/dl (2.5-4.0); Glucose 134.0 mg/dl (70-99(Fasting)); Lipase 12.0 U/L (11-82); Potassium 3.8 mmol/L (3.5-5.1); Sodium 137.0 mmol/L (136-145); Total Protein 6.6 gm/dl (6.0-8.3)
[2025-05-11 19:03] LABS: INR 1.1 (0.9-1.1); Prothrombin Time 11.5 Seconds (9.0-12.0)
[2025-05-11] MEDS: OPTIRAY 320 125ml IV ONE (19:10)
--- NOTE | 2025-05-11 19:26 | XRay Report ---
EXAM: XR chest 1V portable CLINICAL HISTORY: Chest pain, nonspecific TECHNIQUE: An X-ray image of the chest is obtained in AP projection. COMPARISON: 04/28/2025 FINDINGS: Pulmonary Parenchyma: No evidence of consolidation, collapse, or focal opacities. No pulmonary nodules are identified. No evidence of pleural effusion or pleural thickening. The right costophrenic angle is clearly identified compared to the prior Heart and Mediastinum: Cardiomegaly No hilar or mediastinal lymphadenopathy. Bony Thorax: Bony thorax appears intact without fractures or deformities. Soft Tissues: Soft tissues overlying the chest wall are unremarkable. Multiple lines and tubes are seen projected over the chest IMPRESSION: 1. No acute abnormalities are identified (stable) 2. Cardiomegaly (stable) Electronically signed by David Garcia 05-11-2025 7:25 PM
--- NOTE | 2025-05-11 19:28 | CT Scan Report ---
CT head without and CT angiogram with contrast History: Headache Comparison: None Technique: Using multidetector thin collimation helical acquisition technique, axial, coronal and sagittal CT images from the skull base to the vertex were obtained with and without intravenous contrast. Dose reduction techniques were achieved by using automatic exposure control and/or adjustment of mA and/or kV according to patient size and/or use of iterative reconstruction technique. Findings: No intracranial hemorrhage, mass-effect, or midline shift. The ventricles are proportionate to the cerebral sulci. The howell to white matter differentiation of the cerebral hemispheres is preserved. The basal cisterns are patent. The visualized paranasal sinuses are clear. Mastoid air cells are clear. CT angiogram demonstrates no large vessel occlusion or stenosis or aneurysm of the major arteries intracranially. Impression: No acute intracranial pathology. Normal CT head Electronically signed by Cyrus Rosa 05-11-2025 7:28 PM
[2025-05-11] MEDS: ACETAMINOPHEN 1,000 MG/100 ML VIAL IV STA (19:40)
[2025-05-11 19:42] LABS: Magnesium 1.5 mg/dl (1.7-2.4)
[2025-05-11] MEDS: MAGNESIUM SULFATE / D5W 1 GM/100 ML BAG IV STA (19:59)
[2025-05-11] MEDS: KETOROLAC TROMETHAMINE 15 MG/ML VIAL IV STA (19:59)
[2025-05-11] MEDS: MoRPHine SULFATE 4 MG/ML 1 ML CARP\\VIAL IV STA (21:30)
[2025-05-11] MEDS: MAGNESIUM SULFATE / D5W 1 GM/100 ML BAG IV ONE (21:34)
--- NOTE | 2025-05-11 22:59 | History & Physical Report ---
Date of Service May 11, 2025 Assessment & Plan (1) Acute intractable headache: Plan: 54-year-old male with past medical history significant for CAD, nonischemic cardiomyopathy EF 20 to 25%, on LifeVest, type 2 diabetes, GERD, TBI, gallstones, gastric ulcers presents with severe headaches. Patient states headache started yesterday. He was taking Tylenol but was not helping. He went to a store to get the medications for his headache and while coming back he felt short of breath. Has had some blurred visions. Because of ongoing headache came to the ER today. Also felt dizzy. No runny nose. No sore throat. No cough. Earlier he had some chest pain that got resolved. Currently on room air saturating okay. Denies any nausea or abdominal pain. Normal bowel and bladder movements.. Micturating okay. No rash. Ambulating okay. Patient received IV Tylenol, Compazine, Benadryl, IV Toradol and IV methylprednisolone in the ER but still had headache and was requesting for morphine. After morphine patient said headache is much improved. Patient was recently in the hospital for acute cholecystitis and was transferred to [facility] on 05/01/2025. At [facility] patient was status post laparoscopic cholecystectomy. At [facility] external defibrill ator battery changed by EP on 05/05/2025. Has appointment with cardiology on 2024. He also had hyperkalemia that improved. Has appointment with general surgery on 05/27/2025. He says he goes to the appointments with the [facility]. He says he is taking the same medications he was discharged from [facility]. Currently resting comfortably and hemodynamically stable. Acute intractable headache Received IV Solu-Medrol, IV Toradol, IV Tylenol, Compazine, Benadryl Was still was having headache CT head and CTA head unremarkable After IV morphine seems improved Will observe in the hospital Nonischemic cardiomyopathy Chronic systolic CHF EF 20 to 25% LifeVest Follow-up with cardiology as scheduled On Lasix, metoprolol succinate and Entresto(Entresto was held in the past for hyperkalemia but patient states currently taking it) History of hyperkalemia Will follow the labs Jardiance, Entresto and spironolactone were stopped recent admission for hyperkalemia Patient seems currently back on Entresto Gastric ulcers On Protonix and famotidine Follow-up with GI for repeat EGD Diabetes Continue home insulin NPH Glycemic pharmacy consult Hyperlipidemia On high-dose Lipitor Hypomagnesia Replacing Follow labs History of TBI Recent laparoscopic cholecystectomy Follow-up with surgery as scheduled Right leg wound Lower leg medial aspect Healing Monitor DVT prophylaxis SCDs Disposition Observation med/telemetry Full code. History of Present Illness Chief Complaint: Severe headaches Primary Care Provider: RON Mckeon 54-year-old male with past medical history significant for CAD, nonischemic cardiomyopathy EF 20 to 25%, on LifeVest, type 2 diabetes, GERD, TBI, gallstones, gastric ulcers presents with severe headaches. Patient states headache started yesterday. He was taking Tylenol but was not helping. He went to a store to get the medications for his headache and while coming back he felt short of breath. Has had some blurred visions. Because of ongoing headache came to the ER today. Also felt dizzy. No runny nose. No sore throat. No cough. Earlier he had some chest pain that got resolved. Currently on room air saturating okay. Denies any nausea or abdominal pain. Normal bowel and bladder movements.. Micturating okay. No rash. Ambulating okay. Patient received IV Tylenol, Compazine, Benadryl, IV Toradol and IV methylprednisolone in the ER but still had headache and was requesting for morphine. After morphine patient said headache is much improved. Patient was recently in the hospital for acute cholecystitis and was transferred to [facility] on 05/01/2025. At [facility] patient was status post laparoscopic cholecystectomy. At [facility] external defibrillator battery changed by EP on 05/05/2025. Has appointment with cardiology on 2024. He also had hyperkalemia that improved. Has appointment with general surgery on 05/27/2025. He says he goes to the appointments with the [facility]. He says he is taking the same medications he was discharged from [facility]. Currently resting comfortably and hemodynamically stable. Past medical history. As mentioned above. Past surgical history. No significant past surgical history. Social history. No alcohol use. No drug use. No smoking. Family history. Mother has diabetes. Allergies Allergy/AdvReac Type Severity Reaction Status Date / Time lidocaine AdvReac Unknown Unknown Verified 05/11/25 20:15 Home Medications Medication Instructions Recorded Confirmed Type aspirin 81 mg tablet,delayed 81 mg PO DAILY 04/17/25 05/11/25 History release insulin NPH-regular 70-30 U-100 35 unit subcut BID 04/17/25 05/11/25 History insulin 100 unit/mL subcutaneous pen pantoprazole 40 mg tablet,delayed 40 mg PO BID #60 tabs 04/19/25 05/11/25 Rx release atorvastatin 80 mg tablet 80 mg PO DAILY 05/11/25 05/11/25 History famotidine 20 mg tablet 20 mg PO DAILY 05/11/25 05/11/25 History folic acid 1 mg tablet 1 mg PO DAILY 05/11/25 05/11/25 History furosemide 40 mg tablet 40 mg PO DAILY 05/11/25 05/11/25 History magnesium oxide 420 mg tablet 420 mg PO BID 05/11/25 05/11/25 History metoprolol succinate 50 mg 25 mg PO DAILY 05/11/25 05/11/25 History tablet,extended release 24 hr sacubitril 24 mg-valsartan 26 mg 1 tab PO BID 05/11/25 05/11/25 History tablet (Entresto) Past Med/Surg History Problem List (Updated 05/12/25 @ 00:05 by Background Daemon) Acute intractable headache (Acute) Hypoglycemia (Acute) Hypomagnesemia (Acute) Acute kidney injury superimposed on stage 3a chronic kidney disease Chronic heart failure with reduced ejection fraction and diastolic dysfunction Palpitations Hypoglycemia (Acute) Dyspnea (Acute) Chest pain (Acute) Abdominal pain Noncompliance NYHA Class III cardiovascular function Chest pain Atypical chest pain (Acute) CKD (chronic kidney disease) stage 3, GFR 30-59 ml/min Hyperkalemia Non-occlusive coronary artery disease Open wound, lower leg Possible urinary tract infection Acute calculous cholecystitis Abdominal pain (Acute) Dyslipidemia, goal LDL below 70 HTN, goal below 130/80 ASCVD (arteriosclerotic cardiovascular disease) Gall stones (Acute) Tachycardia (Acute) Acute dehydration (Acute) Acute hyperglycemia (Acute) RUQ abdominal pain (Acute) Wound of right lower extremity DM type 2 (diabetes mellitus, type 2) Nonischemic cardiomyopathy Acute on chronic heart failure with reduced ejection fraction (HFrEF, <= 40%) Hypomagnesemia (Acute) Transaminitis (Acute) Acute CHF (Acute) Abdominal pain (Acute) Chest pain (Acute) Hyperkalemia Acute heart failure with reduced ejection fraction (HFrEF, <= 40%) Acute upper abdominal pain (Acute) Cholelithiasis (Acute) Elevated LFTs (Acute) Pleural effusion (Acute) Elevated troponin (Acute) COVID-19 (Acute) Tinnitus of both ears Diabetic peripheral neuropathy Dizziness Ataxia (Acute) No significant past surgical history (Chronic) GERD (gastroesophageal reflux disease) (Chronic) Type 2 diabetes mellitus (Chronic) Abdominal pain (Acute) Dehydration (Acute) Nausea (Acute) New onset type 2 diabetes mellitus (Acute) Medical History Peptic ulcer disease TBI (traumatic brain injury) No pertinent family history Family History Mother Diabetes Social History Smoking Status: Never smoker Second Hand Exposure: No; Do You Dip or Chew Tobacco: No; Hx Alcohol Use: No Hx Substance Use: No Preferred Language: Marshallese Communication Ability: Effective 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 ENT- oropharynx clear Neck- supple, no JVD. Lungs- clear to auscultation no wheezing or crackles Heart- regular rhythm; no murmur, no gallop. Abdomen- normal bowel sounds, soft, nontender, no distension. recent lap neelam site dressing seen Extremities- mild pretibial edema seen , small superficial ulcer on right lower alvares Neuro- alert, oriented PERRL, no facial palsy; no dysarthria; moves extrem ities Results & Data Results & Data Vital Signs (Past 12 Hours) Vital Signs Temp Pulse Pulse Resp BP BP Pulse Ox 05/11/25 22:00 108 H 18 156/109 H 95 05/11/25 20:33 102 H 12 146/116 H 97 05/11/25 20:00 113 H 20 146/113 H 100 05/11/25 18:34 117 H 20 142/114 H 97 05/11/25 18:21 99 05/11/25 18:13 115 H 20 145/116 H 98 05/11/25 17:57 37.1 C 115 H 15 150/117 H 99 05/11/25 17:53 116 H O2 Del Method 05/11/25 22:00 Room Air 05/11/25 20:33 Room Air 05/11/25 20:00 Room Air 05/11/25 18:34 Room Air 05/11/25 18:21 Room Air 05/11/25 18:13 Room Air 05/11/25 17:57 Room Air 05/11/25 17:53 Diagnostic Findings Laboratory Results WBC 4.78 K/ul (4.8-10.8) L 05/11/25 18:05 RBC 5.40 M/uL (4.70-6.10) 05/11/25 18:05 Hgb 15.4 g/dl (14.0-18.0) 05/11/25 18:05 Hct 46.5 % (42.0-52.0) 05/11/25 18:05 MCV 86.1 fL (80.0-100.0) 05/11/25 18:05 MCH 28.5 pg (25.0-34.0) 05/11/25 18:05 MCHC 33.1 g/dL (32.0-36.0) 05/11/25 18:05 RDW Std Deviation 39.8 fL (36.4-46.3) 05/11/25 18:05 RDW Coeff of Kt 12.7 % (11.5-14.5) 05/11/25 18:05 Plt Count 195 K/uL (130-400) 05/11/25 18:05 MPV 10.8 fL (9.4-12.4) 05/11/25 18:05 Immature Gran % (Auto) 0.2 % 05/11/25 18:05 Neut % (Auto) 61.3 % 05/11/25 18:05 Lymph % (Auto) 28.5 % 05/11/25 18:05 Trego % (Auto) 7.7 % 05/11/25 18:05 Eos % (Auto) 1.7 % 05/11/25 18:05 Baso % (Auto) 0.6 % 05/11/25 18:05 Neut # (Auto) 2.93 K/uL (1.40-6.50) 05/11/25 18:05 Lymph # (Auto) 1.36 K/uL (1.20-3.40) 05/11/25 18:05 Trego # (Auto) 0.37 K/uL (0.11-0.59) 05/11/25 18:05 Eos # (Auto) 0.08 K/uL (0.00-0.50) 05/11/25 18:05 Baso # (Auto) 0.03 K/uL (0.00-0.20) 05/11/25 18:05 Immature Gran # (Auto) 0.01 K/uL (0.01-0.20) 05/11/25 18:05 PT 11.5 Seconds (9.0-12.0) 05/11/25 18:05 INR 1.1 (0.9-1.1) 05/11/25 18:05 Sodium 137 mmol/L (136-145) 05/11/25 18:05 Potassium 3.8 mmol/L (3.5-5.1) 05/11/25 18:05 Chloride 104 mmol/L (98-107) 05/11/25 18:05 Carbon Dioxide 29 mmol/L (21-32) 05/11/25 18:05 Anion Gap 4 (3-11) 05/11/25 18:05 BUN 9 mg/dl (6-23) 05/11/25 18:05 Creatinine 0.95 mg/dl (0.6-1.4) 05/11/25 18:05 Est Cr Clr Drug Dosing 107.7 ml/min 05/11/25 18:05 eGFR 95.12 05/11/25 18:05 BUN/Creatinine Ratio 9.5 (10-20) L 05/11/25 18:05 Glucose 134 mg/dl (70-99(Fasting)) H 05/11/25 18:05 POC Glucose 96 mg/dl (70-99) 05/11/25 19:42 Calcium 8.5 mg/dl (8.6-10.3) L 05/11/25 18:05 Magnesium 1.5 mg/dl (1.7-2.4) L 05/11/25 18:05 Total Bilirubin 0.5 mg/dl (0.2-1.0) 05/11/25 18:05 AST 27 U/L (13-39) 05/11/25 18:05 ALT 22 U/L (7-52) 05/11/25 18:05 Alkaline Phosphatase 47 U/L (34-104) 05/11/25 18:05 Troponin I High Sens 8.7 pg/ml (0-20) 05/11/25 18:05 Total Protein 6.6 gm/dl (6.0-8.3) 05/11/25 18:05 Albumin 3.2 gm/dl (3.4-5.0) L 05/11/25 18:05 Globulin 3.4 gm/dl (2.5-4.0) 05/11/25 18:05 Albumin/Globulin Ratio 0.9 (0.9-2) 05/11/25 18: Lipase 12 U/L (11-82) 05/11/25 18:05 Lyme Disease Screen Negative (Negative) 05/11/25 18:[address] 05/11/25 18:[address] head without [address] CT angiogram with contrast History: Headache Comparison: None Technique: Using multidetector thin collimation helical acquisition technique, axial, coronal and sagittal CT images from the skull base to the vertex were obtained with and without intravenous contrast. Dose reduction techniques were achieved by using automatic exposure control and/or adjustment of mA and/or kV according to patient size and/or use of iterative reconstruction technique. Findings: No intracranial hemorrhage, mass-effect, or midline shift. The ventricles are proportionate to the cerebral sulci. The howell to white matter differentiation of the cerebral hemispheres is preserved. The basal cisterns are patent. The visualized paranasal sinuses are clear. Mastoid air cells are clear. CT angiogram demonstrates no large vessel occlusion or stenosis or aneurysm of the major arteries intracranially. Impression: No acute intracranial pathology. Normal CT head Electronically signed by Cyrus Rosa 05-11-2025 7:28 PM Head CTA 05/11/25 18:15 [address] head without and CT angiogram with contrast History: Headache Comparison: None Technique: Using multidetector thin collimation helical acquisition technique, axial, coronal and sagittal CT images from the skull base to the vertex were obtained with and without intravenous contrast. Dose reduction techniques were achieved by using automatic exposure control and/or adjustment of mA and/or kV according to patient size and/or use of iterative reconstruction technique. Findings: No intracranial hemorrhage, mass-effect, or midline shift. The ventricles are proportionate to the cerebral sulci. The howell to white matter differentiation of the cerebral hemispheres is preserved. The basal cisterns are patent. The visualized paranasal sinuses are clear. Mastoid air cells are clear. CT angiogram demonstrates no large vessel occlusion or stenosis or aneurysm of the major arteries intracranially. Impression: No acute intracranial pathology. Normal CT head Electronically signed by Cyrus Rosa 05-11-2025 7:28 PM Chest X-Ray 05/11/25 18:16 EXAM: XR chest 1V portable CLINICAL HISTORY: Chest pain, nonspecific TECHNIQUE: An X-ray image of the chest is obtained in AP projection. COMPARISON: 04/28/2025 FINDINGS: Pulmonary Parenchyma: No evidence of consolidation, collapse, or focal opacities. No pulmonary nodules are identified. No evidence of pleural effusion or pleural thickening. The right costophrenic angle is clearly identified compared to the prior Heart and Mediastinum: Cardiomegaly No hilar or mediastinal lymphadenopathy. Bony Thorax: Bony thorax appears intact without fractures or deformities. Soft Tissues: Soft tissues overlying the chest wall are unremarkable. Multiple lines and tubes are seen projected over the chest IMPRESSION: 1. No acute abnormalities are identified (stable) 2. Cardiomegaly (stable) Electronically signed by David Garcia 05-11-2025 7:25 PM Code Status & VTE Plan VTE Prophylaxis Plan VTE Prophylaxis will be ordered: Yes
[2025-05-11] MEDS ORDERED: POLYETHYLENE (MIRALAX) 17 GM PACK PO PRN (23:37)
[2025-05-11] MEDS ORDERED: GLUCAGON FOR INJ 1 MG VIAL SQ PRN (23:37)
[2025-05-11] MEDS ORDERED: DEXTROSE 50% 50 ML SYRINGE IV PRN (23:37)
[2025-05-11] MEDS ORDERED: PHARMACY GLYCEMIC MGMT CONSULT PRN (23:37)
[2025-05-11] MEDS ORDERED: NITROGLYCERIN SL 0.4 MG/TAB TAB SL PRN (23:37)
[2025-05-11] MEDS ORDERED: ACETAMINOPHEN 325 MG TAB PO PRN (23:37)
[2025-05-11] MEDS ORDERED: GLUCOSE 40% GEL 15 GM TUBE PO PRN (23:37)
[2025-05-11] MEDS ORDERED: CARBOHYDRATES FOR HYPOGLYCEMIA PO PRN (23:37)
[2025-05-11] MEDS ORDERED: GLUCOSE 10 TAB/TUBE PO PRN (23:37)
[2025-05-12] MEDS: MoRPHine SULFATE 4 MG/ML 1 ML CARP\\VIAL IV PRN (01:50)
[2025-05-12 06:45] LABS: Hematocrit (blood only) 46.8 % (42.0-52.0); Hemoglobin 15.4 g/dl (14.0-18.0); Immature Granulocytes # (auto) 0.01 K/uL (0.01-0.20); Immature Granulocytes % (auto) 0.3 %; Mean Corpuscular Hemoglobin 28.4 pg (25.0-34.0); Mean Corpuscular Volume 86.3 fL (80.0-100.0); Platelet Count 178 K/uL (130-400); RDW Standard Deviation 40.2 fL (36.4-46.3); Red Blood Count 5.42 M/uL (4.70-6.10); White Blood Count 3.39 K/ul (4.8-10.8)
[2025-05-12 07:14] LABS: Anion Gap 3.0 (3-11); Blood Urea Nitrogen 9.0 mg/dl (6-23); Calcium 8.5 mg/dl (8.6-10.3); Carbon Dioxide 28.0 mmol/L (21-32); Chloride 106.0 mmol/L (98-107); Creatinine Clr Calc Pharmacy 93.1 ml/min; Glucose 158.0 mg/dl (70-99(Fasting)); Magnesium 1.9 mg/dl (1.7-2.4); Sodium 137.0 mmol/L (136-145)
[2025-05-12 07:28] LABS: Potassium 5.7 mmol/L (3.5-5.1)
[2025-05-12 07:50] VITALS: PULSE 99; RESP 18
[2025-05-12] MEDS: ASPIRIN 81 MG ECTAB PO SCH (08:06)
[2025-05-12] MEDS: VALSARTAN/SACUBITRIL 26/24MG TAB PO SCH (08:06)
[2025-05-12] MEDS: MAGNESIUM OXIDE 400 MG TAB PO SCH (08:06)
[2025-05-12] MEDS: ATORVASTATIN 40 MG TAB PO SCH (08:06)
[2025-05-12] MEDS: FOLIC ACID 1 MG TAB PO SCH (08:06)
[2025-05-12] MEDS: METOPROLOL SUCC 25MG EXT REL TAB PO SCH (08:07)
[2025-05-12] MEDS: INSULIN HUMAN NPH SC SCH (09:08)
[2025-05-12 09:10] LABS: Hemoglobin A1C 8.0 % (4.5-5.6)
[2025-05-12] MEDS: FAMOTIDINE 20 MG TAB PO SCH (09:14)
[2025-05-12] MEDS: INSULIN ASPART PER UNIT CHARGE SC SCH (09:14)
--- NOTE | 2025-05-12 09:16 | Discharge Summary ---
Discharge Summary Date of Service May 12, 2025 Principal Dx & Hospital Course #1 = Principal Diagnosis (1) Acute intractable headache: (2) Chronic heart failure with reduced ejection fraction and diastolic dysfunction: (3) CKD (chronic kidney disease) stage 3, GFR 30-59 ml/min: (4) DM type 2 (diabetes mellitus, type 2): (5) Nonischemic cardiomyopathy: (6) Peptic ulcer disease: (7) TBI (traumatic brain injury): Plan Patient 54-year-old gentleman with extensive cardiac history presented to the emergency room with intractable headache. Patient was cared for in the hospital. He was given a migraine cocktail of Toradol, steroids, Benadryl, Tylenol and Compazine. With this intervention his headache was completely aborted. On the morning of discharge he was up and ambulatory in his room. He absolutely had no cephalgia. His vital signs are stable. He ate a good breakfast. He had no other significant complaints. Other medical issues were stable. Patient does report a remote history of migraines. He states that usually just Tylenol manages this. It seems as though he really responded to the nonsteroidals. I believe that if he only has intermittent migraines the benefit of the nonsteroidal outweigh the risks. I went to this tooth detail for him give him a prescription for Motrin 800 mg to take only when he has a severe headache. If he takes 1 or 2 a month that would be okay however if he would need more than that he should discuss with his PCP. He will follow-up with his outpatient providers. Notes For Next Care Provider Continue to follow for routine management chronical medical issues. If having frequent headaches may need different approach to headache management Medication Changes From Visit Ibuprofen as needed for severe headache Admission HPI Per Admitting Provider 54-year-old male with past medical history significant for CAD, nonischemic cardiomyopathy EF 20 to 25%, on LifeVest, type 2 diabetes, GERD, TBI, gallstones, gastric ulcers presents with severe headaches. Patient states headache started yesterday. He was taking Tylenol but was not helping. He went to a store to get the medications for his headache and while coming back he felt short of breath. Has had some blurred visions. Because of ongoing headache came to the ER today. Also felt dizzy. No runny nose. No sore throat. No cough. Earlier he had some chest pain that got resolved. Currently on room air saturating okay. Denies any nausea or abdominal pain. Normal bowel and bladder movements.. Micturating okay. No rash. Ambulating okay. Patient received IV Tylenol, Compazine, Benadryl, IV Toradol and IV methylprednisolone in the ER but still had headache and was requesting for morphine. After morphine patient said headache is much improved. Patient was recently in the hospital for acute cholecystitis and was transferred to [facility] on 05/01/2025. At [facility] patient was status post laparoscopic cholecystectomy. At [facility] external defibrillator battery changed by EP on 05/05/2025. Has appointment with cardiology on 2024. He also had hyperkalemia that improved. Has appointment with general surgery on 05/27/2025. He says he goes to the appointments with the [facility]. He says he is taking the same medications he was discharged from [facility]. Currently resting comfortably and hemodynamically stable. Past medical history. As mentioned above. Past surgical history. No significant past surgical history. Social history. No alcohol use. No drug use. No smoking. Family history. Mother has diabetes. Admission Exam Per Admitting Provider See H&P Discharge Exam Constitutional: Alert HEENT: Mucous membranes moist. Lungs: Clear to auscultation, decreased, no wheezes rales or rhonchi CV: S1-S2, regular Abdomen: Soft, nontender, nondistended Extremities: No significant edema Neuro: No focal deficits Psych: Cooperative, normal mood Updated Medication List Medication Instructions Recorded Confirmed Type aspirin 81 mg tablet,delayed 81 mg PO DAILY 04/17/25 05/11/25 History release insulin NPH-regular 70-30 U-100 35 unit subcut BID 04/17/25 05/11/25 History insulin 100 unit/mL subcutaneous pen pantoprazole 40 mg tablet,delayed 40 mg PO BID #60 tabs 04/19/25 05/11/25 Rx release atorvastatin 80 mg tablet 80 mg PO DAILY 05/11/25 05/11/25 History famotidine 20 mg tablet 20 mg PO DAILY 05/11/25 05/11/25 History folic acid 1 mg tablet 1 mg PO DAILY 05/11/25 05/11/25 History furosemide 40 mg tablet 40 mg PO DAILY 05/11/25 05/11/25 History magnesium oxide 420 mg tablet 420 mg PO BID 05/11/25 05/11/25 History metoprolol succinate 50 mg 25 mg PO DAILY 05/11/25 05/11/25 History tablet,extended release 24 hr sacubitril 24 mg-valsartan 26 mg 1 tab PO BID 05/11/25 05/11/25 History tablet (Entresto) ibuprofen 800 mg tablet 800 mg PO Q8H PRN severe headache 05/12/25 Rx #10 tabs Hospital Stay Data Consultations 05/11/25 20:56 ED Decision to Admit Stat Diagnostic Imagining Performed 05/11/25 18:15 CT head/brain wo con Stat CTA head w con [CT angio head w con] Stat Reviewed imaging, laboratory and diagnostic studies. Pertinent findings as below. CBC stable Potassium 5.7 Creatinine 1.07 Hemoglobin A1c 8.0% Troponin negative Lyme screen negative CT of the head unremarkable for acute findings Discharge Instructions Given to Patient (Per Discharging Provider) Follow-up with your outpatient providers as scheduled Total Time Total Time Spent Total Time Spent (In Minutes): 26
[2025-05-12] MEDS: FUROSEMIDE 40 MG TAB PO SCH (09:41)
[2025-05-12 11:56] VITALS: BP 124/65; TEMP 98.2; O2SAT 98
--- NOTE | 2025-05-15 14:08 | Electrocardiogram Report ---
Test Reason : Blood Pressure : */* mmHG Vent. Rate : 114 BPM Atrial Rate : 114 BPM P-R Int : 168 ms QRS Dur : 78 ms QT Int : 340 ms P-R-T Axes : 67 -32 83 degrees QTcB Int : 468 ms Sinus tachycardia Possible Left atrial enlargement Left axis deviation Anterior infarct , age undetermined Abnormal ECG When compared with ECG of 30-Apr-2025 06:18, No significant change was found Confirmed by Oskar Fuller ([id number]) on 05/15/2025 2:08:15 PM Referred By: REFERRED SELF Confirmed By: Oskar Fuller
--- NOTE | 2025-05-15 14:45 | Electrocardiogram Report ---
Test Reason : Blood Pressure : */* mmHG Vent. Rate : 94 BPM Atrial Rate : 94 BPM P-R Int : 182 ms QRS Dur : 80 ms QT Int : 382 ms P-R-T Axes : 70 -36 81 degrees QTcB Int : 477 ms Normal sinus rhythm Possible Left atrial enlargement Left axis deviation Nonspecific T wave abnormality Abnormal ECG When compared with ECG of 11-May-2025 17:50, (unconfirmed) Nonspecific T wave abnormality, worse in Lateral leads Confirmed by Oskar Fuller ([id number]) on 05/15/2025 2:44:41 PM Referred By: REFERRED SELF Confirmed By: Oskar Fuller
== END 2025-05-12 15:44 | disposition home or self-care (01) ==
LOC: EDINP 17:40 → ED 17:40 → SUATTDRO 22:03 → 2W 05-12 01:06

== ENCOUNTER 2025-07-03 13:21 | Inpatient (IN) ==
--- NOTE | 2025-07-03 14:06 | XRay Report ---
XR chest 1V portable CLINICAL HISTORY: Chest pain, nonspecific COMPARISON STUDY: 07/09/2025 FINDINGS: Stable mild cardiomegaly without pulmonary vascular congestion. No consolidation or pleural effusion. No pneumothorax. IMPRESSION: No acute findings. ACT 112: Negative or not required by law. Electronically signed by: Matthew Velasquez M.D. 07/03/2025 2:04 PM
[2025-07-03 14:44] LABS: Hematocrit (blood only) 48.4 % (42.0-52.0); Hemoglobin 16.3 g/dl (14.0-18.0); Immature Granulocytes # (auto) 0.02 K/uL (0.01-0.20); Immature Granulocytes % (auto) 0.3 %; Mean Corpuscular Hemoglobin 27.8 pg (25.0-34.0); Mean Corpuscular Volume 82.6 fL (80.0-100.0); Platelet Count 166 K/uL (130-400); RDW Standard Deviation 38.8 fL (36.4-46.3); Red Blood Count 5.86 M/uL (4.70-6.10); White Blood Count 5.95 K/ul (4.8-10.8)
[2025-07-03 15:07] LABS: Alanine Aminotransferase 43 U/L (7-52); Albumin Globulin Ratio 1.1 (0.9-2); Albumin Level 3.4 gm/dl (3.4-5.0); Alkaline Phosphatase 78 U/L (34-104); Anion Gap 7 (3-11); Bilirubin,Total 0.6 mg/dl (0.2-1.0); Blood Urea Nitrogen 20 mg/dl (6-23); Calcium 9.0 mg/dl (8.6-10.3); Carbon Dioxide 26 mmol/L (21-32); Chloride 103 mmol/L (98-107); Globulin 3.2 gm/dl (2.5-4.0); Glucose 158 mg/dl (70-99(Fasting)); Potassium 4.7 mmol/L (3.5-5.1); Sodium 136 mmol/L (136-145); Total Protein 6.6 gm/dl (6.0-8.3)
[2025-07-03 15:19] LABS: INR 1.1 (0.9-1.1); Partial Thromboplastin Time 24 Seconds (21-31); Prothrombin Time 11.8 Seconds (9.0-12.0)
[2025-07-03] MEDS: OPTIRAY 320 125ml IV ONE (15:37)
--- NOTE | 2025-07-03 16:00 | CT Scan Report ---
CT ANGIOGRAM OF THE CHEST CLINICAL HISTORY: Chest pain and tachycardia. Evaluate for pulmonary embolus. COMPARISON STUDY: Chest radiograph May 30, 2025 and chest radiograph performed earlier today. TECHNIQUE: Following the IV administration of 120 cc of Optiray 320, CT angiogram of the chest was pe rformed from the upper abdomen to the thoracic inlet utilizing the pulmonary embolus protocol. Images are reviewed in the axial, sagittal, and coronal planes. 3-D MIPS images are created and assessed. I V contrast was administered without complication. A dose lowering technique was utilized adhering to the principles of ALARA. CT DOSE: 1016.44 mGy.cm FINDINGS: No pulmonary emboli identified although the lower lobe segmental and subsegmental pulmonary arteries are not well assessed due to suboptimal opacification. There is no opacification of the tho racic aorta. The heart is moderately enlarged. There is a trace pericardial effusion. There are small bilateral pleural effusions, right larger than the left. There is no pneumothorax. Central airways a re patent. Interlobular septal thickening is present. There are moderate ground glass opacities withi n the lower lobes. There is a 1.1 cm subpleural nodular opacity within the right lower lobe as well. No suspicious pulmonary nodules are present. A 1.5 cm left upper lobe groundglass opacity is present. IMPRESSION: 1. No pulmonary emboli identified although lower lobe segmental and subsegmental pulmonary arteries n ot assessed due to suboptimal opacification. 2. Cardiomegaly with a trace pericardial effusion. 3. Small bilateral pleural effusions. Interstitial pulmonary edema. Moderate lower lobe groundglass o pacities could represent alveolar pulmonary edema or atelectasis. An infectious process is within the differential but considered less likely. 4. 1.5 cm left upper lobe groundglass opacity. This may represent a mild infectious process or alveol ar pulmonary edema. However, a chest CT in 3 months is recommended to exclude the less likely possibi lity of a pulmonary lesion. ACT 112: Positive. There are findings on this exam that require communication between the performing entity and the patient following Patient Test Result Information Act ([place] Act 112) guidelines. Electronically signed by: Nicolas Love M.D. 07/03/2025 3:59 PM
--- NOTE | 2025-07-03 16:27 | Emergency Department Note ---
Impression & Plan Pleural effusion, Chest pain, Acute pericardial effusion ED Provider Note NAME: FINN GONZALEZ AGE: 54 SEX: M : 1970 ARRIVES VIA: Ambulance INFORMANT: Patient, ED PROVIDER(S): Joselyn Sheldon MD CHIEF COMPLAINT: Chest pain, elevated potassium HPI: This is a 54-year-old male with history of CHF, CKD, currently has a LifeVest presenting for chest pain and shortness of breath. He reports multiple day history of this. He went to [facility] who sent him here as his blood work was abnormal showing high potassium levels. He was told he may have fluid overload as well. Does report shortness of breath at rest as well as exertional. ROS: See above HPI for pertinent positives & negatives. A total of 10 systems reviewed and were otherwise negative. PAST MEDICAL HISTORY: See Below PAST SURGICAL HISTORY: See Below FAMILY HISTORY: See Below SOCIAL HISTORY: See Below HOME MEDICATIONS: See Below ALLERGIES: See Below VITALS: See Below PHYSICAL EXAMINATION: General: resting comfortably in no acute distress Head: Normocephalic and atraumatic Eyes: Normal inspection, extraocular muscles intact Ear, nose, throat: Normal external exam Neck: Normal range of motion Respiratory: lungs clear to auscultation bilaterally Cardiovascular: Regular rate/rhythm, no murmur GI: soft, nontender, no guarding or rebound Extremities: nontender, moves all extremities Neuro: The patient awake and alert, appropriately conversive, no focal deficits, symmetric faces Skin: Warm, dry, and intact MEDICAL DECISION MAKING: This is a 51-year-old male presenting for chest pain/shortness of breath. Patient has pleuritic chest pain. Will do screening workup that includes blood work, EKG, troponin. With pleuritic chest pain, will do CT of the chest -Bloodwork is reviewed showing no significant leukocytosis, anemia, electrolyte or creatinine abnormality. Negative troponin -Chest Xray independently interpreted by me showing no pneumothorax, focal opacity, or pleural effusions. -CT imaging reveals pericardial effusion, small, bilateral pleural effusion -Due to patient's persistent symptoms, tachycardia, shortness of breath, chest pain, will admit for further workup in the hospital setting. Differential diagnosis: CHF, PE, dissection, pneumonia, ACS Diagnostics interpreted by me: ECG: ECG independently interpreted by me with sinus tachycardia rate of 108,, left axis deviation, normal HI, normal QRS, normal QTc, no ST segment elevations consistent with STEMI criteria Cardiac Monitoring: An order was placed for continuous cardiac monitoring. The monitor shows a rate of 107 with sinus rhythm. Past Med/Surg History Problem List (Updated 07/03/25 @ 17:45 by Joselyn Sheldon MD) Acute pericardial effusion (Acute) Chest pain (Acute) Pleural effusion (Acute) Medication dose missed (Acute) CHF (congestive heart failure) (Acute) Acute intractable headache (Acute) Hypoglycemia (Acute) Hypomagnesemia (Acute) Acute kidney injury superimposed on stage 3a chronic kidney disease Chronic heart failure with reduced ejection fraction and diastolic dysfunction Palpitations Hypoglycemia (Acute) Dyspnea (Acute) Chest pain (Acute) Abdominal pain Noncompliance NYHA Class III cardiovascular function Chest pain Atypical chest pain (Acute) CKD (chronic kidney disease) stage 3, GFR 30-59 ml/min Hyperkalemia Non-occlusive coronary artery disease Open wound, lower leg Possible urinary tract infection Acute calculous cholecystitis Abdominal pain (Acute) Dyslipidemia, goal LDL below 70 HTN, goal below 130/80 ASCVD (arteriosclerotic cardiovascular disease) Gall stones (Acute) Tachycardia (Acute) Acute dehydration (Acute) Acute hyperglycemia (Acute) RUQ abdominal pain (Acute) Wound of right lower extremity DM type 2 (diabetes mellitus, type 2) Nonischemic cardiomyopathy Acute on chronic heart failure with reduced ejection fraction (HFrEF, <= 40%) Hypomagnesemia (Acute) Transaminitis (Acute) Acute CHF (Acute) Abdominal pain (Acute) Chest pain (Acute) Hyperkalemia Acute heart failure with reduced ejection fraction (HFrEF, <= 40%) Acute upper abdominal pain (Acute) Cholelithiasis (Acute) Elevated LFTs (Acute) Pleural effusion (Acute) Elevated troponin (Acute) COVID-19 (Acute) Tinnitus of both ears Diabetic peripheral neuropathy Dizziness Ataxia (Acute) No significant past surgical history (Chronic) GERD (gastroesophageal reflux disease) (Chronic) Type 2 diabetes mellitus (Chronic) Abdominal pain (Acute) Dehydration (Acute) Nausea (Acute) New onset type 2 diabetes mellitus (Acute) Medical History Peptic ulcer disease TBI (traumatic brain injury) No pertinent family history Family History Mother Diabetes Social History Smoking Status: Never smoker Second Hand Exposure: No; Do You Dip or Chew Tobacco: No; Hx Alcohol Use: No Hx Substance Use: No Preferred Language: Danish Communication Ability: Effective Athletic Director Required: No Beliefs That Will Affect Care: None marital status: Single Current Living Situation: Alone current occupational status: employed Feels Safe at Home: Yes Assistive Devices: Other Allergies Allergies Allergy/AdvReac Type Severity Reaction Status Date / Time lidocaine AdvReac Intermediate "KNOCKED Verified 06/04/25 19:55 ME OUT". Home Meds Home Medications Medication Instructions Recorded Confirmed aspirin 81 mg tablet,delayed 81 mg PO DAILY 04/17/25 07/03/25 release atorvastatin 80 mg tablet 80 mg PO DAILY 05/11/25 07/03/25 famotidine 20 mg tablet 20 mg PO DAILY 05/11/25 07/03/25 folic acid 1 mg tablet 0 mg PO DAILY 05/11/25 07/03/25 furosemide 40 mg tablet 40 mg PO DAILY 05/11/25 07/03/25 magnesium oxide 420 mg tablet 420 mg PO BID 05/11/25 07/03/25 metoprolol succinate 50 mg 25 mg PO DAILY 05/11/25 07/03/25 tablet,extended release 24 hr sacubitril 24 mg-valsartan 26 mg 1 tab PO BID 05/11/25 07/03/25 tablet (Entresto) insulin glargine 100 unit/mL 30 unit subcut DAILY 06/04/25 07/03/25 subcutaneous solution cholecalciferol (vitamin D3) 25 2,000 unit PO DAILY 07/03/25 07/03/25 mcg (1,000 unit) tablet empagliflozin 25 mg tablet 0 mg PO DAILY 07/03/25 07/03/25 guaifenesin 600 mg tablet, 600 mg PO BID PRN Other 07/03/25 07/03/25 extended release 12 hr insulin NPH-regular 70-30 U-100 35 unit subcut BID 07/03/25 07/03/25 insulin 100 unit/mL subcutaneous pen insulin aspart U-100 100 unit/mL 6 unit subcut TID 07/03/25 07/03/25 (3 mL) subcutaneous pen (Novolog FlexPen U-100 Insulin aspart) omeprazole 20 mg capsule,delayed 20 mg PO BID 07/03/25 07/03/25 release pantoprazole 40 mg tablet,delayed 0 mg PO BID 07/03/25 07/03/25 release Previous Rx's Medication Instructions Recorded ibuprofen 800 mg tablet 800 mg PO Q8H PRN severe headache 05/12/25 #10 tabs Results & Data (ED) Vital Signs Vital Signs - 24 hr 07/03/25 13:27 07/03/25 14:28 07/03/25 15:00 Temperature 36.5 C Temperature Source Temporal Artery Scan Pulse Rate 108 H 103 H 97 H Pulse Rate from SpO2 Sensor Respiratory Rate 19 10 L Respiratory Effort / Characteristics Non-Labored Spontaneous Respiratory Depth Normal Blood Pressure 136/92 134/109 H Blood Pressure Mean 106 117 Pulse Oximetry 99 Oxygen Delivery Method Room Air Sepsis Recent Fever Within 48 Hours No Sepsis New/Unexplained Change in Mental Status No Sepsis Action Taken by Nursing No Action Required 07/03/25 15:45 07/03/25 16:00 07/03/25 16:30 Temperature Temperature Source Pulse Rate 106 H 98 H 95 H Pulse Rate from SpO2 Sensor 102 H 98 H 95 H Respiratory Rate 20 16 12 Respiratory Effort / Characteristics Respiratory Depth Blood Pressure 134/105 H 134/108 H 134/102 H Blood Pressure Mean 114 116 117 Pulse Oximetry 96 99 100 Oxygen Delivery Method Sepsis Recent Fever Within 48 Hours Sepsis New/Unexplained Change in Mental Status Sepsis Action Taken by Nursing 07/03/25 17:00 Temperature Temperature Source Pulse Rate 109 H Pulse Rate from SpO2 Sensor 108 H Respiratory Rate 24 Respiratory Effort / Characteristics Respiratory Depth Blood Pressure 131/108 H Blood Pressure Mean 115 Pulse Oximetry 99 Oxygen Delivery Method Sepsis Recent Fever Within 48 Hours Sepsis New/Unexplained Change in Mental Status Sepsis Action Taken by Nursing Laboratory Data 07/03/25 14:27 07/03/25 14:27 Lab Results 07/03/25 Range/Units 14:27 WBC 5.95 (4.8-10.8) K/ul RBC 5.86 (4.70-6.10) M/uL Hgb 16.3 (14.0-18.0) g/dl Hct 48.4 (42.0-52.0) % MCV 82.6 (80.0-100.0) fL MCH 27.8 (25.0-34.0) pg MCHC 33.7 (32.0-36.0) g/dL RDW Std Deviation 38.8 (36.4-46.3) fL RDW Coeff of Kt 12.9 (11.5-14.5) % Plt Count 166 (130-400) K/uL MPV 10.7 (9.4-12.4) fL Immature Gran % (Auto) 0.3 % Neut % (Auto) 46.6 % Lymph % (Auto) 38.8 % [place] % (Auto) 10.1 % Eos % (Auto) 3.5 % Baso % (Auto) 0.7 % Neut # (Auto) 2.77 (1.40-6.50) K/uL Lymph # (Auto) 2.31 (1.20-3.40) K/uL [place] # (Auto) 0.60 H (0.11-0.59) K/uL Eos # (Auto) 0.21 (0.00-0.50) K/uL Baso # (Auto) 0.04 (0.00-0.20) K/uL Immature Gran # (Auto) 0.02 (0.01-0.20) K/uL PT 11.8 (9.0-12.0) Seconds INR 1.1 (0.9-1.1) APTT 24 (21-31) Seconds PTT Ratio 0.9 Sodium 136 (136-145) mmol/L Potassium 4.7 (3.5-5.1) mmol/L Chloride 103 (98-107) mmol/L Carbon Dioxide 26 (21-32) mmol/L Anion Gap 7 (3-11) BUN 20 (6-23) mg/dl Creatinine 1.15 (0.6-1.4) mg/dl Est Cr Clr Drug Dosing Not Reportable eGFR 75.63 BUN/Creatinine Ratio 17.4 (10-20) Glucose 158 H (70-99(Fasting)) mg/dl Calcium 9.0 (8.6-10.3) mg/dl Total Bilirubin 0.6 (0.2-1.0) mg/dl AST 37 (13-39) U/L ALT 43 (7-52) U/L Alkaline Phosphatase 78 (34-104) U/L Troponin I High Sens 11.1 (0-20) pg/ml Total Protein 6.6 (6.0-8.3) gm/dl Albumin 3.4 (3.4-5.0) gm/dl Globulin 3.2 (2.5-4.0) gm/dl Albumin/Globulin Ratio 1.1 (0.9-2) Administered Medications Discontinued Medications Ioversol (Optiray 320 125ml) 120 ml IV ONCE ONE Stop: 07/03/25 15:37 Last Admin: 07/03/25 15:37 Dose: 120 ml Documented By: KENROY Imaging Data Radiologist's Impression: Chest X-Ray 07/03/25 13:31 XR chest 1V portable CLINICAL HISTORY: Chest pain, nonspecific COMPARISON STUDY: 07/09/2025 FINDINGS: Stable mild cardiomegaly without pulmonary vascular congestion. No consolidation or pleural effusion. No pneumothorax. IMPRESSION: No acute findings. ACT 112: Negative or not required by law. Electronically signed by: Matthew Velasquez M.D. 07/03/2025 2:04 PM Chest CTA 07/03/25 15:09 CT ANGIOGRAM OF THE CHEST CLINICAL HISTORY: Chest pain and tachycardia. Evaluate for pulmonary embolus. COMPARISON STUDY: Chest radiograph May 30, 2025 and chest radiograph performed earlier today. TECHNIQUE: Following the IV administration of 120 cc of Optiray 320, CT angiogram of the chest was performed from the upper abdomen to the thoracic inlet utilizing the pulmonary embolus protocol. Images are reviewed in the axial, sagittal, and coronal planes. 3-D MIPS images are created and assessed. IV contrast was administered without complication. A dose lowering technique was utilized adhering to the principles of ALARA. CT DOSE: 1016.44 mGy.cm FINDINGS: No pulmonary emboli identified although the lower lobe segmental and subsegmental pulmonary arteries are not well assessed due to suboptimal opacification. There is no opacification of the thoracic aorta. The heart is moderately enlarged. There is a trace pericardial effusion. There are small bilateral pleural effusions, right larger than the left. There is no pneumothorax. Central airways are patent. Interlobular septal thickening is present. There are moderate ground glass opacities within the lower lobes. There is a 1.1 cm subpleural nodular opacity within the right lower lobe as well. No suspicious pulmonary nodules are present. A 1.5 cm left upper lobe groundglass opacity is present. IMPRESSION: 1. No pulmonary emboli identified although lower lobe segmental and subsegmental pulmonary arteries not assessed due to suboptimal opacification. 2. Cardiomegaly with a trace pericardial effusion. 3. Small bilateral pleural effusions. Interstitial pulmonary edema. Moderate lower lobe groundglass opacities could represent alveolar pulmonary edema or atelectasis. An infectious process is within the differential but considered less likely. 4. 1.5 cm left upper lobe groundglass opacity. This may represent a mild infectious process or alveolar pulmonary edema. However, a chest CT in 3 months is recommended to exclude the less likely possibility of a pulmonary lesion. ACT 112: Positive. There are findings on this exam that require communication between the performing entity and the patient following Patient Test Result Information Act ([place] Act 112) guidelines. Electronically signed by: Nicolas Love M.D. 07/03/2025 3:59 PM Discharge Plan Visit Data Chief Complaint: Chest Pain Stated Complaint: CHEST PRESSURE, SOB, BLURRED VISION ED Provider: Joselyn Sheldon Discharge Problem: Pleural effusion, Chest pain, Acute pericardial effusion Patient Disposition: Admitted As Inpatient Condition: Fair Forms Stand Alone Forms: [facility] Prescriptions Prescriptions: No Action aspirin 81 mg Tablet,Delayed Release (Dr/Ec) 81 mg PO DAILY furosemide 40 mg tablet 40 mg PO DAILY atorvastatin 80 mg Tablet 80 mg PO DAILY magnesium oxide 420 mg Tablet 420 mg PO BID metoprolol succinate 50 mg Tablet Extended Release 24 Hr 25 mg PO DAILY famotidine 20 mg tablet 20 mg PO DAILY folic acid 1 mg Tablet 0 mg PO DAILY Patient Comments: per [facility] list, last released by them 07/24/24 90 day supply; script now sacubitril-valsartan [Entresto] 24-26 mg Tablet 1 tab PO BID ibuprofen 800 mg tablet 800 mg PO Q8H PRN (Reason: severe headache) Qty: 10 0RF Patient Comments: [facility] 06/11/25 insulin glargine 100 unit/mL Solution 30 unit SUBCUT DAILY Rx Instructions: PER PT "DID NOT START TAKING YET, BSG'S LOW" omeprazole 20 mg Capsule,Delayed Release(Dr/Ec) 20 mg PO BID insulin aspart U-100 [Novolog FlexPen U-100 Insulin] 100 unit/mL (3 mL) Insulin Pen 6 unit SUBCUT TID Humulin 70/30 Insulin Pen 100 unit/mL (70-30) Insulin Pen 35 unit SUBCUT BID cholecalciferol (vitamin D3) 25 mcg (1,000 unit) Tablet 2,000 unit PO DAILY guaifenesin 600 mg Tablet Extended Release 12hr 600 mg PO BID PRN (Reason: Other) empagliflozin 25 mg Tablet 0 mg PO DAILY Patient Comments: [facility] No recent fill dates. pantoprazole 40 mg tablet,delayed release (DR/EC) 0 mg PO BID Patient Comments: [facility] Referrals Referrals: ROSA, DAVID [Other]
--- NOTE | 2025-07-03 17:54 | History & Physical Report ---
Date of Service July 03, 2025 Assessment & Plan (1) Chest pain: Plan: Patient is a 54 year old M with a past medical history of NICM (LVEF 20-25% on life vest), Moderate nonobstructive CAD, HTN, HLD, GERD, DM Type II insulin- dependent, TBI presenting with chest pain, dizziness, shortness of breath x 1 day. Symptoms began yesterday morning with dizziness and weakness that progressed to exertional mid-sternal chest pain lasting 1 hour, relieved with rest. Reports "elephant sitting on chest". Reports he has not taken his metoprolol for several days d/t issues with home med delivery. Also he has not taken home furosemide dose today. States he was sent here [facility] for suspected high potassium level and is unaware of lab value. He has a history of hyperkalemia when taking spironolactone, but this has since been discontinued and he is now managed with furosemide. Labs unremarkable on admission. Multiple ED visits in the past 2 months. #Chest pain 2/2 acute pericardial effusion with pleural effusion #Chronic HFrEF, severe * Admit for Observation Med Tele * CP x 1 day w/ nonadherence to HF regimen, severely reduced LV function; currently wearing LifeVest w/ plan for ICD placement in future * Chest CT showing cardiomegaly with a trace pericardial effusion, small bilateral pleural effusions, interstitial pulmonary edema * Nonadherent to home meds, now w/ volume overload; Furosemide 40mg IV x 1 in ED with home dose Metoprolol * Echo 03/10/25 showing LVH with EF 20-25%, global hypokinesis LV--> Repeat Echo ordered today * Trop 11 on admit, will repeat at 8pm and with AM labs * Cardiology consult for additional recs given patient's severely declined LV functioning and poss need for additional diuresis #Hypertension #CKD Stage III * Hypertensive on admission at 134/109; nonadherence to home regimen for unknown length of time * Lasix and Metoprolol given in ED * Renal functioning stable; Cr 1.15 * Continue to trend w/ possible diuresis inpatient #DM Type II w/ insulin dependence * Most recent A1C 8%; will recheck with AM labs * SSI while inpatient with Goal BSG 110-140 * Continue home Lantus 30 units #Dyslipidemia * Continue high-intensity home statin * Check Lipids with Am labs DVT Ppx: SCDs Code status: Full PCP: Unknown; [facility] Dispo: Observation Patient seen in collaboration with Dr. Roland. Please see addendum.I spent a total of 65 minutes coordinating, documenting and providing care for this patient excluding time spent in the performance of separately billed services or time spent by another provider/QHP. (2) Acute pericardial effusion: (3) Pleural effusion: (4) Chronic heart failure with reduced ejection fraction and diastolic dysfunction: (5) HTN, goal below 130/80: (6) CKD (chronic kidney disease) stage 3, GFR 30-59 ml/min: (7) Dyslipidemia, goal LDL below 70: (8) DM type 2 (diabetes mellitus, type 2): History of Present Illness Primary Care Provider: UNKNOWN [facility] Patient is a 54 year old M with a past medical history of NICM (LVEF 20-25% on life vest), Moderate nonobstructive CAD, HTN, HLD, GERD, DM Type II insulin- dependent, TBI presenting with chest pain, dizziness, shortness of breath x 1 day. Symptoms began yesterday morning with dizziness and weakness that progressed to exertional mid-sternal chest pain lasting 1 hour, relieved with rest. Reports "elephant sitting on chest". Reports he has not taken his metoprolol for several days d/t issues with home med delivery. Also has not taking home furosemide dose today. States he was sent here [place] [facility] for suspected high potassium level and is unaware of lab value. He has a history of hyperkalemia when taking spironolactone, but this has since been discontinued and he is now managed with furosemide. Labs unremarkable on admission. Multiple ED visits in the past 2 months. Denies fever, chills, weight loss, headache, cognitive changes, vision/hearing changes,swelling, urinary concerns, N/V/D, joint swelling/pain, ambulation difficulty, skin rashes, lesions, bleeding, bruising. In the emergency department, patient was tachycardic to 108 and hypertensive 131/108 with no signs of infection or evidence of sepsis. Lab workup was unremarkable with no evidence of leukocytosis, anemia, SHIELA,electrolyte abnormality. Potassium normal at 4.7. Troponin stable at 11.1. EKG in the ED showing sinus tachycardia with pvc, vent rate 108, QTc 450. Chest Xray showed no acute findings, stable cardiomegaly with pulmonary vasc congestion. Chest CTA with trace pericardial effusions, interstitial pulmonary edema, lower lobe ground-glass opacities representing alveolar pulmonary edema or atelectasis. No evidence of PE on imaging. Patient was initially stable on room air and then developed shortness of breath without hypoxia. Supplemental oxygen was applied and was reportedly more comfortable with about 1/4 LPM oxygen. Persistent chest pain, 04/02, despite normal troponin. As per external chart review, patient was seen by Cardiology on 04/16/25 for hospital follow-up and to establish care. As per visit record, ICD implant was discussed and EP referral was placed; however, patient was a no-show to EP appointment. At that time, patient wanted to continue LifeVest until able to have planned cholecystectomy procedure. Recent lap cholecystectomy and hernia repair in [place] on 05/02/25. Follow-up appointment with [facility]iology scheduled for 07/20/25. History obtained primarily from the patient and via hospitalization record. External chart review obtained from [employer] Allergies Allergy/AdvReac Type Severity Reaction Status Date / Time lidocaine AdvReac Intermediate "KNOCKED Verified 06/04/25 19:55 ME OUT". Home Medications Medication Instructions Recorded Confirmed Type aspirin 81 mg tablet,delayed 81 mg PO DAILY 04/17/25 07/03/25 History release atorvastatin 80 mg tablet 80 mg PO DAILY 05/11/25 07/03/25 History famotidine 20 mg tablet 20 mg PO DAILY 05/11/25 07/03/25 History folic acid 1 mg tablet 0 mg PO DAILY 05/11/25 07/03/25 History furosemide 40 mg tablet 40 mg PO DAILY 05/11/25 07/03/25 History magnesium oxide 420 mg tablet 420 mg PO BID 05/11/25 07/03/25 History metoprolol succinate 50 mg 25 mg PO DAILY 05/11/25 07/03/25 History tablet,extended release 24 hr sacubitril 24 mg-valsartan 26 mg 1 tab PO BID 05/11/25 07/03/25 History tablet (Entresto) ibuprofen 800 mg tablet 800 mg PO Q8H PRN severe headache 05/12/25 07/03/25 Rx #10 tabs insulin glargine 100 unit/mL 30 unit subcut DAILY 06/04/25 07/03/25 History subcutaneous solution cholecalciferol (vitamin D3) 25 2,000 unit PO DAILY 07/03/25 07/03/25 History mcg (1,000 unit) tablet empagliflozin 25 mg tablet 0 mg PO DAILY 07/03/25 07/03/25 History guaifenesin 600 mg tablet, 600 mg PO BID PRN Other 07/03/25 07/03/25 History extended release 12 hr insulin NPH-regular 70-30 U-100 35 unit subcut BID 07/03/25 07/03/25 History insulin 100 unit/mL subcutaneous pen insulin aspart U-100 100 unit/mL 6 unit subcut TID 07/03/25 07/03/25 History (3 mL) subcutaneous pen (Novolog FlexPen U-100 Insulin aspart) omeprazole 20 mg capsule,delayed 20 mg PO BID 07/03/25 07/03/25 History release pantoprazole 40 mg tablet,delayed 0 mg PO BID 07/03/25 07/03/25 History release Past Med/Surg History Problem List (Updated 07/03/25 @ 17:45 by Joselyn Sheldon MD) Acute pericardial effusion (Acute) Chest pain (Acute) Pleural effusion (Acute) Medication dose missed (Acute) CHF (congestive heart failure) (Acute) Acute intractable headache (Acute) Hypoglycemia (Acute) Hypomagnesemia (Acute) Acute kidney injury superimposed on stage 3a chronic kidney disease Chronic heart failure with reduced ejection fraction and diastolic dysfunction Palpitations Hypoglycemia (Acute) Dyspnea (Acute) Chest pain (Acute) Abdominal pain Noncompliance NYHA Class III cardiovascular function Chest pain Atypical chest pain (Acute) CKD (chronic kidney disease) stage 3, GFR 30-59 ml/min Hyperkalemia Non-occlusive coronary artery disease Open wound, lower leg Possible urinary tract infection Acute calculous cholecystitis Abdominal pain (Acute) Dyslipidemia, goal LDL below 70 HTN, goal below 130/80 ASCVD (arteriosclerotic cardiovascular disease) Gall stones (Acute) Tachycardia (Acute) Acute dehydration (Acute) Acute hyperglycemia (Acute) RUQ abdominal pain (Acute) Wound of right lower extremity DM type 2 (diabetes mellitus, type 2) Nonischemic cardiomyopathy Acute on chronic heart failure with reduced ejection fraction (HFrEF, <= 40%) Hypomagnesemia (Acute) Transaminitis (Acute) Acute CHF (Acute) Abdominal pain (Acute) Chest pain (Acute) Hyperkalemia Acute heart failure with reduced ejection fraction (HFrEF, <= 40%) Acute upper abdominal pain (Acute) Cholelithiasis (Acute) Elevated LFTs (Acute) Pleural effusion (Acute) Elevated troponin (Acute) COVID-19 (Acute) Tinnitus of both ears Diabetic peripheral neuropathy Dizziness Ataxia (Acute) No significant past surgical history (Chronic) GERD (gastroesophageal reflux disease) (Chronic) Type 2 diabetes mellitus (Chronic) Abdominal pain (Acute) Dehydration (Acute) Nausea (Acute) New onset type 2 diabetes mellitus (Acute) Medical History Peptic ulcer disease TBI (traumatic brain injury) No pertinent family history Family History Mother Diabetes Social History Smoking Status: Never smoker Second Hand Exposure: No; Do You Dip or Chew Tobacco: No; Hx Alcohol Use: No Hx Substance Use: No Preferred Language: Armenian Communication Ability: Effective 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 WEIGHT/BMI reviewed. GEN: Healthy appearing, well-developed, PSYCH: AOx3. Cooperative. Even mood. Anxious HEENT -Head: NC/AT; -Eyes: PERRL, EOMI. No discharge or redn ess; -Ears: External ears are normal. -Nose: Normal nares. -Mouth and throat: MMM. Normal gums, muc nan, palate,. Good dentition. NECK: Supple, with no masses. CV: Rhythm regular, S1, S2 without appreciable murmur, no peripheral swelling, LifeVest intact LUNGS: Diminished effort, clear, not SOB, wearing supplemental O2 1/4 LPM w/ sats 97%, NAD ABD: Soft, NT/ND, NBS, no masses or organomegaly. : N/A SKIN: Warm, well perfused. No skin rashes or abnormal lesions. MSK: No deformities, Normal gait. EXT: No clubbing, cyanosis, or edema. NEURO: CN II-XII grossly intact. No focal deficits. Results & Data Results & Data Vital Signs (Past 12 Hours) Vital Signs Temp Pulse Resp BP Pulse Ox O2 Del Method 07/03/25 17:00 109 H 24 131/108 H 99 07/03/25 16:30 95 H 12 134/102 H 100 07/03/25 16:00 98 H 16 134/108 H 99 07/03/25 15:45 106 H 20 134/105 H 96 07/03/25 15:00 97 H 10 L 134/109 H 07/03/25 14:28 103 H 07/03/25 13:27 36.5 C 108 H 19 136/92 99 Room Air Laboratory Results Short CBC 07/03/25 Range/Units 14:27 WBC 5.95 (4.8-10.8) K/ul Hgb 16.3 (14.0-18.0) g/dl Hct 48.4 (42.0-52.0) % Plt Count 166 (130-400) K/uL BMP 07/03/25 14:27 Sodium 136 Potassium 4.7 Chloride 103 Carbon Dioxide 26 BUN 20 Creatinine 1.15 Glucose 158 H Calcium 9.0 Liver Function 07/03/25 Range/Units 14:27 Total Bilirubin 0.6 (0.2-1.0) mg/dl AST 37 (13-39) U/L ALT 43 (7-52) U/L Alkaline Phosphatase 78 (34-104) U/L Albumin 3.4 (3.4-5.0) gm/dl Diagnostic Findings Chest X-Ray 07/03/25 13:31 XR chest 1V portable CLINICAL HISTORY: Chest pain, nonspecific COMPARISON STUDY: 07/09/2025 FINDINGS: Stable mild cardiomegaly without pulmonary vascular congestion. No consolidation or pleural effusion. No pneumothorax. IMPRESSION: No acute findings. ACT 112: Negative or not required by law. Electronically signed by: Matthew Velasquez M.D. 07/03/2025 2:04 PM Chest CTA 07/03/25 15:09 CT ANGIOGRAM OF THE CHEST CLINICAL HISTORY: Chest pain and tachycardia. Evaluate for pulmonary embolus. COMPARISON STUDY: Chest radiograph May 30, 2025 and chest radiograph performed earlier today. TECHNIQUE: Following the IV administration of 120 cc of Optiray 320, CT ang iogram of the chest was performed from the upper abdomen to the thoracic inlet utilizing the pulmonary embolus protocol. Images are reviewed in the axial, sagittal, and coronal planes. 3-D MIPS images are created and assessed. IV contrast was administered without complication. A dose lowering technique was utilized adhering to the principles of ALARA. CT DOSE: 1016.44 mGy.cm FINDINGS: No pulmonary emboli identified although the lower lobe segmental and subsegmental pulmonary arteries are not well assessed due to suboptimal opacification. There is no opacification of the thoracic aorta. The heart is moderately enlarged. There is a trace pericardial effusion. There are small bilateral pleural effusions, right larger than the left. There is no pneumothorax. Central airways are patent. Interlobular septal thickening is present. There are moderate ground glass opacities within the lower lobes. There is a 1.1 cm subpleural nodular opacity within the right lower lobe as well. No suspicious pulmonary nodules are present. A 1.5 cm left upper lobe groundglass opacity is present. IMPRESSION: 1. No pulmonary emboli identified although lower lobe segmental and subsegmental pulmonary arteries not assessed due to suboptimal opacification. 2. Cardiomegaly with a trace pericardial effusion. 3. Small bilateral pleural effusions. Interstitial pulmonary edema. Moderate lower lobe groundglass opacities could represent alveolar pulmonary edema or atelectasis. An infectious process is within the differential but considered less likely. 4. 1.5 cm left upper lobe groundglass opacity. This may represent a mild infectious process or alveolar pulmonary edema. However, a chest CT in 3 months is recommended to exclude the less likely possibility of a pulmonary lesion. ACT 112: Positive. There are findings on this exam that require communication between the performing entity and the patient following Patient Test Result Information Act ([place] Act 112) guidelines. Electronically signed by: Nicolas Love M.D. 07/03/2025 3:59 PM Code Status & VTE Plan VTE Prophylaxis Plan VTE Prophylaxis will be ordered: Yes Supervising Physician Co-Signing Physician Notes Patient seen and examined at bedside. Patient doing ok today, states he is having chest pain and dizziness. Has not been taking medications as prescribed, missing metoprolol, lasix and others. On exam, patient laying comfortably in room, no pitting edema, trace rhonchi in bilateral lower lung fernandes. Trops negative, ECG similar to prior personally reviewed by me, creatinine at baseline. CT chest revealing small bilateral pleural effusions and pulmonary edema. Patient presenting with chest pain and dizziness, likely anginal in nature, in setting of missed medication doses. Trops and ECG reassuring for no active ACS at time of writing. Echo ordered, cardiology consult in AM for consideration of further diagnostics. Restart home medications, give IV lasix for small bilateral pleural effusions. I have seen and discussed the case with the collaborating advanced practitioner. I agree with the above H&P. I have reviewed and confirmed the patients medical history, the findings on physical examination, and the patients diagnosis and treatment plan with Elizabeth VELASQUEZ and agree with the information documented. I spent a total of 25 minutes coordinating, documenting, and providing care for this patient excluding time spent in the performance of separately billed services. All of the aforementioned completed outside of collaborating with the assigned advanced practitioner for a full treatment plan. I have reviewed the advanced practitioner's documentation, and I agree with, and take responsibility for the plan of care (8) DM type 2 (diabetes mellitus, type 2) Diabetes mellitus complication status: with other specified complication Diabetes mellitus [facility] insulin use: with [facility] use Qualified Code(s): E11.69 - Type 2 diabetes mellitus with other specified complication; Z79.4 - FDC (current) use of insulin
[2025-07-03] MEDS: FUROSEMIDE 40 MG/4 ML VIAL IV ONE (18:00)
[2025-07-03] MEDS: METOPROLOL SUCC 25MG EXT REL TAB PO ONE (18:00)
[2025-07-03] MEDS ORDERED: ACETAMINOPHEN SUSP 160 MG/5 ML BTL PO PRN (19:19)
[2025-07-03] MEDS ORDERED: MAGNESIUM HYDROXIDE SUSP 30 ML UDC PO PRN (20:13)
[2025-07-03] MEDS ORDERED: ONDANSETRON INJ 2 MG/ML 2 ML VIAL IV PRN (20:13)
[2025-07-03] MEDS ORDERED: GLUCAGON FOR INJ 1 MG VIAL SQ PRN (20:13)
[2025-07-03] MEDS ORDERED: GLUCOSE 40% GEL 15 GM TUBE PO PRN (20:13)
[2025-07-03] MEDS ORDERED: DEXTROSE 50% 50 ML SYRINGE IV PRN (20:13)
[2025-07-03] MEDS ORDERED: POLYETHYLENE (MIRALAX) 17 GM PACK PO PRN (20:13)
[2025-07-03] MEDS ORDERED: CARBOHYDRATES FOR HYPOGLYCEMIA PO PRN (20:13)
[2025-07-03] MEDS ORDERED: GLUCOSE 10 TAB/TUBE PO PRN (20:13)
[2025-07-03] MEDS ORDERED: LANTUS PER UNIT CHARGE SQ SCH (21:00)
[2025-07-03 21:25] LABS: Cholesterol 172.0 mg/dl (0-200); HDL Cholesterol 36.0 mg/dl; Triglycerides 103.0 mg/dl (0-150)
[2025-07-03] MEDS: MAGNESIUM OXIDE 400 MG TAB PO SCH (21:52)
[2025-07-03] MEDS: INSULIN ASPART PER UNIT CHARGE SC SCH (21:53)
[2025-07-03] MEDS: VALSARTAN/SACUBITRIL 26/24MG TAB PO SCH (22:39)
[2025-07-04] MEDS: ACETAMINOPHEN 325 MG TAB PO PRN (04:42)
[2025-07-04 05:59] LABS: Hematocrit (blood only) 45.5 % (42.0-52.0); Hemoglobin 15.7 g/dl (14.0-18.0); Mean Corpuscular Hemoglobin 28.1 pg (25.0-34.0); Mean Corpuscular Volume 81.4 fL (80.0-100.0); Platelet Count 150 K/uL (130-400); RDW Standard Deviation 38.4 fL (36.4-46.3); Red Blood Count 5.59 M/uL (4.70-6.10); White Blood Count 6.29 K/ul (4.8-10.8)
[2025-07-04 06:15] LABS: Anion Gap 6.0 (3-11); Blood Urea Nitrogen 20.0 mg/dl (6-23); Calcium 8.5 mg/dl (8.6-10.3); Carbon Dioxide 26.0 mmol/L (21-32); Chloride 103.0 mmol/L (98-107); Creatinine Clr Calc Pharmacy 85.6 ml/min; Glucose 88.0 mg/dl (70-99(Fasting)); Magnesium 1.6 mg/dl (1.7-2.4); Potassium 4.7 mmol/L (3.5-5.1); Sodium 135.0 mmol/L (136-145)
[2025-07-04 07:31] LABS: Hemoglobin A1C 7.5 % (4.5-5.6)
[2025-07-04] MEDS ORDERED: METOPROLOL SUCC 25MG EXT REL TAB PO SCH (09:00)
[2025-07-04] MEDS: CHOLECALCIFEROL 25 MCG (1000 UNITS) TAB PO SCH (09:40)
[2025-07-04] MEDS: METOPROLOL SUCC 25MG EXT REL TAB PO SCH (09:40)
[2025-07-04] MEDS: FUROSEMIDE 40 MG TAB PO SCH (09:40)
[2025-07-04] MEDS: ATORVASTATIN 40 MG TAB PO SCH (09:40)
[2025-07-04] MEDS: FOLIC ACID 1 MG TAB PO SCH (09:41)
[2025-07-04] MEDS: ASPIRIN 81 MG ECTAB PO SCH (09:41)
[2025-07-04] MEDS: ALUMINUM/MAGNESIUM SUSP 30 ML UDC PO PRN (09:45)
[2025-07-04] MEDS: FAMOTIDINE 20 MG TAB PO SCH (09:51)
--- NOTE | 2025-07-04 10:31 | Cardiology Consultation ---
Date of Consultation July 04, 2025 Assessment & Plan (1) Chronic heart failure with reduced ejection fraction and diastolic dysfunction: (2) Nonischemic dilated cardiomyopathy: (3) Acute pericardial effusion: Plan Chest pain Trace pericardial effusion Acute on chronic HFrEF Nonischemic cardiomyopathy -EF 20-24% wearing lifevest Moderate nonobstructive CAD per CATH 2023 HTN T2 DM HLD Hx TBI -Patient with acute on chronic systolic heart failure in setting of dietary n oncompliance and lack of medications -Currently chest pain free. ACS ruled out. Troponin flat, EKG without acute changes. -Clinically improved, needs further optimization -Continue diuresis. Will give additional IV lasix 40mg ONCE -Echocardiogram ordered -Continue entresto 24-26mg BID -Continue metoprolol succinate 25mg daily -Unfortunately patient intolerant to Jardiance due to dizziness and spir onolactone due to hyperkalemia -Lifevest in place, patient reports low battery. Device rep contacted. -Continue to monitor on telemetry Case discussed with Dr Carl. I spent a total of 45 minutes on the date of service in preparation, delivery, and documentation of the care provided to this patient, excluding any time spent in the performance of separately billed services. Rupinder Manriquez PA-C Department of Cardiology, [facility] This chart was completed in part utilizing Speech Voice Recognition Software. Grammatical errors, random word insertions, pronoun errors, and incomplete sentences are an occasional consequence of this system due to software limitations, ambient noise, and hardware issues. Any formal questions or concerns about the content, text, or information contained within the body of this dictation should be directly addressed to the provider for clarification. Supervising Physician Co-Signing Physician Notes Patient seen and examined. Past medical history, surgical history, social history and family history have been reviewed. The medical record and all the above studies have been reviewed. Case DW JACQUES including management. Chest pain Acute on chronic HFrEF Nonischemic cardiomyopathy -EF 20-24% wearing LifeVest Moderate nonobstructive CAD per CATH 2023 HTN T2 DM HLD LifeVest battery low -> Rep contacted correct and f/u electrolytes f/u renal function change IV to PO diuretics GDMT for HFrEF as tolerated keeping HR between 60 to 100 BPM and systolic BP between 100-140 mmHg adjust anti-HTN meds keeping systolic BP between 100-140 mmHg avoid hypovolemia keep patient euvolemic DVT prophylaxis keep LE elevated when sitting 1.5 L / 24 hr fluid restriction strict I&Os salt restriction counseling History of Present Illness Reason for Consultation: Chest pain Requesting Physician: Dr. Sharma Attending Physician: Huber Sharma MD History of Present Illness Km Babb is a 54 year old male with PMHx nonischemic cardiomyopathy EF 20- 25% currently wearing lifevest, moderate nonobstructive CAD, T2 DM on insulin, HTN, HLD, Hx TBI, GERD who presented [facility] Upon arrival patient endorsed chest pain, dizziness and shortness of breath x1 day. Patient initially had dizziness and weakness that later progressed to exertional chest pain. Pain described as mid sternal and felt like "elephant sitting on chest". Improved with rest. Unfortunately patient has not had metoprolol for several days due to issues with home delivery. Today patient reports feeling much improved. He is anxious to leave. States his lifevest battery has 1 bar left and he has no other batteries in the hospital. He has no family members to bring a new battery. Patient last evaluated in the cardiology clinic 04/16/2025. EP referral placed; however patient now showed appointment. It was mentioned patient has no showed multiple appointments and only wearing lifevest <1% of the time. CT chest with cardiomegaly, trace pericardial effusion, small b/l pleural effusions and interstitial pulm edema. Reports recently having yueger and fried at [place] Hx hyperkalemia on spironolactone Intolerant to Jardiance due to dizziness Allergies Allergy/AdvReac Type Severity Reaction Status Date / Time lidocaine AdvReac Intermediate "KNOCKED Verified 06/04/25 19:55 ME OUT". Home Medications Medication Instructions Recorded Confirmed Type aspirin 81 mg tablet,delayed 81 mg PO DAILY 04/17/25 07/03/25 History release atorvastatin 80 mg tablet 80 mg PO DAILY 05/11/25 07/03/25 History famotidine 20 mg tablet 20 mg PO DAILY 05/11/25 07/03/25 History folic acid 1 mg tablet 0 mg PO DAILY 05/11/25 07/03/25 History furosemide 40 mg tablet 40 mg PO DAILY 05/11/25 07/03/25 History magnesium oxide 420 mg tablet 420 mg PO BID 05/11/25 07/03/25 History metoprolol succinate 50 mg 25 mg PO DAILY 05/11/25 07/03/25 History tablet,extended release 24 hr sacubitril 24 mg-valsartan 26 mg 1 tab PO BID 05/11/25 07/03/25 History tablet (Entresto) ibuprofen 800 mg tablet 800 mg PO Q8H PRN severe headache 05/12/25 07/03/25 Rx #10 tabs insulin glargine 100 unit/mL 30 unit subcut DAILY 06/04/25 07/03/25 History subcutaneous solution cholecalciferol (vitamin D3) 25 2,000 unit PO DAILY 07/03/25 07/03/25 History mcg (1,000 unit) tablet empagliflozin 25 mg tablet 0 mg PO DAILY 07/03/25 07/03/25 History guaifenesin 600 mg tablet, 600 mg PO BID PRN Other 07/03/25 07/03/25 History extended release 12 hr insulin NPH-regular 70-30 U-100 35 unit subcut BID 07/03/25 07/03/25 History insulin 100 unit/mL subcutaneous pen insulin aspart U-100 100 unit/mL 6 unit subcut TID 07/03/25 07/03/25 History (3 mL) subcutaneous pen (Novolog FlexPen U-100 Insulin aspart) omeprazole 20 mg capsule,delayed 20 mg PO BID 07/03/25 07/03/25 History release pantoprazole 40 mg tablet,delayed 0 mg PO BID 07/03/25 07/03/25 History release Patient History Medical History Peptic ulcer disease TBI (traumatic brain injury) No pertinent family history Family History Mother Diabetes Social History Smoking Status: Never smoker Second Hand Exposure: No; Do You Dip or Chew Tobacco: No; Tobacco Cessation Education Requested by Patient: No Hx Alcohol Use: Yes Alcohol type: wine Hx Substance Use: No Preferred Language: Citizen Of [place] Communication Ability: Effective Underwriting Assistant Required: No Beliefs That Will Affect Care: None marital status: Single Current Living Situation: Alone current occupational status: employed Other Information That Helps Us Care for You: No Feels Safe at Home: Yes Safety Concerns: Feels Safe At This Time Assistive Devices: Other Assistive Devices Comment: Life Vest Review of Systems Review of Systems: All systems reviewed & are unremarkable except as noted in HPI & below Physical Exam Constitutional: WD/WN, vitals as above well developed and well nourished; no acute distress Respiratory: normal respiratory effort, lungs clear to auscultation Cardiovascular: Rate/Rhythm: regular rate and regular rhythm Heart Sounds: normal S1 and normal S2 Vessels: no JVD Extremities: + edema +1 BLE edema Skin: no rashes, warm and dry Psychiatric: A+Ox3, euthymic affect Results & Data Vital Signs (Past 12 Hours) Vital Signs Temp Pulse Pulse Resp BP Pulse Ox O2 Del Method 07/04/25 08:41 36.3 C L 88 18 166/83 H 98 Nasal Cannula 07/04/25 07:34 87 07/04/25 00:29 36.3 C L 91 H 20 113/82 100 Nasal Cannula O2 Flow Rate 07/04/25 08:41 1 07/04/25 07:34 07/04/25 00:29 Laboratory Results Cardiac Enzymes 07/03/25 07/03/25 Range/Units 14:27 20:57 AST 37 (13-39) U/L Troponin I High Sens 11.1 13.0 (0-20) pg/ml Coagulation 07/03/25 Range/Units 14:27 PT 11.8 (9.0-12.0) Seconds APTT 24 (21-31) Seconds Lipids 07/03/25 Range/Units 20:57 Triglycerides 103 (0-150) mg/dl Cholesterol 172 (0-200) mg/dl HDL Cholesterol 36 mg/dl Cholesterol/HDL Ratio 4.8 (0-5) CBC 07/03/25 07/04/25 Range/Units 14:27 05:42 WBC 5.95 6.29 (4.8-10.8) K/ul RBC 5.86 5.59 (4.70-6.10) M/uL Hgb 16.3 15.7 (14.0-18.0) g/dl Hct 48.4 45.5 (42.0-52.0) % Plt Count 166 150 (130-400) K/uL Neut # (Auto) 2.77 (1.40-6.50) K/uL Lymph # (Auto) 2.31 (1.20-3.40) K/uL [place] # (Auto) 0.60 H (0.11-0.59) K/uL Eos # (Auto) 0.21 (0.00-0.50) K/uL Baso # (Auto) 0.04 (0.00-0.20) K/uL Comprehensive Metabolic Panel 07/03/25 07/04/25 Range/Units 14:27 05:42 Sodium 136 135 L (136-145) mmol/L Potassium 4.7 4.7 (3.5-5.1) mmol/L Chloride 103 103 (98-107) mmol/L Carbon Dioxide 26 26 (21-32) mmol/L BUN 20 20 (6-23) mg/dl Creatinine 1.15 1.15 (0.6-1.4) mg/dl Glucose 158 H 88 (70-99(Fasting)) mg/dl Calcium 9.0 8.5 L (8.6-10.3) mg/dl AST 37 (13-39) U/L ALT 43 (7-52) U/L Alkaline Phosphatase 78 (34-104) U/L Total Protein 6.6 (6.0-8.3) gm/dl Albumin 3.4 (3.4-5.0) gm/dl Intake and Output 07/03/25 07/04/25 07/04/25 22:59 06:59 14:59 Intake Total 850 / 850 Output Total 1000 / 1000 Balance -150 / -150 Intake: Oral 850 / 850 Output: Urine 1000 / 1000 Other: # Unmeasured Voids 1 Weight 93.2 kg 93.2 kg Weight Measurement Method Standing Scale Built in [facility] Diagnostic Findings EKG 07/03/2025 ST PVC 108bpm possible LAE LAD ECHO 04/17/2025 LV mildly dilated mild concentric LVH severe global hypokinesis of LV LVEF 20-25% RV mildly dilated RV systolic function is mildly reduced LA mildly dilated mild mitral regurgitation LV diastolic function is abnormal and consistent with elevated left ventricular filling pressure CARDIAC CATH 08/18/[address] Robles Summary Based on patient RHC that he is near euvolemic. Mild to moderate pulmonary HTN Mild nonocclusive CAD. Angiographically moderate to borderline severe diagonal disease and the vessel which is too small for PCI Cardiomyopathy is out of proportion to his CAD; therefore likely represents nonischemic cardiomyopathy medcial management as per primary cardiology team PG Care Time/CCT Total # of Minutes Spent Total Time Spent with Patient: Total time spent is greater than 50% in coordination of care (as documented) at patient's floor/unit and/or counseling patient: Coding Level of Care Code 41744 IN/OBS CONSULT LVL 5,80M Diagnoses Chronic heart failure with reduced ejection fraction and diastolic dysfunction I50.42 Nonischemic dilated cardiomyopathy I42.0 Acute pericardial effusion I30.9
--- NOTE | 2025-07-04 12:22 | Hospitalist Progress Note ---
Date of Service July 04, 2025 Assessment & Plan (1) Chest pain: Plan: Patient is a 54 year old M with a past medical history of NICM (LVEF 20-25% on life vest), Moderate nonobstructive CAD, HTN, HLD, GERD, DM Type II insulin- dependent, TBI presenting with chest pain, dizziness, shortness of breath x 1 day. Symptoms began yesterday morning with dizziness and weakness that progressed to exertional mid-sternal chest pain lasting 1 hour, relieved with rest. #Chest pain , ACS ruled out #Acute on Chronic CHFrEF * CP x 1 day w/ nonadherence to HF regimen, severely reduced LV function; currently wearing LifeVest w/ plan for ICD placement in future * Chest CT showing cardiomegaly with a trace pericardial effusion, small bilateral pleural effusions, interstitial pulmonary edema * Nonadherent to home meds, now w/ volume overload; Will give another dose of Lasix today afternoon. Cardiology consulted for comanagement and optimization of the medication. Discussed with cardiology. Echocardiogram pending Continue Entresto, metoprolol, aspirin and Lipitor. #Hypertension- Continue Entresto, metoprolol #CKD Stage III- Creatinine at baseline \ #DM Type II w/ insulin dependence-on SSI #Dyslipidemia * Continue high-intensity home statin DVT Ppx: heparin Code status: Full PCP: Unknown; [facility] Dispo: Observation Time spent evaluating patient, direct bedside care, chart review, placing orders, interpretation of diagnostic studies, discussion with consultants, patient, and family members, as well as other required patient management activities is 50 minutes Please note the above document was generated using voice recognition software. It may contain grammatical, syntax or spelling errors. Any formal questions or concerns about the content, text or information contained within the body of this dictation should be directly addressed to the provider for clarification (2) Acute pericardial effusion: (3) Pleural effusion: (4) Chronic heart failure with reduced ejection fraction and diastolic dysfunction: (5) HTN, goal below 130/80: (6) CKD (chronic kidney disease) stage 3, GFR 30-59 ml/min: (7) Dyslipidemia, goal LDL below 70: (8) DM type 2 (diabetes mellitus, type 2): Admission and Anticipated Discharge Date Admission Date: July 03, 2025 Subjective Patient seen and examined at bedside. He is comfortable; reports that send patient is resolved. Vital sign appears stable. Review of Systems Review of Systems: All systems reviewed & are unremarkable except as noted in Subjective Physical Exam Physical Exam: Constitutional: WD/WN, vitals as above, NAD, sitting up in bed, pleasant, conversing easily Respiratory: decreased breath sound at bases Cardiovascular: RRR, no murmur, no edema Vessels: no JVD or carotid bruit Chest: normal inspection of chest Abdomen: normal bowel sounds, soft, nontender, no hepatosplenomegaly Musculoskeletal: no cyanosis or clubbing, extremities motor strength 5/5 Skin: no rashes, warm and dry normal turgor Neurologic: PERRL, EOMI, accommodation nl, no face palsy, no dysarthria CN's II- XI intact bilaterally and moves all extremities Psychiatric: A+Ox3, euthymic affect Results & Data Results & Data Vital Signs (Past 12 Hours) Vital Signs Temp Pulse Pulse Resp BP Pulse Ox O2 Del Method 07/04/25 08:41 36.3 C L 88 18 166/83 H 98 Nasal Cannula 07/04/25 07:34 87 07/04/25 00:29 36.3 C L 91 H 20 113/82 100 Nasal Cannula O2 Flow Rate 07/04/25 08:41 1 07/04/25 07:34 07/04/25 00:29 (8) DM type 2 (diabetes mellitus, type 2) Diabetes mellitus group home insulin use: with group home use Diabetes mellitus complication status: with other specified complication Qualified Code(s): E11.69 - Type 2 diabetes mellitus with other specified complication; Z79.4 - rn long term care (current) use of insulin
[2025-07-04] MEDS: HEPARIN SOD 5,000 UNIT/0.5 ML VIAL SQ SCH (13:28)
[2025-07-04] MEDS: FUROSEMIDE 40 MG/4 ML VIAL IV ONE (13:34)
[2025-07-04] MEDS ORDERED: FUROSEMIDE 40 MG TAB PO ONE (14:00)
--- NOTE | 2025-07-04 16:16 | XCELERA ---
[id number]
--- NOTE | 2025-07-05 06:22 | Electrocardiogram Report ---
Test Reason : Blood Pressure : */* mmHG Vent. Rate : 108 BPM Atrial Rate : 108 BPM P-R Int : 164 ms QRS Dur : 76 ms QT Int : 336 ms P-R-T Axes : 70 -34 72 degrees QTcB Int : 450 ms Sinus tachycardia with occasional Premature ventricular complexes Possible Left atrial enlargement Left axis deviation Nonspecific ST and T wave abnormality Abnormal ECG When compared with ECG of 29-Jun-2025 14:34, No significant change was found Confirmed by Ivan Jenkins ([id number]) on 07/05/2025 6:22:23 AM Referred By: Confirmed By: Ivan Jenkins
[2025-07-05 08:32] LABS: Anion Gap 6.0 (3-11); Blood Urea Nitrogen 23.0 mg/dl (6-23); Calcium 9.4 mg/dl (8.6-10.3); Carbon Dioxide 33.0 mmol/L (21-32); Chloride 97.0 mmol/L (98-107); Creatinine Clr Calc Pharmacy 60.0 ml/min; Glucose 98.0 mg/dl (70-99(Fasting)); Potassium 5.9 mmol/L (3.5-5.1); Sodium 136.0 mmol/L (136-145)
--- NOTE | 2025-07-05 12:15 | Hospitalist Progress Note ---
Date of Service July 05, 2025 Assessment & Plan (1) Chest pain: Plan: Patient is a 54 year old M with a past medical history of NICM (LVEF 20-25% on life vest), Moderate nonobstructive CAD, HTN, HLD, GERD, DM Type II insulin- dependent, TBI presenting with chest pain, dizziness, shortness of breath x 1 day. Symptoms began yesterday morning with dizziness and weakness that progressed to exertional mid-sternal chest pain lasting 1 hour, relieved with rest. #Chest pain , ACS ruled out #Acute on Chronic CHFrEF CP x 1 day w/ nonadherence to HF regimen, severely reduced LV function; currently wearing LifeVest w/ plan for ICD placement in future Chest CT showing cardiomegaly with a trace pericardial effusion, small bilateral pleural effusions, interstitial pulmonary edema Nonadherent to home meds, now w/ volume overload; Given IV Lasix with improvement in shortness of breath. Repeat echocardiogram shows lower EF; EF of less than 15%. Reviewed patient lab work; found to have elevated potassium level to 5.9; will hold off on Entresto. Repeat BMP. His LifeVest's battery is now off; appreciate cardiology assistance regarding it. ?Possiblity of ICD SHIELA Hyperkalemia Creatinine found to be elevated to 1.5 with serum potassium of 5.9 Hold Entresto; give one dose of lokelma Continue Lasix; repeat BMP #Hypertension- hold Entresto, continue metoprolol #DM Type II w/ insulin dependence-on SSI #Dyslipidemia * Continue high-intensity home statin DVT Ppx: heparin Code status: Full PCP: Unknown; [facility] Time spent evaluating patient, direct bedside care, chart review, placing orders, interpretation of diagnostic studies, discussion with consultants, patient, and family members, as well as other required patient management activities is 50 minutes Please note the above document was generated using voice recognition software. It may contain grammatical, syntax or spelling errors. Any formal questions or concerns about the content, text or information contained within the body of this dictation should be directly addressed to the provider for clarification (2) Acute pericardial effusion: (3) Pleural effusion: (4) Chronic heart failure with reduced ejection fraction and diastolic dysfunction: (5) HTN, goal below 130/80: (6) CKD (chronic kidney disease) stage 3, GFR 30-59 ml/min: (7) Dyslipidemia, goal LDL below 70: (8) DM type 2 (diabetes mellitus, type 2): Admission and Anticipated Discharge Date Admission Date: July 03, 2025 Subjective Patient seen and examined at bedside. He is comfortable; not in distress. Reports that he is feeling better compared to previous day. Review of Systems Review of Systems: All systems reviewed & are unremarkable except as noted in Subjective Physical Exam Physical Exam: Constitutional: WD/WN, vitals as above, NAD, sitting up in bed, pleasant, conversing easily Respiratory: clear breath sounds bilaterally Cardiovascular: RRR, no murmur, no edema Vessels: no JVD or carotid bruit Chest: normal inspection of chest Abdomen: normal bowel sounds, soft, nontender, no hepatosplenomegaly Musculoskeletal: no cyanosis or clubbing, extremities motor strength 5/5 Skin: no rashes, warm and dry normal turgor Neurologic: PERRL, EOMI, accommodation nl, no face palsy, no dysarthria CN's II- XI intact bilaterally and moves all extremities Psychiatric: A+Ox3, euthymic affect Results & Data Results & Data Vital Signs (Past 12 Hours) Vital Signs Temp Pulse Pulse Resp BP Pulse Ox O2 Del Method 07/05/25 11:56 36.3 C L 85 19 104/74 96 Room Air 07/05/25 08:12 37.3 C 89 18 118/84 97 Room Air 07/05/25 07:52 75 113/77 07/05/25 06:25 86 07/05/25 03:30 36.2 C L 89 16 116/86 97 Room Air (8) DM type 2 (diabetes mellitus, type 2) 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
[2025-07-05] MEDS: SODIUM ZIRCONIUM CYCLOSILICATE 10 GM PACKET PO SCH (12:49)
--- NOTE | 2025-07-05 16:58 | Cardiology Progress Note ---
Date of Service July 05, 2025 Assessment & Plan (1) Chronic heart failure with reduced ejection fraction and diastolic dysfunction: (2) Nonischemic dilated cardiomyopathy: (3) Acute pericardial effusion: Plan Patient with acute on chronic systolic heart failure in setting of dietary noncompliance and lack of medications, remains chest pain free. ACS ruled out. Troponin not indicative of Type I IA, EKG without acute changes. Chest pain Acute on chronic HFrEF - imp Severe Nonischemic cardiomyopathy on LifeVest Moderate nonobstructive CAD per CATH 2023 HTN T2 DM HLD Hyperkalemia ECHO Interpretation Summary Left ventricular systolic function is severely reduced. Left Ventricular Ejection Fraction = <15%. Diastolic dysfunction, Grade III, consistent with marked congestive heart failure. The right ventricular systolic function is moderately reduced. The right ventricle is mild to moderately dilated. The left atrium is mildly dilated. The right atrium is moderately dilated. There is mild to moderate mitral regurgitation. There is mild tricuspid regurgitation. Entresto stopped by hospitalist due to hyperkalemia LifeVest battery low -> replaced by rep as per patient correct and f/u electrolytes f/u renal function PO diuretics GDMT for HFrEF as tolerated keeping HR between 60 to 100 BPM and systolic BP between 100-140 mmHg avoid hypovolemia keep patient euvolemic DVT prophylaxis keep LE elevated when sitting 1.5 L / 24 hr fluid restriction strict I&Os salt restriction counseling Admission and Anticipated Discharge Date Admission Date: July 03, 2025 Supervising Physician Co-Signing Physician Notes Patient seen and examined. Past medical history, surgical history, social history and family history have been reviewed. The medical record and all the above studies have been reviewed. Case DW JACQUES including management. Chest pain Acute on chronic HFrEF Nonischemic cardiomyopathy -EF 20-24% wearing LifeVest Moderate nonobstructive CAD per CATH 2023 HTN T2 DM HLD LifeVest battery low -> Rep contacted correct and f/u electrolytes f/u renal function change IV to PO diuretics GDMT for HFrEF as tolerated keeping HR between 60 to 100 BPM and systolic BP between 100-140 mmHg adjust anti-HTN meds keeping systolic BP between 100-140 mmHg avoid hypovolemia keep patient euvolemic DVT prophylaxis keep LE elevated when sitting 1.5 L / 24 hr fluid restriction strict I&Os salt restriction counseling Subjective Patient on exam is lying in bed in NAD; no c/o cp, sob, palpitations, dizziness, LOC; feels better; decreased LE swelling Review of Systems Review of Systems: as per hpi Physical Exam Constitutional: WD/WN, vitals as above well developed and well nourished; no acute distress Respiratory: normal respiratory effort, lungs clear to auscultation Cardiovascular: Rate/Rhythm: regular rate and regular rhythm Heart Sounds: normal S1 and normal S2 Vessels: no JVD Extremities: + edema (trace edema) Skin: no rashes, warm and dry Psychiatric: A+Ox3, euthymic affect Results & Data Vital Signs (Past 12 Hours) Vital Signs Temp Pulse Pulse Resp BP Pulse Ox O2 Del Method 07/05/25 16:09 36.4 C L 91 H 18 108/83 97 Room Air 07/05/25 13:11 86 07/05/25 11:56 36.3 C L 85 19 104/74 96 Room Air 07/05/25 08:12 37.3 C 89 18 118/84 97 Room Air 07/05/25 07:52 75 113/77 07/05/25 06:25 86 Laboratory Results Laboratory Results - last 48 hr 07/03/25 07/03/25 07/04/25 20:23 20:57 05:42 WBC 6.29 RBC 5.59 Hgb 15.7 Hct 45.5 MCV 81.4 MCH 28.1 MCHC 34.5 RDW Std Deviation 38.4 RDW Coeff of Kt 13.0 Plt Count 150 MPV 10.6 Sodium 135 L Potassium 4.7 Chloride 103 Carbon Dioxide 26 Anion Gap 6 BUN 20 Creatinine 1.15 Est Cr Clr Drug Dosing 85.6 eGFR 75.63 BUN/Creatinine Ratio 17.4 Glucose 88 POC Glucose 88 Estimat Average Glucose 169 Hemoglobin A1c 7.5 H Calcium 8.5 L Phosphorus 5.1 H Magnesium 1.6 L Troponin I High Sens 13.0 Triglycerides 103 Cholesterol 172 LDL Cholesterol, Calc 115 VLDL Cholesterol, Calc 21 HDL Cholesterol 36 Cholesterol/HDL Ratio 4.8 07/04/25 07/04/25 07/04/25 08:28 12:12 17:07 WBC RBC Hgb Hct MCV MCH MCHC RDW Std Deviation RDW Coeff of Kt Plt Count MPV Sodium Potassium Chloride Carbon Dioxide Anion Gap BUN Creatinine Est Cr Clr Drug Dosing eGFR BUN/Creatinine Ratio Glucose POC Glucose 110 H 169 H 90 Estimat Average Glucose Hemoglobin A1c Calcium Phosphorus Magnesium Troponin I High Sens Triglycerides Cholesterol LDL Cholesterol, Calc VLDL Cholesterol, Calc HDL Cholesterol Cholesterol/HDL Ratio 07/04/25 07/04/25 07/04/25 20:17 20:34 21:22 WBC RBC Hgb Hct MCV MCH MCHC RDW Std Deviation RDW Coeff of Kt Plt Count MPV Sodium Potassium Chloride Carbon Dioxide Anion Gap BUN Creatinine Est Cr Clr Drug Dosing eGFR BUN/Creatinine Ratio Glucose POC Glucose 110 H 78 113 H Estimat Average Glucose Hemoglobin A1c Calcium Phosphorus Magnesium Troponin I High Sens Triglycerides Cholesterol LDL Cholesterol, Calc VLDL Cholesterol, Calc HDL Cholesterol Cholesterol/HDL Ratio 07/05/25 07/05/25 07/05/25 07:34 08:02 12:06 WBC RBC Hgb Hct MCV MCH MCHC RDW Std Deviation RDW Coeff of Kt Plt Count MPV Sodium 136 Potassium 5.9 H D Chloride 97 L Carbon Dioxide 33 H Anion Gap 6 BUN 23 Creatinine 1.50 H D Est Cr Clr Drug Dosing 60.0 eGFR 54.98 BUN/Creatinine Ratio 15.3 Glucose 98 POC Glucose 99 162 H Estimat Average Glucose Hemoglobin A1c Calcium 9.4 Phosphorus Magnesium Troponin I High Sens Triglycerides Cholesterol LDL Cholesterol, Calc VLDL Cholesterol, Calc HDL Cholesterol Cholesterol/HDL Ratio 07/05/25 16:42 WBC RBC Hgb Hct MCV MCH MCHC RDW Std Deviation RDW Coeff of Kt Plt Count MPV Sodium Potassium Chloride Carbon Dioxide Anion Gap BUN Creatinine Est Cr Clr Drug Dosing eGFR BUN/Creatinine Ratio Glucose POC Glucose 107 H Estimat Average Glucose Hemoglobin A1c Calcium Phosphorus Magnesium Troponin I High Sens Triglycerides Cholesterol LDL Cholesterol, Calc VLDL Cholesterol, Calc HDL Cholesterol Cholesterol/HDL Ratio Diagnostic Findings Laboratory Results WBC 6.29 K/ul (4.8-10.8) 07/04/25 05:42 RBC 5.59 M/uL (4.70-6.10) 07/04/25 05:42 Hgb 15.7 g/dl (14.0-18.0) 07/04/25 05:42 Hct 45.5 % (42.0-52.0) 07/04/25 05:42 MCV 81.4 fL (80.0-100.0) 07/04/25 05:42 MCH 28.1 pg (25.0-34.0) 07/04/25 05:42 MCHC 34.5 g/dL (32.0-36.0) 07/04/25 05:42 RDW Std Deviation 38.4 fL (36.4-46.3) 07/04/25 05:42 RDW Coeff of Kt 13.0 % (11.5-14.5) 07/04/25 05:42 Plt Count 150 K/uL (130-400) 07/04/25 05:42 MPV 10.6 fL (9.4-12.4) 07/04/25 05:42 Immature Gran % (Auto) 0.3 % 07/03/25 14:27 Neut % (Auto) 46.6 % 07/03/25 14:27 Lymph % (Auto) 38.8 % 07/03/25 14:27 Cotton % (Auto) 10.1 % 07/03/25 14:27 Eos % (Auto) 3.5 % 07/03/25 14:27 Baso % (Auto) 0.7 % 07/03/25 14:27 Neut # (Auto) 2.77 K/uL (1.40-6.50) 07/03/25 14:27 Lymph # (Auto) 2.31 K/uL (1.20-3.40) 07/03/25 14:27 Cotton # (Auto) 0.60 K/uL (0.11-0.59) H 07/03/25 14:27 Eos # (Auto) 0.21 K/uL (0.00-0.50) 07/03/25 14:27 Baso # (Auto) 0.04 K/uL (0.00-0.20) 07/03/25 14:27 Immature Gran # (Auto) 0.02 K/uL (0.01-0.20) 07/03/25 14:27 PT 11.8 Seconds (9.0-12.0) 07/03/25 14:27 INR 1.1 (0.9-1.1) 07/03/25 14:27 APTT 24 Seconds (21-31) 07/03/25 14:27 PTT Ratio 0.9 07/03/25 14:27 Sodium 136 mmol/L (136-145) 07/05/25 07:34 Potassium 5.9 mmol/L (3.5-5.1) H D 07/05/25 07:34 Chloride 97 mmol/L (98-107) L 07/05/25 07:34 Carbon Dioxide 33 mmol/L (21-32) H 07/05/25 07:34 Anion Gap 6 (3-11) 07/05/25 07:34 BUN 23 mg/dl (6-23) 07/05/25 07:34 Creatinine 1.50 mg/dl (0.6-1.4) H D 07/05/25 07:34 Est Cr Clr Drug Dosing 60.0 ml/min 07/05/25 07:34 eGFR 54.98 07/05/25 07:34 BUN/Creatinine Ratio 15.3 (10-20) 07/05/25 07:34 Glucose 98 mg/dl (70-99(Fasting)) 07/05/25 07:34 POC Glucose 107 mg/dl (70-99) H 07/05/25 16:42 Estimat Average Glucose 169 mg/dl 07/04/25 05:42 Hemoglobin A1c 7.5 % (4.5-5.6) H 07/04/25 05:42 Calcium 9.4 mg/dl (8.6-10.3) 07/05/25 07:34 Phosphorus 5.1 mg/dl (2.5-4.9) H 07/04/25 05:42 Magnesium 1.6 mg/dl (1.7-2.4) L 07/04/25 05:42 Total Bilirubin 0.6 mg/dl (0.2-1.0) 07/03/25 14:27 AST 37 U/L (13-39) 07/03/25 14:27 ALT 43 U/L (7-52) 07/03/25 14:27 Alkaline Phosphatase 78 U/L (34-104) 07/03/25 14:27 Troponin I High Sens 13.0 pg/ml (0-20) 07/03/25 20:57 Total Protein 6.6 gm/dl (6.0-8.3) 07/03/25 14:27 Albumin 3.4 gm/dl (3.4-5.0) 07/03/25 14:27 Globulin 3.2 gm/dl (2.5-4.0) 07/03/25 14:27 Albumin/Globulin Ratio 1.1 (0.9-2) 07/03/25 14:27 Triglycerides 103 mg/dl (0-150) 07/03/25 20:57 Cholesterol 172 mg/dl (0-200) 07/03/25 20:57 LDL Cholesterol, Calc 115 mg/dl 07/03/25 20:57 VLDL Cholesterol, Calc 21 mg/dl (0-30) 07/03/25 20:57 HDL Cholesterol 36 mg/dl 07/03/25 20:57 Cholesterol/HDL Ratio 4.8 (0-5) 07/03/25 20:57 Impressions Chest X-Ray 07/03/25 13:31 XR chest 1V portable CLINICAL HISTORY: Chest pain, nonspecific COMPARISON STUDY: 07/09/2025 FINDINGS: Stable mild cardiomegaly without pulmonary vascular congestion. No consolidation or pleural effusion. No pneumothorax. IMPRESSION: No acute findings. ACT 112: Negative or not required by law. Electronically signed by: Matthew Velasquez M.D. 07/03/2025 2:04 PM Chest CTA 07/03/25 15:09 CT ANGIOGRAM OF THE CHEST CLINICAL HISTORY: Chest pain and tachycardia. Evaluate for pulmonary embolus. COMPARISON STUDY: Chest radiograph May 30, 2025 and chest radiograph performed earlier today. TECHNIQUE: Following the IV administration of 120 cc of Optiray 320, CT angiogram of the chest was performed from the upper abdomen to the thoracic inlet utilizing the pulmonary embolus protocol. Images are reviewed in the axial, sagittal, and coronal planes. 3-D MIPS images are created and assessed. IV contrast was administered without complication. A dose lowering technique was utilized adhering to the principles of ALARA. CT DOSE: 1016.44 mGy.cm FINDINGS: No pulmonary emboli identified although the lower lobe segmental and subsegmental pulmonary arteries are not well assessed due to suboptimal opacification. There is no opacification of the thoracic aorta. The heart is moderately enlarged. There is a trace pericardial effusion. There are small bilateral pleural effusions, right larger than the left. There is no pneumot horax. Central airways are patent. Interlobular septal thickening is present. There are moderate ground glass opacities within the lower lobes. There is a 1.1 cm subpleural nodular opacity within the right lower lobe as well. No suspicious pulmonary nodules are present. A 1.5 cm left upper lobe groundglass opacity is present. IMPRESSION: 1. No pulmonary emboli identified although lower lobe segmental and subsegmental pulmonary arteries not assessed due to suboptimal opacification. 2. Cardiomegaly with a trace pericardial effusion. 3. Small bilateral pleural effusions. Interstitial pulmonary edema. Moderate lower lobe groundglass opacities could represent alveolar pulmonary edema or atelectasis. An infectious process is within the differential but considered less likely. 4. 1.5 cm left upper lobe groundglass opacity. This may represent a mild infectious process or alveolar pulmonary edema. However, a chest CT in 3 months is recommended to exclude the less likely possibility of a pulmonary lesion. ACT 112: Positive. There are findings on this exam that require communication between the performing entity and the patient following Patient Test Result Information Act ([place] Act 112) guidelines. Electronically signed by: Nicolas Love M.D. 07/03/2025 3:59 PM Medications Administered Home Medications Medication Instructions Recorded Confirmed Last Taken aspirin 81 mg tablet,delayed 81 mg PO DAILY 04/17/25 07/03/25 06/04/25 release atorvastatin 80 mg tablet 80 mg PO DAILY 05/11/25 07/03/25 06/04/25 famotidine 20 mg tablet 20 mg PO DAILY 05/11/25 07/03/25 06/04/25 folic acid 1 mg tablet 0 mg PO DAILY 05/11/25 07/03/25 06/04/25 furosemide 40 mg tablet 40 mg PO DAILY 05/11/25 07/03/25 06/04/25 magnesium oxide 420 mg tablet 420 mg PO BID 05/11/25 07/03/25 06/04/25 08:00 metoprolol succinate 50 mg 25 mg PO DAILY 05/11/25 07/03/25 06/04/25 tablet,extended release 24 hr sacubitril 24 mg-valsartan 26 mg 1 tab PO BID 05/11/25 07/03/25 06/04/25 08:00 tablet (Entresto) ibuprofen 800 mg tablet 800 mg PO Q8H PRN severe headache 05/12/25 07/03/25 Unknown #10 tabs insulin glargine 100 unit/mL 30 unit subcut DAILY 06/04/25 07/03/25 Unknown subcutaneous solution cholecalciferol (vitamin D3) 25 2,000 unit PO DAILY 07/03/25 07/03/25 Unknown mcg (1,000 unit) tablet empagliflozin 25 mg tablet 0 mg PO DAILY 07/03/25 07/03/25 Unknown guaifenesin 600 mg tablet, 600 mg PO BID PRN Other 07/03/25 07/03/25 Unknown extended release 12 hr insulin NPH-regular 70-30 U-100 35 unit subcut BID 07/03/25 07/03/25 Unknown insulin 100 unit/mL subcutaneous pen insulin aspart U-100 100 unit/mL 6 unit subcut TID 07/03/25 07/03/25 Unknown (3 mL) subcutaneous pen (Novolog FlexPen U-100 Insulin aspart) omeprazole 20 mg capsule,delayed 20 mg PO BID 07/03/25 07/03/25 Unknown release pantoprazole 40 mg tablet,delayed 0 mg PO BID 07/03/25 07/03/25 Unknown release Active Medications Generic Name Dose Route Start Last Admin Trade Name Freq PRN Reason Stop Dose Admin Acetaminophen 650 mg 07/03/25 20:13 07/05/25 08:54 Acetaminophen 325 Mg Tab PO 08/02/25 20:12 650 mg Q4H PRN Administration Pain or Fever Al Hydrox/Mg Hydrox/Simethicone 15 ml 07/03/25 20:13 07/04/25 09:45 Aluminum/Magnesium Susp 30 Ml Udc PO 08/02/25 20:12 15 ml Q4H PRN Administration Dyspepsia Aspirin 81 mg 07/04/25 09:00 07/05/25 07:43 Aspirin 81 Mg Ectab PO 08/03/25 08:59 81 mg DAILY ERIKA Administration Atorvastatin Calcium 80 mg 07/04/25 09:00 07/05/25 07:45 Atorvastatin 40 Mg Tab PO 08/03/25 08:59 80 mg DAILY ERIKA Administration Famotidine 20 mg 07/04/25 09:00 07/05/25 08:56 Famotidine 20 Mg Tab PO 08/03/25 08:59 20 mg DAILY ERIKA Administration Folic Acid 1 mg 07/04/25 09:00 07/05/25 07:47 Folic Acid 1 Mg Tab PO 08/03/25 08:59 1 mg DAILY ERIKA Administration Furosemide 40 mg 07/04/25 09:00 07/05/25 07:43 Furosemide 40 Mg Tab PO 08/03/25 08:59 40 mg DAILY ERIKA Administration Guaifenesin/Dextromethorphan 5 ml 07/04/25 04:51 07/04/25 13:28 Guaifenesin/Dextrom Syrup 100mg/10mg 5ml Udc PO 08/03/25 04:50 5 ml Q6H PRN Administration Cough Heparin Sodium (Porcine) 5,000 units 07/04/25 14:00 07/05/25 13:52 Heparin Sod 5,000 Unit/0.5 Ml Vial SQ 08/03/25 13:59 5,000 units Q8 ERIKA Administration Insulin Aspart 0 units 07/03/25 21:00 07/05/25 13:48 Insulin Aspart Per Unit Charge SC 08/02/25 20:59 8 units ACHS ERIKA Administration Magnesium Oxide 400 mg 07/03/25 21:00 07/05/25 07:45 Magnesium Oxide 400 Mg Tab PO 08/02/25 20:59 400 mg BID ERIKA Administration Metoprolol Succinate 25 mg 07/04/25 09:00 07/05/25 07:46 Metoprolol Succ 25mg Ext Rel Tab PO 08/03/25 08:59 25 mg DAILY ERIKA Administration Pantoprazole Sodium 40 mg 07/04/25 09:00 07/05/25 07:47 Pantoprazole 40 Mg Tab PO 08/03/25 08:59 40 mg DAILY ERIKA Administration Sacubitril/Valsartan 1 tab 07/03/25 21:00 07/05/25 07:46 Valsartan/Sacubitril 26/24mg Tab PO 08/02/25 20:59 1 tab BID ERIKA Administration Sodium Zirconium Cyclosilicate 10 gm 07/05/25 12:20 07/05/25 12:49 Sodium Zirconium Cyclosilicate 10 Gm Packet PO 08/04/25 12:19 10 gm DAILY@1100 ERIKA Administration Vitamin D 50 mcg 07/04/25 09:00 07/05/25 07:44 Cholecalciferol 25 Mcg (1000 Units) Tab PO 08/03/25 08:59 50 mcg DAILY ERIKA Administration PG Care Time/CCT Total # of Minutes Spent Total Time Spent with Patient: Total time spent is greater than 50% in coordination of care (as documented) at patient's floor/unit and/or counseling patient: Coding Level of Care Code 08616 SUB INP/OBS CARE 3/50MIN Diagnoses Chronic heart failure with reduced ejection fraction and diastolic dysfunction I50.42 Nonischemic dilated cardiomyopathy I42.0 Acute pericardial effusion I30.9
[2025-07-05 17:46] LABS: Anion Gap 5.0 (3-11); Blood Urea Nitrogen 22.0 mg/dl (6-23); Calcium 9.4 mg/dl (8.6-10.3); Carbon Dioxide 32.0 mmol/L (21-32); Chloride 100.0 mmol/L (98-107); Creatinine Clr Calc Pharmacy 62.9 ml/min; Glucose 76.0 mg/dl (70-99(Fasting)); Potassium 4.6 mmol/L (3.5-5.1); Sodium 137.0 mmol/L (136-145)
[2025-07-06 07:36] LABS: Anion Gap 4.0 (3-11); Blood Urea Nitrogen 21.0 mg/dl (6-23); Calcium 9.2 mg/dl (8.6-10.3); Carbon Dioxide 35.0 mmol/L (21-32); Chloride 100.0 mmol/L (98-107); Creatinine Clr Calc Pharmacy 55.5 ml/min; Glucose 180.0 mg/dl (70-99(Fasting)); Potassium 4.7 mmol/L (3.5-5.1); Sodium 139.0 mmol/L (136-145)
[2025-07-06 07:45] VITALS: TEMP 97.5
[2025-07-06 10:02] VITALS: BP 120/88; RESP 16; O2SAT 96
--- NOTE | 2025-07-06 10:26 | Discharge Summary ---
Date of Service July 06, 2025 Admission HPI Per Admitting Provider Patient is a 54 year old M with a past medical history of NICM (LVEF 20-25% on life vest), Moderate nonobstructive CAD, HTN, HLD, GERD, DM Type II insulin- dependent, TBI presenting with chest pain, dizziness, shortness of breath x 1 day. Symptoms began yesterday morning with dizziness and weakness that progressed to exertional mid-sternal chest pain lasting 1 hour, relieved with rest. Reports "elephant sitting on chest". Reports he has not taken his metoprolol for several days d/t issues with home med delivery. Also has not taking home furosemide dose today. States he was sent here from [place] clinic for suspected high potassium level and is unaware of lab value. He has a history of hyperkalemia when taking spironolactone, but this has since been discontinued and he is now managed with furosemide. Labs unremarkable on admission. Multiple ED visits in the past 2 months. Denies fever, chills, weight loss, headache, cognitive changes, vision/hearing changes,swelling, urinary concerns, N/V/D, joint swelling/pain, ambulation difficulty, skin rashes, lesions, bleeding, bruising. In the emergency department, patient was tachycardic to 108 and hypertensive 131/108 with no signs of infection or evidence of sepsis. Lab workup was unremarkable with no evidence of leukocytosis, anemia, SHIELA,electrolyte abnormality. Potassium normal at 4.7. Troponin stable at 11.1. EKG in the ED showing sinus tachycardia with pvc, vent rate 108, QTc 450. Chest Xray showed no acute findings, stable cardiomegaly with pulmonary vasc congestion. Chest CTA with trace pericardial effusions, interstitial pulmonary edema, lower lobe ground-glass opacities representing alveolar pulmonary edema or atelectasis. No evidence of PE on imaging. Patient was initially stable on room air and then developed shortness of breath without hypoxia. Supplemental oxygen was applied and was reportedly more comfortable with about 1/4 LPM oxygen. Persistent chest pain, 04/02, despite normal troponin. As per external chart review, patient was seen by Cardiology on 04/16/25 for hospital follow-up and to establish care. As per visit record, ICD implant was discussed and EP referral was placed; however, patient was a no-show to EP appointment. At that time, patient wanted to continue LifeVest until able to have planned cholecystectomy procedure. Recent lap cholecystectomy and hernia repair in [place] on 05/02/25. Follow-up appointment with [facility] scheduled for 07/20/25. History obtained primarily from the patient and via hospitalization record. External chart review obtained from [facility]. Admission Exam Per Admitting Provider VITALS: Reviewed. WEIGHT/BMI reviewed. GEN: Healthy appearing, well-developed, PSYCH: AOx3. Cooperative. Even mood. Anxious HEENT -Head: NC/AT; -Eyes: PERRL, EOMI. No discharge or redness; -Ears: External ears are normal. -Nose: Normal nares. -Mouth and throat: MMM. Normal gums, mucosa, palate,. Good dentition. NECK: Supple, with no masses. CV: Rhythm regular, S1, S2 without appreciable murmur, no peripheral swelling, LifeVest intact LUNGS: Diminished effort, clear, not SOB, wearing supplemental O2 1/4 LPM w/ sats 97%, NAD ABD: Soft, NT/ND, NBS, no masses or organomegaly. : N/A SKIN: Warm, well perfused. No skin rashes or abnormal lesions. MSK: No deformities, Normal gait. EXT: No clubbing, cyanosis, or edema. NEURO: CN II-XII grossly intact. No focal deficits. Principal Diagnosis #Chest pain , ACS ruled out #Acute on Chronic CHFrEF Discharge Exam Constitutional: WD/WN, vitals as above, NAD, sitting up in bed, pleasant, conversing easily Respiratory: clear breath sounds bilaterally Cardiovascular: RRR, no murmur, no edema Vessels: no JVD or carotid bruit Chest: normal inspection of chest Abdomen: normal bowel sounds, soft, nontender, no hepatosplenomegaly Musculoskeletal: no cyanosis or clubbing, extremities motor strength 5/5 Skin: no rashes, warm and dry normal turgor Neurologic: PERRL, EOMI, accommodation nl, no face palsy, no dysarthria CN's II- XI intact bilaterally and moves all extremities Psychiatric: A+Ox3, euthymic affect Discharge Data Allergies Allergy/AdvReac Type Severity Reaction Status Date / Time lidocaine AdvReac Intermediate "KNOCKED Verified 06/04/25 19:55 ME OUT". Consultations 07/03/25 16:39 ED Decision to Admit Stat 07/04/25 08:00 Consult Cardiology Routine Ordered Studies 07/03/25 15:09 CT for pulmonary embolism PE [CT angio chest PE protocol] Stat Hospital Course (1) Chest pain: Patient is a 54 year old M with a past medical history of NICM (LVEF 20-25% on life vest), Moderate nonobstructive CAD, HTN, HLD, GERD, DM Type II insulin- dependent, TBI presenting with chest pain, dizziness, shortness of breath x 1 day. Symptoms began yesterday morning with dizziness and weakness that progressed to exertional mid-sternal chest pain lasting 1 hour, relieved with rest. #Chest pain , ACS ruled out #Acute on Chronic CHFrEF CP x 1 day w/ nonadherence to HF regimen, severely reduced LV function; currently wearing LifeVest w/ plan for ICD placement in future Chest CT showing cardiomegaly with a trace pericardial effusion, small bilateral pleural effusions, interstitial pulmonary edema Nonadherent to home meds, now w/ volume overload; During the hospitalization, Patient was given IV Lasix with improvement in shortness of breath. Repeat echocardiogram shows lower EF; EF of less than 15%. Patient's battery was changed during the hospitalization of his LifeVest. Patient reported significant improvement at the time of the discharge and he was discharged home with instructions to follow-up with his primary care doctor. Please note the above document was generated using voice recognition software. It may contain grammatical, syntax or spelling errors. Any formal questions or concerns about the content, text or information contained within the body of this dictation should be directly addressed to the provider for clarification (2) Pleural effusion: (3) Chronic heart failure with reduced ejection fraction and diastolic dysfunction: (4) HTN, goal below 130/80: (5) CKD (chronic kidney disease) stage 3, GFR 30-59 ml/min: (6) Dyslipidemia, goal LDL below 70: (7) DM type 2 (diabetes mellitus, type 2): Total Time Total Time Spent Total Time Spent (In Minutes): 45 Total Time Includes: Examination of the Patient, Discharge Planning, Medication Reconciliation, Communication With Other Providers and Other Discharge Plan Discharge Items Patient Disposition: Home - Self-Care Reason For Visit: CHEST PAIN Discharge Diagnosis: #Chest pain , ACS ruled out #Acute on Chronic CHFrEF Condition on Discharge: Fair Activity: Resume your previous activity Non-emergency contact: Primary Care Provider Call non-emergency contact if: you have any medication questions and your symptoms worsen Follow-up/Referrals: ROSA, UNKNOWN [Other] Diet: Regular Addtl Attending Provider Instructions: You were admitted to the hospital with chest pain. Please continue to take your meds as schedule. Prescription for Lasix has been sent to your pharmacy. Please follow-up with your primary care doctor sometime next week. Please discuss regarding living will and healthcare power of workers compensation defense attorney as we have discussed. Pending Studies at Discharge: No Stand-Alone Forms: My [facility]-ID, Smoking Cessation Medications and DC Order Prescriptions: Continued aspirin 81 mg Tablet,Delayed Release (Dr/Ec) 81 mg PO DAILY atorvastatin 80 mg Tablet 80 mg PO DAILY magnesium oxide 420 mg Tablet 420 mg PO BID metoprolol succinate 50 mg Tablet Extended Release 24 Hr 25 mg PO DAILY famotidine 20 mg tablet 20 mg PO DAILY folic acid 1 mg Tablet 0 mg PO DAILY Patient Comments: per [place] list, last released by them 07/24/24 90 day supply; script now sacubitril-valsartan [Entresto] 24-26 mg Tablet 1 tab PO BID insulin glargine 100 unit/mL Solution 30 unit SUBCUT DAILY Rx Instructions: PER PT "DID NOT START TAKING YET, BSG'S LOW" insulin aspart U-100 [Novolog FlexPen U-100 Insulin] 100 unit/mL (3 mL) Insulin Pen 6 unit SUBCUT TID cholecalciferol (vitamin D3) 25 mcg (1,000 unit) Tablet 2,000 unit PO DAILY guaifenesin 600 mg Tablet Extended Release 12hr 600 mg PO BID PRN (Reason: Other) empagliflozin 25 mg Tablet 0 mg PO DAILY Patient Comments: [facility]. No recent fill dates. pantoprazole 40 mg tablet,delayed release (DR/EC) 0 mg PO BID Patient Comments: [facility] furosemide 40 mg tablet 40 mg PO DAILY Qty: 30 0RF Discontinued ibuprofen 800 mg tablet 800 mg PO Q8H PRN (Reason: severe headache) Qty: 10 0RF Patient Comments: per [place] list, script 06/11/25 omeprazole 20 mg Capsule,Delayed Release(Dr/Ec) 20 mg PO BID Humulin 70/30 Insulin Pen 100 unit/mL (70-30) Insulin Pen 35 unit SUBCUT BID Discharge Orders: Discharge Order (Routine); Ordered 07/06/25 Ordered By: Huber Sharma Admission Data Admit Date/Time: 07/05/25 17:21 Attending Provider: Huber Sharma Admit Provider: Guilherme Roland Primary Care Provider: DAVID LEE Other Providers: Guilherme Roland; Antoine Carl; [facility]
--- NOTE | 2025-07-06 10:43 | Cardiology Progress Note ---
Date of Service July 06, 2025 Assessment & Plan (1) Chronic heart failure with reduced ejection fraction and diastolic dysfunction: (2) Nonischemic dilated cardiomyopathy: Plan Patient is a 54 year old male with acute on chronic systolic heart failure in setting of dietary noncompliance and lack of medications, remains chest pain free. ACS ruled out. Troponin not indicative of Type I MS, EKG without acute changes. Chest pain Acute on chronic HFrEF - imp Severe Nonischemic cardiomyopathy on LifeVest Moderate nonobstructive CAD per CATH 2023 HTN T2 DM HLD Hyperkalemia non compliance Abnormal chest CT - Left upper lobe opacity - repeat CT scan recommended in 3 months Recommendations: Continue to hold Entresto given renal insufficiency and hyperkalemia. Low potassium diet encouraged. Nurse to provide educational handouts. Volume status improved with resumption of oral furosemide 40 mg daily. Good outputs and weight down. Continue ASA, statin continue metoprolol Currently BP well controlled without Entresto. Will monitor potassium and consider retrial of low dose as outpatient It is unclear if he was taking his furosemide and/or Entresto as an outpatient. Continue LifeVest. Battery replaced by rep. We discussed future AICD implant but he needs to be compliant with meds and outpatient appointments. Daily weights with standing scale Improved cardiac symptoms. Appears euvolemic. Continue current meds with the exception of entresto - continue to hold. Stable for discharge today from cardiac perspective. Will arrange cardio f/u in 2-4 weeks at [facility]. At that time, we can arrange EP evaluation if he remains compliant Should also f[facility] or [facility] about [facility] and repeat imaging in 3 months Case discussed with Dr. Vo I spent a total of 35 minutes on the date of service in preparation, delivery, and documentation of the care provided to this patient, excluding any time spent in the performance of separately billed services. Karely Castro PA-C Department of Cardiology, [facility] This chart was completed in part utilizing Speech Voice Recognition Software. Grammatical errors, random word insertions, pronoun errors, and incomplete sentences are an occasional consequence of this system due to software limitations, ambient noise, and hardware issues. Any formal questions or concerns about the content, text, or information contained within the body of this dictation should be directly addressed to the provider for clarification. Admission and Anticipated Discharge Date Admission Date: July 05, 2025 Supervising Physician Co-Signing Physician Notes Patient seen and examined, chart, medications, telemetry reviewed. Full assessment and plan as outlined by advanced provider as above. Care management discussed and personally endorsed 54-year-old male with nonischemic cardiomyopathy referred for hospitalization predominantly due to laboratory abnormalities with hyperkalemia but with signs and symptoms of mild decompensated heart failure. Patient has responded to medical therapies. Entresto held due to hyperkalemia Will need cautious ongoing management of chronic heart failure as above. Patient follows with [facility]. May need to transition to [facility] [place], [facility] given difficulties with travel and compliance Once again discussed AICD implantation and patient now agreeable. Arrangements to be made post hospital discharge Subjective Patient feeling well this morning. Hoping to go home. SOB resolved. Atypical chest pain resolved. Edema resolved. Potassium improved this morning. He voices no complaints. reports he will be compliant with medications and future office visits. Review of Systems Review of Systems: All systems reviewed & are unremarkable except as noted in HPI & below Physical Exam Constitutional: WD/WN, vitals as above well developed and well nourished; no acute distress Respiratory: normal respiratory effort, lungs clear to auscultation Cardiovascular: Rate/Rhythm: regular rate and regular rhythm Heart Sounds: normal S1 and normal S2 Vessels: no JVD Extremities: no edema Skin: no rashes, warm and dry Psychiatric: A+Ox3, euthymic affect Results & Data Vital Signs (Past 12 Hours) Vital Signs Temp Pulse Resp BP Pulse Ox O2 Del Method 07/06/25 09:46 99 H 16 120/88 96 Room Air 07/06/25 07:44 36.4 C L 93 H 106/72 95 Room Air 07/06/25 03:08 36.3 C L 94 H 18 106/73 97 Room Air 07/05/25 23:00 36.4 C L 87 18 111/78 97 Room Air Laboratory Results Comprehensive Metabolic Panel 07/05/25 07/06/25 Range/Units 17:10 06:56 Sodium 137 139 (136-145) mmol/L Potassium 4.6 D 4.7 (3.5-5.1) mmol/L Chloride 100 100 (98-107) mmol/L Carbon Dioxide 32 35 H (21-32) mmol/L BUN 22 21 (6-23) mg/dl Creatinine 1.43 H 1.62 H (0.6-1.4) mg/dl Glucose 76 180 H (70-99(Fasting)) mg/dl Calcium 9.4 9.2 (8.6-10.3) mg/dl Intake and Output 07/05/25 07/06/25 07/06/25 22:59 06:59 14:59 Intake Total 340 / 460 120 / 460 Output Total 400 / 1500 300 / 1500 Balance -60 / -1040 -180 / -1040 Intake: Oral 340 / 460 120 / 460 Output: Urine 400 / 1500 300 / 1500 Other: Weight 88.8 kg Weight Measurement Method Built in [facility] Diagnostic Findings Telemetry reviewed: NSR in the s. Occ PVC. No arrhythmias. 07/04/25 ECHO Interpretation Summary Left ventricular systolic function is severely reduced. Left Ventricular Ejection Fraction = <15%. Diastolic dysfunction, Grade III, consistent with marked congestive heart failure. The right ventricular systolic function is moderately reduced. The right ventricle is mild to moderately dilated. The left atrium is mildly dilated. The right atrium is moderately dilated. There is mild to moderate mitral regurgitation. There is mild tricuspid regurgitation. Medications Administered Current Inpatient Medications Acetaminophen (Acetaminophen 325 Mg Tab) 650 mg PO Q4H PRN PRN Reason: Pain or Fever Stop: 08/02/25 20:12 Last Admin: 07/06/25 06:07 Dose: 650 mg Al Hydrox/Mg Hydrox/Simethicone (Aluminum/Magnesium Susp 30 Ml Udc) 15 ml PO Q4H PRN PRN Reason: Dyspepsia Stop: 08/02/25 20:12 Last Admin: 07/04/25 09:45 Dose: 15 ml Aspirin (Aspirin 81 Mg Ectab) 81 mg PO DAILY [facility] Stop: 08/03/25 08:59 Last Admin: 07/06/25 09:47 Dose: 81 mg Atorvastatin Calcium (Atorvastatin 40 Mg Tab) 80 mg PO DAILY [facility] Stop: 08/03/25 08:59 Last Admin: 07/06/25 09:46 Dose: 80 mg Dextrose (Dextrose 50% 50 Ml Syringe) 25 - 50 ml IV UD PRN; Protocol PRN Reason: Hypoglycemia Protocol Stop: 08/02/25 20:12 Famotidine (Famotidine 20 Mg Tab) 20 mg PO DAILY [facility] Stop: 08/03/25 08:59 Last Admin: 07/06/25 09:47 Dose: 20 mg Folic Acid (Folic Acid 1 Mg Tab) 1 mg PO DAILY [facility] Stop: 08/03/25 08:59 Last Admin: 07/06/25 09:48 Dose: 1 mg Furosemide (Furosemide 40 Mg Tab) 40 mg PO DAILY [facility]KA Stop: 08/03/25 08:59 Last Admin: 07/06/25 09:47 Dose: 40 mg Glucagon (Glucagon For Inj 1 Mg Vial) 1 mg SQ UD PRN; Protocol PRN Reason: Hypoglycemia Protocol Stop: 08/02/25 20:12 Glucose (Glucose 40% Gel 15 Gm Tube) 15 - 30 gm PO UD PRN; Protocol PRN Reason: Hypoglycemia Protocol Stop: 08/02/25 20:12 Glucose (Glucose 10 Tab/Tube) 4 - 8 tab PO UD PRN; Protocol PRN Reason: Hypoglycemia Protocol Stop: 08/02/25 20:12 Guaifenesin/Dextromethorphan (Guaifenesin/Dextrom Syrup 100mg/10mg 5ml Udc) 5 ml PO Q6H PRN PRN Reason: Cough Stop: 08/03/25 04:50 Last Admin: 07/04/25 13:28 Dose: 5 ml Heparin Sodium (Porcine) (Heparin Sod 5,000 Unit/0.5 Ml Vial) 5,000 units SQ Q8 [facility]RIKA Stop: 08/03/25 13:59 Last Admin: 07/06/25 06:07 Dose: 5,000 units Insulin Aspart (Insulin Aspart Per Unit Charge) 0 units SC ACHS [facility]RIKA Stop: 08/02/25 20:59 Last Admin: 07/06/25 10:06 Dose: 6 units Insulin Glargine (Lantus Per Unit Charge) 30 units SQ HS [facility]RIKA Stop: 08/02/25 20:59 Magnesium Hydroxide (Magnesium Hydroxide Susp 30 Ml Udc) 30 ml PO Q12H PRN PRN Reason: Constipation Stop: 08/02/25 20:12 Magnesium Oxide (Magnesium Oxide 400 Mg Tab) 400 mg PO BID [facility]RIKA Stop: 08/02/25 20:59 Last Admin: 07/06/25 09:47 Dose: 400 mg Metoprolol Succinate (Metoprolol Succ 25mg Ext Rel Tab) 25 mg PO DAILY [facility] Stop: 08/03/25 08:59 Last Admin: 07/06/25 09:49 Dose: 25 mg Miscellaneous (Carbohydrates For Hypoglycemia ) 15 - 30 gm PO UD PRN PRN Reason: Hypoglycemia Protocol Stop: 08/02/25 20:12 Ondansetron HCl (Ondansetron Inj 2 Mg/Ml 2 Ml Vial) 4 mg IV Q6H PRN PRN Reason: Nausea Stop: 08/02/25 20:12 Pantoprazole Sodium (Pantoprazole 40 Mg Tab) 40 mg PO DAILY [facility]RIKA Stop: 08/03/25 08:59 Last Admin: 07/06/25 09:48 Dose: 40 mg Polyethylene Glycol (Polyethylene (Miralax) 17 Gm Pack) 17 gm PO DAILY PRN PRN Reason: Constipation Stop: 08/02/25 20:12 Sacubitril/Valsartan (Valsartan/Sacubitril 26/24mg Tab) 1 tab PO BID [facility]RIKA Stop: 08/02/25 20:59 Last Admin: 07/05/25 07:46 Dose: 1 tab Vitamin D (Cholecalciferol 25 Mcg (1000 Units) Tab) 50 mcg PO DAILY [facility]RI[facility] Stop: 08/03/25 08:59 Last Admin: 07/06/25 09:46 Dose: 50 mcg PG Care Time/CCT Total # of Minutes Spent Total Time Spent with Patient: Total time spent is greater than 50% in coordination of care (as documented) at patient's floor/unit and/or counseling patient: 35 Coding Level of Care Code 15665 SUB INP/OBS CARE 3/50MIN Diagnoses Chronic heart failure with reduced ejection fraction and diastolic dysfunction I50.42 Nonischemic dilated cardiomyopathy I42.0
[2025-07-06 11:56] VITALS: PULSE 98
== END 2025-07-06 13:47 | disposition home or self-care (01) | DRG 291 ==
LOC: 2N 13:21 → ED 13:21 → SUATTDRO 17:23 → 2N 20:00